=== PATIENT | male | born 1935 | race Caucasian/White ===

== ENCOUNTER 2016-06-18 00:01 | Outpatient (RCR) ==
[2016-05-23 11:10] VITALS: BMI 32.0
[2016-07-18 10:53] VITALS: BP 148/62
== END 2016-07-18 ==
LOC: CAR.REHAB 00:01
PROVIDERS: ATTEND Emergency Medicine
DX: I25.10 Atherosclerotic heart disease of native coronary artery without angina pectoris (principal); Z95.5 Presence of coronary angioplasty implant and graft
CPT/HCPCS: 93797

== ENCOUNTER 2016-07-19 07:33 | Outpatient (RCR) ==
[2016-05-23 11:10] VITALS: BMI 32.0
[2016-08-15 14:21] VITALS: BP 152/60
== END 2016-08-15 ==
LOC: CAR.REHAB 07:33
PROVIDERS: ATTEND Internal Medicine
DX: I25.10 Atherosclerotic heart disease of native coronary artery without angina pectoris (principal); Z95.5 Presence of coronary angioplasty implant and graft
CPT/HCPCS: 93797

== ENCOUNTER 2016-08-16 09:28 | Outpatient (RCR) ==
[2016-05-23 11:10] VITALS: BMI 32.0
[2016-09-14 10:55] VITALS: BP 144/54
== END 2016-09-15 ==
LOC: CAR.REHAB 09:28
PROVIDERS: ATTEND Internal Medicine
DX: I25.10 Atherosclerotic heart disease of native coronary artery without angina pectoris (principal); Z95.5 Presence of coronary angioplasty implant and graft
CPT/HCPCS: 93797

== ENCOUNTER 2016-09-16 07:00 | Outpatient (RCR) ==
[2016-05-23 11:10] VITALS: BMI 32.0
[2016-10-12 10:47] VITALS: BP 134/64
== END 2016-10-15 ==
LOC: CAR.REHAB 07:00
PROVIDERS: ATTEND Internal Medicine
DX: I25.10 Atherosclerotic heart disease of native coronary artery without angina pectoris (principal); Z95.5 Presence of coronary angioplasty implant and graft
CPT/HCPCS: 93797

== ENCOUNTER 2017-07-24 21:38 | Emergency (ER) | payer OTHER ==
[2017-07-24 21:54] VITALS: BP 186/88; TEMP 97.6; BMI 31.1
--- NOTE | 2017-07-24 22:37 | ED.PDOC ---
General ED Provider: Dr. LYLE DONOVAN Chief Complaint: Fall Stated Complaint: slipped on the porch and fell, injured back of the head and neck,. was not able to talk some time, and had some memory problem for some time, and now gradually getting better,. he is AAOx 3 . c/o pain back of the head and neck, left scapula. walking with cane. Time Seen by Physician: 22:35 Mode of Arrival: Walk-In Information Source: Patient, Family Primary Care Provider: ABY SLAUGHTER Nursing and Triage Documentation Reviewed and Agree: Yes Reviewed sepsis parameters & appropriate labs ordered?: No System Inflammatory Response Syndrome: Not Applicable Sepsis Protocol: For patient's 13 years and over: Temp is 96.8 and below OR 101 and greater Pulse >90 BPM Resp >20/minute Acutely Altered Mental Status Are patient's symptoms suggestive of a new infection, such as: -Pneumonia -Skin, Soft Tissue -Endocarditis -UTI -Bone, Joint Infection -Implantable Device -Acute Abdominal Infection -Wound Infection -Meningitis -Blood Stream Catheter Infection -Unknown Trauma/Injury Complaint Exam - Head Injury Complaint/Exam Location of Pain: Reports: Scalp Mechanism of Injury: Reports: Trauma Symptoms Are: Still present Initial Severity: Mild Current Severity: Mild Character: Reports: Dull Aggravating: Reports: None Alleviating: Reports: None Associated Signs and Symptoms: Reports: Confusion, Memory loss, Neck pain. Denies: Seizure, Epistaxis, Dental malocclusion, Nausea, Vomiting Loss of Consciousness: None SDH Risk Factors: Present: None Cervical Spine Injury Risk Factors: Present: None Related Surgical History: Reports: None Immobilization Removed Post Exam: No Head Injury Findings: Present: Normal findings Focal Weakness: Present: None Focal Sensory Loss: Present: None Gait: Normal Gag Reflex Present: Yes Finger to Nose: Normal Rhomberg Test Positive: No Babinski Sign: Negative Right, Negative Left Differential Diagnoses: Intracranial Bleed, Sprain, Trauma Review of Systems - Review Of Systems Constitutional: Reports: No symptoms Eyes: Reports: No symptoms Ears, Nose, Mouth, Throat: Reports: No symptoms Respiratory: Reports: No symptoms Cardiac: Reports: No symptoms GI: Reports: No symptoms : Reports: No symptoms Musculoskeletal: Reports: Joint pain Skin: Reports: No symptoms Neurological: Reports: Headache Endocrine: Reports: No symptoms Hematologic/Lymphatic: Reports: No symptoms All Other Systems: Reviewed and Negative Past Medical History - Past Medical History Previously Healthy: Yes Endocrine: Reports: DM 2, Dyslipidemia Cardiovascular: Reports: CAD, Hypertension, CHF Respiratory: Reports: None Hematological: Reports: None Gastrointestinal: Reports: None Genitourinary: Reports: None Neuro/Psych: Reports: Depression Musculoskeletal: Reports: Back Pain, Joint Pain Cancer: Reports: None - Surgical History General Surgical History: Reports: CABG - Family History Family History: Reports: None - Social History Smoking Status: Never smoker Hx Substance Use: No Alcohol Screening: None - Immunizations Tetanus Shot up to Date: Yes Physical Exam - Physical Exam Appearance: Well-appearing, No pain distress, Well-nourished Eyes: TJ, EOMI, Conjunctiva clear ENT: Ears normal, Nose normal, Oropharynx normal Respiratory: Airway patent, Breath sounds clear, Breath sounds equal, Respirations nonlabored Cardiovascular: RRR, Pulses normal, No rub, No murmur GI/: Soft, Nontender, No masses, Bowel sounds normal, No Organomegaly Musculoskeletal: Normal strength, ROM intact, No edema, No calf tenderness Skin: Warm, Dry, Normal color Neurological: Sensation intact, Motor intact, Reflexes intact, Cranial nerves intact, Alert, Oriented Psychiatric: Affect appropriate, Mood appropriate Interpretation - Radiology Interpretation Radiology Interpretation By: Radiologist Radiology Results: Positive Exam Interpreted: CT Scan Re-Evaluation - Re-Evaluation Time of Re-Evaluation: 23:05 (dizziness with walking) Status: Unchanged Critical Care Note - Critical Care Note Total Time (mins): 15 Course - Course Hematology/Chemistry: 07/24/17 22:35 07/24/17 22:35 Orders, Labs, Meds: Lab Review 07/24/17 07/24/17 22:35 22:35 WBC 17.95 H RBC 4.80 Hgb 14.2 Hct 40.9 L MCV 85.2 MCH 29.6 MCHC 34.7 RDW Coeff of Michele 13.0 Plt Count 215 Immature Gran % (Auto) 0.7 Neut % (Auto) 61.2 Lymph % (Auto) 28.2 [place] % (Auto) 8.8 Eos % (Auto) 0.8 Baso % (Auto) 0.3 Immature Gran # (Auto) 0.1 Neut # 11.0 H Lymph # 5.1 H [place] # 1.6 Eos # 0.2 Baso # 0.1 Sodium 138 Potassium 4.5 Chloride 101 Carbon Dioxide 29 Anion Gap 12.5 BUN 19 H Creatinine 1.25 H Estimated GFR (MDRD) 55.00 BUN/Creatinine Ratio 15.20 Glucose 371 H Calcium 9.7 Total Bilirubin 0.7 AST 20 ALT 26 Alkaline Phosphatase 96 Total Creatine Kinase 57 Troponin I 0.0220 Total Protein 7.6 Albumin 3.7 Globulin 3.9 Albumin/Globulin Ratio 0.95 Digoxin < 0.30 L Orders Category Date Time Status EKG-(ED ONLY) Stat CARDIO 07/24/17 22:59 Ordered IV [ED IV/MEDIPORT/POWERPORT] .ONCE EMERGENCY 07/24/17 23:38 Active CBC W/ AUTO DIFF Stat LAB 07/24/17 22:35 Completed COMPREHENSIVE METABOLIC PANEL Stat LAB 07/24/17 22:35 Completed CREATINE KINASE Stat LAB 07/24/17 22:35 Completed DIGOXIN Stat LAB 07/24/17 22:35 Completed TROPONIN I Stat LAB 07/24/17 22:35 Completed 0.9 % Sodium Chloride [Saline Flush] MEDS 07/24/17 23:38 Ordered 1 syr IVF PRN PRN CT CERVICAL SPINE W/O CONTRAST Stat RADS 07/24/17 21:[address] HEAD W/O CONTRAST Stat RADS 07/24/17 21:59 Completed SCAPULA, LEFT Stat RADS 07/24/17 21:59 Completed Medications Generic Name Dose Route Start Last Admin Trade Name Freq PRN Reason Stop Dose Admin Sodium Chloride 1 syr 07/24/17 23:38 Saline Flush IVF PRN PRN To flush IV Vital Signs: Temp Pulse Resp BP Pulse Ox 07/24/17 21:39 97.6 F 67 20 186/88 H 95 Departure - Departure Time of Disposition: 22:39 Disposition: PLACED OBSERVATION Discharge Problem: Subdural hematoma Head injury Qualifiers: Encounter type: initial encounter Qualified Code(s): S09.90XA - Unspecified injury of head, initial encounter Discharge Problem: (Ruled Out): Concussion Instructions: Concussion (ED), Subdural Hematoma (ED) Condition: Stable Pt referred to PMD for follow-up: No IPMP verified?: No Additional Instructions: Dr Umanzor, admit to ICU at [facility]. Allergies/Adverse Reactions: Allergies No Known Allergies Allergy (Verified 07/24/17 21:53) Home Medications: Ambulatory Orders Digoxin 125 mcg PO DAILY 08/20/13 Ferrous Sulfate 325 mg PO BID 08/20/13 Gabapentin 300 mg PO QAM 08/21/13 Gabapentin 600 mg PO BEDTIME 08/21/13 Metoprolol Tartrate [Lopressor] 25 mg PO BID 08/23/13 Omeprazole [Prilosec] 20 mg PO QDAC 01/13/14 Clopidogrel Bisulfate [Plavix] 75 mg PO EVERY OTHER DAY 07/24/17 Finasteride [Proscar] 5 mg PO DAILY 07/24/17 Insulin Detemir [Levemir] 70 unit SUBCUT BEDTIME 07/24/17 Lovastatin [Mevacor] 20 mg PO BEDTIME 07/24/17 Lovastatin [Mevacor] 40 mg PO DAILY 07/24/17 Multivitamin [Multi-Vitamin Daily] 1 each PO DAILY 07/24/17 Sitagliptin Phos/Metformin HCl [Janumet 50-1,000 mg Tablet] 1 each PO BID Tamsulosin HCl [Flomax] 0.4 mg PO DAILY 07/24/17 Disposition Discussed With: Patient, Family
--- NOTE | 2017-07-24 22:45 | CT ---
EXAM: CT head without contrast 07/24/2017. Sagittal and coronal reformatted images obtained HISTORY: Fall. Injury COMPARISON: 12/23/2007 FINDINGS: There is a midline falx subdural hematoma which measures up to 5 mm thickness. This extend s inferiorly along the left aspect of the tentorium. The midline is maintained. There is no hydroce phalus. Generalized atrophy. Chronic small vessel ischemic changes. No cerebellar tonsillar ectopi a. Evaluation of the calvarium shows no fracture. The mastoid air cells are normally pneumatized. IMPRESSION: 1. Acute subdural hematoma along the midline falx. This extends inferiorly along the left aspect of the tentorium. This measures up to 5 mm thickness. Critical FINDINGS: I personally discussed these findings with Kyle, emergency department, 018, 10:40 p.m.
--- NOTE | 2017-07-24 22:48 | DI ---
EXAM: Left scapula, three views, 07/24/2017 HISTORY: Fall and injury COMPARISON: None. FINDINGS / IMPRESSION: The visualized osseous structures appear intact. Anatomic alignment appears within normal limits. There is no evidence of fracture or dislocation. No acute osseous abnormality.
--- NOTE | 2017-07-24 22:50 | CT ---
EXAM: CT cervical spine without intravenous contrast 07/24/2017. Sagittal and coronal reformatted i mages obtained HISTORY: Fall. Injury COMPARISON: 12/02/2015 FINDINGS: Anatomic line appears stable. Vertebral bodies appear intact without evidence of fracture . Multilevel severe chronic degenerative disc disease The facet joints align normally. Multilevel chronic hypertrophic facet arthropathy. The prevertebral soft tissues appear within normal limits. IMPRESSION: No acute post traumatic osseous abnormality of the cervical spine.
== END 2017-07-25 00:25 | disposition short-term general hospital (02) ==
LOC: ED 21:38
DX: S06.5X0A Traumatic subdural hemorrhage without loss of consciousness, initial encounter (principal); M54.2 Cervicalgia; R41.3 Other amnesia; R41.0 Disorientation, unspecified; W01.0XXA Fall on same level from slipping, tripping and stumbling without subsequent striking against object, initial encounter; E11.9 Type 2 diabetes mellitus without complications; E78.5 Hyperlipidemia, unspecified; I10 Essential (primary) hypertension; I25.810 Atherosclerosis of coronary artery bypass graft(s) without angina pectoris; I50.9 Heart failure, unspecified; Z79.899 Other long term (current) drug therapy
CPT/HCPCS: 36415; 80053; 80162; 82550; 84484; 85025; 93005; 93010; 99285

== ENCOUNTER 2017-08-14 13:00 | Outpatient (RCR) | payer OTHER ==
[2012-12-13 13:03] VITALS: TEMP 98.6
--- NOTE | 2017-08-02 16:10 | RS.OTEVAL ---
Subjective Date of Note: 08/02/17 Visit #: 1 Date of Evaluation: 08/02/17 Payer Source: MEDICARE Date of Onset/Injury/Change in Status: 07/24/17 Surgery Performed?: No Treatment Diagnosis: subdural hematoma: Ataxia Prior Level of Function.....Patient was independent with: ADL's, Self Care, Work /Vocation, Caregiving, Ambulation/Mobility, Community Integration/Access History of Condition/Mechanism of Injury: Pt's reports he fell out the back door and hit his head and went unconscious for 5 minutes. He would moan and groan and his eyes would roll in the back of his head. Pt came to hospital by bringing him in the car. Level of Function: Pt was walking with a cane prior to fall. Pt was having occasional falls. Current Complaints/Gains: Difficulty walking with a walker, headaches, dizziness , Breathing pattern fluctuates, difficulty breathing. Medical History Medical History Comments:: Diplopia in peripheral vision, dizziness, 2 cardiac stents, open heart surgery, subdural hematoma Surgical History: CABG Surgical History Comments:: cardiac stents, open heart surgery, skin cancer Smoking Status: Never smoker Patient's Goals: To get to walking better and not get dizzy and no headaches. Pain Assessment - Pain Description Pain Location: top of head, neck Pain Description: bad, needs a norco 5 Current Pain Intensity: 0 Functional Outcome Measures UE Functional Index: 41 - G Codes & Severity Modifier G Codes: Current is CK- 41%. Goal is CH -0% Source of G Code score: Carrying, Moving, and handling objects Observation - Observation Posture: Forward Head, Rounded Shoulders Handedness: Right Shoulder ROM: Bilaterally WFL's - Left Shoulder Strength Left Shoulder Flexion: 4+ Good + Left Shoulder Extension: 4 Good Left Shoulder Abduction: 4 Good Left Shoulder External Rotation: 4 Good Left Shoulder Internal Rotation: 4 Good - Right Shoulder Strength Right Shoulder Flexion: 4 Good Right Shoulder Extension: 4 Good Right Shoulder Abduction: 4 Good Right Shoulder Adduction: 4 Good Right Shoulder External Rotation: 4 Good Right Shoulder Internal Rotation: 4 Good - Special Tests Shoulder Drop Arm Test: Negative Left, Negative Right Shoulder Vitale-Teofilo Impingement Test: Negative Left, Negative Right Elbow ROM: Bilaterally WFL's Elbow Muscle Strength: Bilaterally WFL's Wrist ROM: Bilaterally WFL's Wrist Muscle Strength: Bilaterally WFL's - [employer] Scout Strength Left [employer] Scout Strength: 43 Right [employer] Scout Strength: 52 [employer] Scout Strength Left Hand [employer] Scout Strength: 43 Right Hand [employer] Scout Strength: 52 Dynamometer Testing Position: 2nd Position Palpation Palpation Findings: Tenderness, Trigger Point Comments:: Pt has tenderness of the cervical region and posterior head. Pt has tender points to cervical region. Pt reports pain on top of his head. Sensation Right Upper Extremity: Intact/Normal Left Upper Extremity: Intact/Normal Modalities - Treatment Modality: Electrical Stim Unattended Parameters/Method Applied: High volt to trapezius muscles to improve cervical movement and decrease tenderness. Treatment Area: cervical region Patient Position: Sitting - Hot Pack/Cryotherapy Treatment: Hot Pack Interventions - Exercise/Activities Exercise/Activities/Manual Therapy: Manual therapy to the splenius capitus to decrease tenderness of the head and cervical region. - Charges Timed Code Treatment Minutes: MTx1 Total Treatment Time: 60 Procedures billed for this date of service:: CHIP Griffin EVALUATION COMPLEXITY LEVEL: HISTORY: Medium, EXAM OF BODY SYSTEMS: Medium, CLINICAL DECISION MAKING: Medium Assessment Assessment: Pt has dizziness, cervical pain, headaches, weakness, breathing difficulty, falls Patient Education: Education of diagnosis, Home Exercise Program Rehab Potential: Good Problems/Comments: dizziness when sitting up, headaches, tenderpoints to head, weakness, breathing pattern fluctuates. Diplopia in peripheral vision. Pt would benefit from PNF D1 and D2 Patterns to improve coordination and proprioception. Short Term Goals Goal #1: Pt cervical pain to decrease to 2-3/10. Goal to be met by: 08/16/17 Goal #2: Pt to complete PNF exercises in sitting. Goal to be met by: 08/16/17 Goal #3: Pt to tolerate standing activity for 15 minutes. Goal to be met by: 08/16/17 Goal #4: Pt to complete fine motor activities for 15 minutes. Goal to be met by: 08/16/17 Jail Goals Goal #1: Pt cervical pain to decrease to 0/10. Goal to be met by: 09/06/17 Goal #2: Pt to complete PNF exercises in sitting. Goal to be met by: 09/06/17 Goal #3: Pt to tolerate standing activity for 20 minutes. Goal to be met by: 09/06/17 Goal #4: Pt to complete fine motor activities for 20 minutes. Goal to be met by: 09/06/17 Plan - Treatment to be provided Procedures: Therapeutic Exercises, Therapeutic Activity, Neuromuscular Rehab, Manual Therapy, Patient Education Modalities: Electrical Stimulation - Treatment Plan Frequency: 2 X week Duration: 4 weeks ORDER # VISITS AND/OR THROUGH DATE: 09/06/17 - Treatment Code (1) Cervical pain Code(s): M54.2 - CERVICALGIA Comments: M54.2 Cervical pain (2) Muscle weakness (generalized) Code(s): M62.81 - MUSCLE WEAKNESS (GENERALIZED) Comments: M62.81 Muscle Weakness (3) Coordination impairment Code(s): R27.8 - OTHER LACK OF COORDINATION Comments: R27.8 Coordination impaired
--- NOTE | 2017-08-03 14:51 | RS.OPPTEV2 ---
Date of Note: 08/02/17 Visit #: 1 Date of Evaluation: 08/02/17 Payer Source: MEDICARE Date of Onset/Injury/Change in Status: 07/24/17 Surgery Performed?: No Treatment Diagnosis: subdural hematoma, ataxia History of Condition/Mechanism of Injury:: Fall sustaining subdural hematoma Prior Level of Function.....Patient was independent with: ADL's, Self Care, Ambulation/Mobility, Community Integration/Access Level of Function: pt amb with cane prior to fall. Functional Limitations: Standing, Bending, Squatting, Ambulation, Community Access/Integration Current Subjective/complaints:: pt states he fell on the ice 07/24/17 striking head sustaining subdural hematoma. Treatment Side (optional): N/A *Precautions: fall precautions Medical History Medical History: Hypertension, Diabetes, Cancer (melanoma) Surgical History: Cholecystectomy, CABG Surgical History Comments:: cardiac stents, open heart surgery, skin cancer Smoking Status: Never smoker Hx Home Medications: janumet, omeprazole, multivitamin, gabapentin, hyzaar, lopressor, plavix, lanoxin, flomax, mevacor, proscar, ferrous sulfate, norco, levemir Patient's Goals: get stronger walk with just cane again. Pain Assessment - Pain Description Pain Location: headache Pain Description: Aching Current Pain Intensity: 0 at rest Worst Pain Intensity: 3/10 Other Comments regarding Pain:: no pain currently due to having taken pain meds. Functional Outcome Measure Tinetti: 16 (43%) - G Codes & Severity Modifier G Codes & Modifier: mobility current CK. mobility goal CI Source of G Code score: tinetti score Observation - Observation Posture: Forward Head, Rounded Shoulders Handedness: Right Gait - Gait Pattern General Gait Pattern Observation: Ataxic Gait, Crouched Gait, Decrease Stride Lngth (R), Decrease Stride Lngth (L) Gait Comments: pt amb with slight flexed posture, decreased step length, and occasional increased lat sway, pt also with slight ataxic gait. General Range of Motion: BUE WFL's. BLE WFL's Muscle Strength: BUE 4/5. BLE hip flex 4/5, knee flex/ext 4/5, ankle Df/PF 4+/5 Palpation Palpation Findings: None/Normal Sensation - Sensation Right Upper Extremity: Intact/Normal Left Upper Extremity: Intact/Normal Right Lower Extremity: Intact/Normal Left Lower Extremity: Intact/Normal Balance - Sitting Balance Static Sitting Balance: Normal Dynamic Sitting Balance: Good - Standing Balance Static Standing Balance: Fair Dynamic Standing Balance: Poor - Comments Balance Assessment Comments: Tinetti score 18/28 which is consistent with high risk of falls. TUG 30 secs with rwx. 7 sit to/from lead principal technical architect 30 secs Interventions - Exercise/Activities/Manual Therapy Exercises/Activities: pt performed AP, LAQ, seated hip flex, x 10 reps Manual Therapy: n/a HOME EXERCISE PROGRAM: pt given written HEP including AP, LAQ, seated hip flex, standing heel raises, hip abd, hip flex - Charges Timed Code Treatment Minutes: 50 Total Treatment Time: 60 Procedures billed for this date of service:: eval med EVALUATION COMPLEXITY LEVEL EVALUATION COMPLEXITY LEVEL: HISTORY: Medium (Subdural hematoma, DM, HTN), EXAM OF BODY SYSTEMS: Medium (mus, neuro, ataxia), CLINICAL PRESENTATION: Medium ( evolving), CLINICAL DECISION MAKING: Medium Assessment Assessment: pt presents with ataxic gait, decreased strength, balance. pt requires skilled PT for therex for strengthening, balance activities, as well as gait training to improve functional mobility. Patient Education: Home Exercise Program, Education of Plan of Care Rehab Potential: Good Short Term Goals Goal #1: pt amb with rwx in dept with no LOB and improved sequencing Goal to be met by: 08/16/17 Goal #2: Improved dyn stand balance with TUG <29 Goal to be met by: 08/16/17 [facility] Goals Goal #1: pt amb community distances with cane with no LOB Goal to be met by: 08/30/17 Goal #2: Improved dyn stand balance as noted by Tinetti score 22/28 Goal to be met by: 08/30/17 Goal #3: Improved strength BLE 4 to 4+/5 and independent with HEP Goal to be met by: 08/30/17 Goal #4: pt report no falls at home Goal to be met by: 08/30/17 Plan - Treatment to be Provided Procedures: Therapeutic Exercises, Therapeutic Activity, Gait Training, Neuromuscular Rehab, Patient Education Modalities: No Modalities - Treatment Plan Frequency: 2 X week Duration: 4 weeks ORDER # VISITS AND/OR THROUGH DATE: 08/30/17 - Treatment Code (1) Subdural hematoma Code(s): I62.00 - NONTRAUMATIC SUBDURAL HEMORRHAGE, UNSPECIFIED (2) Ataxia Code(s): R27.0 - ATAXIA, UNSPECIFIED (3) Muscle weakness Code(s): M62.81 - MUSCLE WEAKNESS (GENERALIZED)
--- NOTE | 2017-08-07 14:21 | RS.OTDNOTE ---
Subjective Date of Note: 08/07/17 Visit #: 2 Date of Evaluation: 08/02/17 Payer Source: MEDICARE Date of Onset/Injury/Change in Status: 07/24/17 Surgery Performed?: No Treatment Diagnosis: subdural hematoma: Ataxia Treatment Side (optional): N/A *Precautions: fall precautions Prior Level of Function.....Patient was independent with: ADL's, Self Care, Work /Vocation, Caregiving, Ambulation/Mobility, Community Integration/Access History of Condition/Mechanism of Injury: Pt's reports he fell out the back door and hit his head and went unconscious for 5 minutes. He would moan and groan and his eyes would roll in the back of his head. Pt came to hospital by bringing him in the car. Level of Function: Pt was walking with a cane prior to fall. Pt was having occasional falls. Current Complaints/Gains: Pt states no c/o pain at rest, up to 3/10 with ex/ ROM. Pt also states c/o dizziness during tx. Pain Assessment - Pain Description Pain Description: Tightness, Dull, Throbbing, Aching Pain Location: top of head, neck Pain Description: bad, needs a norco 5 Current Pain Intensity: 0 Worst Pain Intensity: 3 Modalities - Treatment Modality: Electrical Stim Unattended Parameters/Method Applied: Hi-volt to pt tolerance Treatment Area: cross-current Hi-volt to traps/rhomboids Patient Position: Sitting - Hot Pack/Cryotherapy Treatment: Cryotherapy (x20 mins) Comments:: CP x30 mins during Estim Interventions - Exercise/Activities Exercise/Activities/Manual Therapy: Manual therapy to the splenius capitus to decrease tenderness of the head and cervical region. Cervical PROM/gentle prolonged stretching-AROM side to side, up/down, ear to shoulder along with shoulder shrugs and retraction ex 03/18. Pt and ed on prolonged cervical stretches/HEP. PNF B UE thera ex performed with 2# hand weight. Static/dyn balance trng performed in standing along with posture thera ex/education. HOME EXERCISE PROGRAM: Cervical ROM - Charges Timed Code Treatment Minutes: 45 Total Treatment Time: 65 Procedures billed for this date of service:: CP ESTIM NMR MT Assessment Patient Education: Education of diagnosis, Body/Joint mechanics, Home Exercise Program, Home Safety, Activity Modification, Education of Plan of Care Patient demonstrates compliance with HEP?: Yes Short Term Goals Goal #1: Pt cervical pain to decrease to 2-3/10. Goal to be met by: 08/16/17 Progress towards goal: Partially Met Goal #2: Pt to complete PNF exercises in sitting. Goal to be met by: 08/16/17 Progress towards goal: Partially Met Goal #3: Pt to tolerate standing activity for 15 minutes. Goal to be met by: 08/16/17 Progress towards goal: Progressing Goal #4: Pt to complete fine motor activities for 15 minutes. Goal to be met by: 08/16/17 Progress towards goal: Progressing Correction Goals Goal #1: Pt cervical pain to decrease to 0/10. Goal to be met by: 09/06/17 Progress towards goal: Progressing Goal #2: Pt to complete PNF exercises in sitting. Goal to be met by: 09/06/17 Progress towards goal: Progressing Goal #3: Pt to tolerate standing activity for 20 minutes. Goal to be met by: 09/06/17 Progress towards goal: Progressing Goal #4: Pt to complete fine motor activities for 20 minutes. Goal to be met by: 09/06/17 Progress towards goal: Progressing Plan PLAN OF CARE EXPIRES ON:: 09/06/17 ORDER # VISITS AND/OR THROUGH DATE: 09/06/17 PLAN: Cont per POC Frequency: 2 X week Duration: 4 weeks
--- NOTE | 2017-08-07 16:42 | RS.OPPTDN ---
Subjective Date of Note: 08/07/17 Visit #: 2 Date of Evaluation: 08/02/17 Payer Source: MEDICARE Treatment Diagnosis: subdural hematoma, ataxia Current Subjective/complaints:: Patient says he is tired. He attended a 2 hour diabetes seminar prior to having OT and PT. He reports he gets a little dizzy when he sits up from laying down. States he does get COLÓN's, but his pain meds do help. Reports using cane at home, but uses RW in community. *Precautions: fall precautions Interventions - Exercise/Activities/Manual Therapy Exercises/Activities: Patient begins supine exercises of ball squeezes, isometric hip abd/flexion, red tband for trunk rotation with ball, alternate LE lift with 1 1/2# ankle weight, SAQ 1 1/2#, DF with red tband all 2x10 reps. Sittin# cane exercises for shoulder flexion and retraction using red tband maintaining good sitting bal. Patient uses 3# weighted ball for lateral trunk lean and crossing midline, reaching up and holding, and forward throw motion x 10 sec holds. Standing at railing: side stepping 3x6, heel raises, and marching holding onto rail one hand. Total minutes of Exercise: 38 Manual Therapy: n/a HOME EXERCISE PROGRAM: pt given written HEP including AP, LAQ, seated hip flex, standing heel raises, hip abd, hip flex - Charges Timed Code Treatment Minutes: 38 Total Treatment Time: 38 Procedures billed for this date of service:: ex2, neuro1 Assessment: Patient able to maintain bal with dynamic activities and able to perform general strengthening for bilateral LEs. He should improve with further progression of exercises leading to amb with cane for community distances. Patient Education: Education of diagnosis, Home Exercise Program Patient demonstrates compliance with HEP?: Yes Short Term Goals Goal #1: pt amb with rwx in dept with no LOB and improved sequencing Goal to be met by: 08/16/17 Progress towards Goal:: Progressing Goal #2: Improved dyn stand balance with TUG <29 Goal to be met by: 08/16/17 [facility] Goals Goal #1: pt amb community distances with cane with no LOB Goal to be met by: 08/30/17 Goal #2: Improved dyn stand balance as noted by Tinetti score 22/28 Goal to be met by: 08/30/17 Goal #3: Improved strength BLE 4 to 4+/5 and independent with HEP Goal to be met by: 08/30/17 Goal #4: pt report no falls at home Goal to be met by: 08/30/17 Plan PLAN OF CARE EXPIRES ON:: 08/30/17 ORDER # VISITS AND/OR THROUGH DATE: 08/30/17 PLAN: Patient to continue BIW for therex/gt training
--- NOTE | 2017-08-09 15:04 | RS.OPPTDN ---
Subjective Date of Note: 08/09/17 Visit #: 3 Date of Evaluation: 08/02/17 Payer Source: MEDICARE Treatment Diagnosis: subdural hematoma, ataxia Current Subjective/complaints:: Patient reports he is tired today, as he has been to [place] for another appointment. Reports he seems to be getting stronger and walking is improving. *Precautions: fall precautions Interventions - Exercise/Activities/Manual Therapy Exercises/Activities: Gentle stretching of hamstrings and assisted hip/knee flexion. Increased to 2# for alternate LE lift. SAQ increased to 2#. Red tband for resisted ankle df and ham curls. Red theraband for hip abd and hip add in hook-lying. All 2x10 reps. Isometric hip flexion and isometric trunk rotation in neutral, 4s/5reps each. Frequent rest breaks due to patient being tired today. Witheld standing balance exercise. Total minutes of Exercise: 40mins Manual Therapy: n/a HOME EXERCISE PROGRAM: pt given written HEP including AP, LAQ, seated hip flex, standing heel raises, hip abd, hip flex - Charges Timed Code Treatment Minutes: 40mins Total Treatment Time: 40mins Procedures billed for this date of service:: EX3 Assessment: Focus on mat exercises today and standing balance exercises witheld due to patient fatigue. Patient Education: Home Exercise Program Patient demonstrates compliance with HEP?: Yes Short Term Goals Goal #1: pt amb with rwx in dept with no LOB and improved sequencing Goal to be met by: 08/16/17 Progress towards Goal:: Progressing Goal #2: Improved dyn stand balance with TUG <29 Goal to be met by: 08/16/17 [facility] Goals Goal #1: pt amb community distances with cane with no LOB Goal to be met by: 08/30/17 Goal #2: Improved dyn stand balance as noted by Tinetti score 22/28 Goal to be met by: 08/30/17 Goal #3: Improved strength BLE 4 to 4+/5 and independent with HEP Goal to be met by: 08/30/17 Goal #4: pt report no falls at home Goal to be met by: 08/30/17 Plan PLAN OF CARE EXPIRES ON:: 08/30/17 ORDER # VISITS AND/OR THROUGH DATE: 08/30/17 PLAN: Progress with strengthening exercise and resume standing balance activity.
--- NOTE | 2017-08-10 08:46 | RS.OTDNOTE ---
Subjective Date of Note: 08/09/17 Visit #: 3 Date of Evaluation: 08/02/17 Payer Source: [employer] Date of Onset/Injury/Change in Status: 07/24/17 Surgery Performed?: No Treatment Diagnosis: subdural hematoma: Ataxia Treatment Side (optional): N/A *Precautions: fall precautions Prior Level of Function.....Patient was independent with: ADL's, Self Care, Work /Vocation, Caregiving, Ambulation/Mobility, Community Integration/Access History of Condition/Mechanism of Injury: Pt's reports he fell out the back door and hit his head and went unconscious for 5 minutes. He would moan and groan and his eyes would roll in the back of his head. Pt came to hospital by bringing him in the car. Level of Function: Pt was walking with a cane prior to fall. Pt was having occasional falls. Current Complaints/Gains: Pt states turning to (R) is "fine" States turning to (L) is difficult but is getting better. States pain at 4-5/10. Pain Assessment - Pain Description Pain Description: Tightness, Dull, Throbbing, Aching Pain Location: top of head, neck Current Pain Intensity: 2 Worst Pain Intensity: 5 Modalities - Treatment Modality: Electrical Stim Unattended Parameters/Method Applied: Hi-volt to pt tolerance. cross-current x 4 pads Treatment Area: traps Patient Position: Sitting - Hot Pack/Cryotherapy Treatment: Cryotherapy (x20 mins) Interventions - Exercise/Activities Exercise/Activities/Manual Therapy: Manual therapy to the splenius capitus to decrease tenderness of the head and cervical region. Cervical PROM/gentle prolonged stretching-AROM side to side, up/down, ear to shoulder along with shoulder shrugs and retraction ex 03/18. Pt and ed on prolonged cervical stretches/HEP. PNF B UE thera ex performed with 2# hand weight. Static/dyn balance trng performed in standing along with posture thera ex/education. HOME EXERCISE PROGRAM: Cervical ROM - Charges Timed Code Treatment Minutes: 35 Total Treatment Time: 55 Procedures billed for this date of service:: CP ESTIM EX MT Assessment Patient Education: Education of diagnosis, Body/Joint mechanics, Home Exercise Program, Home Safety, Activity Modification, Education of Plan of Care Patient demonstrates compliance with HEP?: Yes Short Term Goals Goal #1: Pt cervical pain to decrease to 2-3/10. Goal to be met by: 08/16/17 Progress towards goal: Partially Met Goal #2: Pt to complete PNF exercises in sitting. Goal to be met by: 08/16/17 Progress towards goal: Partially Met Goal #3: Pt to tolerate standing activity for 15 minutes. Goal to be met by: 08/16/17 Progress towards goal: Progressing Goal #4: Pt to complete fine motor activities for 15 minutes. Goal to be met by: 08/16/17 Progress towards goal: Progressing Fermentologist Goals Goal #1: Pt cervical pain to decrease to 0/10. Goal to be met by: 09/06/17 Progress towards goal: Progressing Goal #2: Pt to complete PNF exercises in sitting. Goal to be met by: 09/06/17 Progress towards goal: Progressing Goal #3: Pt to tolerate standing activity for 20 minutes. Goal to be met by: 09/06/17 Progress towards goal: Progressing Goal #4: Pt to complete fine motor activities for 20 minutes. Goal to be met by: 09/06/17 Progress towards goal: Progressing Plan PLAN OF CARE EXPIRES ON:: 09/06/17 ORDER # VISITS AND/OR THROUGH DATE: 09/06/17 PLAN: Cont per POC Frequency: 2 X week Duration: 3 weeks
--- NOTE | 2017-08-14 15:33 | RS.OPPTDN ---
Subjective Date of Note: 08/14/17 Visit #: 4 Date of Evaluation: 08/02/17 Payer Source: [employer] Treatment Diagnosis: subdural hematoma, ataxia Current Subjective/complaints:: pt states that he had CT scan and the MD reports no more "blood showing up on my brain." *Precautions: fall precautions Interventions - Exercise/Activities/Manual Therapy Exercises/Activities: pt received stretching B hamstrings, hip/knee flex, pt performed SAQ, SLR with 2#, DF, ham curls with red tband, hip abd/add with red tband in hooklying all 2 sets of 10 reps. pt also performed standing heel raises , hip flex, short squats x 10 reps with seated rest periods between ex. Manual Therapy: n/a HOME EXERCISE PROGRAM: pt given written HEP including AP, LAQ, seated hip flex, standing heel raises, hip abd, hip flex - Charges Timed Code Treatment Minutes: 48 Total Treatment Time: 60 Procedures billed for this date of service:: ex 3 Assessment: pt improving with endurance as well as gait improved posture and step length. Advised pt to bring cane on next visit to practice amb with cane in PT dept. Patient Education: Activity Modification, Education of Plan of Care Patient demonstrates compliance with HEP?: Yes Short Term Goals Goal #1: pt amb with rwx in dept with no LOB and improved sequencing Goal to be met by: 08/16/17 Progress towards Goal:: Met Comments:: no LOB and improved sequence and posture Goal #2: Improved dyn stand balance with TUG <29 Goal to be met by: 08/16/17 Progress towards Goal:: Progressing [place] Goals Goal #1: pt amb community distances with cane with no LOB Goal to be met by: 08/30/17 Progress towards goal: Progressing Goal #2: Improved dyn stand balance as noted by Tinetti score 22/28 Goal to be met by: 08/30/17 Comments: will retest next visit Goal #3: Improved strength BLE 4 to 4+/5 and independent with HEP Goal to be met by: 08/30/17 Progress towards goal: Progressing Goal #4: pt report no falls at home Goal to be met by: 08/30/17 Progress towards goal: Progressing Comments: no falls reported at home Plan PLAN OF CARE EXPIRES ON:: 08/30/17 ORDER # VISITS AND/OR THROUGH DATE: 08/30/17 PLAN: continue to work on advanced balance activities as well as strengthening.
== END 2017-08-15 ==
PROVIDERS: ATTEND Internal Medicine
DX: I62.00 Nontraumatic subdural hemorrhage, unspecified (principal); R27.0 Ataxia, unspecified

== ENCOUNTER 2017-08-21 14:31 | Outpatient (CLI) ==
[2012-12-13 13:03] VITALS: TEMP 98.6
--- NOTE | 2017-08-21 14:28 | RS.OTDNOTE ---
Subjective Date of Note: 08/21/17 Visit #: 6 Date of Evaluation: 08/02/17 Payer Source: [employer] Date of Onset/Injury/Change in Status: 07/24/17 Surgery Performed?: No Treatment Diagnosis: subdural hematoma: Ataxia Treatment Side (optional): N/A *Precautions: fall precautions Prior Level of Function.....Patient was independent with: ADL's, Self Care, Work /Vocation, Caregiving, Ambulation/Mobility, Community Integration/Access History of Condition/Mechanism of Injury: Pt's reports he fell out the back door and hit his head and went unconscious for 5 minutes. He would moan and groan and his eyes would roll in the back of his head. Pt came to hospital by bringing him in the car. Level of Function: Pt was walking with a cane prior to fall. Pt was having occasional falls. Current Complaints/Gains: Pt states he is having a cat scan today. States no- min c/o dizziness with activity. Pain Assessment - Pain Description Pain Location: top of head, neck Interventions - Exercise/Activities Exercise/Activities/Manual Therapy: PNF B UE thera ex performed with 2# hand weight. Static/dyn balance trng performed in standing along with posture thera ex/education. Red t-band shoulder retraction ex. Act x 2- [facility], restorator x5 mins in stand, nut/bolt set(5:52.96), sit to stands, proprioception, hand/clerical and office support workers strenghtening and tandem balance activities. HOME EXERCISE PROGRAM: Cervical ROM - Charges Timed Code Treatment Minutes: 54 Total Treatment Time: 54 Procedures billed for this date of service:: EX NMR ACT2 Assessment Patient Education: Education of diagnosis, Body/Joint mechanics, Home Exercise Program, Home Safety, Activity Modification, Education of Plan of Care Patient demonstrates compliance with HEP?: Yes Short Term Goals Goal #1: Pt cervical pain to decrease to 2-3/10. Goal to be met by: 08/16/17 Progress towards goal: Partially Met Goal #2: Pt to complete PNF exercises in sitting. Goal to be met by: 08/16/17 Progress towards goal: Progressing Goal #3: Pt to complete standing act x 15 mins Goal to be met by: 08/16/17 Progress towards goal: Partially Met Comments: met with rests Goal #4: [facility] act x 15 mins Progress towards goal: Met Assisted Goals Goal #1: Pt cervical pain to decrease to 0/10. Goal to be met by: 09/06/17 Progress towards goal: Progressing Goal #2: Pt to complete PNF exercises in sitting. Goal to be met by: 09/06/17 Progress towards goal: Met Goal #3: Pt to tolerate standing activity for 20 minutes. Goal to be met by: 09/06/17 Progress towards goal: Progressing Goal #4: Pt to complete fine motor activities for 20 minutes. Goal to be met by: 09/06/17 Progress towards goal: Partially Met Plan PLAN OF CARE EXPIRES ON:: 09/06/17 ORDER # VISITS AND/OR THROUGH DATE: 09/06/17 PLAN: Cont per POC Frequency: 2 X week Duration: 2 weeks
--- NOTE | 2017-08-21 15:03 | DI ---
Exam: Six x-rays of the cervical spine. Comparison: CT cervical spine performed 07/24/2017. Reason for exam: Neck pain. FINDINGS: No obvious vertebral body height loss is seen. Imaging findings appear similar to the CT performed on 07/24/2017. There is moderate to severe multilevel degenerative disease with interverte bral body disc space height narrowing and osteophyte formation with facet hypertrophy. There is stra ightening of the cervical lordotic curve. The prevertebral soft tissues are within normal limits. T he dens appears intact on the open-mouth odontoid view. Impression: 1. No obvious fracture in the cervical spine. 2. Severe multilevel degenerative disease with intervertebral body disc space height narrowing and o steophyte formation, facet hypertrophy. Imaging findings appear similar to the CT examination perfor med on 07/24/2017. If clinical concern exists, MRI may be performed for further characterization.
--- NOTE | 2017-08-21 15:09 | CT ---
EXAM: CT of the head without contrast History: Subdural hematoma, follow-up Comparison: Head CT 07/24/2017 Technique: Multiplanar CT images through the head were obtained without the administration of IV con trast. Findings: The visualized paranasal sinuses and mastoid air cells are clear in general. No acute calv arial abnormalities. Intracranially there is stable atrophy. No dominant mass or midline shift. No hydrocephalous. No a cute intracranial hemorrhage or abnormal extraaxial fluid collections. Resolved subdural hemorrhage. No change in the periventricular and subcortical white matter hypodensities. Impression: 1. No acute intracranial process and resolved subdural hemorrhage. 2. Atrophy and chronic small vessel ischemic disease.
== END 2017-08-21 14:32 | disposition home or self-care (01) ==
LOC: RAD 14:31
PROVIDERS: ATTEND Nurse Practitioner Family
DX: I62.00 Nontraumatic subdural hemorrhage, unspecified (principal); M54.2 Cervicalgia; W19.XXXA Unspecified fall, initial encounter

== ENCOUNTER 2017-08-23 13:00 | Outpatient (RCR) ==
[2012-12-13 13:03] VITALS: TEMP 98.6
--- NOTE | 2017-08-16 15:30 | RS.OTDNOTE ---
Subjective Date of Note: 08/16/17 Visit #: 5 Date of Evaluation: 08/02/17 Payer Source: [employer] Date of Onset/Injury/Change in Status: 07/24/17 Surgery Performed?: No Treatment Diagnosis: subdural hematoma: Ataxia Treatment Side (optional): N/A *Precautions: fall precautions Prior Level of Function.....Patient was independent with: ADL's, Self Care, Work /Vocation, Caregiving, Ambulation/Mobility, Community Integration/Access History of Condition/Mechanism of Injury: Pt's reports he fell out the back door and hit his head and went unconscious for 5 minutes. He would moan and groan and his eyes would roll in the back of his head. Pt came to hospital by bringing him in the car. Level of Function: Pt was walking with a cane prior to fall. Pt was having occasional falls. Current Complaints/Gains: Pt rates pain as decreased with improved ROM in cervical region. Pain Assessment - Pain Description Pain Description: Tightness, Dull Pain Location: top of head, neck Pain Description: bad, needs a norco 5 Current Pain Intensity: 1-2 Worst Pain Intensity: 1-2 Modalities - Treatment Modality: Electrical Stim Unattended Parameters/Method Applied: Hi-volt x 30 mins to pt tolerance Patient Position: Sitting - Hot Pack/Cryotherapy Treatment: Cryotherapy Interventions - Exercise/Activities Exercise/Activities/Manual Therapy: Manual therapy to the splenius capitus to decrease tenderness of the head and cervical region. Cervical PROM/gentle prolonged stretching-AROM side to side, up/down, ear to shoulder along with shoulder shrugs and retraction ex 03/18. Pt and cont ed on prolonged cervical stretches/HEP. PNF B UE thera ex performed with 2# hand weight. Static/dyn balance trng performed in standing along with posture thera ex/ education. HOME EXERCISE PROGRAM: Cervical ROM - Other Treatment/Services Treatment Details: Pt and spouse states pt is returning to MD next - Charges Timed Code Treatment Minutes: 45 Total Treatment Time: 65 Procedures billed for this date of service:: CP ESTIM EX NMR Assessment Patient Education: Education of diagnosis, Body/Joint mechanics, Home Exercise Program, Home Safety, Activity Modification, Education of Plan of Care Patient demonstrates compliance with HEP?: Yes Short Term Goals Goal #1: Pt cervical pain to decrease to 2-3/10. Goal to be met by: 08/16/17 Progress towards goal: Partially Met Goal #2: Pt to complete PNF exercises in sitting. Goal to be met by: 08/16/17 Progress towards goal: Partially Met Goal #3: Pt to tolerate standing activity for 15 minutes. Goal to be met by: 08/16/17 Progress towards goal: Partially Met Goal #4: Pt to complete fine motor activities for 15 minutes. Goal to be met by: 08/16/17 Progress towards goal: Partially Met [facility] Goals Goal #1: Pt cervical pain to decrease to 0/10. Goal to be met by: 09/06/17 Progress towards goal: Progressing Goal #2: Pt to complete PNF exercises in sitting. Goal to be met by: 09/06/17 Progress towards goal: Progressing Goal #3: Pt to tolerate standing activity for 20 minutes. Goal to be met by: 09/06/17 Progress towards goal: Progressing Goal #4: Pt to complete fine motor activities for 20 minutes. Goal to be met by: 09/06/17 Progress towards goal: Progressing Plan PLAN OF CARE EXPIRES ON:: 09/06/17 ORDER # VISITS AND/OR THROUGH DATE: 09/06/17 PLAN: Cont per POC Frequency: 2 X week Duration: 2 weeks
--- NOTE | 2017-08-16 16:21 | RS.OPPTDN ---
Subjective Date of Note: 08/16/17 Visit #: 5 Date of Evaluation: 08/02/17 Payer Source: [employer] Treatment Diagnosis: subdural hematoma, ataxia Current Subjective/complaints:: Patient reports he is doing better with walking. *Precautions: fall precautions Interventions - Exercise/Activities/Manual Therapy Exercises/Activities: Assisted stretching hamstrings, hip/knee flex. SAQ 3# and hook-lying LE lifts 3#, 2s/10reps each. SLR no weights, 2s/10reps. Red tband for ham curl and hip abd/add with red tband in hooklying all 2 sets of 10 reps. Isoemtric hip add and isometric hip flexion. Ind sitting, ankle pumps and LAQ. Patient needs frequent breaks due to be SOB. Total minutes of Exercise: 35mins Manual Therapy: n/a HOME EXERCISE PROGRAM: pt given written HEP including AP, LAQ, seated hip flex, standing heel raises, hip abd, hip flex - Charges Timed Code Treatment Minutes: 35mins Total Treatment Time: 35mins Procedures billed for this date of service:: EX2 Assessment: Patient reporting improvement in ambulation. Patient Education: Home Exercise Program, Activity Modification Patient demonstrates compliance with HEP?: Yes Short Term Goals Goal #1: pt amb with rwx in dept with no LOB and improved sequencing Goal to be met by: 08/16/17 Progress towards Goal:: Met Goal #2: Improved dyn stand balance with TUG <29 Goal to be met by: 08/16/17 Progress towards Goal:: Progressing [facility] Goals Goal #1: pt amb community distances with cane with no LOB Goal to be met by: 08/30/17 Progress towards goal: Progressing Goal #2: Improved dyn stand balance as noted by Tinetti score 22/28 Goal to be met by: 08/30/17 Goal #3: Improved strength BLE 4 to 4+/5 and independent with HEP Goal to be met by: 08/30/17 Progress towards goal: Progressing Goal #4: pt report no falls at home Goal to be met by: 08/30/17 Progress towards goal: Met Plan PLAN OF CARE EXPIRES ON:: 08/30/17 ORDER # VISITS AND/OR THROUGH DATE: 08/30/17 PLAN: Progress strengthening exercise and work on balance activity to return patient to [facility].
--- NOTE | 2017-08-21 15:30 | RS.OPPTDN ---
Subjective Date of Note: 08/21/17 Visit #: 6 Date of Evaluation: 08/02/17 Payer Source: [employer] Treatment Diagnosis: subdural hematoma, ataxia Current Subjective/complaints:: Patient reports improvement in strength, balance , and walking. States he is only using his walker when out in the community. *Precautions: fall precautions Interventions - Exercise/Activities/Manual Therapy Exercises/Activities: In sitting, 3# for FAQ. Assisted stretching hamstrings, hip/knee flex. SAQ 3# and hook-lying LE lifts no weight, 2s/10reps each. Red tband for ham curl and hip abd/add with red tband in hooklying all 2 sets of 10 reps. Isoemtric hip add and isometric hip flexion. In standing, marching and toe -ups. Patient able to hold balance with moderate nudges backward and laterally. Total minutes of Exercise: 30mins Manual Therapy: n/a HOME EXERCISE PROGRAM: pt given written HEP including AP, LAQ, seated hip flex, standing heel raises, hip abd, hip flex - Objective Findings Observations,measurements,etc.: Demos sit to stand without UE push-ups and holds balance with moderate nudges backward and laterally. - Charges Timed Code Treatment Minutes: 30mins Total Treatment Time: 30mins Procedures billed for this date of service:: EX2 Assessment: Patient has progressed and demos improvement in ambulation and balance activities. Patient Education: Home Exercise Program, Home Safety, Activity Modification Patient demonstrates compliance with HEP?: Yes Short Term Goals Goal #1: pt amb with rwx in dept with no LOB and improved sequencing Goal to be met by: 08/16/17 Progress towards Goal:: Met Goal #2: Improved dyn stand balance with TUG <29 Goal to be met by: 08/16/17 Progress towards Goal:: Partially Met Shelter Goals Goal #1: pt amb community distances with cane with no LOB Goal to be met by: 08/30/17 Progress towards goal: Progressing Goal #2: Improved dyn stand balance as noted by Tinetti score 22/28 Goal to be met by: 08/30/17 Goal #3: Improved strength BLE 4 to 4+/5 and independent with HEP Goal to be met by: 08/30/17 Progress towards goal: Progressing Goal #4: pt report no falls at home Goal to be met by: 08/30/17 Progress towards goal: Met Plan PLAN OF CARE EXPIRES ON:: 08/30/17 ORDER # VISITS AND/OR THROUGH DATE: 08/30/17 PLAN: Progress exercise and high level balance work to increase patients functional activity level.
--- NOTE | 2017-08-23 15:33 | RS.OTDNOTE ---
Subjective Date of Note: 08/21/17 Visit #: 6 Date of Evaluation: 08/02/17 Payer Source: [employer] Date of Onset/Injury/Change in Status: 07/24/17 Surgery Performed?: No Treatment Diagnosis: subdural hematoma: Ataxia Treatment Side (optional): N/A *Precautions: fall precautions Prior Level of Function.....Patient was independent with: ADL's, Self Care, Work /Vocation, Caregiving, Ambulation/Mobility, Community Integration/Access History of Condition/Mechanism of Injury: Pt's reports he fell out the back door and hit his head and went unconscious for 5 minutes. He would moan and groan and his eyes would roll in the back of his head. Pt came to hospital by bringing him in the car. Level of Function: Pt was walking with a cane prior to fall. Pt was having occasional falls. Current Complaints/Gains: Pt states he is feeling much stronger and is utilizing his SC vs RW more at home. States decreased c/o headache and dizziness. States he would like to cont therapy this wk and DC from therapy. Pain Assessment - Pain Description Pain Description: Tightness, Dull Pain Location: top of head, neck Current Pain Intensity: 2 Worst Pain Intensity: 4 Interventions - Exercise/Activities Exercise/Activities/Manual Therapy: Pt and cont ed on prolonged cervical stretches/HEP. PNF B UE thera ex performed with 2# hand weight. Static/dyn balance trng performed in standing along with posture thera ex/education. Restorator performed x 5 mins with 0 rests req, 0 SOA. FMC and sequencing act performed along with B hand strengthening. HOME EXERCISE PROGRAM: Cervical ROM - Objective Findings Objective Findings:: ROM B UE's WNL, pain decreased with increased cervical AROM noted. - Charges Timed Code Treatment Minutes: 55 Total Treatment Time: 55 Procedures billed for this date of service:: ACT2 NMR EX Assessment Patient Education: Education of diagnosis, Body/Joint mechanics, Home Exercise Program, Home Safety, Activity Modification, Education of Plan of Care Patient demonstrates compliance with HEP?: Yes Short Term Goals Goal #1: Pt cervical pain to decrease to 2-3/10. Goal to be met by: 08/16/17 Progress towards goal: Partially Met Goal #2: Pt to complete PNF exercises in sitting. Goal to be met by: 08/16/17 Progress towards goal: Met Goal #3: Pt to tolerate standing activity for 15 minutes. Goal to be met by: 08/16/17 Progress towards goal: Met Goal #4: Pt to complete fine motor activities for 15 minutes. Goal to be met by: 08/16/17 Progress towards goal: Met It Technical Specialist Goals Goal #1: Pt cervical pain to decrease to 0/10. Goal to be met by: 09/06/17 Progress towards goal: Progressing Goal #2: Pt to complete PNF exercises in sitting. Goal to be met by: 09/06/17 Progress towards goal: Met Goal #3: Pt to tolerate standing activity for 20 minutes. Goal to be met by: 09/06/17 Progress towards goal: Partially Met Goal #4: Pt to complete fine motor activities for 20 minutes. Goal to be met by: 09/06/17 Progress towards goal: Partially Met Plan PLAN OF CARE EXPIRES ON:: 09/06/17 ORDER # VISITS AND/OR THROUGH DATE: 09/06/17 PLAN: Pt to part in x1 tx session with DC following OT tx Frequency: 1 X week Duration: 1 week (Pt self DCing this wk.)
--- NOTE | 2017-08-23 16:46 | RS.OPPTDN ---
Subjective Date of Note: 08/23/17 Visit #: 7 Date of Evaluation: 08/02/17 Payer Source: [employer] Treatment Diagnosis: subdural hematoma, ataxia Current Subjective/complaints:: Patient reports he is doing well. States he feels he is ready for dicharge and will continue HEP, agrees. Patient states he is walking with cane today and has not had any falls at home. States he is doing more light ADL's at home. *Precautions: fall precautions Interventions - Exercise/Activities/Manual Therapy Exercises/Activities: In sitting, 3# for FAQ and hip flexion. Red theraband for scap retraction. In supine, assisted stretching hamstrings, hip/knee flex. SAQ 3# and hook-lying LE lifts no weight, 2s/10reps each. Red tband for ham curl , ankle df, and hip abd/add with red tband in hooklying all 2 sets of 10 reps. Isoemtric hip add and isometric hip flexion. In standing at hand rail, marching , toe-ups, and mini-squats. Patient able to hold balance with moderate nudges backward and laterally. Reviewed general safety with cane with ambulation. Total minutes of Exercise: EX 30mins, NEURO 10mins Manual Therapy: n/a HOME EXERCISE PROGRAM: pt given written HEP including AP, LAQ, seated hip flex, standing heel raises, hip abd, hip flex - Objective Findings Observations,measurements,etc.: Tinetti score improvement to 23/28 or 18% deficit (was 16/28 or 43% on Eval) - Charges Timed Code Treatment Minutes: 40mins Total Treatment Time: 42mins Procedures billed for this date of service:: EX2, NEURO Assessment: Patient has progressed well and benefitted from treatment. Patient has met all 6 treatment goals and is independent with HEP. Patient Education: Home Exercise Program, Home Safety, Activity Modification Patient demonstrates compliance with HEP?: Yes Short Term Goals Goal #1: pt amb with rwx in dept with no LOB and improved sequencing Goal to be met by: 08/16/17 Progress towards Goal:: Met Goal #2: Improved dyn stand balance with TUG <29 Goal to be met by: 08/16/17 Progress towards Goal:: Met Floodplain Manager Goals Goal #1: pt amb community distances with cane with no LOB Goal to be met by: 08/30/17 Progress towards goal: Met Goal #2: Improved dyn stand balance as noted by Tinetti score Goal to be met by: 08/30/17 Progress towards goal: Met Goal #3: Improved strength BLE 4 to 4+/5 and independent with HEP Goal to be met by: 08/30/17 Progress towards goal: Met Goal #4: pt report no falls at home Goal to be met by: 08/30/17 Progress towards goal: Met Plan PLAN OF CARE EXPIRES ON:: 08/30/17 ORDER # VISITS AND/OR THROUGH DATE: 08/30/17 PLAN: Discharge with HEP.
--- NOTE | 2017-08-27 14:02 | RS.OPPTDC ---
Date of Discharge: 08/23/17 Date of Evaluation: 08/02/17 Number of Visits: 7 Treatment Diagnosis: subdural hematoma, ataxia Current Level of Function: pt has increased strength BLE 4+ to 5/5 which is improved from 4 to 4+/5 upon eval. pt amb independently with cane which is improved from amb with rwx upon eval. pt has improved tinetti score from to / on dc. Current Complaints/Gains: pt feels he is doing well and ready for dc. pt states he has had no falls and is amb with cane independently and agrees. pt also reports he has been able to do more light ADL's. Functional Outcome Measure Tinetti: 23 (18%) - G Codes & Severity Modifier G Codes & Modifier: mobility goal CI. mobility DC CI Source of G Code score: tinetti balance assessment Observation - Observation Posture: Forward Head, Rounded Shoulders Handedness: Right Gait - Gait Pattern General Gait Pattern Observation: Crouched Gait, Decrease Stride Lngth (R), Decrease Stride Lngth (L) Gait Comments: pt amb independently into dept with cane. No LOB General Range of Motion: WFL's Muscle Strength: Strength has improved from 4 to 4+/5 to 4+ to 5/5 Interventions - Exercise/Activities/Manual Therapy Exercises/Activities: n/a Manual Therapy: n/a HOME EXERCISE PROGRAM: pt given written HEP including AP, LAQ, seated hip flex, standing heel raises, hip abd, hip flex - Charges Timed Code Treatment Minutes: n/a Total Treatment Time: n/a Procedures billed for this date of service:: n/a Assessment Assessment: pt has met all goals and has made significant functional improvements since eval. Decreased risk of falls as noted by tinetti score. Patient Education: Home Exercise Program, Activity Modification, Education of Plan of Care Rehab Potential: Good Short Term Goals Goal #1: pt amb with rwx in dept with no LOB and improved sequencing Goal to be met by: 08/16/17 Progress towards Goal:: Met Goal #2: Improved dyn stand balance with TUG <29 Goal to be met by: 08/16/17 Progress towards Goal:: Met Fdc Goals Goal #1: pt amb community distances with cane with no LOB Goal to be met by: 08/30/17 Progress towards goal: Met Goal #2: Improved dyn stand balance as noted by Tinetti score Goal to be met by: 08/30/17 Progress towards goal: Met Goal #3: Improved strength BLE 4 to 4+/5 and independent with HEP Goal to be met by: 08/30/17 Progress towards goal: Met Goal #4: pt report no falls at home Goal to be met by: 08/30/17 Progress towards goal: Met Plan Reason for Discharge:: All Goals Met
--- NOTE | 2017-08-28 14:39 | RS.OTDCSUM ---
Subjective Date of Discharge: 08/23/17 Date of Evaluation: 08/02/17 Number of Visits: 7 Treatment Diagnosis: Ataxia, muscle weakness, Current Level of Function: CI - Current % impaired is 13.75%. Current Complaints/Gains: Some c/o cervical pain. Pt is having a CAT scan this week. Pain Assessment - Pain Description Pain Description: Tightness, Dull Pain Location: top of head, neck Pain Description: bad, needs a norco 5 Functional Outcome Measures UE Functional Index: 69 - G Codes & Severity Modifier G Codes: CI at discharge with 13.75 % impaired. Pt was a CK at evaluation. Source of G Code score: Carrying, moving, and handling. Observation - Observation Posture: Normal Shoulder ROM: Bilaterally WFL's Shoulder Muscle Strength: Bilaterally WFL's Palpation Palpation Findings: Tenderness, Trigger Point Comments:: Pt has tenderness of the cervical region and posterior head. Pt has tender points to cervical region. Pt reports pain on top of his head. Sensation Right Upper Extremity: Intact/Normal Left Upper Extremity: Intact/Normal Interventions - Exercise/Activities Exercise/Activities/Manual Therapy: Pt and cont ed on prolonged cervical stretches/HEP. PNF B UE thera ex performed with 2# hand weight. Static/dyn balance trng performed in standing along with posture thera ex/education. Restorator performed x 5 mins with 0 rests req, 0 SOA. FMC and sequencing act performed along with B hand strengthening. HOME EXERCISE PROGRAM: Cervical ROM - Objective Findings Objective Findings:: ROM B UE's WNL, pain decreased with increased cervical AROM noted. - Charges Timed Code Treatment Minutes: . Total Treatment Time: . Procedures billed for this date of service:: . Assessment Assessment: Pt has made progress toward his OT goals. Pt is to have a CAT scan to determine Cervical pain. Problems/Comments: Uses a RW in the morning when dizzy. Has some c/o pain in cervical region Short Term Goals Goal #1: Pt cervical pain to decrease to 2-3/10. Goal to be met by: 08/16/17 Progress towards goal: Partially Met Goal #2: Pt to complete PNF exercises in sitting. Goal to be met by: 08/16/17 Progress towards goal: Met Goal #3: Pt to tolerate standing activity for 15 minutes. Goal to be met by: 08/16/17 Progress towards goal: Met Goal #4: Pt to complete fine motor activities for 15 minutes. Goal to be met by: 08/16/17 Progress towards goal: Met Trust Vault Clerk Goals Goal #1: Pt cervical pain to decrease to 0/10. Goal to be met by: 09/06/17 Progress towards goal: Progressing Goal #2: Pt to complete PNF exercises in sitting. Goal to be met by: 09/06/17 Progress towards goal: Met Goal #3: Pt to tolerate standing activity for 20 minutes. Goal to be met by: 09/06/17 Progress towards goal: Partially Met Goal #4: Pt to complete fine motor activities for 20 minutes. Goal to be met by: 09/06/17 Progress towards goal: Partially Met Plan Reason for Discharge:: Maximum Potential Met Comments: Pt to be evaluated with CAT Scan.
== END 2017-09-15 ==
PROVIDERS: ATTEND Internal Medicine
DX: I62.00 Nontraumatic subdural hemorrhage, unspecified (principal); R27.0 Ataxia, unspecified

== ENCOUNTER 2018-03-13 10:50 | Inpatient (IN) | payer OTHER ==
[2018-03-13 11:25] VITALS: BMI 30.7
[2018-03-13] MEDS: ROCEPHIN 1 GM in SODIUM CHLORIDE 50 ML IV SCH (12:48)
[2018-03-13] MEDS: CLEOCIN PO SCH ×2 (12:48→20:49)
--- NOTE | 2018-03-13 13:19 | DI ---
EXAM: Three views of the right foot. History: Right foot cellulitis. Findings: No acute fracture or dislocation. Focal soft tissue swelling of the dorsal forefoot. Sma ll to moderate plantar spur. No abnormal calcifications or radiopaque foreign bodies. Mild polyarti cular joint space narrowing. Impression: 1. No acute osseous abnormality. 2. Focal dorsal soft tissue swelling of the forefoot. 3. Plantar spur
--- NOTE | 2018-03-13 13:20 | DI ---
EXAM: Two views of the chest. History: Short of breath Comparison: Chest radiograph 01/12/2014 Findings: Heart is enlarged. No focal consolidation. No appreciable pleural fluid and no pneumotho rax. Atherosclerotic vascular calcifications. Sternotomy wires. No acute osseous abnormalities. Impression: Cardiomegaly without overt pulmonary edema
[2018-03-13] MEDS: GLUCOPHAGE PO SCH (20:50)
[2018-03-13] MEDS: JANUVIA PO SCH (20:50)
[2018-03-13] MEDS: FERROUS SULFATE PO SCH (20:50)
[2018-03-13] MEDS: NEURONTIN PO SCH (20:51)
[2018-03-13] MEDS: MEVACOR PO SCH (20:52)
[2018-03-13] MEDS: LEVEMIR SUBCUT SCH (20:56)
[2018-03-13] MEDS ORDERED: NON-FORMULARY MEDICATION (Ferrous Sulfate [Ferrous Sulfate] 325 MG) PO SCH (21:00)
[2018-03-13] MEDS ORDERED: [UNRECOGNIZED DRUG - OTHER] PO SCH (21:00)
[2018-03-13] MEDS ORDERED: SITAGLIPTIN PHOS PO SCH (21:00)
[2018-03-13] MEDS ORDERED: METFORMIN HCL PO SCH (21:00)
[2018-03-13] MEDS ORDERED: LOPRESSOR PO SCH (21:00)
[2018-03-14] MEDS: PRILOSEC PO SCH (05:45)
[2018-03-14] MEDS: CLEOCIN PO SCH ×3 (05:45→20:53)
[2018-03-14] MEDS: NEURONTIN PO SCH ×2 (08:46→20:53)
[2018-03-14] MEDS: ROCEPHIN 1 GM in SODIUM CHLORIDE 50 ML IV SCH (08:46)
[2018-03-14] MEDS: MULTIVITAMIN TABLET PO SCH (08:47)
[2018-03-14] MEDS: LOPRESSOR PO SCH ×2 (08:47→17:59)
[2018-03-14] MEDS: GLUCOPHAGE PO SCH ×2 (08:48→20:53)
[2018-03-14] MEDS: JANUVIA PO SCH ×2 (08:48→20:53)
[2018-03-14] MEDS: MEVACOR PO SCH ×2 (08:48→20:53)
[2018-03-14] MEDS: FERROUS SULFATE PO SCH ×2 (08:49→20:53)
[2018-03-14] MEDS: PROSCAR PO SCH (08:49)
[2018-03-14] MEDS: HYDROCHLOROTHIAZIDE PO SCH (08:49)
[2018-03-14] MEDS: FLOMAX PO SCH (08:49)
[2018-03-14] MEDS: COZAAR PO SCH (08:50)
[2018-03-14] MEDS: LANOXIN PO SCH (08:52)
[2018-03-14] MEDS ORDERED: PLAVIX PO SCH (09:00)
[2018-03-14] MEDS ORDERED: HYDROCHLOROTHIAZIDE PO SCH (09:00)
[2018-03-14] MEDS ORDERED: LOSARTAN PO SCH (09:00)
--- NOTE | 2018-03-14 11:13 | PCM.PROG ---
Attending Provider: ATTENDING PROVIDER: Dr. ABY SLAUGHTER DATE OF SERVICE: 03/14/18 SUBJECTIVE: This 82 year old WHITE/ M was hospitalized 03/13/18 with right foot cellulitis, round area measuring 1.5" x to 2" diameter seems to have shrunk with puckering of skin. No swelling like yesterday. Posterior tibial pulses are strong +2 bilaterally. No pain, no drainage. REVIEW OF SYSTEMS: CONSTITUTIONAL: No night sweats. No fatigue, malaise, lethargy. No fever or chills. HEENT: Eyes: No visual changes. No eye pain. No eye discharge. ENT: No runny nose. No epistaxis. No sinus pain. No odynophagia. No congestion. RESPIRATORY: No cough, no congestion. No hemoptysis. No shortness of breath. CARDIOVASCULAR: No angina symptoms. No CHF symptoms. No atypical chest pain for CAD. No palpitations. No orthopnea.. GASTROINTESTINAL: No abdominal pain. No nausea or vomiting. No diarrhea or constipation. No hematemesis. No hematochezia. GENITOURINARY: No urgency. No frequency. No dysuria. No hematuria. No obstructive symptoms. No discharge. No pain. No significant abnormal bleeding. MUSCULOSKELETAL: No musculoskeletal pain; no joint swelling. NEUROLOGICAL: Awake, alert, oriented to time, place and person. No headache. No neck pain. No syncope. No seizures. No dizziness. PSYCHIATRIC: Not anxious. No depression. No suicidal thoughts. No homicidal thoughts. SKIN: No rash. Right foot cellulitis, decreased area. ENDOCRINE: No unexplained weight loss. No weight gain. HEMATOLOGIC/LYMPHATIC: No anemia. No purpura. No petechiae. No prolonged or excessive bleeding. No palpable lymph nodes. PHYSICAL EXAMINATION: GENERAL: The patient is awake, alert and oriented, lying in bed in no distress. VITAL SIGNS: Temperature 98.0 F, Pulse 68, Respiratory Rate 16, BP 149/80, Pulse Ox 96% HEENT: Head normocephalic, atraumatic. Eyes: Extraocular muscles are intact. Pupils are equal, round and reactive to light and accommodation. Ears: No lesions. Nose appeared normal. Throat: No exudate or erythema. NECK: Supple. No JVD, no carotid bruit. No lymphadenopathy or thyromegaly. LUNGS: Clear to auscultation. Percussion note normal. Chest symmetrical. HEART: S1, S2, no S3. No murmurs. No cyanosis or clubbing. No ascites. Pulses: Dorsalis pedis and posterior tibial pulses +2 bilaterally. ABDOMEN: Soft. Non-tender. Bowel sounds active. No CVA tenderness. No mass felt. EXTREMITIES: 1.5" x 2" round area right foot decreased, puckering of skin. Full range of motion of all extremities, equal. NEUROLOGIC: No focal deficit. Cranial nerves II through XII are grossly intact. No headache, no double vision or headache. SKIN: Warm and dry. Intact. Turgor-normal. LYMPHATIC: No palpable lymph nodes/no lymphedema. MUSCULOSKELETAL: Normal joints with no swelling. Muscle tone is normal. LAB REVIEW: 03/14/18 04:30 03/14/18 04:30 03/14/18 04:30: Sodium 134.9 L, Potassium 4.24, Chloride 99.2, Carbon Dioxide 29.3, Anion Gap 10.64, BUN 19.3, Creatinine 0.92, Estimated GFR (MDRD) 79.00, BUN/Creatinine Ratio 20.97, Glucose 222.2 H, Calcium 9.03, Total Bilirubin 0.40 , AST 26.6, ALT 28.2, Alkaline Phosphatase 82.2, Total Protein 6.91, Albumin 3.83, Globulin 3.08, Albumin/Globulin Ratio 1.24 03/14/18 04:30: WBC 13.89 H, RBC 4.55 L, Hgb 13.4 L, Hct 39.0 L, MCV 85.7, MCH 29.5, MCHC 34.4, RDW Coeff of Michele 12.1, Plt Count 274, Neutrophils % (Manual) 46.0, Lymphocytes % (Manual) 41.0, Monocytes % (Manual) 6.0, Eosinophils % ( Manual) 3.0, Reactive Lymphocytes 4.0, Anisocytosis Not present 03/14/18 04:30: Digoxin 1.02 03/13/18 14:05: Urine Color Yellow, Urine Clarity Clear, Urine pH 5.5, Ur Specific [place] 1.020, Urine Protein 1+, Urine Glucose (UA) 2+, Urine Ketones Negative, Urine Blood Negative, Urine Nitrite Negative, Urine Bilirubin Negative , Urine Urobilinogen 0.2, Ur Leukocyte Esterase Negative, Ur Squamous Epith Cells 2-5, Urine Mucus Trace 03/13/18 12:00: Sodium 134.0 L, Potassium 4.43, Chloride 98.5, Carbon Dioxide 28.1, Anion Gap 11.83, BUN 17.4, Creatinine 0.94, Estimated GFR (MDRD) 77.00, BUN/Creatinine Ratio 18.51, Glucose 261.9 H, Calcium 9.21, Total Bilirubin 0.54 , AST 26.0, ALT 32.4, Alkaline Phosphatase 90.7, Total Protein 7.62, Albumin 4.15, Globulin 3.47, Albumin/Globulin Ratio 1.19, TSH 0.539 03/13/18 12:00: WBC 14.72 H, RBC 4.61 L, Hgb 13.7 L, Hct 39.8 L, MCV 86.3, MCH 29.7, MCHC 34.4, RDW Coeff of Michele 12.3, Plt Count 269, Immature Gran % (Auto) 0.5, Neut % (Auto) 43.2, Lymph % (Auto) 45.2, [place] % (Auto) 9.2, Eos % (Auto) 1.6, Baso % (Auto) 0.3, Immature Gran # (Auto) 0.1, Neut # (Auto) 6.4, Lymph # ( Auto) 6.7 H, [place] # (Auto) 1.4, Eos # (Auto) 0.2, Baso # (Auto) 0.0 ASSESSMENT: 1. Cellulitis improving. 2. Cardiovascular status is stable. PLAN: 1. Increase Metoprolol 50 mg b.i.d. Plan and coordination of the patient's care discussed in the presence of Backer Up and nurse. CONDITION: Stable SCRIBED BY: EMILE TIDWELL Wig Maker scribed while in presence of service performed by Dr. ABY SLAUGHTER on 03/14/18 (08)
[2018-03-14] MEDS ORDERED: VASOTEC IV IVP PRN (17:12)
[2018-03-14] MEDS: LEVEMIR SUBCUT SCH (20:51)
[2018-03-15] MEDS: PRILOSEC PO SCH (05:46)
[2018-03-15] MEDS: CLEOCIN PO SCH ×2 (05:46→12:43)
[2018-03-15] MEDS: ROCEPHIN 1 GM in SODIUM CHLORIDE 50 ML IV SCH (08:09)
[2018-03-15] MEDS: MULTIVITAMIN TABLET PO SCH (08:10)
[2018-03-15] MEDS: LOPRESSOR PO SCH (08:10)
[2018-03-15] MEDS: COZAAR PO SCH (08:10)
[2018-03-15] MEDS: FLOMAX PO SCH (08:10)
[2018-03-15] MEDS: MEVACOR PO SCH (08:10)
[2018-03-15] MEDS: PROSCAR PO SCH (08:10)
[2018-03-15] MEDS: NEURONTIN PO SCH (08:10)
[2018-03-15] MEDS: GLUCOPHAGE PO SCH (08:10)
[2018-03-15] MEDS: JANUVIA PO SCH (08:11)
[2018-03-15] MEDS: LANOXIN PO SCH (08:11)
[2018-03-15] MEDS: HYDROCHLOROTHIAZIDE PO SCH (08:11)
[2018-03-15] MEDS: FERROUS SULFATE PO SCH (08:11)
[2018-03-15] MEDS ORDERED: PLAVIX PO SCH (09:00)
[2018-03-15 10:28] VITALS: BP 156/73; TEMP 98.6
--- NOTE | 2018-03-15 10:51 | CM.DICTOOL ---
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, 2013 CAROTID STENOSIS (MODERATE, GREATER ON THE RIGHT) HYPERTENSION DYLSIPIDEMIA SUBDURAL HEMATOMA FROM FALL, 07/2017 MILD COPD, RESTRICTIVE LUNG DISEASE (PFT, 09/29/14-MM) ANEMIA DM, TYPE 2 OBESITY (BMI 30) GERD BPH [place] CHOLECYSTECTOMY CATARACT EXCISION, 2015 TONSILLECTOMY, 1961 ELBOW SURGERY, 2014 NEVER SMOKER LAST VITALS Temp Pulse Resp BP Pulse Ox 97.5 F L 80 16 142/60 H 97 03/15/18 05:42 03/15/18 08:11 03/15/18 05:42 03/15/18 05:42 03/15/18 05:42 TAKE THESE MEDICATIONS AT HOME Clindamycin HCl (Cleocin) 300 mg PO Q8HR [facility] for 7 days Last Admin: 03/15/18 05:46 Dose: 300 mg Clopidogrel Bisulfate (Plavix) 75 mg PO S[place]SA [facility] Last Admin: 03/14/18 09:02 Dose: 75 mg Digoxin (Lanoxin) 125 mcg PO DAILY [facility] Last Admin: 03/15/18 08:11 Dose: 125 mcg Ferrous Sulfate (Ferrous Sulfate) 324 mg PO BID [facility] Last Admin: 03/15/18 08:11 Dose: 324 mg Finasteride (Proscar) 5 mg PO DAILY [facility] Last Admin: 03/15/18 08:10 Dose: 5 mg Gabapentin (Neurontin) 600 mg PO BEDTIME [facility] Last Admin: 03/14/18 20:53 Dose: 600 mg Gabapentin (Neurontin) 300 mg PO QAM [facility] Last Admin: 03/15/18 08:10 Dose: 300 mg Insulin Detemir (Levemir) 75 unit SUBCUT BEDTIME [facility] Last Admin: 03/14/18 20:51 Dose: 75 unit Keflex 500 mg PO TID for 7 days Losartan Potassium/HCTZ (Hyzaar) 100-12.5 mg PO DAILY [facility] Last Admin: 03/15/18 08:10 Dose: 100 mg Lovastatin (Mevacor) 20 mg PO BEDTIME [facility] Last Admin: 03/14/18 20:53 Dose: 20 mg Lovastatin (Mevacor) 40 mg PO DAILY [facility] Last Admin: 03/15/18 08:10 Dose: 40 mg Metoprolol Tartrate (Lopressor) 50 mg PO BIDWM [facility] Last Admin: 03/15/18 08:10 Dose: 50 mg Multivitamins (Multivitamin Tablet) 1 tab PO DAILY [facility] Last Admin: 03/15/18 08:10 Dose: 1 tab Omeprazole (Prilosec) 20 mg PO QDAC [facility] Last Admin: 03/15/18 05:46 Dose: 20 mg Sitagliptin Phosphate/Metformin HCL (Janumet 50-1,000 mg tablet) 1 each PO BID Tamsulosin HCl (Flomax) 0.4 mg PO DAILY [facility] Last Admin: 03/15/18 08:10 Dose: 0.4 mg ALLERGIES No Known Allergies Allergy (Verified 07/24/17 21:53) DISCONTINUED MEDICATIONS Metoprolol Tartrate (Lopressor) 25 mg PO BID [facility] Last Admin: 03/13/18 20:51 Dose: 25 mg Increased to 50 mg PO BID [facility] NEW PRESCRIPTIONS: Cephalexin [Keflex] 500 mg PO TID #21 capsule 03/15/18 Clindamycin HCl 300 mg PO Q8H #21 capsule 03/15/18 Metoprolol Tartrate [Lopressor] 50 mg PO BID #60 tablet 03/15/18 SMOKING: NEVER SMOKER DISEASE SPECIFIC EDUCATION: CELLULITIS HYPERTENSION HOME MEDICATIONS NEW MEDICATIONS FOLLOW UP LAB REVIEW: 03/15/18 04:20 03/15/18 04:20 03/15/18 04:20: Sodium 134.4 L, Potassium 4.38, Chloride 97.1 L, Carbon Dioxide 29.8, Anion Gap 11.88, BUN 19.5, Creatinine 1.01, Estimated GFR (MDRD) 71.00, BUN/Creatinine Ratio 19.30, Glucose 222.3 H, Calcium 9.18, Total Bilirubin 0.39 , AST 30.0, ALT 29.1, Alkaline Phosphatase 85.7, Total Protein 6.98, Albumin 3.86, Globulin 3.12, Albumin/Globulin Ratio 1.23 03/15/18 04:20: WBC 17.75 H, RBC 4.62 L, Hgb 13.6 L, Hct 39.6 L, MCV 85.7, MCH 29.4, MCHC 34.3, RDW Coeff of Michele 12.3, Plt Count 272, Immature Gran % (Auto) 0.5, Neut % (Auto) 49.3, Lymph % (Auto) 38.0, [place] % (Auto) 10.5 H, Eos % (Auto ) 1.5, Baso % (Auto) 0.2, Immature Gran # (Auto) 0.1, Neut # (Auto) 8.8 H, Lymph # (Auto) 6.7 H, [place] # (Auto) 1.9, Eos # (Auto) 0.3, Baso # (Auto) 0.0 PLAN: DISCHARGE HOME TODAY, 03/15/[address] SLAUGHTER IN THE OFFICE ON 03/18/18 AT 1:30 P.M. RESUME YOUR HOME MEDICATIONS PER LIST PROVIDED BY THE NURSING STAFF PLEASE NOTE THE CHANGE IN YOUR LOPRESSOR TO 50 MG TWICE DAILY DO NOT TAKE YOUR METOPROLOL TARTRATE (LOPRESSOR) 25 MG TWICE DAILY NEW PRESCRIPTIONS CLINDAMYCIN HCL (CLEOCIN) 300 MG, TAKE ONE CAPSULE BY MOUTH EVERY 8 HOURS FOR 7 DAYS KEFLEX 500 MG, TAKE ONE CAPSULE BY MOUTH THREE TIMES DAILY FOR 7 DAYS METOPROLOL TARTRATE (LOPRESSOR) 50 MG, TAKE ONE TABLET BY MOUTH TWICE DAILY ACTIVITY KEEP YOUR RIGHT LEG/FOOT ELEVATED FREQUENTLY POSSIBLE DIET CONSISTENT CARBS SUMMARY THE PATIENT IS ALERT AND ORIENTED X3. HE CURRENTLY RESIDES AT HOME WITH HIS SPOUSE. HE HAS BEEN INDEPENDENT WITH ADL'S. HE HAS A ROLLING WALKER AND A STRAIGHT CANE TO ASSIST WITH AMBULATION AT HOME. HE DOES NOT REQUIRE HOME HEALTH OR HOMEMAKING SERVICES. HE DESIRES TO RETURN HOME AT DISCHARGE. THE RIGHT FOOT DORSUM HAS A 1.5 -2 INCH IN DIAMETER CIRCULAR REDDENED AREA WITH A PINPOINT DARK SCAB IN IT'S CENTER. THERE IS NO DRAINAGE OR ODOR TO THE AREA. THE SKIN HAS A PUCKERED/WRINKLED APPEARANCE FROM PARTIAL RESOLUTION OF THE SWELLING. THE AREA HAS DEFINITELY IMPROVED FROM ADMISSION. BRUISING IS NOTED TO THE 2ND THROUGH 5TH RIGHT FOOT TOES AT THE METATARSAL PHALANGEAL JOINTS AND THE LATERAL ARCH AREA OF THE RIGHT FOOT. THE BRUISING IS FADING. MR. AVINA IS ABLE TO BEAR WEIGHT WITHOUT MUCH DIFFICULTY AND SAYS OTHERWISE, HE HAS NO PAIN AT REST. BOTH THE PATIENT AND HIS SPOUSE ARE AWARE AND AGREEABLE FOR TODAY'S DISCHARGE PLANS. HE WILL FOLLOW UP IN THE OFFICE ON 03/18/18 MENTIONED ABOVE. CURRENT CODE STATUS DO NOT RESUSCITATE [place] RAI APRN ABY SLAUGHTER M.D.
--- NOTE | 2018-03-15 14:33 | DS ---
DATE OF ADMISSION: 03/13/18 DATE OF DISCHARGE: 03/15/18 DATE OF SERVICE: 03/15/18 FINAL DIAGNOSIS: CELLULITIS, RIGHT FOOT CAD S/P CABG, 2006 AND STENT APPLICATION X1, 2013 CAROTID STENOSIS (MODERATE, GREATER ON THE RIGHT) HYPERTENSION DYLSIPIDEMIA SUBDURAL HEMATOMA FROM FALL, 07/2017 MILD COPD, RESTRICTIVE LUNG DISEASE (PFT, 09/29/14-[facility]) ANEMIA DM, TYPE 2 OBESITY (BMI 30) GERD BPH [place] CHOLECYSTECTOMY CATARACT EXCISION, 2014 TONSILLECTOMY, 1961 ELBOW SURGERY, 2013 DISCHARGE INSTRUCTIONS: DISCHARGE HOME TODAY, 03/15/[address] SLAUGHTER IN THE OFFICE ON 03/18/18 AT 1:30 P.M. MEDICATIONS AT DISCHARGE: Clindamycin HCl (Cleocin) 300 mg PO Q8HR [facility] for 7 days Last Admin: 03/15/18 05:46 Dose: 300 mg Clopidogrel Bisulfate (Plavix) 75 mg PO SUTUTHSA [facility] Last Admin: 03/14/18 09:02 Dose: 75 mg Digoxin (Lanoxin) 125 mcg PO DAILY [facility] Last Admin: 03/15/18 08:11 Dose: 125 mcg Ferrous Sulfate (Ferrous Sulfate) 324 mg PO BID [facility] Last Admin: 03/15/18 08:11 Dose: 324 mg Finasteride (Proscar) 5 mg PO DAILY [facility] Last Admin: 03/15/18 08:10 Dose: 5 mg Gabapentin (Neurontin) 600 mg PO BEDTIME [facility] Last Admin: 03/14/18 20:53 Dose: 600 mg Gabapentin (Neurontin) 300 mg PO QAM [facility] Last Admin: 03/15/18 08:10 Dose: 300 mg Insulin Detemir (Levemir) 75 unit SUBCUT BEDTIME [facility] Last Admin: 03/14/18 20:51 Dose: 75 unit Keflex 500 mg PO TID for 7 days Losartan Potassium/HCTZ (Hyzaar) 100-12.5 mg PO DAILY [facility] Last Admin: 03/15/18 08:10 Dose: 100 mg Lovastatin (Mevacor) 20 mg PO BEDTIME [facility] Last Admin: 03/14/18 20:53 Dose: 20 mg Lovastatin (Mevacor) 40 mg PO DAILY [facility] Last Admin: 03/15/18 08:10 Dose: 40 mg Metoprolol Tartrate (Lopressor) 50 mg PO BIDWM [facility] Last Admin: 03/15/18 08:10 Dose: 50 mg Multivitamins (Multivitamin Tablet) 1 tab PO DAILY [facility] Last Admin: 03/15/18 08:10 Dose: 1 tab Omeprazole (Prilosec) 20 mg PO QDAC [facility] Last Admin: 03/15/18 05:46 Dose: 20 mg Sitagliptin Phosphate/Metformin HCL (Janumet 50-1,000 mg tablet) 1 each PO BID Tamsulosin HCl (Flomax) 0.4 mg PO DAILY [facility] Last Admin: 03/15/18 08:10 Dose: 0.4 mg DISCONTINUED MEDICATIONS: Metoprolol Tartrate (Lopressor) 25 mg PO BID [facility] Last Admin: 03/13/18 20:51 Dose: 25 mg Increased to 50 mg PO BID [facility] ALLERGIES: No Known Allergies Allergy NEW PRESCRIPTIONS: Cephalexin [Keflex] 500 mg PO TID #21 capsule 03/15/18 Clindamycin HCl 300 mg PO Q8H #21 capsule 03/15/18 Metoprolol Tartrate [Lopressor] 50 mg PO BID #60 tablet 03/15/18 DIET INSTRUCTIONS: Consistent carbs ACTIVITY: KEEP YOUR RIGHT LEG/FOOT ELEVATED FREQUENTLY POSSIBLE SMOKING: Never smoker DISEASE SPECIFIC EDUCATION: CELLULITIS HYPERTENSION HOME MEDICATIONS NEW MEDICATIONS FOLLOW UP HOSPITAL COURSE: This is a white male who presented to our office after having dropped a microwave on his right foot approximately a week before. He stated his foot has been sore and he had been limping but yesterday he started with some redness on the dorsal aspect of his right foot and it has become more tender and the redness had increased from previous day. He is uncontrolled diabetic and has chronic leg edema. He was admitted for cellulitis of the right foot. He was admitted and placed on Rocephin 1 gram IV daily along with Clindamycin 300 mg PO TID, given 1 cc of Decadron, put on sliding scale coverage. X-ray of the foot showed no fracture along with no signs of osteomyelitis. He remained afebrile over the course of antibiotic therapy for the following 48 hours. The redness and swelling of his right foot especially after keeping it elevated significantly improved. He is to go home today in stable condition. Vital signs have been normal - temp 97.5, heart rate 80, respirations 16, blood pressure 142/60, pulse ox 97%. He did have an elevation in his blood pressure while he was here. He had previously been on Lopressor 25 mg BID and he was changed to Lopressor 50 mg BID and his pressure has been more controlled. He was given Toradol 30 mg IV as needed for pain. He states he doesn't need any pain medicine at home. He will go home with Clindamycin 300 mg PO TID for seven days along with Keflex 500 mg PO TID for seven days. He is instructed to keep his foot elevated. There was no opening or actual wound or breaking of the skin. Again, the cellulitis is significantly improved. We will follow up with him in the office next week. TIME SPENT: More than 60 minutes. PAMELA
== END 2018-03-15 12:45 | disposition home or self-care (01) | DRG 303 ==
LOC: MEDSURG B 10:50
PROVIDERS: ADMIT Internal Medicine; ATTEND Internal Medicine
DX: I25.10 Atherosclerotic heart disease of native coronary artery without angina pectoris (principal); I65.21 Occlusion and stenosis of right carotid artery; I10 Essential (primary) hypertension; E11.9 Type 2 diabetes mellitus without complications; E78.5 Hyperlipidemia, unspecified; E66.9 Obesity, unspecified; J44.9 Chronic obstructive pulmonary disease, unspecified; D64.9 Anemia, unspecified; K21.9 Gastro-esophageal reflux disease without esophagitis
CPT/HCPCS: 36415; 80053; 80162; 81001; 82962; 84443; 85007; 85025; 93005; 93010

== ENCOUNTER 2018-08-27 09:05 | Outpatient (CLI) ==
[2012-12-13 13:03] VITALS: TEMP 98.6
--- NOTE | 2018-08-27 11:07 | US ---
EXAM: Bilateral carotid artery Doppler History: Carotid stenosis. Comparison: Carotid Doppler 11/26/2015 Technique: Multiple sonographic images through the bilateral internal carotid arteries were obtained . Color duplex Doppler was used to interrogate vascular flow. Findings: The right ICA peak systolic velocity is severely elevated measuring 239 cm/sec. The right ICA/cca PS V ratio is severely elevated at 4.6. The right vertebral artery is patent and demonstrates antegrade flow. Greer scale images demonstrate moderate to severe plaque buildup within the right internal pat tid artery. The left ICA peak systolic velocity is moderately elevated measuring 201 cm/sec. The left ICA/cca PS V ratio is moderately increased at 2.7. The left vertebral artery is patent and demonstrates antegra de flow. There is moderate plaque buildup within the left internal carotid artery on greer scale imag ing. Impression: 1. Severe, greater than or equal to 70% hemodynamic stenosis of the right internal carotid artery. 2. Moderate, 50-69% hemodynamic stenosis of the left internal carotid artery. 3. These findings have progressed compared to the prior exam.
--- NOTE | 2018-08-27 12:11 | MRI ---
EXAM: MRI brain without and with IV contrast. DATE: 27 August 2018. HISTORY: Frequent falls, dizziness. Patient reports history of "brain bleed". TECHNIQUE: Sagittal T1W pre and postcontrast, axial T2W, axial FLAIR, axial T1W pre and postcontrast , axial DWI, coronal T1W postcontrast, and coronal T2W GRE sequences of the brain were obtained using 1.2 [place] magnet. CONTRAST: Dotarem - 20 ml IV. COMPARISON: CT head six August 2017. MRI brain 11/26/2015. FINDINGS: Cisterna magna mild prominence is normal variation. The ventricles, cisterns, and sulci a re enlarged to a similar degree as November 2015 MRI. No midline shift, herniation or loculated extra-ax ial fluid collection is apparent. T2W bright, T1W dark, non-enhancing foci involving the left fronta l periventricular white matter, right caudate head, and right putamen, left caudate head/body junctio n are consistent with old infarcts. No acute infarct, hemorrhage or enhancing neoplasm is identified . No abnormal contrast enhancement is identified in the brain, meninges or dura. Moderate, confluen t rim of T2W/FLAIR hyperintensity is observed in the white matter abutting each lateral ventricle. M ultiple other 2-12 mm, T2W/FLAIR bright, non-enhancing foci are scattered within the ty radiata, centrum semiovale and subcortical white matter similar to November 2015. The avery - white matter differe ntiation is normal. An approximately 11 x 11 mm T2W/FLAIR bright focus in the central katrin does not enhance. No migration or diverticulation abnormality is identified. A T W bright, T1W dark, non-enh ancing 3.3 x 2.5 mm focus is revealed at the left hippocampal head/body junction. The amygdala, silvio ocampus, and parahippocampal gyri are otherwise similar bilaterally. The 7th/8th cranial nerve compl exes, cerebellopontine angles, band visible cervical spinal cord are normal. There is no cerebellar tonsillar ectopia. The pituitary gland is normal in size and signal. Corpus callosum body is bowed upward due to ventricular prominence. Notched appearance in the superior aspect of the corpus callos um near the junction of the body and genu is unchanged. Flow voids are present in the major intracra nial arteries and in the dural venous sinuses. No aneurysm, AVM or dural venous sinus thrombosis is apparent. Appearance of the lens of each eye suggests prior cataract surgery. No orbit abnormality is identified. The mastoid air cells are unremarkable. There is no acute sinusitis. No neck mass o r lymphadenopathy is detected. No calvarial neoplasm or acute fracture is evident. IMPRESSIONS: 1. No acute infarct, hemorrhage, enhancing neoplasm or hydrocephalus. 2. Marked cerebral and moderate brainstem leukomalacia. DDX: Small vessel disease or chronic hyper tensive encephalopathy is likely. Metabolic disorder, vasculitis, demyelinating disease, or sequela of infection might also be considered. 3. Moderate central > peripheral cerebral atrophy. Mild cerebellar atrophy. 4. 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 5. Left hippocampus Virchow-Nickolas space vs neuroglial cyst vs old infarct. 6. Corpus callosum normal variation versus old infarct.
== END 2018-08-27 09:06 | disposition home or self-care (01) ==
LOC: RAD 09:05
PROVIDERS: ATTEND Internal Medicine
DX: R42 Dizziness and giddiness (principal); R29.6 Repeated falls

== ENCOUNTER 2018-09-02 07:37 | Outpatient (CLI) | payer OTHER ==
[2012-12-13 13:03] VITALS: TEMP 98.6
--- NOTE | 2018-09-02 10:54 | CT ---
EXAM: CTA of the neck with and without contrast History: Carotid stenosis and dizziness. Comparison: CTA of the head 09/02/2018, carotid Doppler 08/27/2018, CTA of the neck 12/02/2015 Technique: Multiplanar CT images through the soft tissue neck were obtained with and without the adm inistration of IV contrast. MIP images and 3-D reconstructions were also acquired. Findings: Nodular thyroid gland again noted. The visualized upper lungs are clear. The visualized paranasal sinuses and mastoid air cells are clear in general. Degenerative changes of the cervical s pine. No change in the sebaceous cyst of the midline posterior back measuring 1.6 cm. The submandibu lar glands and parotid glands are not inflamed. The proximal left common carotid artery is not well seen due to streak artifact. The bilateral commo n carotid arteries are otherwise normal. There is severe stenosis of the proximal right internal car otid artery probably greater than 90% over a length of 2 cm. This has worsened compared to the prior CT of the neck. There is moderate to severe stenosis of the proximal right internal carotid artery probably slightly greater than 75%. This measures a length of 1.1 cm. This has progressed compared to the prior CTA of the neck. Bilateral vertebral arteries are patent without significant disease. No aneurysms are se en. Impression: 1. Severe stenosis of the proximal right internal carotid artery probably greater than 90% and has w orsened compared to the prior CTA of the neck. 2. Moderate to severe stenosis of the proximal right internal carotid artery probably slightly great er than 75% and has also worsened compared to the prior CTA of the neck.
--- NOTE | 2018-09-02 20:06 | CT ---
EXAM: CT angiogram of the [place] with and without contrast TECHNIQUE: Helical axial CT angiogram of the [place] was performed with and without contras t with coronal and sagittal and multiplanar reconstructions as well as separate work station [id number] nagel. COMPARISON: Brain MRI from 08/27/2018 HISTORY: Dizziness and frequent falls with history of brain hemorrhage FINDINGS: Right internal carotid artery distribution: There is a moderate degree of calcific atherosclerosis of the carotid siphon resulting in moderate stenosis. The M1 segment, bifurcation, M2 segments and oper cular branches of the middle cerebral artery as well as the A1 and A2 segments of the anterior cerebr al artery and their visualized branches are all widely patent. Left internal carotid artery distribution: There is moderate calcific atherosclerosis of the carotid siphon resulting in moderate stenosis. The M1 segment, bifurcation, M2 segments and opercular branche s of the middle cerebral artery as well as the A1 and A2 segments of the anterior cerebral artery and their visualized branches are all widely patent. Anterior communicating artery: Patent Posterior communicating arteries: Not seen on the right and origin of the posterior cerebral ar loan on the left. Vertebral basilar system: The V4 segments of the vertebral arteries and the basilar artery and its br anches are widely patent. The left vertebral artery is dominant. There are no aneurysms or vascular malformations. The dural sinuses are widely patent. CT shows no acute intervening abnormality. IMPRESSION: 1. Moderate stenosis of the bilateral carotid siphons due to calcific atherosclerosis. 2. origin of the left posterior cerebral artery which is a normal variant. 3. Widely patent bilateral middle cerebral and anterior cerebral arteries and vertebral basilar syst em.
== END 2018-09-02 07:38 | disposition home or self-care (01) ==
LOC: RAD 07:37
PROVIDERS: ATTEND Internal Medicine
DX: I65.29 Occlusion and stenosis of unspecified carotid artery (principal); R42 Dizziness and giddiness; R41.3 Other amnesia; R29.6 Repeated falls

== ENCOUNTER 2018-09-12 11:00 | Outpatient (RCR) ==
[2012-12-13 13:03] VITALS: TEMP 98.6
--- NOTE | 2018-09-04 16:05 | RS.OPPTEV2 ---
Date of Note: 09/03/18 Visit #: 1 Number of visits approved by Insurance: n/a Date of Evaluation: 09/03/18 Payer Source: MEDICARE Surgery Performed?: No Treatment Diagnosis: gait abnormality, frequent falls History of Condition/Mechanism of Injury:: pt has had a long history of frequent falls. Last fall was yesterday at [place]. Prior Level of Function.....Patient was independent with: ADL's, Self Care, Ambulation/Mobility, Community Integration/Access Functional Limitations: Standing, Bending, Squatting, Ambulation, Community Access/Integration Current Subjective/complaints:: pt and report pt falls approx 3x a week. States that he always falls backward. pt reports he uses rwx of his 's in the home but uses cane when going outside. Treatment Side (optional): N/A *Precautions: fall precautions Medical History Medical History: Hypertension, Diabetes, Cancer (melanoma) Medical History Comments:: subdural hematoma Surgical History: Cholecystectomy, CABG Surgical History Comments:: cardiac stents, Smoking Status: Never smoker Diagnostic Testing/Imaging:: MRI : moderate central and peripheral cerebral atrophy, mild cerebellar atrophy. Old infacts inthe L frontal lobe,. marked cerebral and moderate brainstem leukomalacia. 90% carotid stenosis on R Hx Home Medications: plavix, lanoxin, proscar, neurontin, levsir, levemir, janumet, hyzar, mevacor, lopressor, multivitamin, flomax, omeprazole Patient's Goals: decrease falling Pain Assessment - Pain Description Pain Location: R hip Pain Description: Aching Current Pain Intensity: 3 Other Comments regarding Pain:: pt states pain began after fall yesterday Functional Outcome Measure Dynamic Gait: 9 - G Codes & Severity Modifier G Codes & Modifier: n/a Source of G Code score: n/a Observation - Observation Posture: Forward Head, Rounded Shoulders Handedness: Right Gait - Gait Pattern General Gait Pattern Observation: Ataxic Gait, Decrease Stride Lngth (R), Decrease Stride Lngth (L) Gait Comments: pt amb with decreased step length, flexed posture pt loses balance lat as well as backward requiring CGA to min to maintain balance. pt amb with cane with CGA. Gait speed 0.56 meters/sec consistent with limited community ambulator General Range of Motion: BUE WFL's. BLE WFL's Muscle Strength: BUE Shld flex 4/5, elbow flex/ext 4+/5. BLE hip flex 4/5, knee flex/ext 4+/5, ankle DF/PF 4/5 Palpation Palpation Findings: None/Normal Sensation - Sensation Right Upper Extremity: Intact/Normal Left Upper Extremity: Intact/Normal Right Lower Extremity: Intact/Normal Left Lower Extremity: Intact/Normal Balance - Sitting Balance Static Sitting Balance: Good Dynamic Sitting Balance: Good - Standing Balance Static Standing Balance: Poor Dynamic Standing Balance: Poor - Comments Balance Assessment Comments: Dyn gait index 03/11 consistent with high risk of falls. Gait speed 0.56 meters/sec consistent with limited community ambulator. Sit to stand 5 times in 30 secs Interventions - Exercise/Activities/Manual Therapy Exercises/Activities: pt tired from eval and did not feel up to doing ex this visit Manual Therapy: n/a HOME EXERCISE PROGRAM: pt given written HEP including AP, LAQ, seated hip flex, standing heel raises, hip abd, hip flex - Charges Timed Code Treatment Minutes: 52 Total Treatment Time: 61 Procedures billed for this date of service:: eval med EVALUATION COMPLEXITY LEVEL EVALUATION COMPLEXITY LEVEL: HISTORY: Medium, EXAM OF BODY SYSTEMS: Medium, CLINICAL PRESENTATION: Medium, CLINICAL DECISION MAKING: Medium Assessment Assessment: pt presents with decreased balance, decreased gait speed, decreased strength, pt with decreased gait safety. pt is high risk of falls. Feel pt would benefit from skilled PT for therex for balance and strengthening to improve functional mobility and decrease risk of falls. Feel pt would benefit from use of rwx to improve gait safety. Called and received order for rwx from MD and faxed to [facility] per family request. Patient Education: Home Exercise Program, Education of Plan of Care Rehab Potential: Good Short Term Goals Goal #1: pt independent with initial HEP Goal to be met by: 09/25/18 Goal #2: Improve dyn gait index score Goal to be met by: 09/25/18 Goal #3: Improve BLE strength 4 to 4+/5 Goal to be met by: 09/25/18 Goal #4: pt amb in dept with appropriate AD with no LOB Goal to be met by: 09/25/18 Skilled Nursing Goals Goal #1: pt amb community distances with AAD with no LOB Goal to be met by: 10/16/18 Goal #2: Improve dyn stand balance as noted by Dyn gait index Goal to be met by: 10/16/18 Goal #3: Improve gait speed 0.8 meters/sec to be consistent with community ambulator Goal to be met by: 10/16/18 Goal #4: pt report no falls at home Goal to be met by: 10/16/18 Plan - Treatment to be Provided Procedures: Therapeutic Exercises, Therapeutic Activity, Gait Training, Neuromuscular Rehab, Patient Education Modalities: No Modalities - Treatment Plan Frequency: 2 X week Duration: 6 weeks Dates of Pleater Goals: 10/16/18 Expiration date of current Insurance Approval:: n/a - Treatment Code (1) Impairment of balance Code(s): R26.89 - OTHER ABNORMALITIES OF GAIT AND MOBILITY (2) Gait difficulty Code(s): R26.9 - UNSPECIFIED ABNORMALITIES OF GAIT AND MOBILITY (3) Muscle weakness (generalized) Code(s): M62.81 - MUSCLE WEAKNESS (GENERALIZED)
--- NOTE | 2018-09-05 16:34 | RS.OPPTDN ---
Subjective Date of Note: 09/05/18 Visit #: 2 Number of visits approved by Insurance: 2x6 Date of Evaluation: 09/03/18 Payer Source: MEDICARE Treatment Diagnosis: gait abnormality, frequent falls Current Subjective/complaints:: Patient says he has tried to obtain his RW this week, but will have to order it because the company did not have his size. Patient reports he does feel like he has been more unsteady with this latest fall versus last year. He says he has not tried HEP yet. *Precautions: fall precautions Interventions - Exercise/Activities/Manual Therapy Exercises/Activities: Patient receives passive stretching bilaterally of SKTC, HS, Piriformis, Fig 4, and lower trunk rotation x 3 ea. Patient then begins general LE strengthening: QS, SAQ 1 1/2#, Ball squeezes in hooklying, isometric hip abd in hooklying, DF with red tband 2x10. Isometric trunk rotation with ball between knees x 5. Sitting: shoulder shrugs and scap adduction for postural support and to improve sitting bal, scap retraction with red tband, 1# wand for bilateral shoulder flexion x 10. LAQ 1 1/2# and hip flexion x 10. Assisted pt to waiting room as he does sit to rest on bed prior to getting up to amb out. Amb with CGA using SC on the R side. Did not instruct patient to use it in the L UE due to him feeling it would make him more unsteady. Total minutes of Exercise: 33 Manual Therapy: n/a HOME EXERCISE PROGRAM: pt given written HEP including AP, LAQ, seated hip flex, standing heel raises, hip abd, hip flex - Charges Timed Code Treatment Minutes: 33 Total Treatment Time: 33 Procedures billed for this date of service:: ex2 Assessment: Patient amb to our dept with SC on the R side SBA with accompanying him. He is able to perform all therex with intermittent rest breaks. No difficulty moises stretching and does demo tightness bilaterally during all and will benefit from further passive stretching to assist with mobility. Patient does experience mild soreness to the R hip since recent fall , but therex does not seem to bother it. He should improve with further general strengthening to the LE's and trunk as well as bal activities. Patient Education: Education of diagnosis, Home Exercise Program, Home Safety Short Term Goals Goal #1: pt independent with initial HEP Goal to be met by: 09/25/18 Comments:: Encouraged him to begin Goal #2: Improve dyn gait index score Goal to be met by: 09/25/18 Goal #3: Improve BLE strength 4 to 4+/5 Goal to be met by: 09/25/18 Goal #4: pt amb in dept with appropriate AD with no LOB Goal to be met by: 09/25/18 Teller Coordinator Goals Goal #1: pt amb community distances with AAD with no LOB Goal to be met by: 10/16/18 Goal #2: Improve dyn stand balance as noted by Dyn gait index Goal to be met by: 10/16/18 Goal #3: Improve gait speed 0.8 meters/sec to be consistent with community ambulator Goal to be met by: 10/16/18 Goal #4: pt report no falls at home Goal to be met by: 10/16/18 Plan Dates of Teller Coordinator Goals: 10/16/18 Expiration date of current Insurance Approval:: 10/16/18 PLAN: Patient to continue BIW for general therex to strengthen the LE's and trunk
--- NOTE | 2018-09-10 14:03 | RS.OPPTDN ---
Subjective Date of Note: 09/10/18 Visit #: 3 Number of visits approved by Insurance: 2x6 Date of Evaluation: 09/03/18 Payer Source: MEDICARE Treatment Diagnosis: gait abnormality, frequent falls Current Subjective/complaints:: Patient says he is happy he has chosen a rollator instead of tri-wheeled walker. He says he definiitely feels more stable, but has to be careful that he keeps the brakes on while walking because the AD would go too fast. *Precautions: fall precautions Interventions - Exercise/Activities/Manual Therapy Exercises/Activities: Patient continues to receive passive stretching bilaterally of SKTC, HS, Piriformis, Fig 4, and lower trunk rotation x 3 ea. Patient then begins general LE strengthening: QS, SAQ 2#, Ball squeezes in hooklying, isometric hip abd in hooklying, DF with red tband 2x10. Isometric trunk rotation with ball between knees x 5. Bridging 2x10. Alternate LE lift in hooklying with 2# ea x 10. Sitting: shoulder shrugs and scap adduction for postural support and to improve sitting bal, scap retraction with red tband, 1# wand for bilateral shoulder flexion x 10. LAQ 1 1/2# and hip flexion x 10. Assisted pt to waiting room as he now amb with rollator and encouraged him to continue applying brakes as needed to slow amb. Total minutes of Exercise: 38 Manual Therapy: n/a HOME EXERCISE PROGRAM: pt given written HEP including AP, LAQ, seated hip flex, standing heel raises, hip abd, hip flex - Charges Timed Code Treatment Minutes: 38 Total Treatment Time: 38 Procedures billed for this date of service:: ex3 Assessment: Patient presents with amb using rollator today. He maintains hands on brakes partially during gait to our dept as front wheels swivel and AD glides faster than he likes. He appears steady for the most part. He does appear and he admits is safer with this AD than the AL last week. He is able to moises all stretching without c/o's and demo slightly better flexibility as well. He should benefit from further general strengthening and bal activities. Patient Education: Home Exercise Program, Home Safety, Education of Plan of Care Patient demonstrates compliance with HEP?: Yes Short Term Goals Goal #1: pt independent with initial HEP Goal to be met by: 09/25/18 Progress towards Goal:: Progressing Comments:: Patient has begun over the weekend Goal #2: Improve dyn gait index score Goal to be met by: 09/25/18 Goal #3: Improve BLE strength 4 to 4+/5 Goal to be met by: 09/25/18 Goal #4: pt amb in dept with appropriate AD with no LOB Goal to be met by: 09/25/18 Mounter Automatic Goals Goal #1: pt amb community distances with AAD with no LOB Goal to be met by: 10/16/18 Goal #2: Improve dyn stand balance as noted by Dyn gait index Goal to be met by: 10/16/18 Goal #3: Improve gait speed 0.8 meters/sec to be consistent with community ambulator Goal to be met by: 10/16/18 Goal #4: pt report no falls at home Goal to be met by: 10/16/18 Plan Dates of Mounter Automatic Goals: 10/16/18 Expiration date of current Insurance Approval:: 10/16/18 PLAN: Patient to continue with therex and bal activities.
--- NOTE | 2018-09-12 11:57 | RS.OPPTDN ---
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 Reports he will be going to the vascular MD next week to possibly have a procedure. *Precautions: fall precautions Interventions - Exercise/Activities/Manual Therapy Exercises/Activities: Patient continues to receive passive stretching bilaterally of SKTC, HS, Piriformis, Fig 4, and lower trunk rotation x 3 ea. Patient then begins general LE strengthening: QS, SAQ 2#, Ball squeezes in hooklying, isometric hip abd in hooklying, DF with red tband 2x10. Isometric trunk rotation with ball between knees x 5. Bridging 2x10. Alternate LE lift in hooklying with 2# ea x 10. Sitting: shoulder shrugs and scap adduction for postural support and to improve sitting bal, scap retraction with red tband, increased to 2# wand for bilateral shoulder flexion x 10. LAQ 1 1/2# and hip flexion x 10. [facility] as he and proceed to [facility] for a class. Total minutes of Exercise: 38 Manual Therapy: n/a HOME EXERCISE PROGRAM: pt given written HEP including AP, LAQ, seated hip flex, standing heel raises, hip abd, hip flex - Charges Timed Code Treatment Minutes: 38 Total Treatment Time: 38 Procedures billed for this date of service:: ex3 Assessment: Patient presents to PT with SC. He has amb much this morning using SC outside in his field. He demo steady bal with amb and sitting. He continues to progress with all strengthening exercises. He should benefit from progressing to standing/dynamic bal. Patient Education: Home Exercise Program, Home Safety, Education of Plan of Care Patient demonstrates compliance with HEP?: Yes Short Term Goals Goal #1: pt independent with initial HEP Goal to be met by: 09/25/18 Progress towards Goal:: Progressing Goal #2: Improve dyn gait index score 14/24 Goal to be met by: 09/25/18 Goal #3: Improve BLE strength 4 to 4+/5 Goal to be met by: 09/25/18 Goal #4: pt amb in dept with appropriate AD with no LOB Goal to be met by: 09/25/18 Senior Living Goals Goal #1: pt amb community distances with AAD with no LOB Goal to be met by: 10/16/18 Goal #2: Improve dyn stand balance as noted by Dyn gait index Goal to be met by: 10/16/18 Goal #3: Improve gait speed 0.8 meters/sec to be consistent with community ambulator Goal to be met by: 10/16/18 Goal #4: pt report no falls at home Goal to be met by: 10/16/18 Plan Dates of Millstone Cleaner Goals: 10/16/18 Expiration date of current Insurance Approval:: 10/16/18 PLAN: Patient to continue BIW for general strengthening and bal exercises.
== END 2018-09-15 23:59 ==
PROVIDERS: ATTEND Internal Medicine
DX: M62.81 Muscle weakness (generalized) (principal); R26.89 Other abnormalities of gait and mobility; R26.9 Unspecified abnormalities of gait and mobility

== ENCOUNTER 2018-10-03 06:47 | Outpatient (CLI) | payer OTHER ==
[2012-12-13 13:03] VITALS: TEMP 98.6
--- NOTE | 2018-10-04 10:12 | STRESSMOD ---
Date of Test: 10/03/18 Ordering Physician: DR. ABY SLAUGHTER Occupation: RETIRED Reason for Exam: SOB, CAD, CABG, DM2 Smoking History: NONE Height: 72" Weight: 222 LBS Current Medications: PLAVIX, LANOXIN, PROSCAR, NEURONTIN, LEVEMIR, LEVSIN, JANUMET, HYZAAR, MEVACOR, LOPRESSOR, FLOMAX, Resting EKG: SINUS RHYTHM/ NO ACUTE CHANGES Target Heart Rate: 117/138 S-T SEGMENT STAGE MPH/GRADE HEART RATE BPM BLOOD PRESSURE mmhg RHYTHM +/- ELEVATION DEPRESSION SYMPTOMS At Rest 70 BPM 164/78 MMHG SR X NONE 1 1.7/0% 94 BPM 162/74 MMHG SR X NONE 2 1.7/5% 3 1.7/10% 4 2.5/12% 5 3.4/14% Immediately After 96 BPM SR X MD STOPPED TEST Minutes Post Exercise 2:00 83 BPM 166/72 MMHG SR X NONE Minutes Post Exercise 11:00 74 BPM 164/78 MMHG SR X NONE DURATION OF EXERCISE: 3:25 MAXIMUM HEART RATE REACHED: 96 BPM REASON FOR TERMINATION: MD STOPPED THE TEST 94% OXYGEN SATURATION WITH EXERCISE ON ROOM AIR METS 3.0 INTERPRETATION: 1. TEST POSITIVE FOR ISCHEMIC ST-T WAVE CHANGES 2. NO CHEST PAIN OR DISCOMFORT 3. NO ARRHYTHMIAS 4. BLOOD PRESSURE RESPONSE: SYSTOLIC HYPERTENSION AT REST AND WITH EXERCISE NORMAL LEFT VENTRICULAR CONTRACTILITY--RESTING AND POST EXERCISE MTDD
--- NOTE | 2018-10-04 10:23 | ECHO2D ---
Date of Exam: 10/03/18 Ordering Physician: DR. ABY SLAUGHTER Room #: OP Reason for Echo: SOB, CAD, CABG, DM2 M-Mode Normal Adult Results LV Dimensions Normal Adult Results AoV Opening excursions >1.6 1.6 LVEDD-base- 3.5-5.8 6.3 Ao root dimensions 2.0-3.7 3.6 LVESD-base- 3.1-4.6 L. Atrium dimensions 1.9-3.8 5.4 Post. Wall thickness 0.8-1.1 1.3 IV septum (thickness) 0.7-1.2 1.5 Post. Wall excursion 0.72-1.3 NORMAL Septal motion NORMAL Systolic motion R. Ventricular cavity 1.5-2.0 NORMAL LVEF 60% 51% Paradoxical septal wall motion NORMAL 2-D : 2-D M Mode Echocardiogram was performed using apical four chamber and left parasternal long and short axis views. Tricuspid and aortic valves appear to be normal. Contractility of the left ventricle seems to be normal. Aortic root appears to be normal. There is no pericardial effusion. There is no thrombus noted in the left ventricular or left aortic cavity. No mitral valve prolapse noted. DILATED LEFT VENTRICLE AND LEFT ATRIAL CAVITIES. CALCIFIC MITRAL VALVE ANNULUS. M-MODE: MV: CALCIFIC MITRAL VALVE ANNULUS AV: NORMAL TV: NORMAL PV: CHAMBER SIZE: ENLARGED LEFT ATRIAL AND LEFT VENTRICLE CAVITIES WALL MOTION: NORMAL PERICARDIUM: NORMAL INTERPRETATION: 1. LEFT VENTRICULAR HYPERTROPHY (MODERATE) WITH ENLARGED LEFT ATRIAL CAVITY 2. DILATED LEFT VENTRICLE CAVITY 3. NORMAL LEFT VENTRICULAR CONTRACTILITY WITH EJECTION FRACTION 51% 4. CALCIFIC MITRAL VALVE ANNULUS MTDD
--- NOTE | 2018-10-04 10:25 | ECHOSTRESS ---
Date of Exam: 10/03/18 Ordering Physician: DR. ABY SLAUGHTER Reason for Echo: SOB, CAD, CABG, STRESS TEST--POSITIVE FOR ISCHEMIA M-Mode Normal Adult Results LV Dimensions Normal Adult Results AoV Opening excursions >1.6 LVEDD-base- 3.5-5.8 Ao root dimensions 2.0-3.7 LVESD-base- 3.1-4.6 L. Atrium dimensions 1.9-3.8 Post. Wall thickness 0.8-1.1 IV septum (thickness) 0.7-1.2 Post. Wall excursion 0.72-1.3 Septal motion Systolic motion R. Ventricular cavity 1.5-2.0 LVEF 60% Paradoxical septal wall motion 2-D: NORMAL LEFT VENTRICULAR CONTRACTILITY--RESTING AND POST EXERCISE M-MODE: MV: AV: TV: PV: CHAMBER SIZE: WALL MOTION: NORMAL LEFT VENTRICULAR CONTRACTILITY--RESTING AND POST EXERCISE PERICARDIUM: INTERPRETATION: 1. NORMAL LEFT VENTRICULAR CONTRACTILITY--RESTING AND POST EXERCISE MTDD
== END 2018-10-03 06:48 | disposition home or self-care (01) ==
LOC: CAR 06:47
PROVIDERS: ATTEND Internal Medicine
DX: R06.02 Shortness of breath (principal); I25.10 Atherosclerotic heart disease of native coronary artery without angina pectoris
CPT/HCPCS: 93017; 93018

== ENCOUNTER 2018-10-15 11:00 | Outpatient (RCR) ==
[2012-12-13 13:03] VITALS: TEMP 98.6
--- NOTE | 2018-09-19 13:01 | RS.OPPTDN ---
Subjective Date of Note: 09/19/18 Visit #: 5 Number of visits approved by Insurance: na Date of Evaluation: 09/03/18 Payer Source: MEDICARE Treatment Diagnosis: gait abnormality, frequent falls Current Subjective/complaints:: Patient reports no falls the last few days,but when he does ,it is always backwards. *Precautions: fall precautions Interventions - Exercise/Activities/Manual Therapy Exercises/Activities: 50 mins. NMR on [employer] BALANCE SYSTEM,postural stability, limits of stability ,weight shifting.Assisted patient back to vehicle with CGA of 1. Total minutes of Exercise: 50 Manual Therapy: n/a Total minutes of Manual Therapy: 0 HOME EXERCISE PROGRAM: pt given written HEP including AP, LAQ, seated hip flex, standing heel raises, hip abd, hip flex - Charges Timed Code Treatment Minutes: 50 Total Treatment Time: 50 Procedures billed for this date of service:: NMR 3 Assessment: Patient has the most difficulty with weight shift posteriorly and to the right ,but able to self - correct each loss of balance today.His static balance is good today for prolonged standing time on the [employer]. SYSTEM Patient Education: Home Safety Patient demonstrates compliance with HEP?: Yes Short Term Goals Goal #1: pt independent with initial HEP Goal to be met by: 09/25/18 Progress towards Goal:: Progressing Goal #2: Improve dyn gait index score Goal to be met by: 09/25/18 Goal #3: Improve BLE strength 4 to 4+/5 Goal to be met by: 09/25/18 Goal #4: pt amb in dept with appropriate AD with no LOB Goal to be met by: 09/25/18 Progress towards Goal:: Progressing Group Home Goals Goal #1: pt amb community distances with AAD with no LOB Goal to be met by: 10/16/18 Goal #2: Improve dyn stand balance as noted by Dyn gait index Goal to be met by: 10/16/18 Goal #3: Improve gait speed 0.8 meters/sec to be consistent with community ambulator Goal to be met by: 10/16/18 Goal #4: pt report no falls at home Goal to be met by: 10/16/18 Progress towards goal: Progressing Plan Dates of Small Offset Printer Goals: 10/16/18 Expiration date of current Insurance Approval:: na PLAN: Cont. skilled PT to increase LE/trunk strength,resulting in safer transfers and gait on all surfaces.
--- NOTE | 2018-09-24 15:22 | RS.OPPTDN ---
Subjective Date of Note: 09/24/18 Visit #: 6 Number of visits approved by Insurance: Reassess at 10th Date of Evaluation: 09/03/18 Payer Source: MEDICARE Treatment Diagnosis: gait abnormality, frequent falls Current Subjective/complaints:: Patient says he did not have any trouble performing exercises on Bal Manager Of Recruiting last visit, but was very tired after he got into the car. He says he did have a fall yesterday in his yard. Reports he was bending over putting mulch onto the ground and fell backwards onto his bottom. He denies any reason to see his MD. Denies pain or dizziness this morning. *Precautions: fall precautions Balance System Training - Level 1 Postural Stability/Symmetry #1 Training Mode: Postural Stability Training Vision: Eyes Open Platform Stability Level (1-12): static Stance: Normal Time: 1-1 1/2 mins Reps: x3 set targets for the anterior R and posterior R - Level 2 Dynamic Weight Shifting #1 Training Mode: Weight Shift Skill Level (1-3): 1 and 2 Platform Stability Level (1-12): static Time: 1 to 1 1/2 mins Reps: x4 L to R, then diagonal for anterior L posterior R, #2 Training Mode: Limits of Stability Skill Level (1-3): 1 and 2 Platform Stability Level (1-12): static Time: 1 to 1 1/2 mins Reps: x2 Interventions - Exercise/Activities/Manual Therapy Exercises/Activities: 35 mins. NMR on [employer] BALANCE SYSTEM, see tab. Ended with stationary bike x 7 mins for/retro with cues to switch positions and assisted onto the bike along with pedal adjustment. Manual Therapy: n/a HOME EXERCISE PROGRAM: pt given written HEP including AP, LAQ, seated hip flex, standing heel raises, hip abd, hip flex - Charges Timed Code Treatment Minutes: 35 Total Treatment Time: 42 Procedures billed for this date of service:: neuro2 Assessment: Patient able to maintain bal throughout all Balance application trainer activities. He does have difficulty with shifting weight to the R and posteriorally. He did sit x2 to rest in between set up of next activity. He did have a fall yesterday in his yard while mulching in which he leaned over and fell backwards on his bottom. No significance to pt to tell his or seek medical assistance. He presents today amb with SC SBAx1. Patient demonstrates compliance with HEP?: Yes (intermittently) Short Term Goals Goal #1: pt independent with initial HEP Goal to be met by: 09/25/18 Progress towards Goal:: Progressing Goal #2: Improve dyn gait index score Goal to be met by: 09/25/18 Goal #3: Improve BLE strength 4 to 4+/5 Goal to be met by: 09/25/18 Goal #4: pt amb in dept with appropriate AD with no LOB Goal to be met by: 09/25/18 Progress towards Goal:: Progressing Gun Examiner Goals Goal #1: pt amb community distances with AAD with no LOB Goal to be met by: 10/16/18 Goal #2: Improve dyn stand balance as noted by Dyn gait index Goal to be met by: 10/16/18 Goal #3: Improve gait speed 0.8 meters/sec to be consistent with community ambulator Goal to be met by: 10/16/18 Goal #4: pt report no falls at home Goal to be met by: 10/16/18 Progress towards goal: Progressing Plan Dates of Correction Goals: 10/16/18 Expiration date of current Insurance Approval:: 10/16/18 PLAN: Patient to continue BIW for bal and general strengthening activities.
--- NOTE | 2018-09-26 16:15 | RS.OPPTDN ---
Subjective Date of Note: 09/26/18 Visit #: 7 Number of visits approved by Insurance: Reassess at 10 Date of Evaluation: 09/03/18 Payer Source: MEDICARE Treatment Diagnosis: gait abnormality, frequent falls Current Subjective/complaints:: Patient says he felt fatigued after his last session, but says he feels steadier and has not had anymore falls. Reports he will be having a stress test next . *Precautions: fall precautions Balance System Training - Level 1 Postural Stability/Symmetry #1 Training Mode: Postural Stability Training Task: None Platform Stability Level (1-12): static Stance: Normal Time: 1-1.5 min Reps: 1 - Level 2 Dynamic Weight Shifting #1 Training Mode: Weight Shift Skill Level (1-3): 1 and 2 Platform Stability Level (1-12): static Time: 1 to 1.5 min Reps: x3 set targets for the anterior R and posterior R #2 Training Mode: Limits of Stability Skill Level (1-3): 1 Platform Stability Level (1-12): static Reps: x2 #3 Training Mode: Random Control Skill Level (1-3): 1 Platform Stability Level (1-12): static Reps: x2 Interventions - Exercise/Activities/Manual Therapy Exercises/Activities: 37 mins. NMR on [employer] BALANCE SYSTEM, see tab. Ended with stationary bike x 7 mins for/retro with cues to switch positions and assisted onto the bike along with pedal adjustment. Manual Therapy: n/a HOME EXERCISE PROGRAM: pt given written HEP including AP, LAQ, seated hip flex, standing heel raises, hip abd, hip flex - Charges Timed Code Treatment Minutes: 37 Total Treatment Time: 37 Procedures billed for this date of service:: neuro2 (bike time not included) Assessment: Patient demo improvement with postural stability per Balance System since last session as well as bal score for weight shifting by 10-15%. He demo less difficulty shifting weight posteriorally and to the R than last week. He will be having cardiac pre-op testing done next week. Patient Education: Home Exercise Program, Home Safety, Education of Plan of Care Patient demonstrates compliance with HEP?: Yes Short Term Goals Goal #1: pt independent with initial HEP Goal to be met by: 09/25/18 Progress towards Goal:: Progressing Goal #2: Improve dyn gait index score 14/24 Goal to be met by: 09/25/18 Goal #3: Improve BLE strength 4 to 4+/5 Goal to be met by: 09/25/18 Progress towards Goal:: Progressing Goal #4: pt amb in dept with appropriate AD with no LOB Goal to be met by: 09/25/18 Progress towards Goal:: Progressing Jail Goals Goal #1: pt amb community distances with AAD with no LOB Goal to be met by: 10/16/18 Goal #2: Improve dyn stand balance as noted by Dyn gait index Goal to be met by: 10/16/18 Goal #3: Improve gait speed 0.8 meters/sec to be consistent with community ambulator Goal to be met by: 10/16/18 Goal #4: pt report no falls at home Goal to be met by: 10/16/18 Progress towards goal: Progressing Plan Dates of Cuff Setter Lockstitch Goals: 10/16/18 Expiration date of current Insurance Approval:: 10/16/18 PLAN: Continue BIW for strengthening to the LEs and balance activities.
--- NOTE | 2018-10-01 11:26 | RS.CXNS ---
Date of scheduled appointment: 10/01/18 Type: Cancel
--- NOTE | 2018-10-03 11:23 | RS.CXNS ---
Date of scheduled appointment: 10/03/18 Type: Cancel Reason for Cancel/NS: Patient came in early following his tests and wanted to begin therapy. No available time on schedule and did not want to wait until his actual appt @ 1030. Scheduled for next week.
--- NOTE | 2018-10-10 16:40 | RS.OPPTDN ---
Subjective Date of Note: 10/10/18 Visit #: 9 Number of visits approved by Insurance: Reassess at 10 Date of Evaluation: 09/03/18 Payer Source: MEDICARE Treatment Diagnosis: gait abnormality, frequent falls Current Subjective/complaints:: Patient says he feels he has gained a little strength in his legs. Reports he hasn't fallen anymore. When asked, he is unable to come up with specific tasks that are difficult for him at home. *Precautions: fall precautions Interventions - Exercise/Activities/Manual Therapy Exercises/Activities: Patient performs bilateral LE therex: QS, SAQ 3#, Ball squeezes, hooklying hip abd with green tband, bridging, lower trunk rotation with ball green tband, DF with green tband all 2x10. Sitting EOB: 3# wand for bilateral shoulder flexion above head, green tband for postural pull backs, 2x10. Standing at railing: heel raises, hip abd (alt), bilateral wall slides for erect posture, marching using 1 HR. All SBA-CGA. Total minutes of Exercise: 38 Manual Therapy: n/a HOME EXERCISE PROGRAM: pt given written HEP including AP, LAQ, seated hip flex, standing heel raises, hip abd, hip flex - Charges Timed Code Treatment Minutes: 38 Total Treatment Time: 38 Procedures billed for this date of service:: ex3 Assessment: Patient able to perform all standing dynamic exercises with mostly SBA no LOB noted. He amb using SC often switching sides for comfort. He demo improved ease of performing progressive weighted exercises today. Patient Education: Education of diagnosis, Home Exercise Program, Home Safety Patient demonstrates compliance with HEP?: Yes (intermittently) Short Term Goals Goal #1: pt independent with initial HEP Goal to be met by: 09/25/18 Progress towards Goal:: Progressing Goal #2: Improve dyn gait index score 14/24 Goal to be met by: 09/25/18 Comments:: Will assess next session Goal #3: Improve BLE strength 4 to 4+/5 Goal to be met by: 09/25/18 Progress towards Goal:: Progressing Goal #4: pt amb in dept with appropriate AD with no LOB Goal to be met by: 09/25/18 Progress towards Goal:: Progressing Prison Goals Goal #1: pt amb community distances with AAD with no LOB Goal to be met by: 10/16/18 Goal #2: Improve dyn stand balance as noted by Dyn gait index Goal to be met by: 10/16/18 Goal #3: Improve gait speed 0.8 meters/sec to be consistent with community ambulator Goal to be met by: 10/16/18 Goal #4: pt report no falls at home Goal to be met by: 10/16/18 Progress towards goal: Progressing Plan Dates of Shield Installer Goals: 10/16/18 Expiration date of current Insurance Approval:: 10/16/18 PLAN: Continue x 1 more session, reassess at that point.
== END 2018-10-15 23:59 ==
PROVIDERS: ATTEND Internal Medicine
DX: M62.81 Muscle weakness (generalized) (principal); R26.89 Other abnormalities of gait and mobility; R26.9 Unspecified abnormalities of gait and mobility

== ENCOUNTER 2018-12-15 08:57 | Emergency (ER) ==
[2018-12-15 09:02] VITALS: BP 160/73; TEMP 99.5; BMI 29.1
[2018-12-15] MEDS: URO-JET MUCOUSMEMB STA ×2 (09:14→09:33)
[2018-12-15] MEDS: NORFLEX IM STA (09:38)
--- NOTE | 2018-12-15 10:07 | ED.PDOC ---
General ED Provider: Dr. LEAH BARRETT MD Chief Complaint: Urinary Problem Stated Complaint: trouble urinating Time Seen by Physician: 09:13 Mode of Arrival: Wheelchair Information Source: Patient, Family Exam Limitations: No limitations Primary Care Provider: ABY SLAUGHTER Nursing and Triage Documentation Reviewed and Agree: Yes Does patient meet sepsis criteria?: No If yes, has appropriate treatment been initiated?: Yes System Inflammatory Response Syndrome: Not Applicable Sepsis Protocol: For patient's 13 years and over: Temp is 96.8 and below OR 101 and greater Pulse >90 BPM Resp >20/minute Acutely Altered Mental Status Are patient's symptoms suggestive of a new infection, such as: -Pneumonia -Skin, Soft Tissue -Endocarditis -UTI -Bone, Joint Infection -Implantable Device -Acute Abdominal Infection -Wound Infection -Meningitis -Blood Stream Catheter Infection -Unknown Review of Systems - Review Of Systems Constitutional: Reports: Other (just had CEA) Eyes: Reports: No symptoms Ears, Nose, Mouth, Throat: Reports: No symptoms Respiratory: Reports: No symptoms Cardiac: Reports: No symptoms GI: Reports: No symptoms : Reports: No symptoms Musculoskeletal: Reports: No symptoms Skin: Reports: No symptoms Neurological: Reports: No symptoms Endocrine: Reports: No symptoms Hematologic/Lymphatic: Reports: No symptoms All Other Systems: Reviewed and Negative Past Medical History - Past Medical History Previously Healthy: Yes Endocrine: Reports: DM 2, Dyslipidemia Cardiovascular: Reports: CAD, Hypertension, CHF Respiratory: Reports: None Hematological: Reports: None Gastrointestinal: Reports: None Genitourinary: Reports: None Neuro/Psych: Reports: Depression Musculoskeletal: Reports: Back Pain, Joint Pain Cancer: Reports: None - Surgical History General Surgical History: Reports: CABG - Family History Family History: Reports: None - Social History Smoking Status: Never smoker Hx Substance Use: No Alcohol Screening: None Physical Exam - Physical Exam Appearance: Obese Ill-appearing: Mild Eyes: TJ, EOMI, Conjunctiva clear ENT: Ears normal, Nose normal, Oropharynx normal Respiratory: Airway patent, Breath sounds clear, Breath sounds equal, Respirations nonlabored Cardiovascular: RRR, Pulses normal, No rub, No murmur GI/: Soft, Nontender, No masses, Bowel sounds normal, No Organomegaly Musculoskeletal: Normal strength, ROM intact, No edema, No calf tenderness Skin: Warm, Dry, Normal color Neurological: Sensation intact, Motor intact, Reflexes intact, Cranial nerves intact, Alert, Oriented Psychiatric: Affect appropriate, Mood appropriate Critical Care Note - Critical Care Note Total Time (mins): 0 Course - Course Orders, Labs, Meds: Lab Review 12/15/18 09:30 Urine Color Yellow Urine Clarity Slightly Urine pH 5.5 Ur Specific [place] 1.015 Urine Protein 1+ Urine Glucose (UA) 1+ Urine Ketones Negative Urine Blood 3+ Urine Nitrite Negative Urine Bilirubin Negative Urine Urobilinogen 0.2 Ur Leukocyte Esterase Negative Urine Microscopic RBC 10-20 Ur Squamous Epith Cells 0-2 Urine Bacteria Trace Orders Category Date Time Status NEBULIZER TREATMENT Stat CARDIO 12/15/18 10:15 Completed Catheter [ED CATHETER INSERTION AND CARE] .ONCE EMERGENCY 12/15/18 09:15 Active URINALYSIS C & S IF INDICATED Stat LAB 12/15/18 09:30 Completed Ipratropium/Albuterol Neb [Duoneb] MEDS 12/15/18 10:15 Discontinued 1 vial NEB ONCE STA Lidocaine HCl [Uro-Jet] MEDS 12/15/18 09:09 Discontinued 10 ml MUCOUSMEMB ONCE STA Lidocaine HCl [Uro-Jet] MEDS 12/15/18 09:15 Discontinued 10 ml MUCOUSMEMB ONCE STA Orphenadrine Citrate [Norflex] MEDS 12/15/18 09:15 Discontinued 60 mg IM ONCE STA Medications Discontinued Medications Generic Name Dose Route Start Last Admin Trade Name Freq PRN Reason Stop Dose Admin Albuterol/Ipratropium 1 vial 12/15/18 10:15 12/15/18 10:22 Duoneb NEB 12/15/18 10:16 1 vial ONCE STA Administration Lidocaine HCl 10 ml 12/15/18 09:09 12/15/18 09:14 Uro-Jet MUCOUSMEMB 12/15/18 09:10 10 ml ONCE STA Administration Lidocaine HCl 10 ml 12/15/18 09:15 12/15/18 09:33 Uro-Jet MUCOUSMEMB 12/15/18 09:16 Not Given ONCE STA Orphenadrine Citrate 60 mg 12/15/18 09:15 12/15/18 09:38 Norflex IM 12/15/18 09:16 60 mg ONCE STA Administration Vital Signs: Temp Pulse Resp BP Pulse Ox 12/15/18 08:58 99.5 F 81 20 160/73 H 88 L Departure - Departure Time of Disposition: 10:45 Disposition: HOME SELF-CARE Discharge Problem: Urinary retention Instructions: Urinary Retention in Men (ED) Condition: Good Pt referred to PMD for follow-up: Yes IPMP verified?: No Allergies/Adverse Reactions: Allergies No Known Allergies Allergy (Verified 12/15/18 09:03) Home Medications: Ambulatory Orders Digoxin 125 mcg PO DAILY 08/20/13 Gabapentin 300 mg PO QAM 08/21/13 Gabapentin 600 mg PO BEDTIME 08/21/13 Clopidogrel Bisulfate [Plavix] 75 mg PO DAILY 07/24/17 Finasteride [Proscar] 5 mg PO DAILY 07/24/17 Insulin Detemir [Levemir] 70 - 90 unit SUBCUT BEDTIME 07/24/17 Lovastatin [Mevacor] 20 mg PO BEDTIME 07/24/17 Lovastatin [Mevacor] 40 mg PO DAILY 07/24/17 Multivitamin [Multi-Vitamin Daily] 1 each PO DAILY 07/24/17 Tamsulosin HCl [Flomax] 0.4 mg PO DAILY 07/24/17 Amlodipine Besylate [Norvasc] 5 mg PO DAILY 12/15/18 Aspirin [Aspirin Chewable] 81 mg PO DAILYWM 12/15/18 Dulaglutide [Trulicity] 1.5 mg SQ WEEKLY 12/15/18 Losartan/Hydrochlorothiazide [Hyzaar 50-12.5 mg Tab] 1 tab PO DAILY 12/15/18 Metoprolol Tartrate [Lopressor] 25 mg PO BID 12/15/18 Pantoprazole Sodium [Protonix] 40 mg PO QDAC 12/15/18 Sitagliptin Phos/Metformin HCl [Janumet 50-500 mg Tablet] 1 each PO BID Transfer Form Completed: No Disposition Discussed With: Patient, Family
[2018-12-15] MEDS: DUONEB NEB STA (10:22)
== END 2018-12-15 10:50 | disposition home or self-care (01) ==
LOC: ED 08:57
DX: R33.9 Retention of urine, unspecified (principal); E11.9 Type 2 diabetes mellitus without complications; E78.5 Hyperlipidemia, unspecified; I25.810 Atherosclerosis of coronary artery bypass graft(s) without angina pectoris; I10 Essential (primary) hypertension; Z79.899 Other long term (current) drug therapy
CPT/HCPCS: 81001; 94640; 96372; 99283

== ENCOUNTER 2018-12-16 19:24 | Emergency (ER) ==
[2018-12-16 19:31] VITALS: BP 145/68; TEMP 99.5; BMI 30.5
[2018-12-16] MEDS ORDERED: URO-JET MUCOUSMEMB STA ×2 (19:37→19:38)
--- NOTE | 2018-12-16 20:21 | ED.PDOC ---
General ED Provider: Dr. LEAH GODOY-ER Chief Complaint: Urinary Problem Stated Complaint: i had blood clots Time Seen by Physician: 19:30 Mode of Arrival: Wheelchair Information Source: Patient Exam Limitations: No limitations Primary Care Provider: ABY THOMPSON Nursing and Triage Documentation Reviewed and Agree: Yes Does patient meet sepsis criteria?: No System Inflammatory Response Syndrome: Not Applicable Sepsis Protocol: For patient's 13 years and over: Temp is 96.8 and below OR 101 and greater Pulse >90 BPM Resp >20/minute Acutely Altered Mental Status Are patient's symptoms suggestive of a new infection, such as: -Pneumonia -Skin, Soft Tissue -Endocarditis -UTI -Bone, Joint Infection -Implantable Device -Acute Abdominal Infection -Wound Infection -Meningitis -Blood Stream Catheter Infection -Unknown Complaint Exam - Complaint/Exam Symptoms Are: Still present Initial Severity: Mild Current Severity: None Character: Reports: Dark urine, Bloody urine Aggravating: Reports: None Alleviating: Reports: None Associated Signs and Symptoms: Denies: Diaphoresis, Back pain, Fever, Hematuria , Dysuria, Constipation, Blood in stool, Rectal pain, Appetite change, Nausea, Vomiting, Penile swelling, Penile discharge, Decreased urine output, Increased urine frequency, Increased thirst, Decreased activity, Lethargy, Scrotal pain, Scrotal swelling, Abdominal Pain Differential Diagnoses: Other Review of Systems - Review Of Systems Constitutional: Reports: No symptoms Eyes: Reports: No symptoms Ears, Nose, Mouth, Throat: Reports: No symptoms Respiratory: Reports: No symptoms Cardiac: Reports: No symptoms GI: Reports: No symptoms : Reports: Hematuria Musculoskeletal: Reports: No symptoms Skin: Reports: No symptoms Neurological: Reports: No symptoms Endocrine: Reports: No symptoms Hematologic/Lymphatic: Reports: No symptoms All Other Systems: Reviewed and Negative Past Medical History - Past Medical History Previously Healthy: Yes Endocrine: Reports: DM 2, Dyslipidemia Cardiovascular: Reports: CAD, Hypertension, CHF Respiratory: Reports: None Hematological: Reports: None Gastrointestinal: Reports: None Genitourinary: Reports: None Neuro/Psych: Reports: Depression Musculoskeletal: Reports: Back Pain, Joint Pain Cancer: Reports: None - Surgical History General Surgical History: Reports: CABG - Family History Family History: Reports: None - Social History Smoking Status: Never smoker Hx Substance Use: No Alcohol Screening: None Physical Exam - Physical Exam Appearance: Well-appearing, No pain distress, Well-nourished Eyes: TJ, EOMI, Conjunctiva clear ENT: Ears normal, Nose normal, Oropharynx normal Neck: Supple Respiratory: Airway patent, Breath sounds clear, Breath sounds equal, Respirations nonlabored Cardiovascular: RRR, Pulses normal, No rub, No murmur GI/: Soft, Nontender, No masses, Bowel sounds normal, No Organomegaly Musculoskeletal: Normal strength Skin: Warm, Dry, Normal color Neurological: Sensation intact, Motor intact, Reflexes intact, Cranial nerves intact, Alert, Oriented Psychiatric: Affect appropriate Critical Care Note - Critical Care Note Total Time (mins): 0 Course - Course Hematology/Chemistry: 12/16/18 20:08 Orders, Labs, Meds: Lab Review 12/16/18 20:08 WBC 15.82 H RBC 3.59 L Hgb 10.8 L Hct 32.3 L MCV 90.0 MCH 30.1 MCHC 33.4 RDW Coeff of Michele 13.0 Plt Count 254 Immature Gran % (Auto) 0.6 Neut % (Auto) 53.2 Lymph % (Auto) 31.3 [place] % (Auto) 11.9 H Eos % (Auto) 2.9 Baso % (Auto) 0.1 Immature Gran # (Auto) 0.1 Neut # (Auto) 8.4 H Lymph # (Auto) 5.0 H [place] # (Auto) 1.9 Eos # (Auto) 0.5 Baso # (Auto) 0.0 Orders Category Date Time Status [place] [ED CATHETER INSERTION AND CARE] .ONCE EMERGENCY 12/16/18 19:37 Active CBC W/ AUTO DIFF Stat LAB 12/16/18 20:08 Completed Lidocaine HCl [Uro-Jet] MEDS 12/16/18 19:38 Discontinued 10 ml MUCOUSMEMB ONCE STA Medications Discontinued Medications Generic Name Dose Route Start Last Admin Trade Name Freq PRN Reason Stop Dose Admin Lidocaine HCl 10 ml 12/16/18 19:38 12/16/18 20:06 Uro-Jet MUCOUSMEMB 12/16/18 19:39 10 ml ONCE STA Administration Vital Signs: Temp Pulse Resp BP Pulse Ox 12/16/18 19:24 99.5 F 81 20 145/68 H 92 L Departure - Departure Time of Disposition: 20:20 Disposition: HOME SELF-CARE Discharge Problem: Urinary retention Instructions: Urinary Retention in Men (ED) Condition: Good Pt referred to PMD for follow-up: Yes IPMP verified?: No Additional Instructions: if catheter gets clogged again0---return to the er---keep appt with dr thompson tomorrow Allergies/Adverse Reactions: Allergies No Known Allergies Allergy (Verified 12/16/18 19:31) Home Medications: Ambulatory Orders Digoxin 125 mcg PO DAILY 08/20/13 Gabapentin 300 mg PO QAM 08/21/13 Gabapentin 600 mg PO BEDTIME 08/21/13 Clopidogrel Bisulfate [Plavix] 75 mg PO DAILY 07/24/17 Finasteride [Proscar] 5 mg PO DAILY 07/24/17 Insulin Detemir [Levemir] 70 - 90 unit SUBCUT BEDTIME 07/24/17 Lovastatin [Mevacor] 20 mg PO BEDTIME 07/24/17 Lovastatin [Mevacor] 40 mg PO DAILY 07/24/17 Multivitamin [Multi-Vitamin Daily] 1 each PO DAILY 07/24/17 Tamsulosin HCl [Flomax] 0.8 mg PO DAILY 07/24/17 Amlodipine Besylate [Norvasc] 5 mg PO DAILY 12/15/18 Aspirin [Aspirin Chewable] 81 mg PO DAILYWM 12/15/18 Dulaglutide [Trulicity] 1.5 mg SQ WEEKLY 12/15/18 Losartan/Hydrochlorothiazide [Hyzaar 50-12.5 mg Tab] 1 tab PO DAILY 12/15/18 Metoprolol Tartrate [Lopressor] 25 mg PO BID 12/15/18 Pantoprazole Sodium [Protonix] 40 mg PO QDAC 12/15/18 Sitagliptin Phos/Metformin HCl [Janumet 50-500 mg Tablet] 1 each PO BID Disposition Discussed With: Patient, Family
== END 2018-12-16 20:34 | disposition home or self-care (01) ==
LOC: ED 19:24
DX: R33.9 Retention of urine, unspecified (principal); T83.098A Other mechanical complication of other urinary catheter, initial encounter; R31.9 Hematuria, unspecified; Z79.899 Other long term (current) drug therapy; E11.9 Type 2 diabetes mellitus without complications; E78.5 Hyperlipidemia, unspecified; I25.810 Atherosclerosis of coronary artery bypass graft(s) without angina pectoris; I10 Essential (primary) hypertension
CPT/HCPCS: 36415; 85025; 99282

== ENCOUNTER 2018-12-17 01:49 | Inpatient (IN) ==
[2018-12-17] MEDS ORDERED: URO-JET MUCOUSMEMB STA (02:01)
--- NOTE | 2018-12-17 03:12 | ED.PDOC ---
General ED Provider: Dr. LEAH GODOY-ER Chief Complaint: Urinary Problem Stated Complaint: his catheter is stopped up Time Seen by Physician: 02:00 Mode of Arrival: Wheelchair Information Source: Patient Exam Limitations: No limitations Primary Care Provider: ABY SLAUGHTER Nursing and Triage Documentation Reviewed and Agree: Yes Does patient meet sepsis criteria?: No System Inflammatory Response Syndrome: Not Applicable Sepsis Protocol: For patient's 13 years and over: Temp is 96.8 and below OR 101 and greater Pulse >90 BPM Resp >20/minute Acutely Altered Mental Status Are patient's symptoms suggestive of a new infection, such as: -Pneumonia -Skin, Soft Tissue -Endocarditis -UTI -Bone, Joint Infection -Implantable Device -Acute Abdominal Infection -Wound Infection -Meningitis -Blood Stream Catheter Infection -Unknown Complaint Exam - Complaint/Exam Patient Complains of: Reports: Dysuria Symptoms Are: Still present Initial Severity: Mild Current Severity: Moderate Character: Reports: Bloody urine Aggravating: Reports: None Associated Signs and Symptoms: Reports: Hematuria Abdominal Findings: Present: None Review of Systems - Review Of Systems Constitutional: Reports: No symptoms Eyes: Reports: No symptoms Ears, Nose, Mouth, Throat: Reports: No symptoms Respiratory: Reports: No symptoms Cardiac: Reports: No symptoms GI: Reports: No symptoms : Reports: Hematuria Musculoskeletal: Reports: No symptoms Skin: Reports: No symptoms Neurological: Reports: No symptoms Endocrine: Reports: No symptoms Hematologic/Lymphatic: Reports: No symptoms All Other Systems: Reviewed and Negative Past Medical History - Past Medical History Previously Healthy: Yes Endocrine: Reports: DM 2, Dyslipidemia Cardiovascular: Reports: CAD, Hypertension, CHF Respiratory: Reports: None Hematological: Reports: None Gastrointestinal: Reports: None Genitourinary: Reports: None Neuro/Psych: Reports: Depression Musculoskeletal: Reports: Back Pain, Joint Pain Cancer: Reports: None - Surgical History General Surgical History: Reports: CABG - Family History Family History: Reports: None - Social History Smoking Status: Never smoker Hx Substance Use: No Alcohol Screening: None - Immunizations Tetanus Shot up to Date: No (unsure) Physical Exam - Physical Exam Appearance: Well-appearing, No pain distress, Well-nourished Eyes: TJ, EOMI, Conjunctiva clear ENT: Ears normal, Nose normal, Oropharynx normal Neck: Supple Respiratory: Airway patent Cardiovascular: RRR GI/: Soft, Nontender, No masses, Bowel sounds normal, No Organomegaly Musculoskeletal: Normal strength, ROM intact, No edema, No calf tenderness Skin: Warm, Dry, Normal color Neurological: Sensation intact, Motor intact, Reflexes intact, Cranial nerves intact, Alert, Oriented Psychiatric: Affect appropriate, Mood appropriate Critical Care Note - Critical Care Note Total Time (mins): 0 Course - Course Hematology/Chemistry: 12/17/18 02:10 12/17/18 02:10 Orders, Labs, Meds: Lab Review 12/17/18 12/17/18 12/17/18 02:10 02:10 02:10 WBC 15.29 H RBC 3.84 L Hgb 11.5 L Hct 34.6 L MCV 90.1 MCH 29.9 MCHC 33.2 RDW Coeff of Michele 13.2 Plt Count 287 Immature Gran % (Auto) 0.5 Neut % (Auto) 49.4 Lymph % (Auto) 34.9 [place] % (Auto) 11.4 H Eos % (Auto) 3.5 Baso % (Auto) 0.3 Immature Gran # (Auto) 0.1 Neut # (Auto) 7.6 H Lymph # (Auto) 5.3 H [place] # (Auto) 1.7 Eos # (Auto) 0.5 Baso # (Auto) 0.0 PT 9.6 INR 0.96 Sodium 137.4 Potassium 3.80 Chloride 99.2 Carbon Dioxide 29.2 Anion Gap 12.80 BUN 23.7 H Creatinine 1.08 Estimated GFR (MDRD) 65.00 BUN/Creatinine Ratio 21.94 Glucose 163.8 H Calcium 9.19 Total Bilirubin 0.66 AST 36.0 ALT 39.7 Alkaline Phosphatase 125.0 H Total Protein 6.62 Albumin 3.48 L Globulin 3.14 Albumin/Globulin Ratio 1.10 Orders Category Date Time Status EKG-(ED ONLY) Stat CARDIO 12/17/18 01:52 Completed ED BLADDER SCAN .ONCE EMERGENCY 12/17/18 01:52 Active [place] [ED CATHETER INSERTION AND CARE] .ONCE EMERGENCY 12/17/18 02:01 Active CBC W/ AUTO DIFF Stat LAB 12/17/18 02:10 Completed COMPREHENSIVE METABOLIC PANEL Stat LAB 12/17/18 02:10 Completed PT WITH INR Stat LAB 12/17/18 02:10 Completed Lidocaine HCl [Uro-Jet] MEDS 12/17/18 02:01 Discontinued 10 ml MUCOUSMEMB ONCE STA Medications Discontinued Medications Generic Name Dose Route Start Last Admin Trade Name Crista PRN Reason Stop Dose Admin Lidocaine HCl 10 ml 12/17/18 02:01 Uro-Jet MUCOUSMEMB 12/17/18 02:02 ONCE STA Vital Signs: Temp Pulse Resp BP Pulse Ox 12/17/18 01:55 99.4 F 80 20 137/69 95 Departure - Departure Time of Disposition: 03:15 Disposition: ADMITTED INPATIENT Discharge Problem: Urinary retention Instructions: Urinary Retention in Men (ED) Condition: Good Pt referred to PMD for follow-up: Yes IPMP verified?: No Allergies/Adverse Reactions: Allergies No Known Allergies Allergy (Verified 12/17/18 02:04) Home Medications: Ambulatory Orders Digoxin 125 mcg PO DAILY 08/20/13 Gabapentin 300 mg PO QAM 08/21/13 Gabapentin 600 mg PO BEDTIME 08/21/13 Clopidogrel Bisulfate [Plavix] 75 mg PO DAILY 07/24/17 Finasteride [Proscar] 5 mg PO DAILY 07/24/17 Insulin Detemir [Levemir] 70 - 90 unit SUBCUT BEDTIME 07/24/17 Lovastatin [Mevacor] 20 mg PO BEDTIME 07/24/17 Lovastatin [Mevacor] 40 mg PO DAILY 07/24/17 Multivitamin [Multi-Vitamin Daily] 1 each PO DAILY 07/24/17 Tamsulosin HCl [Flomax] 0.8 mg PO DAILY 07/24/17 Amlodipine Besylate [Norvasc] 5 mg PO DAILY 12/15/18 Aspirin [Aspirin Chewable] 81 mg PO DAILYWM 12/15/18 Dulaglutide [Trulicity] 1.5 mg SQ WEEKLY 12/15/18 Losartan/Hydrochlorothiazide [Hyzaar 50-12.5 mg Tab] 1 tab PO DAILY 12/15/18 Metoprolol Tartrate [Lopressor] 25 mg PO BID 12/15/18 Pantoprazole Sodium [Protonix] 40 mg PO QDAC 12/15/18 Sitagliptin Phos/Metformin HCl [Janumet 50-500 mg Tablet] 1 each PO BID Transfer Form Completed: No Disposition Discussed With: Patient, Family
[2018-12-17 04:32] VITALS: BMI 29.9
[2018-12-17] MEDS: PROTONIX PO SCH (06:05)
[2018-12-17] MEDS: TYLENOL PO STA (08:04)
[2018-12-17] MEDS ORDERED: NON-FORMULARY MEDICATION (Multivitamin [Multi-Vitamin Daily] 1 EACH) PO SCH (09:00)
[2018-12-17] MEDS ORDERED: LOPRESSOR PO SCH (09:00)
--- NOTE | 2018-12-17 09:32 | PCM.PROG ---
Attending Provider: ATTENDING PROVIDER: Dr. ABY WALLACE This patient is seen with Clemencia Miranda, Nurse Practitioner. DATE OF SERVICE: 12/17/18 SUBJECTIVE: This 83 year old WHITE/ M was hospitalized 12/17/18. The patient is lying in bed resting comfortably. He is still with blood clots in [place]. The patient saw IFEANYI Bernard yesterday. He is having pain this morning from incision site with headache and is likely reason for elevation in blood pressure. Urology had ordered a CT scan of abdomen and pelvis and we will do that here. REVIEW OF SYSTEMS: CONSTITUTIONAL: Fatigue. No night sweats. No malaise, lethargy. No fever or chills. HEENT: Eyes: No visual changes. No eye pain. No eye discharge. ENT: No runny nose. No epistaxis. No sinus pain. No odynophagia. No congestion. RESPIRATORY: No cough, no congestion. No hemoptysis. No shortness of breath. CARDIOVASCULAR: No angina symptoms. No CHF symptoms. No atypical chest pain for CAD. No palpitations. No orthopnea.. GASTROINTESTINAL: No abdominal pain. No nausea or vomiting. No diarrhea or constipation. No hematemesis. No hematochezia. GENITOURINARY: Urinary retention, hematuria. MUSCULOSKELETAL: No musculoskeletal pain; no joint swelling. NEUROLOGICAL: Awake, alert, oriented to time, place and person. No headache. No neck pain. No syncope. No seizures. No dizziness. PSYCHIATRIC: Not anxious. No depression. No suicidal thoughts. No homicidal thoughts. SKIN: No rash. Incision right carotid, clean, dry and intact. No signs of infection. ENDOCRINE: No unexplained weight loss. No weight gain. HEMATOLOGIC/LYMPHATIC: No anemia. No purpura. No petechiae. No prolonged or excessive bleeding. No palpable lymph nodes. PHYSICAL EXAMINATION: GENERAL: The patient is awake, alert and oriented, lying/sitting in bed in no distress. VITAL SIGNS: Temperature 98.0 F, Pulse 80, Respiratory Rate 16, BP 137/69, Pulse Ox 95% HEENT: Head normocephalic, atraumatic. Eyes: Extraocular muscles are intact. Pupils are equal, round and reactive to light and accommodation. Ears: No lesions. Nose appeared normal. Throat: No exudate or erythema. NECK: Supple. No JVD, no carotid bruit. No lymphadenopathy or thyromegaly. LUNGS: Clear to auscultation. Percussion note normal. Chest symmetrical. HEART: S1, S2, no S3. No murmurs. No cyanosis or clubbing. No ascites. Pulses: Dorsalis pedis and posterior tibial pulses +1 to +2 both sides. ABDOMEN: Soft. Non-tender. Bowel sounds active. No CVA tenderness. No mass felt. EXTREMITIES: No edema. Full range of motion of all extremities, equal. NEUROLOGIC: No focal deficit. Cranial nerves II through XII are grossly intact. No headache, no double vision or headache. SKIN: Not dry. Intact. Turgor-normal. LYMPHATIC: No palpable lymph nodes/no lymphedema. MUSCULOSKELETAL: Normal joints with no swelling. Muscle tone is normal. LAB REVIEW: 12/17/18 07:00 12/17/18 07:00 12/17/18 07:00: Sodium 137.9, Potassium 3.64, Chloride 99.6, Carbon Dioxide 30.7 H, Anion Gap 11.24, BUN 22.1 H, Creatinine 1.00, Estimated GFR (MDRD) 72.00 , BUN/Creatinine Ratio 22.10, Glucose 84.5 D, Calcium 8.71, Total Bilirubin 0.69, AST 36.1, ALT 40.0, Alkaline Phosphatase 123.1 H, Total Protein 6.24 L, Albumin 3.30 L, Globulin 2.94, Albumin/Globulin Ratio 1.12 12/17/18 07:00: WBC 15.16 H, RBC 3.64 L, Hgb 10.9 L, Hct 32.7 L, MCV 89.8, MCH 29.9, MCHC 33.3, RDW Coeff of Michele 13.0, Plt Count 272, Immature Gran % (Auto) 0.5, Neut % (Auto) 53.1, Lymph % (Auto) 29.7, [place] % (Auto) 12.7 H, Eos % (Auto ) 3.8, Baso % (Auto) 0.2, Immature Gran # (Auto) 0.1, Neut # (Auto) 8.1 H, Lymph # (Auto) 4.5 H, [place] # (Auto) 1.9, Eos # (Auto) 0.6, Baso # (Auto) 0.0 12/17/18 04:40: Urine Color Red, Urine Clarity Cloudy, Urine pH 8.5, Ur Specific [place] 1.010, Urine Protein 3+, Urine Glucose (UA) Trace, Urine Ketones 1+, Urine Blood 3+, Urine Nitrite Negative, Urine Bilirubin 3+, Urine Urobilinogen 2.0, Ur Leukocyte Esterase 3+, Urine Microscopic RBC 50-100, Urine Microscopic WBC 5-10, Ur Squamous Epith Cells Not present, Urine Bacteria Trace 12/17/18 02:10: Sodium 137.4, Potassium 3.80, Chloride 99.2, Carbon Dioxide 29.2 , Anion Gap 12.80, BUN 23.7 H, Creatinine 1.08, Estimated GFR (MDRD) 65.00, BUN/ Creatinine Ratio 21.94, Glucose 163.8 H, Calcium 9.19, Total Bilirubin 0.66, AST 36.0, ALT 39.7, Alkaline Phosphatase 125.0 H, Total Protein 6.62, Albumin 3.48 L, Globulin 3.14, Albumin/Globulin Ratio 1.10 12/17/18 02:10: PT 9.6, INR 0.96 12/17/18 02:10: WBC 15.29 H, RBC 3.84 L, Hgb 11.5 L, Hct 34.6 L, MCV 90.1, MCH 29.9, MCHC 33.2, RDW Coeff of Michele 13.2, Plt Count 287, Immature Gran % (Auto) 0.5, Neut % (Auto) 49.4, Lymph % (Auto) 34.9, [place] % (Auto) 11.4 H, Eos % (Auto ) 3.5, Baso % (Auto) 0.3, Immature Gran # (Auto) 0.1, Neut # (Auto) 7.6 H, Lymph # (Auto) 5.3 H, S[place]th # (Auto) 1.7, Eos # (Auto) 0.5, Baso # (Auto) 0.0 ASSESSMENT: Please see below. 1. Urinary retention requiring [place] catheter. 2. Hematuria. 3. Recent high carotid endarterectomy. 4. Diabetes mellitus type 2 uncontrolled. PLAN: 1. A1C. 2. CT scan of abdomen and pelvis with and without. Plan and coordination of the patient's care discussed in the presence of Diesel Engine Ii Pipe Fitter and nurse. CONDITION: Stable SCRIBED BY: EMILE TIDWELL Auto Body Repairer scribed while in presence of service performed by Dr. Wallace/Clemencia Miranda APRN on 12/17/18 ([id number])
[2018-12-17] MEDS: NORCO 5-325 PO PRN (10:08)
[2018-12-17] MEDS: NEURONTIN PO SCH (11:09)
[2018-12-17] MEDS: LANOXIN PO SCH (11:09)
[2018-12-17] MEDS: MULTIVITAMIN TABLET PO SCH (11:10)
[2018-12-17] MEDS: MEVACOR PO SCH (11:10)
[2018-12-17] MEDS: LOPRESSOR PO SCH (11:10)
[2018-12-17] MEDS: NORVASC PO SCH (11:10)
[2018-12-17] MEDS: PROSCAR PO SCH (11:10)
[2018-12-17] MEDS: HYZAAR 50-12.5 MG TAB PO SCH (11:10)
[2018-12-17] MEDS: PLAVIX PO SCH (11:10)
[2018-12-17] MEDS: FLOMAX PO SCH (11:11)
[2018-12-17] MEDS: NON-FORMULARY MEDICATION (Dulaglutide [Trulicity] 1.5 MG) SQ SCH (11:12)
[2018-12-17] MEDS: MEVACOR ONE (11:17)
--- NOTE | 2018-12-17 12:03 | CT ---
EXAM: CT of the abdomen pelvis with and without contrast (CT urogram) History: Urinary retention and hematuria. Comparison: None available. Technique: Multiplanar CT images through the abdomen pelvis were obtained with and without the admin istration of IV contrast. MIP images and 3-D reconstructions were also provided. Findings: Heart is mildly enlarged. Bibasilar subsegmental atelectasis and small right pleural effu flako. No acute osseous abnormalities. 1 mm calculus within the inferior pole of the left kidney. No right renal calculi. There is mild bi lateral hydronephrosis and hydroureter most likely related to the bladder distension. Adrenal glands are unremarkable. 1.5 cm cyst within the superior pole of the right kidney and 1.3 cm cyst within t he inferior pole of the right kidney. No left renal masses. Bilateral perinephric stranding. No malik wel obstruction. No free air. No ascites. There are scattered pancreatic calcifications. No pancr eatic masses. Small umbilical hernia containing fat and small knuckle of bowel. 8.6 cm x 8.7 cm hematoma within the bladder lumen. Guallpa catheter balloon is seen surrounding by the hematoma and projects beyond the prostatic urethra. No enhancing bladder wall mass is seen. No per irectal inflammation. Impression: 1. Large hematoma within the bladder lumen. 2. The bladder is distended and the Guallpa catheter balloon is surrounded by the hematoma and may not be functioning properly. Consider adjustment by urology. 3. Mild bilateral hydronephrosis and hydroureter most likely related to the distended bladder. 4. Simple bilateral renal cysts
[2018-12-17 13:55] VITALS: BP 162/74; TEMP 99.1
--- NOTE | 2018-12-17 14:13 | DS ---
DATE OF SERVICE: 12/17/18 FINAL DIAGNOSIS: 1. Large hematoma within the bladder lumen 8x6 cm x 8x7 cm 2. Mild bilateral hydronephrosis and hydroureter most likely related to the distended bladder. 3. Urinary retention. 4. Hypertension 5. CAD 6. Diabetes mellitus 7. Anemia 8. High lipids 9. GERD 10. Right carotid endarterectomy, 12/12/18 11. Partial thyroidectomy 12. Appendectomy 13. Cholecystectomy 14. CABG DISCHARGE INSTRUCTIONS: Transferred to [facility] 12/17/18, Dr. Lopez accepted patient. MEDICATIONS AT DISCHARGE: Digoxin 125 mcg p.o. daily Gabapentin 300 mg p.o. q.a.m. Gabapentin 600 mg p.o. bedtime Levemir 70-90 unit subcut bedtime Proscar 5 mg p.o. daily Lovastatin 20 mg p.o. bedtime Tamsulosin 0.8 mg p.o. daily Clopidogrel 75 mg p.o. daily Multivitamin one each p.o. daily Dulaglutide 1.5 mg SQ weekly Pantoprazole 40 mg p.o. q.d a.c. Losartan/Hydrochlorothiazide one tab p.o. daily Aspirin 81 mg p.o. daily with meal Amlodipine 5 mg p.o. Sitagliptin one each p.o. b.i.d. Metoprolol 25 mg p.o. b.i.d. Hydrocodone 1-2 tab p.o. q.4-6h p.r.n. NEW PRESCRIPTIONS: None DIET INSTRUCTIONS: As the patient tolerates. ACTIVITY: As the patient tolerates, fall precautions. SMOKING: Nonsmoker DISEASE SPECIFIC EDUCATION: Transfer to [facility] Diagnoses HOSPITAL COURSE: This is an 83-year-old white male who most recently underwent a right carotid endarterectomy by Dr. Roberts at [facility]. He was discharged from [facility] last week. i do believe this was Sunday. Prior to leaving [facility] he was having urinary retention and a Guallpa catheter was placed. He had a followup appointment with Dr. Garcia yesterday. Over the course of the weekend, he went to the emergency room with bleeding in the catheter passing clots. The clot had stopped up his catheter, was not draining. He had no significant drop in hemoglobin. He is on Plavix daily due to the recent endarterectomy. Once the clot was removed, he had refused hospitalization. Again he saw Dr. Jose Bernard's PA yesterday. He increased Flomax to 0.8 mg daily and gave him an order for CT scan of abdomen and pelvis with contrast to be done tomorrow. He presented to our ER on 12/16 complaining of continuing blood clots and not draining of the catheter. There was again no significant drop in blood count noted. Hemoglobin was 10.8. He was admitted, placed on bladder irrigation. He has light pink tinged fluid in his catheter bag. He does complain of mild discomfort in the abdominal area. He does have 3+ leuks in his urine otherwise the most noticeable thing was 3+ blood, low grade temperature of 99.5, nitrite negative. No other indications of infection. He has been on bladder irrigation. All other medications were continued with exception of Janumet in anticipation of doing a CT scan. I ordered a CT scan this morning of the abdomen and pelvis with and without contrast and the results were just received and showed a large hematoma within the bladder lumen, bladder distended. Guallpa catheter balloon is surrounded by hematoma and may not be functioning properly. Consider adjustment by urology. Bilateral nephrosis which is mild and hydroureter related to the distended bladder. We have consulted hospitalist at [facility] to accept him as this would be the most beneficial considering Dr. Roberts who did the right carotid endarterectomy and Dr. Garcia are both present at [facility] and can take care of the hematoma within the bladder. He is in stable condition here. Vital signs have been normal. He did have an elevation of blood pressure this morning which I do believe was the result of pain. Once given pain medication blood pressure resolved. Will transfer him in stable condition. TIME SPENT: More than 60 minutes. PAMELA
[2018-12-17] MEDS ORDERED: MEVACOR PO SCH (21:00)
[2018-12-17] MEDS ORDERED: NEURONTIN PO SCH (21:00)
[2018-12-17] MEDS ORDERED: LEVEMIR SUBCUT SCH ×2 (21:00)
== END 2018-12-17 14:40 | disposition short-term general hospital (02) | DRG 699 ==
LOC: ED 01:49 → MEDSURG B 03:19
PROVIDERS: ADMIT Internal Medicine; ATTEND Internal Medicine
DX: S37.22XA Contusion of bladder, initial encounter (principal); N13.30 Unspecified hydronephrosis; N32.89 Other specified disorders of bladder; I10 Essential (primary) hypertension; E11.9 Type 2 diabetes mellitus without complications; E78.5 Hyperlipidemia, unspecified; D64.9 Anemia, unspecified; K21.9 Gastro-esophageal reflux disease without esophagitis; I25.10 Atherosclerotic heart disease of native coronary artery without angina pectoris; R33.9 Retention of urine, unspecified; R31.9 Hematuria, unspecified
CPT/HCPCS: 36415; 80053; 81001; 82962; 83036; 85025; 85610; 87081; 87086; 93005; 93010; 99285

== ENCOUNTER 2019-02-13 11:00 | Outpatient (RCR) | payer OTHER ==
[2012-12-13 13:03] VITALS: TEMP 98.6
--- NOTE | 2019-01-22 14:13 | RS.OPPTEV2 ---
Date of Note: 01/22/19 Visit #: 1 Number of visits approved by Insurance: NA Date of Evaluation: 01/22/19 Payer Source: MEDICARE Treatment Diagnosis: LE weakness, impaired balance, gait difficulty History of Condition/Mechanism of Injury:: Mr. Villagran reports he was doing well until having surgery in November. States he had his right carotid "cleaned out".He had complications with his bladder for a few weeks, which required continuous hospital treatment and visits. Prior Level of Function.....Patient was independent with: ADL's, Self Care, Caregiving, Ambulation/Mobility, Community Integration/Access Functional Limitations: Standing, Bending, Ambulation, Community Access/ Integration Current Subjective/complaints:: Mr. Villagran reports leg weakness and decreased ability with walking long distances. States he received a couple weeks of Home Health Physical Therapy and they stated he would need to continue with Outpatient PT. He denies any falls since having the Right Carotid Endardectomy. He has been using a straight cane for about two years. He uses the cane inside and outside the home. States at night he uses a rolling walker for safety. Reports stumbling frequently. Admits that he does not greens picker his feet well when walking. States he had to catch himself this morning in the shower. Admits that he gets short of breath with walking. States he even gets short of breath with ambulation inside his home, if he goes very far. He does not use Oxygen. He has no steps at home, but his daughter's house and physician's office have stairs. He reports struggling with stairs, even with a rail. Treatment Side (optional): N/A *Precautions: fall precautions Medical History Medical History: Hypertension, Diabetes, Cancer (melanoma) Medical History Comments:: subdural hematoma Surgical History: Cholecystectomy, CABG Surgical History Comments:: cardiac stents, Right carotid endarterectomy 12/12/18 , Partial Thyroidectomy, appendectomy Smoking Status: Never smoker Hx Home Medications: Sitagliptin Phos/Metformin, Trulicity, Flomax, Protonix, multi-vitamin, Lopressor, Lovasatin, HCTZ, Levemir, Gabapentin, Proscar, Digoxin , Plavix, Aspirin, Norvasc Patient's Goals: His goal is to improve his balance. Functional Outcome Measure LE Functional Scale: 16 (=80% impairment) Tinetti: 16 (16/28=43% impairment) - G Codes & Severity Modifier G Codes & Modifier: NA Source of G Code score: NA Observation - Observation Posture: Forward Head, Rounded Shoulders, Decreased Lumbar Lordosis Gait - Gait Pattern Gait Comments: Mr. Villagran ambulates with a straight cane in the right hand. He demonstrates an ataxic, shuffling gait. He demonstrates short step length bilaterally. Demonstrates no loss of balance during ambulation in the department. He exhibits pursed lipped breathing during and after ambulation. He ambulates at a speed of .48 meters/sec. This gait speed is consistent with limited community ambulation, dependence with ADL's and increased risk for hospitalization and falls. He presents to be 40-59% impaired based on age related norms. General Range of Motion: Bilateral UE and LE AROM is WFL's. Muscle Strength: Right hip flexion, IR, and ER 4-/5. Abduction 4/5. Right quads and HS 4/5. Ankle 4/5. Left hip 4/5, quads and HS 4/5, ankle 4/5. Trunk strength 4/5. Sensation - Sensation Right Lower Extremity: Intact/Normal Left Lower Extremity: Intact/Normal Balance - Sitting Balance Static Sitting Balance: Good Dynamic Sitting Balance: Good - Standing Balance Static Standing Balance: Fair (+) Dynamic Standing Balance: Fair (-) Coordination - Tests Bilateral Heel to [place]: Mild Deviation Toe Tapping: Mild Deviation Comments: toe tap especially difficult with increased speed Additional Comments: Additional Comments: Demonstrates independence with sit<>stand transfers, but shows unsteadiness upon immediate standing. Patient unable to perform single leg stand, on either leg. Oxygen saturation at rest 97%. After walking in the department, ~ 50 feet, oxygen saturation 91%, then quickly recovers. Interventions - Exercise/Activities/Manual Therapy Exercises/Activities: NA Manual Therapy: n/a HOME EXERCISE PROGRAM: NA - Charges Timed Code Treatment Minutes: 0 mins Total Treatment Time: 55 mins Procedures billed for this date of service:: EVAL Medium EVALUATION COMPLEXITY LEVEL EVALUATION COMPLEXITY LEVEL: HISTORY: Medium (History of falls, Diabetes, HTN, Arthritis), EXAM OF BODY SYSTEMS: Medium (Strength, ROM, balance, coordination, sensation), CLINICAL PRESENTATION: Medium, CLINICAL DECISION MAKING: Medium Assessment Assessment: Mr. Villagran presents to the department with a diagosis of LE weakness and gait difficulty. He exhibits LE weakness and impaired balance since having multiple complications following Right Carotid Endardectomy. He presents to be at a high risk for falls per Tinetti Assessment and his gait speed of .48 meters/second. He has difficulty ambulating community distances due to LE weakness and impaired cardiorespiratory endurance. He exhibits good potential to benefit from skilled therapy to increase LE strength and balance, to improve his mobility and reduce his risk for falls. Patient Education: Education of diagnosis, Body/Joint mechanics, Home Exercise Program, Home Safety, Activity Modification, Education of Plan of Care Rehab Potential: Good Short Term Goals Goal #1: Pt independent with HEP. Goal to be met by: 02/05/19 Goal #2: Bilateral hip strength 4+/5. Goal to be met by: 02/05/19 Goal #3: Pt to demonstrate complete foot clearance bilaterally short distances. Goal to be met by: 02/05/19 Goal #4: Pt able to perform SLS for for 3 seconds on each leg. Goal to be met by: 02/05/19 Script Reader Goals Goal #1: Pt and know HEP and to continued ex's to maintain functional level. Goal to be met by: 03/13/19 Goal #2: Score on Tinetti Assessment improved to 24, showing less risk for falls. Goal to be met by: 03/13/19 Goal #3: Improve gait speed 0.8 meters/sec to be consistent with community ambulator Goal to be met by: 03/13/19 Goal #4: Pt to amb. community distances with st. cane, independent with good safety. Goal to be met by: 03/13/19 Plan - Treatment to be Provided Procedures: Therapeutic Exercises, Therapeutic Activity, Gait Training, Neuromuscular Rehab, Patient Education Modalities: No Modalities - Treatment Plan Frequency: 2 X week Duration: 6 weeks Dates of Correction Goals: 03/13/19 Expiration date of current Insurance Approval:: NA - Treatment Code (1) Ataxia Code(s): R27.0 - ATAXIA, UNSPECIFIED Comments: R27 (2) Gait difficulty Code(s): R26.9 - UNSPECIFIED ABNORMALITIES OF GAIT AND MOBILITY Comments: R26.9 (3) At risk for falls Code(s): Z91.81 - HISTORY OF FALLING Comments: Z91.81 (4) Muscle weakness Code(s): M62.81 - MUSCLE WEAKNESS (GENERALIZED) Comments: M62.81 LE weakness
--- NOTE | 2019-01-24 16:05 | RS.OPPTDN ---
Subjective Date of Note: 01/24/19 Visit #: 2 Number of visits approved by Insurance: 2x6 Date of Evaluation: 01/22/19 Payer Source: MEDICARE Treatment Diagnosis: LE weakness, impaired balance, gait difficulty Current Subjective/complaints:: Patient discusses in length his history leading him to PT today. He says his breathing is affected heavily with ambulation. States that he only uses his SC in community, but does limit distance and uses RW at home. Reports he is disappointed with the strength he has lost with being down and in the hospital with his recovery and is hopeful he can regain strength and bal. *Precautions: fall precautions Interventions - Exercise/Activities/Manual Therapy Exercises/Activities: Rx began ~20 mins after appt as pt discussion of history ensued. He sits EOB for bal activities including: holding ball diagonals and overhead to below knees hitting HARDWARE PRESS OPERATOR hand as target x 5 each with rest breaks and prompts for proper nose breathing as this became challenging for him. He performs shoulder shrugs and scap retraction using 1# wand and red tband 2x10 reps. Rhythmic stabilization for anterior/posterior and lateral x 3 ea. Supine : QS, SAQ 1 1/2#, DF with red tband, alternate LE lift with 1 1/2# ea, trunk rotation with red tband bilaterally, Ball squeezes all x 10 reps with multiple breaks and checks of O2 sats. Bridging 2x5. Patient ambulates with SC ~50' stops to have sitting rest, then amb ~100' and again has a sitting rest, then assisted to his vehicle another ~75' CGA providing cues to increase stride length and educate and instruct on deep nose breathing for improved lung capacity. O2 sats measured often throughout treatment. Total minutes of Exercise: 61 Manual Therapy: n/a HOME EXERCISE PROGRAM: NA - Charges Timed Code Treatment Minutes: 61 Total Treatment Time: 61 Procedures billed for this date of service:: ex2, neuro1, gait Assessment: Patient demo weakness to bilateral LEs and core mm's limiting his bal as well as breathing inadequacy decreasing his gait distance. He has difficulty moises more than 5 reps of sitting exercises for trunk stability and does need instruction and assistance with bal activities and strengthening to trunk and LEs as well as assistance with gait. Patient Education: Education of diagnosis, Home Exercise Program, Home Safety, Education of Plan of Care Short Term Goals Goal #1: Pt independent with HEP. Goal to be met by: 02/05/19 Goal #2: Bilateral hip strength 4+/5. Goal to be met by: 02/05/19 Goal #3: Pt to demonstrate complete foot clearance bilaterally short distances. Goal to be met by: 02/05/19 Goal #4: Pt able to perform SLS for for 3 seconds on each leg. Goal to be met by: 02/05/19 Summer Intern Goals Goal #1: Pt and know HEP and to continued ex's to maintain functional level. Goal to be met by: 03/13/19 Goal #2: Score on Tinetti Assessment improved to 24, showing less risk for falls. Goal to be met by: 03/13/19 Goal #3: Improve gait speed 0.8 meters/sec to be consistent with community ambulator Goal to be met by: 03/13/19 Goal #4: Pt to amb. community distances with st. cane, independent with good safety. Goal to be met by: 03/13/19 Plan Dates of Residential Goals: 03/13/19 Expiration date of current Insurance Approval:: 03/13/19 PLAN: Patient to continue BIW for strengthening, bal activities, and gait.
--- NOTE | 2019-01-28 12:11 | RS.OPPTDN ---
Subjective Date of Note: 01/28/19 Visit #: 3 Number of visits approved by Insurance: na Date of Evaluation: 01/22/19 Payer Source: MEDICARE Treatment Diagnosis: LE weakness, impaired balance, gait difficulty Current Subjective/complaints:: Patient reports feeling fairly well today, comments the high humidity affects his breathing. *Precautions: fall precautions Interventions - Exercise/Activities/Manual Therapy Exercises/Activities: 50 mins. total of gait training with cane and CGA/min of 1.LE exercises of 3/15 reps each @ 75#,90#,and 105 # on leg press.Isometric hip ab/add while seated .Also discussed to do marching in place at home holding to firm surface to assist feet clearance during ambulation. Total minutes of Exercise: 50 Manual Therapy: n/a Total minutes of Manual Therapy: 0 - Objective Findings Observations,measurements,etc.: O2 sats. @ 94 - 98 % ,hr 74 - 78 during ex. - Charges Timed Code Treatment Minutes: 50 Total Treatment Time: 50 Procedures billed for this date of service:: ex2,gt Assessment: Patient shuffles feet ,short step length withambulation.He has slight unsteadiness with initial standing ,but has good safwety awareness , before advancing his feet.He has no pain or increased SOA with exercises. Patient Education: Education of diagnosis, Body/Joint mechanics, Home Exercise Program, Home Safety, Activity Modification, Education of Plan of Care Short Term Goals Goal #1: Pt independent with HEP. Goal to be met by: 02/05/19 Goal #2: Bilateral hip strength 4+/5. Goal to be met by: 02/05/19 Progress towards Goal:: Progressing Goal #3: Pt to demonstrate complete foot clearance bilaterally short distances. Goal to be met by: 02/05/19 Goal #4: Pt able to perform SLS for for 3 seconds on each leg. Goal to be met by: 02/05/19 Punch Machine Hand Goals Goal #1: Pt and know HEP and to continued ex's to maintain functional level. Goal to be met by: 03/13/19 Goal #2: Score on Tinetti Assessment improved to 24, showing less risk for falls. Goal to be met by: 03/13/19 Goal #3: Improve gait speed 0.8 meters/sec to be consistent with community ambulator Goal to be met by: 03/13/19 Goal #4: Pt to amb. community distances with st. cane, independent with good safety. Goal to be met by: 03/13/19 Plan Dates of Punch Machine Hand Goals: 03/13/19 Expiration date of current Insurance Approval:: 03/13/19 PLAN: Cont. skilled PT to strengthen LE's for improved safety with gait on all surfaces.
--- NOTE | 2019-01-30 12:46 | RS.OPPTDN ---
Subjective Date of Note: 01/30/19 Visit #: 4 Number of visits approved by Insurance: na Date of Evaluation: 01/22/19 Payer Source: MEDICARE Treatment Diagnosis: LE weakness, impaired balance, gait difficulty Current Subjective/complaints:: Patient reports increased soreness the past couple of days,but has lessened today. *Precautions: fall precautions Interventions - Exercise/Activities/Manual Therapy Exercises/Activities: 50 mins. total of supine exercises,3/15 each with 3# resistance for SAQ's,heelslides,alternating hip flexion;isometric hip abd /add, then active hip abd /adduction without resistance. Total minutes of Exercise: 50 Manual Therapy: n/a Total minutes of Manual Therapy: 0 HOME EXERCISE PROGRAM: NA - Charges Timed Code Treatment Minutes: 50 Total Treatment Time: 50 Procedures billed for this date of service:: ex 3 Assessment: Patient tolerates exercises well,today,reports fastigue only ,no leg pain present.His breathing is less labored today during the exercises.He has better foot clearance today entering /exiting the clinic. Patient Education: Education of diagnosis, Body/Joint mechanics, Home Exercise Program, Home Safety, Activity Modification, Education of Plan of Care Patient demonstrates compliance with HEP?: Yes Short Term Goals Goal #1: Pt independent with HEP. Goal to be met by: 02/05/19 Goal #2: Bilateral hip strength 4+/5. Goal to be met by: 02/05/19 Progress towards Goal:: Progressing Goal #3: Pt to demonstrate complete foot clearance bilaterally short distances. Goal to be met by: 02/05/19 Goal #4: Pt able to perform SLS for for 3 seconds on each leg. Goal to be met by: 02/05/19 Information Security Manager Goals Goal #1: Pt and know HEP and to continued ex's to maintain functional level. Goal to be met by: 03/13/19 Goal #2: Score on Tinetti Assessment improved to 24, showing less risk for falls. Goal to be met by: 03/13/19 Goal #3: Improve gait speed 0.8 meters/sec to be consistent with community ambulator Goal to be met by: 03/13/19 Goal #4: Pt to amb. community distances with st. cane, independent with good safety. Goal to be met by: 03/13/19 Plan Dates of Residential Goals: 03/13/19 Expiration date of current Insurance Approval:: PLAN: Cont. skilled PT to strengthen the LEs ,improve gait on all surfaces.
--- NOTE | 2019-02-04 11:49 | RS.OPPTDN ---
Subjective Date of Note: 02/04/19 Visit #: 5 Number of visits approved by Insurance: na Date of Evaluation: 01/22/19 Payer Source: MEDICARE Treatment Diagnosis: LE weakness, impaired balance, gait difficulty Current Subjective/complaints:: Patient reports the legs are beginning to feel stronger ,had a good weekend. *Precautions: fall precautions Interventions - Exercise/Activities/Manual Therapy Exercises/Activities: 45 mins. total ,including bilateral leg press,3/15 @ 90 # ,then 3/10 each for single leg press@ 30 #.Isometrics for hip abd/aduction ,3/ 10 with 5 second hold each rep.Standing balance exercises of side-stepping to L and R with SBA of 1.Step-ups on 4" step x 15 each LE .O2 sats. 96 -98 % during treatment. Total minutes of Exercise: 45 Manual Therapy: n/a Total minutes of Manual Therapy: 0 HOME EXERCISE PROGRAM: NA - Charges Timed Code Treatment Minutes: 45 Total Treatment Time: 45 Procedures billed for this date of service:: ex 3 Assessment: Patient has increased stability for gait and transfers .He also has improved trunk extension with ambulation.He is attentive and motivated to improve.He does reports knee pain when going up steps,but tolertes the 4" step safely. Patient Education: Body/Joint mechanics, Home Exercise Program, Home Safety, Activity Modification, Education of Plan of Care Patient demonstrates compliance with HEP?: Yes Short Term Goals Goal #1: Pt independent with HEP. Goal to be met by: 02/05/19 Progress towards Goal:: Progressing Goal #2: Bilateral hip strength 4+/5. Goal to be met by: 02/05/19 Progress towards Goal:: Progressing Goal #3: Pt to demonstrate complete foot clearance bilaterally short distances. Goal to be met by: 02/05/19 Progress towards Goal:: Progressing Goal #4: Pt able to perform SLS for for 3 seconds on each leg. Goal to be met by: 02/05/19 (na today) Linen Supply Load Builder Goals Goal #1: Pt and know HEP and to continued ex's to maintain functional level. Goal to be met by: 03/13/19 Goal #2: Score on Tinetti Assessment improved to 24, showing less risk for falls. Goal to be met by: 03/13/19 Goal #3: Improve gait speed 0.8 meters/sec to be consistent with community ambulator Goal to be met by: 03/13/19 Goal #4: Pt to amb. community distances with st. cane, independent with good safety. Goal to be met by: 03/13/19 Progress towards goal: Progressing Plan Dates of Intermediate Goals: 03/13/19 Expiration date of current Insurance Approval:: 03/13/19 PLAN: Cont. skilled PT to strengthen the LE's ,improve safety level for gait on all surfaces.
--- NOTE | 2019-02-06 12:03 | RS.OPPTDN ---
Subjective Date of Note: 02/06/19 Visit #: 6 Number of visits approved by Insurance: na Date of Evaluation: 01/22/19 Payer Source: MEDICARE Treatment Diagnosis: LE weakness, impaired balance, gait difficulty Current Subjective/complaints:: Patient feels the therapy is helping him,as his legs feel stronger. *Precautions: fall precautions Interventions - Exercise/Activities/Manual Therapy Exercises/Activities: 45 mins. total ,seated exercises ,3/15 reps of hip flexion ,then LAQ's with 2 # resistance.Standing balance of weaving around cones on floor ,with assist of cane and SBA of 1.Side - stepping to L and R with gait belt ,no use of cane ,CGA of 1.Multiple reps . of sit to stand transfers ,with education of body mechanics. Total minutes of Exercise: 45 Manual Therapy: n/a Total minutes of Manual Therapy: 0 HOME EXERCISE PROGRAM: NA - Charges Timed Code Treatment Minutes: 45 Total Treatment Time: 45 Procedures billed for this date of service:: ex 2 , NMR Assessment: Patient has improved foot clearance today entering /exiting clinic.He has good safety awareness at home for activities at night,uses the walker for safety if he gets up during the night.He reports fatigue only in the LER's today,no pain present . Patient Education: Education of diagnosis, Body/Joint mechanics, Home Exercise Program, Home Safety, Activity Modification, Education of Plan of Care Patient demonstrates compliance with HEP?: Yes Short Term Goals Goal #1: Pt independent with HEP. Goal to be met by: 02/05/19 Progress towards Goal:: Progressing Goal #2: Bilateral hip strength 4+/5. Goal to be met by: 02/05/19 Progress towards Goal:: Progressing Goal #3: Pt to demonstrate complete foot clearance bilaterally short distances. Goal to be met by: 02/05/19 Progress towards Goal:: Progressing Goal #4: Pt able to perform SLS for for 3 seconds on each leg. Goal to be met by: 02/05/19 (na today) Field Service Supervisor Goals Goal #1: Pt and know HEP and to continued ex's to maintain functional level. Goal to be met by: 03/13/19 Progress towards goal: Progressing Goal #2: Score on Tinetti Assessment improved to 24, showing less risk for falls. Goal to be met by: 03/13/19 Goal #3: Improve gait speed 0.8 meters/sec to be consistent with community ambulator Goal to be met by: 03/13/19 Goal #4: Pt to amb. community distances with st. cane, independent with good safety. Goal to be met by: 03/13/19 Progress towards goal: Progressing Plan Dates of Field Service Supervisor Goals: 03/13/19 Expiration date of current Insurance Approval:: 03/13/19 PLAN: Cont. skilled PT to return to highest level of strength and balance for safe ADL's
--- NOTE | 2019-02-11 12:06 | RS.OPPTDN ---
Subjective Date of Note: 02/11/19 Visit #: 7 Number of visits approved by Insurance: na Date of Evaluation: 01/22/19 Payer Source: MEDICARE Treatment Diagnosis: LE weakness, impaired balance, gait difficulty Current Subjective/complaints:: Patient reports his legs feel stronger ,also feels it is becoming easier to stand . *Precautions: fall precautions Interventions - Exercise/Activities/Manual Therapy Exercises/Activities: 55 mins. total ,including single leg press , 08/30 @ 45 #, then 08/02 both legs @ 90 # ,07/02 @ 105 #.Hip abd /adduction,08/30 with blue theraband exercises.Standing exercises of marching in place ,08/25.HEP review. Total minutes of Exercise: 55 Manual Therapy: n/a Total minutes of Manual Therapy: 0 HOME EXERCISE PROGRAM: NA - Charges Timed Code Treatment Minutes: 55 Total Treatment Time: 55 Procedures billed for this date of service:: ex 3 , NMR Assessment: Progressing well,has increased strength ,steadier gait and transfers ,improved foot clearance today. Patient Education: Education of Plan of Care Patient demonstrates compliance with HEP?: Yes Short Term Goals Goal #1: Pt independent with HEP. Goal to be met by: 02/05/19 Progress towards Goal:: Progressing Goal #2: Bilateral hip strength 4+/5. Goal to be met by: 02/05/19 Progress towards Goal:: Progressing Goal #3: Pt to demonstrate complete foot clearance bilaterally short distances. Goal to be met by: 02/05/19 Progress towards Goal:: Progressing Goal #4: Pt able to perform SLS for for 3 seconds on each leg. Goal to be met by: 02/05/19 (na today) Tunnel Man Goals Goal #1: Pt and know HEP and to continued ex's to maintain functional level. Goal to be met by: 03/13/19 Progress towards goal: Progressing Goal #2: Score on Tinetti Assessment improved to 24, showing less risk for falls. Goal to be met by: 03/13/19 Goal #3: Improve gait speed 0.8 meters/sec to be consistent with community ambulator Goal to be met by: 03/13/19 Goal #4: Pt to amb. community distances with st. cane, independent with good safety. Goal to be met by: 03/13/19 Progress towards goal: Met Plan Dates of Tunnel Man Goals: 03/13/19 Expiration date of current Insurance Approval:: 03/13/19 PLAN: Cont. skilled PT to maximize strength in LE's for safe mobility.
--- NOTE | 2019-02-13 13:04 | RS.OPPTDN ---
Subjective Date of Note: 02/13/19 Visit #: 8 Number of visits approved by Insurance: na Date of Evaluation: 01/22/19 Payer Source: MEDICARE Treatment Diagnosis: LE weakness, impaired balance, gait difficulty Current Subjective/complaints:: Patient reports that the therapy is helping is leg strength,feels steadier with getting up also. *Precautions: fall precautions Interventions - Exercise/Activities/Manual Therapy Exercises/Activities: 55 mins. total ,including supine LE AROM all directions with 2 # resistance ,3/15 each exercise.Gait speed test is .86 m/sec.today, indicative of community ambulator ,using straight cane. Total minutes of Exercise: 55 Manual Therapy: n/a Total minutes of Manual Therapy: 0 HOME EXERCISE PROGRAM: NA - Charges Timed Code Treatment Minutes: 55 Total Treatment Time: 55 Procedures billed for this date of service:: ex 3,gait training 1 Assessment: Patient has increased LE strength ,improved gait speed ,no loss of balance noted with transfers or ambulation with cane.He has good safety awareness,motivated to improve. Patient Education: Body/Joint mechanics, Home Exercise Program, Home Safety, Activity Modification, Education of Plan of Care Patient demonstrates compliance with HEP?: Yes Short Term Goals Goal #1: Pt independent with HEP. Goal to be met by: 02/05/19 Progress towards Goal:: Progressing Goal #2: Bilateral hip strength 4+/5. Goal to be met by: 02/05/19 Progress towards Goal:: Progressing Goal #3: Pt to demonstrate complete foot clearance bilaterally short distances. Goal to be met by: 02/05/19 Progress towards Goal:: Progressing Goal #4: Pt able to perform SLS for for 3 seconds on each leg. Goal to be met by: 02/05/19 (na today) Dross Skimmer Goals Goal #1: Pt and know HEP and to continued ex's to maintain functional level. Goal to be met by: 03/13/19 Progress towards goal: Progressing Goal #2: Score on Tinetti Assessment improved to 24, showing less risk for falls. Goal to be met by: 03/13/19 Goal #3: Improve gait speed 0.8 meters/sec to be consistent with community ambulator Goal to be met by: 03/13/19 Goal #4: Pt to amb. community distances with st. cane, independent with good safety. Goal to be met by: 03/13/19 Progress towards goal: Met Plan Dates of Dross Skimmer Goals: 03/13/19 Expiration date of current Insurance Approval:: 03/13/19 PLAN: Cont. skilled PT to return to highest LOF for mobility on all surfaces.
== END 2019-02-15 23:59 ==
PROVIDERS: ATTEND Internal Medicine
DX: M62.81 Muscle weakness (generalized) (principal); R27.0 Ataxia, unspecified; R26.9 Unspecified abnormalities of gait and mobility; Z91.81 History of falling

== ENCOUNTER 2020-05-08 18:35 | Inpatient (IN) ==
[2020-05-08] MEDS ORDERED: ROCEPHIN 1 GM/50 ML D5W 1 GM/50 ML BAG IV STA (18:52)
[2020-05-08] MEDS ORDERED: TYLENOL PO STA (18:54)
[2020-05-08] MEDS ORDERED: DECADRON IVP STA (18:58)
[2020-05-08] MEDS ORDERED: VENTOLIN HFA (PER PUFF-WITH SPACER) IH STA ×2 (19:11→19:33)
[2020-05-08] MEDS ORDERED: ATROVENT HFA INHALER (PER PUFF-WITH SPACER) IH STA (19:11)
[2020-05-08 19:14] LABS: BASOPHILS # (AUTO) 0.1 K/uL (0-0.2); BASOPHILS % (AUTO) 0.3 % (0.0-3.0); EOSINOPHILS # (AUTO) 0.1 K/ul (0.0-0.7); EOSINOPHILS % (AUTO) 0.2 % (0.0-7.0); HEMATOCRIT 40.2 % (42.0-52.0); HEMOGLOBIN 13.2 g/dl (14.0-18.0); IMMATURE GRANULOCYTE # (AUTO) 0.1 (0.0-1.0); IMMATURE GRANULOCYTE % (AUTO) 0.7 % (0.0-5.0); LYMPHOCYTES # (AUTO) 2.8 K/uL (0.60-3.4); LYMPHOCYTES % (AUTO) 13.6 (10.0-50.0); MEAN CORPUSCULAR HEMOGLOBIN 29.3 pg (27.0-31.0); MEAN CORPUSCULAR HGB CONC 32.8 (31.8-35.4); MEAN CORPUSCULAR VOLUME 89.1 fl (80.0-94.0); MONOCYTES # (AUTO) 2.3 K/uL (0.4-2.0); MONOCYTES % (AUTO) 11.5 (0-10); NEUTROPHILS # (AUTO) 15.1 K/ul (2.0-6.9); NEUTROPHILS % (AUTO) 73.7 % (42.2-75.2); PLATELET COUNT 248 10^3/uL (140-440); RDW COEFFICIENT OF VARIATION 13.2 % (11.6-14.8); RED BLOOD COUNT 4.51 10^6/ul (4.70-6.10); WHITE BLOOD COUNT 20.42 K/ul (4.2-10.2)
[2020-05-08 19:23] LABS: ABG PH 7.37 (7.35-7.45)
[2020-05-08 19:24] LABS: ABG BASE EXCESS -2.8 (-2.0-2.0); ABG HCO3 22.5 (22.0-26.0); ABG TCO2 23.7 (22.0-28.0)
[2020-05-08 19:27] LABS: ALANINE AMINOTRANSFERASE 36.9 U/L (0-50); ALBUMIN 4.19 g/dL (3.5-5.0); ALKALINE PHOSPHATASE 166.5 U/L (56-119); ASPARTATE AMINO TRANSFERASE 39.5 U/L (17-59); BILIRUBIN,TOTAL 1.06 mg/dL (0.2-1.3); BLOOD UREA NITROGEN 17.3 mg/dL (9-20); CALCIUM 9.15 mg/dL (8.4-10.2); CARBON DIOXIDE 22.8 mmol/L (22-30.0); CHLORIDE 100.5 mmol/L (98-107); CREATINE KINASE 50.7 U/L (55-170); GLUCOSE 290.6 mg/dL (74-106); POTASSIUM 4.1 mmol/L (3.5-5.1); SODIUM 135.1 mmol/L (134.5-145); TOTAL PROTEIN 7.49 g/dL (6.3-8.2)
[2020-05-08] MEDS ORDERED: PROAIR HFA (SINGLE PATIENT USE) IH STA (19:30)
--- NOTE | 2020-05-08 19:38 | ED.PDOC ---
General ED Provider: Dr. LEAH CALLAWAY Chief Complaint: Shortness of Air Stated Complaint: sudden onset of sob , temp 103 today Time Seen by Physician: 22:30 Mode of Arrival: Wheelchair Information Source: Patient and Family Primary Care Provider: ABY THOMPSON Nursing and Triage Documentation Reviewed and Agree: Yes Does patient meet sepsis criteria?: Yes If yes, has appropriate treatment been initiated?: Yes System Inflammatory Response Syndrome: Temp 101F or Greater Sepsis Protocol: For patient's 13 years and over: Temp is 96.8 and below OR 101 and greater Pulse >90 BPM Resp >20/minute Acutely Altered Mental Status Are patient's symptoms suggestive of a new infection, such as: -Pneumonia -Skin, Soft Tissue -Endocarditis -UTI -Bone, Joint Infection -Implantable Device -Acute Abdominal Infection -Wound Infection -Meningitis -Blood Stream Catheter Infection -Unknown Respiratory Complaint Exam Shortness of Air Complaint/Exam Onset/Duration: less than 24hrs Symptoms Are: Still present Timing: Constant Initial Severity: Mild Current Severity: Moderate Character: Reports Dyspnea at rest Aggravating: Reports None Alleviating: Reports Oxygen Associated Signs and Symptoms: Reports Cough, Fever, Chills, Rapid breathing and Labored breathing Cardiac Risk Factors: Reports CAD, Diabetes and Hypertension Home Oxygen Use: No Recent Stress Test: No Recent Echo/LV Function: No Respiratory Distress: Mild Stridor Present: No Tracheal Deviation: No Subcutaneous Emphysema: No Accessory Muscle Use: No Retractions: Not Present Diminished Breath Sounds: No Prolonged Expiratory Phase: No Unable to Speak Full Sentences: No Fatigue: Yes Leg Swelling: No Travis's Sign Present: No Grunting Respirations: No Kussmaul Respirations: No Differential Diagnoses: Pneumonia Quality Indicator For Non-Traumatic Chest Pain/Syncope: EKG Performed Review of Systems Review Of Systems Constitutional: Reports Chills and Fever Eyes: Reports No symptoms Ears, Nose, Mouth, Throat: Reports No symptoms Respiratory: Reports Cough and Short of air Cardiac: Reports No symptoms GI: Reports No symptoms : Reports No symptoms Musculoskeletal: Reports No symptoms Skin: Reports No symptoms Neurological: Reports No symptoms Endocrine: Reports No symptoms Hematologic/Lymphatic: Reports No symptoms All Other Systems: Reviewed and Negative [facility] Social History Smoking and tobacco status: Never smoker History of recent travel: No Physical Exam Physical Exam Appearance: Reports Ill-appearing Ill-appearing: Moderate Pain Distress: None Eyes: Reports TJ, EOMI and Conjunctiva clear ENT: Reports Ears normal, Nose normal and Oropharynx normal Neck: Supple Respiratory: Reports Airway patent, Breath sounds clear and Breath sounds equal Cardiovascular: Reports RRR, Pulses normal, No rub and No murmur GI/: Reports Soft, Nontender, No masses and Bowel sounds normal Musculoskeletal: Reports Normal strength, ROM intact, No edema and No calf tenderness Skin: Reports Warm, Dry and Normal color Neurological: Reports Sensation intact, Motor intact, Reflexes intact, Cranial nerves intact, Alert and Oriented Psychiatric: Reports Affect appropriate, Mood appropriate and Anxious Interpretation Radiology Interpretation Radiology Interpretation By: Radiologist Radiology Results: Positive Exam Interpreted: Portable CXR EKG Interpretation Time of EKG #1: 22:28 Rate: Normal Rhythm: Sinus Ectopy: None [place]: NL ST Segment: Normal Interpretation: nsr Physician Notification Case Discussed Physician Notified: dr [email or web address] Time of Notification: 22:29 Critical Care Note Critical Care Note Total Critical Care Time (mins): 30 Course Course Hematology/Chemistry: 05/08/20 19:05 05/08/20 19:05 Orders, Labs, Meds: Lab Review 05/08/20 05/08/20 05/08/20 18:48 19:05 19:05 WBC 20.42 H RBC 4.51 L Hgb 13.2 L Hct 40.2 L MCV 89.1 MCH 29.3 MCHC 32.8 RDW Coeff of Michele 13.2 Plt Count 248 Immature Gran % (Auto) 0.7 Neut % (Auto) 73.7 Lymph % (Auto) 13.6 [place] % (Auto) 11.5 H Eos % (Auto) 0.2 Baso % (Auto) 0.3 Neut # (Auto) 15.1 H Lymph # (Auto) 2.8 [place] # (Auto) 2.3 H Eos # (Auto) 0.1 Baso # (Auto) 0.1 Immature Gran # (Auto) 0.1 Puncture Site Rrad O2 Saturation 84.0 L ABG pH 7.37 ABG pCO2 39.0 ABG pO2 49.0 L* ABG HCO3 22.5 ABG Total CO2 23.7 ABG Base Excess -2.8 L Kelechi Test + O2 Delivery Device Nc Oxygen Liter Flow 6.00 Sodium Potassium Chloride Carbon Dioxide Anion Gap BUN Creatinine Estimated GFR (MDRD) BUN/Creatinine Ratio Glucose Lactic Acid 2.88 H Calcium Total Bilirubin AST ALT Alkaline Phosphatase Total Creatine Kinase Troponin I NT-Pro-B Natriuret Pep Total Protein Albumin Globulin Albumin/Globulin Ratio Procalcitonin Adenovirus (PCR) B. pertussis DNA (PCR) B.parapertussis DNA PCR C. pneumoniae DNA (PCR) Coronavirus OC43 (PCR) Coronavirus HKU1 (PCR) Coronavirus 229E (PCR) Coronavirus NL63 (PCR) Human Metapneumovir PCR Influenza B (RT-PCR) M. pneumoniae (PCR) Parainfluenza 1 (PCR) Parainfluenza 2 (PCR) Parainfluenza 3 (PCR) Parainfluenza 4 (PCR) RSV (PCR) Entero/Rhino (PCR) SARS-CoV-2 (PCR) 05/08/20 05/08/20 05/08/20 19:05 19:05 19:05 WBC RBC Hgb Hct MCV MCH MCHC RDW Coeff of Michele Plt Count Immature Gran % (Auto) Neut % (Auto) Lymph % (Auto) [place] % (Auto) Eos % (Auto) Baso % (Auto) Neut # (Auto) Lymph # (Auto) [place] # (Auto) Eos # (Auto) Baso # (Auto) Immature Gran # (Auto) Puncture Site O2 Saturation ABG pH ABG pCO2 ABG pO2 ABG HCO3 ABG Total CO2 ABG Base Excess Kelechi Test O2 Delivery Device Oxygen Liter Flow Sodium 135.1 Potassium 4.10 Chloride 100.5 Carbon Dioxide 22.8 Anion Gap 15.90 BUN 17.3 Creatinine 1.00 Estimated GFR (MDRD) 71.00 BUN/Creatinine Ratio 17.30 Glucose 290.6 H Lactic Acid Calcium 9.15 Total Bilirubin 1.06 AST 39.5 ALT 36.9 Alkaline Phosphatase 166.5 H Total Creatine Kinase 50.7 L Troponin I 0.085 NT-Pro-B Natriuret Pep 3040.000 H Total Protein 7.49 Albumin 4.19 Globulin 3.30 Albumin/Globulin Ratio 1.26 Procalcitonin < 0.05 Adenovirus (PCR) B. pertussis DNA (PCR) B.parapertussis DNA PCR C. pneumoniae DNA (PCR) Coronavirus OC43 (PCR) Coronavirus HKU1 (PCR) Coronavirus 229E (PCR) Coronavirus NL63 (PCR) Human Metapneumovir PCR Influenza B (RT-PCR) M. pneumoniae (PCR) Parainfluenza 1 (PCR) Parainfluenza 2 (PCR) Parainfluenza 3 (PCR) Parainfluenza 4 (PCR) RSV (PCR) Entero/Rhino (PCR) SARS-CoV-2 (PCR) 05/08/20 19:30 WBC RBC Hgb Hct MCV MCH MCHC RDW Coeff of Michele Plt Count Immature Gran % (Auto) Neut % (Auto) Lymph % (Auto) [place] % (Auto) Eos % (Auto) Baso % (Auto) Neut # (Auto) Lymph # (Auto) [place] # (Auto) Eos # (Auto) Baso # (Auto) Immature Gran # (Auto) Puncture Site O2 Saturation ABG pH ABG pCO2 ABG pO2 ABG HCO3 ABG Total CO2 ABG Base Excess Kelechi Test O2 Delivery Device Oxygen Liter Flow Sodium Potassium Chloride Carbon Dioxide Anion Gap BUN Creatinine Estimated GFR (MDRD) BUN/Creatinine Ratio Glucose Lactic Acid Calcium Total Bilirubin AST ALT Alkaline Phosphatase Total Creatine Kinase Troponin I NT-Pro-B Natriuret Pep Total Protein Albumin Globulin Albumin/Globulin Ratio Procalcitonin Adenovirus (PCR) Not detected B. pertussis DNA (PCR) Not detected B.parapertussis DNA PCR Not detected C. pneumoniae DNA (PCR) Not detected Coronavirus OC43 (PCR) Not detected Coronavirus HKU1 (PCR) Not detected Coronavirus 229E (PCR) Not detected Coronavirus NL63 (PCR) Not detected Human Metapneumovir PCR Not detected Influenza B (RT-PCR) Not detected M. pneumoniae (PCR) Not detected Parainfluenza 1 (PCR) Not detected Parainfluenza 2 (PCR) Not detected Parainfluenza 3 (PCR) Not detected Parainfluenza 4 (PCR) Not detected RSV (PCR) Not detected Entero/Rhino (PCR) Not detected SARS-CoV-2 (PCR) Not detected Orders Category Date Time Status ABG DRAW REQUEST DAILY@0600 CARDIO 05/09/20 06:00 Ordered ABG DRAW REQUEST DAILY@0600 CARDIO 05/10/20 06:00 Ordered ABG DRAW REQUEST DAILY@0600 CARDIO 05/11/20 06:00 Ordered ABG DRAW REQUEST DAILY@0600 CARDIO 05/12/20 06:00 Ordered ABG DRAW REQUEST Stat CARDIO 05/08/20 18:48 Completed EKG-(ED ONLY) Stat CARDIO 05/08/20 18:48 Completed METERED DOSE INHALATION Routine CARDIO 05/08/20 19:11 Completed METERED DOSE INHALATION Routine CARDIO 05/08/20 19:34 Completed VAPOTHERM Routine CARDIO 05/08/20 19:02 Active ED METALLURGICAL ENGINEER APPLIED .ONCE EMERGENCY 05/08/20 18:48 Active ED IV/MEDIPORT/POWERPORT .ONCE EMERGENCY 05/08/20 18:48 Active ABG DAILY@0600 LAB 05/09/20 06:00 Ordered ABG DAILY@0600 LAB 05/10/20 06:00 Ordered ABG Stat LAB 05/08/20 18:48 Completed BLOOD CULTURE (ED ONLY) Stat LAB 05/08/20 19:05 Received CBC W/ AUTO DIFF Stat LAB 05/08/20 19:05 Completed COMPREHENSIVE METABOLIC PANEL Stat LAB 05/08/20 19:05 Completed CREATINE KINASE Stat LAB 05/08/20 19:05 Completed FLU A/B MOLECULAR Stat LAB 05/08/20 18:49 Uncollected LACTIC ACID Stat LAB 05/08/20 19:05 Completed NT-PROBNP Stat LAB 05/08/20 19:05 Completed PROCALCITONIN Stat LAB 05/08/20 19:05 Completed RESPIRATORY PANEL 2.1 (PCR) Stat LAB 05/08/20 19:30 Completed SPUTUM CULTURE Stat LAB 05/08/20 18:55 Uncollected TROPONIN I Stat LAB 05/08/20 19:05 Completed 0.9 % Sodium Chloride [Saline Flush] MEDS 05/08/20 18:48 Active 1 syr IVF PRN PRN Acetaminophen [Tylenol] MEDS 05/08/20 18:54 Discontinued 650 mg PO ONCE STA Albuterol Inhaler(with Spacer) [Ventolin Hfa (Per Puff- MEDS 05/08/20 19:11 Discontinued with Spacer)] 2 puff IH ONCE STA Albuterol Inhaler(with Spacer) [Ventolin Hfa (Per Puff- MEDS 05/08/20 19:33 Discontinued with Spacer)] 2 puff IH ONCE STA Ceftriaxone/D5w 1 gm Premix [Rocephin 1 gm/50 ml D5w] MEDS 05/08/20 18:52 Discontinued 1 gm in 50 ml IV ONCE Dexamethasone Sod Phosphate [Decadron] MEDS 05/08/20 18:58 Discontinued 6 mg IVP ONCE STA Doxycycline Hyclate Inj [Doxy-100] 100 mg MEDS 05/08/20 20:34 Active 0.9 % Sodium Chloride [Sodium Chloride] 100 ml IV ONCE Ipratropium Inhaler(Spacer) [Atrovent Hfa Inhaler (Per MEDS 05/08/20 19:11 Discontinued Puff-with Spacer)] 2 puff IH ONCE STA CHEST, 1V AP ONLY Stat RADS 05/08/20 18:53 Completed Medications Generic Name Dose Route Start Last Admin Trade Name Freq PRN Reason Stop Dose Admin Doxycycline Hyclate 100 mg/ 100 mls @ 50 mls/hr 05/08/20 20:34 05/08/20 20:41 Sodium Chloride IV 05/08/20 22:33 50 mls/hr ONCE STA Administration Sodium Chloride 1 syr 05/08/20 18:48 0.9% Sodium Chloride 10 Ml Disp.Syrin IVF PRN PRN To flush IV Discontinued Medications Generic Name Dose Route Start Last Admin Trade Name Freq PRN Reason Stop Dose Admin Acetaminophen 650 mg 05/08/20 18:54 05/08/20 19:11 Acetaminophen 325 Mg Tablet PO 05/08/20 18:55 650 mg ONCE STA Administration Albuterol Sulfate 2 puff 05/08/20 19:11 05/08/20 18:45 Albuterol Sulfate (Ventolin Hfa) 18 Gm 1 Puff With Spacer IH 05/08/20 19:12 2 puff ONCE STA Administration Albuterol Sulfate 2 puff 05/08/20 19:33 05/08/20 19:00 Albuterol Sulfate (Ventolin Hfa) 18 Gm 1 Puff With Spacer IH 05/08/20 19:34 2 puff ONCE STA Administration Dexamethasone Sodium Phosphate 6 mg 05/08/20 18:58 05/08/20 19:11 Dexamethasone Sod Phos 10 Mg/Ml Inj IVP 05/08/20 18:59 6 mg ONCE STA Administration CEFTRIAXONE/D5W 1 GM PREMIX 1 gm in 50 mls @ 75 mls/hr 05/08/20 18:52 05/08/20 19:12 Rocephin 1 Gm/50 Ml D5w IV 05/08/20 19:31 75 mls/hr ONCE STA Administration Ipratropium [place] 2 puff 05/08/20 19:11 11/21/20 18:45 Ipratropium [place] 12.9 Gm Hfa Inhaler Per Puff With Spacer IH 05/08/20 19:12 2 puff ONCE STA Administration Vital Signs: Temp Pulse Resp BP Pulse Ox 05/08/20 19:00 93 L 05/08/20 18:47 103.3 F H 120 H 36 H 160/90 H 56 L 05/08/20 18:35 86 L Discharge Plan Discharge Patient Disposition: ADMITTED INPATIENT Discharge Problem: Acute hypoxemic respiratory failure, Pneumonia Prescriptions: No Action digoxin 125 MCG tablet 125 mcg PO DAILY RF: 0 gabapentin 300 MG capsule 300 mg PO QAM RF: 0 gabapentin 300 MG capsule 600 mg PO BEDTIME RF: 0 clopidogrel [Plavix] 75 MG tablet 75 mg PO DAILY RF: 0 lovastatin 20 MG tablet 20 mg PO BEDTIME RF: 0 finasteride [Proscar] 5 MG tablet 5 mg PO DAILY RF: 0 Levemir U-100 Insulin 1 UNIT solution 75 unit subcut BID RF: 0 amlodipine 5 MG tablet 5 mg PO DAILY RF: 0 pantoprazole 40 MG tablet,delayed release (DR/EC) 40 mg PO QDAC RF: 0 aspirin 81 MG tablet,chewable 81 mg PO DAILYWM RF: 0 losartan-hydrochlorothiazide 1 TAB tablet 1 tab PO DAILY RF: 0 Janumet 1 EACH tablet 1 ea PO BID RF: 0 metoprolol tartrate 50 MG tablet 50 mg PO BID RF: 0 lovastatin [Mevacor] 40 mg Tablet 40 mg PO DAILY RF: 0 ferrous sulfate [FerrouSul] 325 mg (65 mg iron) Tablet 325 mg PO DAILY RF: 0 ED Provider: LEAH CALLAWAY Condition: Fair Physician Progress Note: []
[2020-05-08 19:39] LABS: TROPONIN I 0.085 ng/ml (0.0000-0.120)
--- NOTE | 2020-05-08 19:46 | DI ---
EXAMINATION: AP chest radiograph. HISTORY: Acute respiratory failure, fever COMPARISON: 03/13/2018 FINDINGS: Bibasilar and right mid lung consolidation is identified. There is additional bilateral interstitial prominence. Slight left costophrenic angle blunting is noted. No pneumothorax is seen.The cardiac silhouette is enlarged. The pulmonary vasculatures mildly prominent. Sternotomy wires are identifie d. IMPRESSION: Bilateral pneumonia and/or pulmonary edema. Possible trace left pleural effusion. Cardiomegaly. Probable pulmonary vascular congestion.
[2020-05-08] MEDS ORDERED: DOXY-100 100 MG in SODIUM CHLORIDE 100 ML IV STA (20:34)
[2020-05-08] MEDS ORDERED: TYLENOL PO PRN (22:57)
[2020-05-08] MEDS: ATROVENT HFA INHALER (PER PUFF-WITH SPACER) IH SCH (23:05)
[2020-05-09] MEDS: PROAIR HFA (SINGLE PATIENT USE) IH SCH ×2 (00:24→05:20)
[2020-05-09 01:18] VITALS: BMI 30.7
[2020-05-09 05:20] LABS: BASOPHILS % (AUTO) 0.1 % (0.0-3.0); EOSINOPHILS % (AUTO) 0.1 % (0.0-7.0); HEMATOCRIT 35.3 % (42.0-52.0); HEMOGLOBIN 12.2 g/dl (14.0-18.0); IMMATURE GRANULOCYTE # (AUTO) 0.1 (0.0-1.0); IMMATURE GRANULOCYTE % (AUTO) 0.6 % (0.0-5.0); LYMPHOCYTES # (AUTO) 2.8 K/uL (0.60-3.4); LYMPHOCYTES % (AUTO) 17.6 (10.0-50.0); MEAN CORPUSCULAR HEMOGLOBIN 29.8 pg (27.0-31.0); MEAN CORPUSCULAR HGB CONC 34.6 (31.8-35.4); MEAN CORPUSCULAR VOLUME 86.1 fl (80.0-94.0); MONOCYTES # (AUTO) 0.9 K/uL (0.4-2.0); MONOCYTES % (AUTO) 5.6 (0-10); PLATELET COUNT 219 10^3/uL (140-440); WHITE BLOOD COUNT 15.78 K/ul (4.2-10.2)
[2020-05-09] MEDS: ATROVENT HFA INHALER (PER PUFF-WITH SPACER) IH SCH ×4 (05:20→19:30)
[2020-05-09 05:38] LABS: ALANINE AMINOTRANSFERASE 32.2 U/L (0-50); ALBUMIN 3.68 g/dL (3.5-5.0); ALKALINE PHOSPHATASE 143.5 U/L (56-119); ASPARTATE AMINO TRANSFERASE 44.5 U/L (17-59); BILIRUBIN,TOTAL 1.04 mg/dL (0.2-1.3); BLOOD UREA NITROGEN 22.2 mg/dL (9-20); CALCIUM 8.93 mg/dL (8.4-10.2); CARBON DIOXIDE 21.5 mmol/L (22-30.0); CREATININE 0.91 mg/dL (0.60-1.10); GLUCOSE 373.2 mg/dL (74-106); POTASSIUM 4.44 mmol/L (3.5-5.1); SODIUM 132.8 mmol/L (134.5-145); TOTAL PROTEIN 6.81 g/dL (6.3-8.2)
[2020-05-09 05:44] LABS: ABG BASE EXCESS -1.5 (-2.0-2.0); ABG PH 7.51 (7.35-7.45)
[2020-05-09 05:45] LABS: ABG HCO3 21.5 (22.0-26.0); ABG TCO2 22.3 (22.0-28.0)
[2020-05-09] MEDS: PROTONIX PO SCH (06:38)
[2020-05-09] MEDS: HUMULIN R SUBCUT PRN ×4 (06:38→21:04)
[2020-05-09] MEDS ORDERED: PROAIR HFA (SINGLE PATIENT USE) IH SCH (09:00)
[2020-05-09] MEDS ORDERED: SITAGLIPTIN METFORMIN PO SCH (09:00)
[2020-05-09] MEDS: MEVACOR PO SCH ×2 (09:01→21:03)
[2020-05-09] MEDS: ROCEPHIN 1 GM/50 ML D5W 1 GM/50 ML BAG IV SCH (09:01)
[2020-05-09] MEDS: HYZAAR 50-12.5 MG TAB PO SCH (09:02)
[2020-05-09] MEDS: GLUCOPHAGE PO SCH ×2 (09:02→16:25)
[2020-05-09] MEDS: PLAVIX PO SCH (09:02)
[2020-05-09] MEDS: JANUVIA PO SCH ×2 (09:02→16:25)
[2020-05-09] MEDS: ASPIRIN CHEWABLE PO SCH (09:02)
[2020-05-09] MEDS: NEURONTIN PO SCH ×2 (09:03→21:04)
[2020-05-09] MEDS: LOPRESSOR PO SCH ×2 (09:03→21:04)
[2020-05-09] MEDS: FERROUS SULFATE PO SCH (09:03)
[2020-05-09] MEDS: PROSCAR PO SCH (09:03)
[2020-05-09] MEDS: NORVASC PO SCH (09:03)
[2020-05-09] MEDS: LANOXIN PO SCH (09:05)
[2020-05-09] MEDS: LOVENOX SUBCUT SCH (09:05)
[2020-05-09] MEDS: LEVEMIR SUBCUT SCH ×2 (09:24→21:11)
[2020-05-09] MEDS: VENTOLIN HFA (PER PUFF-WITH SPACER) IH SCH ×3 (09:51→19:30)
[2020-05-09] MEDS: DOXY-100 100 MG in SODIUM CHLORIDE 100 ML IV SCH ×2 (10:16→21:15)
[2020-05-09 16:28] LABS: ABG BASE EXCESS -0.4 (-2.0-2.0); ABG HCO3 23.1 (22.0-26.0); ABG PH 7.48 (7.35-7.45); ABG TCO2 24.1 (22.0-28.0)
[2020-05-10] MEDS: ATROVENT HFA INHALER (PER PUFF-WITH SPACER) IH SCH ×4 (04:28→20:15)
[2020-05-10] MEDS: VENTOLIN HFA (PER PUFF-WITH SPACER) IH SCH ×4 (04:28→20:15)
[2020-05-10 05:05] LABS: ABG PH 7.51 (7.35-7.45)
[2020-05-10 05:06] LABS: ABG BASE EXCESS 2.5 (-2.0-2.0); ABG HCO3 25.5 (22.0-26.0)
[2020-05-10 05:07] LABS: ABG OXYGEN SATURATION 87.9 % (95-100); ABG TCO2 26.5 (22.0-28.0)
[2020-05-10 05:35] LABS: HEMATOCRIT 36.6 % (42.0-52.0); HEMOGLOBIN 12.5 g/dl (14.0-18.0); MEAN CORPUSCULAR HEMOGLOBIN 29.8 pg (27.0-31.0); MEAN CORPUSCULAR HGB CONC 34.2 (31.8-35.4); MEAN CORPUSCULAR VOLUME 87.4 fl (80.0-94.0); PLATELET COUNT 262 10^3/uL (140-440); RDW COEFFICIENT OF VARIATION 13.3 % (11.6-14.8); RED BLOOD COUNT 4.19 10^6/ul (4.70-6.10); WHITE BLOOD COUNT 22.96 K/ul (4.2-10.2)
[2020-05-10 05:58] LABS: ABG BASE EXCESS 1.8 (-2.0-2.0); ABG HCO3 25.3 (22.0-26.0); ABG OXYGEN SATURATION 96.6 % (95-100); ABG PH 7.48 (7.35-7.45); ABG TCO2 26.3 (22.0-28.0)
[2020-05-10] MEDS: PROTONIX PO SCH (06:01)
[2020-05-10 06:13] LABS: ANISOCYTOSIS NOT PRESENT (NOT PRESENT)
[2020-05-10 06:17] LABS: ALANINE AMINOTRANSFERASE 24.9 U/L (0-50); ALBUMIN 3.72 g/dL (3.5-5.0); ASPARTATE AMINO TRANSFERASE 20.9 U/L (17-59); BILIRUBIN,TOTAL 0.61 mg/dL (0.2-1.3); BLOOD UREA NITROGEN 29.8 mg/dL (9-20); CALCIUM 9.22 mg/dL (8.4-10.2); CARBON DIOXIDE 28.1 mmol/L (22-30.0); CHLORIDE 100.5 mmol/L (98-107); CREATININE 1.06 mg/dL (0.60-1.10); POTASSIUM 3.84 mmol/L (3.5-5.1); TOTAL PROTEIN 6.88 g/dL (6.3-8.2)
[2020-05-10] MEDS ORDERED: LASIX IVP STA (08:01)
--- NOTE | 2020-05-10 09:37 | PCM.PROG ---
Attending Provider: ATTENDING PROVIDER: Dr. ABY SLAUGHTER This patient is seen with Clemencia Miranda, Nurse Practitioner. DATE OF SERVICE: 05/10/20 SUBJECTIVE: This 85 year old /WHITE M was hospitalized 05/08/20. The patient is resting comfortably. ABG is slightly more abnormal this morning. Increased Vapotherm. The patient is not in distress. Has had some fever through the night and this morning. REVIEW OF SYSTEMS: CONSTITUTIONAL: No night sweats. No fatigue, malaise, lethargy. No fever or chills. HEENT: Eyes: No visual changes. No eye pain. No eye discharge. ENT: No runny nose. No epistaxis. No sinus pain. No odynophagia. No congestion. RESPIRATORY: Cough, no congestion. No hemoptysis. Shortness of breath. CARDIOVASCULAR: No angina symptoms. No CHF symptoms. No atypical chest pain for CAD. No palpitations. No orthopnea.. GASTROINTESTINAL: No abdominal pain. No nausea or vomiting. No diarrhea or constipation. No hematemesis. No hematochezia. GENITOURINARY: No urgency. No frequency. No dysuria. No hematuria. No obstructive symptoms. No discharge. No pain. No significant abnormal bleeding. MUSCULOSKELETAL: No musculoskeletal pain; no joint swelling. NEUROLOGICAL: Awake, alert, oriented to time, place and person. No headache. No neck pain. No syncope. No seizures. No dizziness. PSYCHIATRIC: Not anxious. No depression. No suicidal thoughts. No homicidal thoughts. SKIN: No rash. No lesions. No wounds. ENDOCRINE: No unexplained weight loss. No weight gain. HEMATOLOGIC/LYMPHATIC: No anemia. No purpura. No petechiae. No prolonged or excessive bleeding. No palpable lymph nodes. PHYSICAL EXAMINATION: GENERAL: The patient is awake, alert and oriented, lying in bed in no distress. VITAL SIGNS: Temperature 99.3 F, Pulse 75, Respiratory Rate 24, BP 168/81, Pulse Ox 93% HEENT: Head normocephalic, atraumatic. Eyes: Extraocular muscles are intact. Pupils are equal, round and reactive to light and accommodation. Ears: No lesions. Nose appeared normal. Throat: No exudate or erythema. NECK: Supple. No JVD, no carotid bruit. No lymphadenopathy or thyromegaly. LUNGS: Severely diminished breath sounds. Clear to auscultation. Percussion note normal. Chest symmetrical. HEART: S1, S2, no S3. No murmurs. No cyanosis or clubbing. No ascites. Pulses: Dorsalis pedis and posterior tibial pulses +1 to +2 both sides. ABDOMEN: Soft. Non-tender. Bowel sounds active. No CVA tenderness. No mass felt. EXTREMITIES: +1 leg edema. Full range of motion of all extremities, equal. NEUROLOGIC: No focal deficit. Cranial nerves II through XII are grossly intact. No headache, no double vision or headache. SKIN: Not dry. Intact. Turgor-normal. LYMPHATIC: No palpable lymph nodes/no lymphedema. MUSCULOSKELETAL: Normal joints with no swelling. Muscle tone is normal. LAB REVIEW: 05/10/20 04:46 05/10/20 04:46 05/10/20 05:44: Puncture Site Rrad, O2 Saturation 96.6, ABG pH 7.48 H, ABG pCO2 34.0 L, ABG pO2 80.0 L, ABG HCO3 25.3, ABG Total CO2 26.3, ABG Base Excess 1.8, Kelechi Test +, O2 Delivery Device Vapotherm, FiO2 % 50.0 05/10/20 05:04: Puncture Site Lrad, O2 Saturation 87.9 L, ABG pH 7.51 H*, ABG pCO2 32.0 L, ABG pO2 47.0 L*, ABG HCO3 25.5, ABG Total CO2 26.5, ABG Base Excess 2.5 H, Kelechi Test +, O2 Delivery Device Vapotherm, FiO2 % 40.0 05/10/20 04:46: Sodium 135.0, Potassium 3.84, Chloride 100.5, Carbon Dioxide 28.1, Anion Gap 10.24, BUN 29.8 H, Creatinine 1.06, Estimated GFR (MDRD) 67.00, BUN/Creatinine Ratio 28.11, Glucose 119.0 H D, Calcium 9.22, Total Bilirubin 0.61, AST 20.9, ALT 24.9, Alkaline Phosphatase 117.0 D, Total Protein 6.88, Albumin 3.72, Globulin 3.16, Albumin/Globulin Ratio 1.17 05/10/20 04:46: WBC 22.96 H D, RBC 4.19 L, Hgb 12.5 L, Hct 36.6 L, MCV 87.4, MCH 29.8, MCHC 34.2, RDW Coeff of Michele 13.3, Plt Count 262, Neutrophils % (Manual) 73.0, Lymphocytes % (Manual) 10.0, Monocytes % (Manual) 11.0 H, Eosinophils % (Manual) 1.0, Reactive Lymphocytes 5.0, Anisocytosis Not present 05/09/20 12:57: Puncture Site Rbrach, O2 Saturation 91.0 L, ABG pH 7.48 H, ABG pCO2 31.0 L, ABG pO2 54.0 L*, ABG HCO3 23.1, ABG Total CO2 24.1, ABG Base Excess -0.4, O2 Delivery Device Vapo, FiO2 % 30.0 ASSESSMENT: Please see below. 1. Acute respiratory failure 2. Bilateral pneumonia 3. CHF 4. Diabetes mellitus type 2 4. Coronary artery disease. PLAN: 1. [facility] COVID 2. 40 Lasix IV 3. Digoxin level 4. 4mg daily Decadron Plan and coordination of the patient's care discussed in the presence of Rail Car Loader and nurse. SCRIBED BY: PATRICIA SAAVEDRA Transcription Typist scribed while in presence of service performed by Dr. Slaughter/Clemencia Miranda APRN on 05/10/20 ([id number])
[2020-05-10] MEDS: ASPIRIN CHEWABLE PO SCH (09:59)
[2020-05-10] MEDS: LANOXIN PO SCH (09:59)
[2020-05-10] MEDS: MEVACOR PO SCH ×2 (09:59→21:19)
[2020-05-10] MEDS: DOXY-100 100 MG in SODIUM CHLORIDE 100 ML IV SCH ×2 (09:59→21:19)
[2020-05-10] MEDS: JANUVIA PO SCH ×2 (10:00→17:52)
[2020-05-10] MEDS: PROSCAR PO SCH (10:00)
[2020-05-10] MEDS: NORVASC PO SCH (10:00)
[2020-05-10] MEDS: LOVENOX SUBCUT SCH (10:01)
[2020-05-10] MEDS: PLAVIX PO SCH (10:01)
[2020-05-10] MEDS: GLUCOPHAGE PO SCH ×2 (10:01→17:52)
[2020-05-10] MEDS: HYZAAR 50-12.5 MG TAB PO SCH (10:01)
[2020-05-10] MEDS: NEURONTIN PO SCH ×2 (10:01→21:19)
[2020-05-10] MEDS: FERROUS SULFATE PO SCH (10:01)
[2020-05-10] MEDS: LOPRESSOR PO SCH ×2 (10:01→21:19)
[2020-05-10] MEDS: LEVEMIR SUBCUT SCH ×2 (10:02→21:20)
[2020-05-10] MEDS: DECADRON IM SCH (10:02)
--- NOTE | 2020-05-10 11:15 | PN ---
DATE OF SERVICE: 05/08/20 - ADMIT NOTE SUBJECTIVE: The patient was brought to the emergency room by the because he had cough, congestion and shortness of breath. He was unable to walk. This happened just 12 hours prior to coming to the emergency room. He was worked up by the ER attending, Dr. Mckeon. The patient was found to have acute respiratory failure with p02 in the 40's. The patient was put on high flow oxygen. The saturation went up to 97. His chest x-ray showed bilateral pneumonia. Covid test was negative. The patient has multiple comorbidities like coronary artery disease, peripheral arterial disease, carotid artery disease diabetes mellitus, almost morbid obesity, hypertension, dyslipidemia, history of stroke, TIAs with falls. PHYSICAL EXAMINATION: GENERAL: The patient is oriented to time, place and person. HEENT: Head normocephalic, atraumatic. Eyes: Extraocular muscles are intact. Pupils are equal, round and reactive to light and accommodation. Ears: No lesions. Nose appeared normal. Throat: No exudate or erythema. NECK: Supple. No JVD, no carotid bruit. No lymphadenopathy or thyromegaly. LUNGS: Decreased breath sounds bilaterally. Dry crepitations. Percussion note normal. Chest symmetrical. HEART: S1, S2, no S3. No murmurs. No cyanosis or clubbing. No ascites. Pulses: Dorsalis pedis and posterior tibial pulses +1 to +2 bilaterally. ABDOMEN: Soft. Nontender. Bowel sounds active. No CVA tenderness. No mass felt. EXTREMITIES: No edema. Full range of motion of all extremities, equal. NEUROLOGIC: No focal deficit. Cranial nerves II through XII are grossly intact. No headache, no double vision or headache. SKIN: Not dry. Intact. Turgor - normal. LYMPHATIC: No palpable lymph nodes/no lymphedema. MUSCULOSKELETAL: Normal joints with no swelling. Muscle tone is normal. ASSESSMENT: 1. Bilateral pneumonia with acute respiratory failure with a lot of comorbidities. PLAN: 1. Transfer the patient to the tertiary center but because of the Covid there was no place in any of the nearby hospitals like [facility], [facility]. The patient's family decided to stay in this hospital. The patient is a full code. 2. The plan is to treat the patient with antibiotic, Rocephin and Doxycycline, steroids, nebs treatment. 3. Continue on the rest of the medications, sliding scale. TIME SPENT: More than 30 minutes. Plan and coordination of the patient's care discussed in the presence of nurse. PAMELA
--- NOTE | 2020-05-10 11:22 | PN ---
DATE OF SERVICE: 05/09/20 SUBJECTIVE: The patient is doing a lot better, remarkable improvement. The is in the room. The patient is sitting up, cleaned his plate and wants more food to eat. His oxygen saturation is 98%, still high flow was on 40L of flow, FI02 of 50%, now he is on 3L and on 30% FI02. He is going to be tried on cannula. REVIEW OF SYSTEMS: CONSTITUTIONAL: Feeling a lot better. No night sweats. No fatigue, malaise, lethargy. No fever or chills. HEENT: Eyes: No visual changes. No eye pain. No eye discharge. ENT: No runny nose. No epistaxis. No sinus pain. No sore throat. No odynophagia. No congestion. RESPIRATORY: Short of breath with walking, very mild cough if at all. No hemoptysis. CARDIOVASCULAR: No angina symptoms. No CHF symptoms. No atypical chest pain for CAD. No palpitations. No PND. No orthopnea. GASTROINTESTINAL: Appetite has improved remarkably. No abdominal pain. No nausea or vomiting. No diarrhea or constipation. No hematemesis. No hematochezia. GENITOURINARY: No urgency. No frequency. No dysuria. No hematuria. No obstructive symptoms. No discharge. No pain. No significant abnormal bleeding. MUSCULOSKELETAL: No musculoskeletal pain; no joint swelling. NEUROLOGICAL: No headache. No neck pain. No syncope. No seizures. No dizziness. PSYCHIATRIC: Not anxious. No depression. No suicidal thoughts. No homicidal thoughts. SKIN: No rash. No lesions. No wounds. ENDOCRINE: No unexplained weight loss. No weight gain. HEMATOLOGIC/LYMPHATIC: No anemia. No purpura. No petechiae. No prolonged or excessive bleeding. No palpable lymph nodes. PHYSICAL EXAMINATION: GENERAL: The patient is oriented to time, place and person. HEENT: Head normocephalic, atraumatic. Eyes: Extraocular muscles are intact. Pupils are equal, round and reactive to light and accommodation. Ears: No lesions. Nose appeared normal. Throat: No exudate or erythema. NECK: Supple. No JVD, no carotid bruit. No lymphadenopathy or thyromegaly. LUNGS: Good air entry, better than yesterday. Percussion note normal. Chest symmetrical. HEART: S1, S2, no S3. No murmurs. No cyanosis or clubbing. No ascites. Pulses: Dorsalis pedis and posterior tibial pulses +1 to +2 bilaterally. ABDOMEN: Soft. Nontender. Bowel sounds active. No CVA tenderness. No mass felt. EXTREMITIES: No edema. Full range of motion of all extremities, equal. NEUROLOGIC: No focal deficit. Cranial nerves II through XII are grossly intact. No headache, no double vision or headache. SKIN: Not dry. Intact. Turgor - normal. LYMPHATIC: No palpable lymph nodes/no lymphedema. MUSCULOSKELETAL: Normal joints with no swelling. Muscle tone is normal. ASSESSMENT: 1. Acute respiratory failure seems to be improving. 2. Bilateral pneumonia clinically has improved. 3. Coronary artery disease with stable cardiac functions. 4. Peripheral arterial disease. 5. Status post CVA. 6. Hypertension. 7. Dyslipidemia. 8. Diabetes mellitus on sliding scale. PLAN: 1. Continue Doxycycline, Rocephin, nebs and steroids. 2. Telemetry. 3. ABG later on this afternoon. CONDITION: Stable improving. TIME SPENT: More than 30 minutes. Plan and coordination of the patient's care discussed in the presence of nurse. PAMELA
[2020-05-10] MEDS: HUMULIN R SUBCUT PRN ×3 (11:52→21:22)
[2020-05-10 13:38] LABS: ABG PH 7.48 (7.35-7.45)
[2020-05-10 13:39] LABS: ABG BASE EXCESS 1.1 (-2.0-2.0); ABG HCO3 24.6 (22.0-26.0); ABG TCO2 25.6 (22.0-28.0)
[2020-05-10 13:40] LABS: ABG OXYGEN SATURATION 94.8 % (95-100)
[2020-05-10] MEDS: ROCEPHIN 1 GM/50 ML D5W 1 GM/50 ML BAG IV SCH (14:12)
[2020-05-10] MEDS: MELATONIN 10 MG PO SCH (23:44)
[2020-05-11 05:13] LABS: HEMATOCRIT 35.6 % (42.0-52.0); HEMOGLOBIN 12.2 g/dl (14.0-18.0); MEAN CORPUSCULAR HEMOGLOBIN 29.5 pg (27.0-31.0); MEAN CORPUSCULAR HGB CONC 34.3 (31.8-35.4); PLATELET COUNT 262 10^3/uL (140-440); RDW COEFFICIENT OF VARIATION 13.1 % (11.6-14.8); RED BLOOD COUNT 4.14 10^6/ul (4.70-6.10); WHITE BLOOD COUNT 15.34 K/ul (4.2-10.2)
[2020-05-11 05:17] LABS: ANISOCYTOSIS NOT PRESENT (NOT PRESENT)
[2020-05-11 05:30] LABS: ALANINE AMINOTRANSFERASE 23.5 U/L (0-50); ALBUMIN 3.56 g/dL (3.5-5.0); ALKALINE PHOSPHATASE 108.4 U/L (56-119); ASPARTATE AMINO TRANSFERASE 24.8 U/L (17-59); BILIRUBIN,TOTAL 0.61 mg/dL (0.2-1.3); BLOOD UREA NITROGEN 30.6 mg/dL (9-20); CALCIUM 8.64 mg/dL (8.4-10.2); CARBON DIOXIDE 26.1 mmol/L (22-30.0); CHLORIDE 98.1 mmol/L (98-107); CREATININE 0.92 mg/dL (0.60-1.10); GLUCOSE 208.2 mg/dL (74-106); POTASSIUM 4.37 mmol/L (3.5-5.1); SODIUM 133.1 mmol/L (134.5-145); TOTAL PROTEIN 6.81 g/dL (6.3-8.2)
[2020-05-11] MEDS: VENTOLIN HFA (PER PUFF-WITH SPACER) IH SCH ×4 (05:35→19:35)
[2020-05-11] MEDS: ATROVENT HFA INHALER (PER PUFF-WITH SPACER) IH SCH ×4 (05:35→19:35)
[2020-05-11 05:50] LABS: ABG BASE EXCESS 4.1 (-2.0-2.0); ABG HCO3 27.6 (22.0-26.0); ABG PH 7.48 (7.35-7.45); ABG TCO2 28.7 (22.0-28.0)
[2020-05-11] MEDS: HUMULIN R SUBCUT PRN ×4 (05:51→20:40)
[2020-05-11] MEDS: PROTONIX PO SCH (05:51)
--- NOTE | 2020-05-11 07:28 | HP ---
DATE OF SERVICE: 05/08/20 HISTORY OF PRESENT ILLNESS: This is an 85-year-old white male admitted on 05/08, who presented to the ER with sudden onset shortness of breath, fever of 103 today. He denies any known exposure. PAST MEDICAL HISTORY: 1. COPD; 2. Diabetic neuropathy; 3. Hypertension; 4. LVH; 5. Noncompliance with diet, meds, and lifestyle; 6. History of leukocytosis, sees Dr. Funes; 7. Left knee arthritis; 8. Recurrent falls; 9. History of hematuria sees Dr. Garcia; 10. Mild ataxia, carotid stenosis; 11. 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 Uncontrolled diabetes mellitus type 2 - last A1C was 10.2 on 05/07; 14. Left carotid 50-75% stenosis. 15. Cerebral atrophy per MRI; 16. Forgetfulness; 17. Dizziness; 18. 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 Dyslipidemia; 22. Metabolic syndrome. PAST SURGICAL HISTORY: 1. Right carotid endarterectomy by Dr. Roberts in November of 2018; 2. TURP by Dr. Garcia in February of 2019; 3. Coronary artery disease with stent by Dr. Rodríguez in October of 2018; 4. CABG in 2010; 5. Colonoscopy [place] [address] Subramanian. REVIEW OF SYSTEMS: CONSTITUTIONAL: Positive for fever and chills. No night sweats. No fatigue, malaise, lethargy. HEENT: Eyes: No visual changes. No eye pain. No eye discharge. ENT: No runny nose. No epistaxis. No sinus pain. No sore throat. No odynophagia. No ear pain. No congestion. RESPIRATORY: Positive for cough, shortness of breath. No hemoptysis. CARDIOVASCULAR: No angina symptoms. No CHF symptoms. No atypical chest pain for CAD. No palpitations. No PND. No orthopnea. Trace leg edema. GASTROINTESTINAL: No abdominal pain. No nausea or vomiting. No diarrhea or constipation. No hematemesis. No hematochezia. GENITOURINARY: No urgency. No frequency. No dysuria. No hematuria. No obstructive symptoms. No discharge. No pain. No significant abnormal bleeding. MUSCULOSKELETAL: No musculoskeletal pain. No joint swelling. No arthritis. NEUROLOGICAL: No headache. No neck pain. No syncope. No seizures. No dizziness. PSYCHIATRIC: Not anxious. No depression. No suicidal thoughts. No homicidal thoughts. SKIN: No rash. No lesions. No wounds. ENDOCRINE: No unexplained weight loss. No weight gain. HEMATOLOGIC/LYMPHATIC: No anemia. No purpura. No petechiae. No prolonged or excessive bleeding. No palpable lymph nodes. PERSONAL/FAMILY/SOCIAL HISTORY: He is , lives at home with his . He is a nonsmoker. No alcohol or ilicit drug use. MEDICATIONS: Digoxin 125 mcg p.o. daily Gabapentin 300 mg p.o. a.m. Gabapentin 600 mg p.o. bedtime Insulin Determir 75 unit subcut b.i.d. Finasteride 5 mg p.o. daily Lovastatin 20 mg p.o. bedtime Clopidogrel 75 mg p.o. daily Pantoprazole 40 mg p.o. q.d a.c. Losartan-Hydrochlorothiazide 50-12.5 mg one tab p.o. daily Aspirin 81 mg p.o. daily with meal Amlodipine 5 mg p.o. daily Sitagliptin-metformin one each p.o. b.i.d. Metoprolol 50 mg p.o. b.i.d. Lovastatin 40 mg p.o. daily Ferrous Sulfate 325 mg p.o. daily Melatonin 10 mg p.o. daily ALLERGIES: NKDA PHYSICAL EXAMINATION: VITAL SIGNS: Temperature 103.3, heart rate 120, respirations 36, blood pressure 160/90, pulse ox 86%. Pallor positive. HEENT: Head normocephalic, atraumatic. Eyes: Extraocular muscles are intact. Pupils are equal, round and reactive to light and accommodation. Ears: No lesions. Nose appeared normal. Throat: No exudate or erythema. NECK: Supple. No JVD, no carotid bruit. No lymphadenopathy or thyromegaly. LUNGS: Visibly short of breath. Diminished breath sounds bilaterally. Percussion note normal. Chest symmetrical. HEART: S1, S2, no S3. No murmur. No cyanosis or clubbing. No ascites. Pulses: Dorsalis pedis and posterior tibial pulses +1 to +2 bilaterally. ABDOMEN: Soft. Nontender. Bowel sounds active. No CVA tenderness. No mass felt. EXTREMITIES: +1 bilateral leg edema. Full range of motion of all extremities, equal. NEUROLOGIC: No focal deficit. Cranial nerves II through XII are grossly intact. No headache, no double vision or headache. SKIN: Not dry. Intact. Turgor - normal. LYMPHATIC: No palpable lymph nodes/no lymphedema. MUSCULOSKELETAL: Normal joints with no swelling. Muscle tone is normal. LABS: White count 20.42, hemoglobin 13.2, hematocrit 40.2, platelets 248. Sodium 135, potassium 4.1, BUN 17, creatinine 1, glucose 290. ABG on 6L/nasal cannula 02 sat 84, pH 7.37, pc02 39, p02 49, bicarb 22.5, total c02 23.7. Base excess of -2.8, lactic acid 2.88, pro-BNP 3,040, alkaline phosphatase 166, AST 39, ALT 36.9. Respiratory panel by PCR everything is nondetected including Covid. Chest x-ray shows bilateral pneumonia and/or pulmonary edema, possible trace left pleural effusion, cardiomegaly, probable pulmonary vascular congestion. ASSESSMENT: 1. ACUTE RESPIRATORY FAILURE 2. BILATERAL PNEUMONIA 3. FEVER 4. PULMONARY VASCULAR CONGESTION 5. HISTORY OF HYPERTROPHIC DILATED CARDIOMYOPATHY 6. DIABETES MELLITUS TYPE 2, UNCONTROLLED 7. COPD 8. HYPERTENSION 9. CORONARY ARTERY DISEASE PLAN: 1. We will admit. 2. Routine telemetry orders. 3. Covid by PCR is negative. 4. CBC, CMP daily. 5. Sliding scale for insulin coverage. 6. Rocephin 1 gm IV daily. 7. Doxycycline 100 mg IV q.12hr. 8. Decadron 4 mg IM daily. 9. High flow oxygen. 10. ABGs on the Vapotherm. 11. Sliding scale for insulin coverage. 12. Continue home medications. 13. Will repeat Covid test tomorrow through [facility]. 14. Digoxin level. 15. Regular diet. 16. Will follow closely. 17. Tylenol for fever greater than 100.4. 18. Albuterol inhaler two puffs t.i.d. 19. Symbicort inhaler 160 two puffs b.i.d. TIME SPENT: More than 70 minutes. MTDD
--- NOTE | 2020-05-11 09:17 | PCM.PROG ---
Attending Provider: ATTENDING PROVIDER: Dr. ABY SLAUGHTER This patient is seen with Clemencia Miranda, Nurse Practitioner. DATE OF SERVICE: 05/11/20 SUBJECTIVE: This 85 year old /WHITE M was hospitalized 05/08/20. The patient is resting comfortably. ABG have improved. This morning we were able to turn down the Vapotherm to 35%. He had significant output with IV Lasix. Condition is improving. REVIEW OF SYSTEMS: CONSTITUTIONAL: No night sweats. No fatigue, malaise, lethargy. No fever or chills. HEENT: Eyes: No visual changes. No eye pain. No eye discharge. ENT: No runny nose. No epistaxis. No sinus pain. No odynophagia. No congestion. RESPIRATORY: Cough, no congestion. No hemoptysis. Shortness of breath. CARDIOVASCULAR: No angina symptoms. No CHF symptoms. No atypical chest pain for CAD. No palpitations. No orthopnea.. GASTROINTESTINAL: No abdominal pain. No nausea or vomiting. No diarrhea or constipation. No hematemesis. No hematochezia. GENITOURINARY: No urgency. No frequency. No dysuria. No hematuria. No obstructive symptoms. No discharge. No pain. No significant abnormal bleeding. MUSCULOSKELETAL: No musculoskeletal pain; no joint swelling. NEUROLOGICAL: Awake, alert, oriented to time, place and person. No headache. No neck pain. No syncope. No seizures. No dizziness. PSYCHIATRIC: Not anxious. No depression. No suicidal thoughts. No homicidal thoughts. SKIN: No rash. No lesions. No wounds. ENDOCRINE: No unexplained weight loss. No weight gain. HEMATOLOGIC/LYMPHATIC: No anemia. No purpura. No petechiae. No prolonged or excessive bleeding. No palpable lymph nodes. PHYSICAL EXAMINATION: GENERAL: The patient is awake, alert and oriented, lying in bed in no distress. VITAL SIGNS: Temperature 97.8 F, Pulse 65, Respiratory Rate 20, BP 156/80, Pulse Ox 98% HEENT: Head normocephalic, atraumatic. Eyes: Extraocular muscles are intact. Pupils are equal, round and reactive to light and accommodation. Ears: No lesi ons. Nose appeared normal. Throat: No exudate or erythema. NECK: Supple. No JVD, no carotid bruit. No lymphadenopathy or thyromegaly. LUNGS: Diminished breath sounds. Clear to auscultation. Percussion note normal. Chest symmetrical. HEART: S1, S2, no S3. No murmurs. No cyanosis or clubbing. No ascites. Pulses: Dorsalis pedis and posterior tibial pulses +1 to +2 both sides. ABDOMEN: Soft. Non-tender. Bowel sounds active. No CVA tenderness. No mass felt. EXTREMITIES: Trace pedal edema. Full range of motion of all extremities, equal. NEUROLOGIC: No focal deficit. Cranial nerves II through XII are grossly intact. No headache, no double vision or headache. SKIN: Not dry. Intact. Turgor-normal. LYMPHATIC: No palpable lymph nodes/no lymphedema. MUSCULOSKELETAL: Normal joints with no swelling. Muscle tone is normal. LAB REVIEW: 05/11/20 04:57 05/11/20 04:57 05/11/20 05:30: Puncture Site R radial, O2 Saturation 99.0, ABG pH 7.48 H, ABG p CO2 37.0, ABG pO2 122.0 H, ABG HCO3 27.6 H, ABG Total CO2 28.7 H, ABG Base Excess 4.1 H, Kelechi Test +, O2 Delivery Device Vapotherm, Oxygen Liter Flow 40.00, FiO2 % 50.0 05/11/20 04:57: Sodium 133.1 L, Potassium 4.37, Chloride 98.1, Carbon Dioxide 26.1, Anion Gap 13.27, BUN 30.6 H, Creatinine 0.92, Estimated GFR (MDRD) 78.00, BUN/Creatinine Ratio 33.26, Glucose 208.2 H, Calcium 8.64, Total Bilirubin 0.61, AST 24.8, ALT 23.5, Alkaline Phosphatase 108.4, Total Protein 6.81, Albumin 3.56, Globulin 3.25, Albumin/Globulin Ratio 1.09 05/11/20 04:57: WBC 15.34 H D, RBC 4.14 L, Hgb 12.2 L, Hct 35.6 L, MCV 86.0, MCH 29.5, MCHC 34.3, RDW Coeff of Michele 13.1, Plt Count 262, Neutrophils % (Manual) 70.0, Lymphocytes % (Manual) 15.0, Monocytes % (Manual) 10.0, Reactive Lymphocytes 5.0, Anisocytosis Not present 05/10/20 13:28: Puncture Site Rr, O2 Saturation 94.8 L, ABG pH 7.48 H, ABG pCO2 33.0 L, ABG pO2 69.0 L, ABG HCO3 24.6, ABG Total CO2 25.6, ABG Base Excess 1.1, Kelechi Test +, O2 Delivery Device Vapotherm, FiO2 % 50.0 05/10/20 08:16: Digoxin < 0.40 L ASSESSMENT: Please see below. 1. Bilateral Pneumonia 2. Possible early CHF 3. Pulmonary vascular congestion 4. Coronary artery disease 5. Uncontrolled diabetes mellitus type 2 PLAN: 1. Continue IV antibiotics 3. Continue to wean from Vapotherm Plan and coordination of the patient's care discussed in the presence of Senior Core Java Developer and nurse. SCRIBED BY: Lisa SANCHEZ scribed while in presence of service performed by Dr. Slaughter/Clemencia Miranda APRN on 05/11/20 ([id number])
[2020-05-11] MEDS: LOVENOX SUBCUT SCH (09:34)
[2020-05-11] MEDS: ROCEPHIN 1 GM/50 ML D5W 1 GM/50 ML BAG IV SCH (09:34)
[2020-05-11] MEDS: LEVEMIR SUBCUT SCH ×2 (09:34→20:41)
[2020-05-11] MEDS: FERROUS SULFATE PO SCH (09:35)
[2020-05-11] MEDS: ASPIRIN CHEWABLE PO SCH (09:35)
[2020-05-11] MEDS: NEURONTIN PO SCH ×2 (09:36→20:39)
[2020-05-11] MEDS: PROSCAR PO SCH (09:36)
[2020-05-11] MEDS: MEVACOR PO SCH ×2 (09:36→20:39)
[2020-05-11] MEDS: LOPRESSOR PO SCH ×2 (09:36→20:39)
[2020-05-11] MEDS: HYZAAR 50-12.5 MG TAB PO SCH (09:36)
[2020-05-11] MEDS: JANUVIA PO SCH ×2 (09:37→17:16)
[2020-05-11] MEDS: LANOXIN PO SCH (09:37)
[2020-05-11] MEDS: GLUCOPHAGE PO SCH ×2 (09:37→17:16)
[2020-05-11] MEDS: PLAVIX PO SCH (09:38)
[2020-05-11] MEDS: DECADRON IM SCH (09:38)
[2020-05-11] MEDS: NORVASC PO SCH (09:38)
[2020-05-11] MEDS: DOXY-100 100 MG in SODIUM CHLORIDE 100 ML IV SCH ×2 (10:41→20:39)
--- NOTE | 2020-05-11 13:46 | PN ---
DATE OF SERVICE: 05/10/2020 SUBJECTIVE: The patient was seen and examined with Nurse Practitioner. The patient's condition is stable. He is not in any distress. The patient is resting right now. The patient was tried to wean off the high flow oxygen but the saturation dropped every time they tried. Blood gasses were done after the patient was given 40mg IV Lasix especially 4 hours after the IV Lasix. He is feeling better. He ate his lunch. PO2 is 69, pCO2 40, saturation 98% on 50% FiO2 with 40 liters of oxygen. We will keep the patient on high flow oxygen with the same amount at least for a day. The patient may have had fluid overload and vascular congestion. The patient is breathing a lot better this afternoon. CONDITION: Stable. TIME SPENT: More than 30 minutes. Plan and coordination of the patient's care discussed in the presence of nurse. PAMELA
[2020-05-11] MEDS: MELATONIN 10 MG PO SCH (20:39)
[2020-05-12 04:09] LABS: ABG BASE EXCESS 0.9 (-2.0-2.0); ABG HCO3 25.1 (22.0-26.0); ABG OXYGEN SATURATION 94.3 % (95-100); ABG PH 7.44 (7.35-7.45); ABG TCO2 26.2 (22.0-28.0)
[2020-05-12] MEDS: VENTOLIN HFA (PER PUFF-WITH SPACER) IH SCH ×4 (04:35→20:23)
[2020-05-12] MEDS: ATROVENT HFA INHALER (PER PUFF-WITH SPACER) IH SCH ×4 (04:35→20:24)
[2020-05-12] MEDS: PROTONIX PO SCH (05:32)
[2020-05-12 05:33] LABS: HEMOGLOBIN 11.9 g/dl (14.0-18.0); MEAN CORPUSCULAR VOLUME 85.4 fl (80.0-94.0); PLATELET COUNT 284 10^3/uL (140-440); RDW COEFFICIENT OF VARIATION 13.1 % (11.6-14.8); WHITE BLOOD COUNT 15.62 K/ul (4.2-10.2)
[2020-05-12 05:39] LABS: ANISOCYTOSIS NOT PRESENT (NOT PRESENT)
[2020-05-12 05:46] LABS: ALANINE AMINOTRANSFERASE 24.6 U/L (0-50); ALBUMIN 3.31 g/dL (3.5-5.0); ALKALINE PHOSPHATASE 102.1 U/L (56-119); ASPARTATE AMINO TRANSFERASE 24.1 U/L (17-59); BILIRUBIN,TOTAL 0.46 mg/dL (0.2-1.3); BLOOD UREA NITROGEN 31.4 mg/dL (9-20); CALCIUM 8.93 mg/dL (8.4-10.2); CARBON DIOXIDE 27.3 mmol/L (22-30.0); CHLORIDE 99.5 mmol/L (98-107); CREATININE 0.99 mg/dL (0.60-1.10); GLUCOSE 190.2 mg/dL (74-106); POTASSIUM 4.37 mmol/L (3.5-5.1); SODIUM 133.4 mmol/L (134.5-145); TOTAL PROTEIN 6.42 g/dL (6.3-8.2)
[2020-05-12] MEDS: HUMULIN R SUBCUT PRN ×3 (06:13→16:58)
[2020-05-12] MEDS: JANUVIA PO SCH ×2 (08:59→16:16)
[2020-05-12] MEDS: GLUCOPHAGE PO SCH ×2 (08:59→16:16)
[2020-05-12] MEDS: LOPRESSOR PO SCH ×2 (08:59→20:54)
[2020-05-12] MEDS ORDERED: LASIX IVP STA (08:59)
[2020-05-12] MEDS: NORVASC PO SCH (08:59)
[2020-05-12] MEDS: PROSCAR PO SCH (08:59)
[2020-05-12] MEDS: MEVACOR PO SCH ×2 (08:59→20:54)
[2020-05-12] MEDS: LANOXIN PO SCH (09:00)
[2020-05-12] MEDS: ASPIRIN CHEWABLE PO SCH (09:01)
[2020-05-12] MEDS: NEURONTIN PO SCH ×2 (09:01→20:54)
[2020-05-12] MEDS: PLAVIX PO SCH (09:01)
[2020-05-12] MEDS: LOVENOX SUBCUT SCH (09:02)
[2020-05-12] MEDS: FERROUS SULFATE PO SCH (09:02)
[2020-05-12] MEDS: LEVEMIR SUBCUT SCH ×2 (09:04→20:53)
[2020-05-12] MEDS: PREDNISONE PO SCH (09:17)
[2020-05-12] MEDS: COZAAR PO SCH (09:18)
[2020-05-12] MEDS: ROCEPHIN 1 GM/50 ML D5W 1 GM/50 ML BAG IV SCH (09:21)
[2020-05-12 09:49] LABS: ABG PH 7.46 (7.35-7.45)
[2020-05-12 09:50] LABS: ABG BASE EXCESS 0.4 (-2.0-2.0); ABG HCO3 24.2 (22.0-26.0); ABG TCO2 25.2 (22.0-28.0)
[2020-05-12] MEDS: DOXY-100 100 MG in SODIUM CHLORIDE 100 ML IV SCH ×2 (10:15→20:53)
--- NOTE | 2020-05-12 11:11 | PCM.PROG ---
Attending Provider: ATTENDING PROVIDER: Dr. ABY SLAUGHTER This patient is seen with Clemencia Miranda, Nurse Practitioner. DATE OF SERVICE: 05/12/20 SUBJECTIVE: This 85 year old /WHITE M was hospitalized 05/08/20. The patient is resting comfortably. He is weaned from Vaptherm. He is on 3 liters of nasal cannula. States shortness of breath improved. REVIEW OF SYSTEMS: CONSTITUTIONAL: No night sweats. No fatigue, malaise, lethargy. No fever or chills. HEENT: Eyes: No visual changes. No eye pain. No eye discharge. ENT: No runny nose. No epistaxis. No sinus pain. No odynophagia. No congestion. RESPIRATORY: Cough, no congestion. No hemoptysis. Shortness of breath. CARDIOVASCULAR: No angina symptoms. No CHF symptoms. No atypical chest pain for CAD. No palpitations. No orthopnea.. GASTROINTESTINAL: No abdominal pain. No nausea or vomiting. No diarrhea or constipation. No hematemesis. No hematochezia. GENITOURINARY: No urgency. No frequency. No dysuria. No hematuria. No obstructive symptoms. No discharge. No pain. No significant abnormal bleeding. MUSCULOSKELETAL: No musculoskeletal pain; no joint swelling. NEUROLOGICAL: Awake, alert, oriented to time, place and person. No headache. No neck pain. No syncope. No seizures. No dizziness. PSYCHIATRIC: Not anxious. No depression. No suicidal thoughts. No homicidal thoughts. SKIN: No rash. No lesions. No wounds. ENDOCRINE: No unexplained weight loss. No weight gain. HEMATOLOGIC/LYMPHATIC: No anemia. No purpura. No petechiae. No prolonged or excessive bleeding. No palpable lymph nodes. PHYSICAL EXAMINATION: GENERAL: The patient is awake, alert and oriented, lying in bed in no distress. VITAL SIGNS: Temperature 97.7 F, Pulse 63, Respiratory Rate 18, BP 152/77, Pulse Ox 95% HEENT: Head normocephalic, atraumatic. Eyes: Extraocular muscles are intact. Pupils are equal, round and reactive to light and accommodation. Ears: No lesions. Nose appeared normal. Throat: No exudate or erythema. NECK: Supple. No JVD, no carotid bruit. No lymphadenopathy or thyromegaly. LUNGS: Diminished breath sounds. Clear to auscultation. Percussion note normal. Chest symmetrical. HEART: S1, S2, no S3. No murmurs. No cyanosis or clubbing. No ascites. Pulses: Dorsalis pedis and posterior tibial pulses +1 to +2 both sides. ABDOMEN: Soft. Non-tender. Bowel sounds active. No CVA tenderness. No mass felt. EXTREMITIES: Trace leg edema. Full range of motion of all extremities, equal. NEUROLOGIC: No focal deficit. Cranial nerves II through XII are grossly intact. No headache, no double vision or headache. SKIN: Not dry. Intact. Turgor-normal. LYMPHATIC: No palpable lymph nodes/no lymphedema. MUSCULOSKELETAL: Normal joints with no swelling. Muscle tone is normal. LAB REVIEW: 05/12/20 05:17 05/12/20 05:17 05/12/20 05:17: Sodium 133.4 L, Potassium 4.37, Chloride 99.5, Carbon Dioxide 27.3, Anion Gap 10.97, BUN 31.4 H, Creatinine 0.99, Estimated GFR (MDRD) 72.00, BUN/Creatinine Ratio 31.71, Glucose 190.2 H, Calcium 8.93, Total Bilirubin 0.46, AST 24.1, ALT 24.6, Alkaline Phosphatase 102.1, Total Protein 6.42, Albumin 3.31 L, Globulin 3.11, Albumin/Globulin Ratio 1.06 05/12/20 05:17: WBC 15.62 H, RBC 4.10 L, Hgb 11.9 L, Hct 35.0 L, MCV 85.4, MCH 29.0, MCHC 34.0, RDW Coeff of Michele 13.1, Plt Count 284, Neutrophils % (Manual) 69.0, Lymphocytes % (Manual) 19.0, Monocytes % (Manual) 12.0 H, Anisocytosis Not present 05/12/20 04:08: Puncture Site Lr, O2 Saturation 94.3 L, ABG pH 7.44, ABG pCO2 37.0, ABG pO2 72.0 L, ABG HCO3 25.1, ABG Total CO2 26.2, ABG Base Excess 0.9, Kelechi Test +, O2 Delivery Device Bnc, Oxygen Liter Flow 3.00, FiO2 % 32.0 05/10/20 09:40: SARS-CoV-2 (PCR) Not detected ASSESSMENT: Please see below. 1. Shortness of breath, improved 2. Acute respiratory failure, resolved 3. Pulmonary vascular congestion 4. COPD 5. Bilateral pneumonia 6. COVID negative 7. Diabetes Mellitus type 2 PLAN: 1. 20mg IV Lasix this morning. start PO Lasix 20 tomorrow 2. Echo 3. Discontinue Decadron 4. Discontinue Hyzaar 5. Continue Losartan 6. Discharge tomorrow 7. Prednisone 20mg daily 8. Repeat Chest x-ray 9. ABG on room air 10.Three step oxygen 11. Discharge home with Omnicef 300mg BID for 7 days. Plan and coordination of the patient's care discussed in the presence of Sales Strategy Manager and nurse. SCRIBED BY: Urmila SANCHEZist scribed while in presence of service performed by Dr. Slaughter/Clemencia Miranda APRN on 05/12/20 ([id number])
--- NOTE | 2020-05-12 11:20 | PN ---
DATE OF SERVICE: 05/11/20 SUBJECTIVE: The patient was seen and examined with the nurse practitioner. The patient's Covid is pending. Respiratory status has remarkably improved with blood gases, p02 of more than 100 with pc02 in the 40s on high flow oxygen which will be cut down. He will be tried on nasal cannula. CHF symptoms controlled. Pneumonia is a lot better. Condition is stable. TIME SPENT: More than 30 minutes. Plan and coordination of the patient's care discussed in the presence of nurse. PAMELA
--- NOTE | 2020-05-12 11:38 | DI ---
EXAM: Chest two view, frontal and lateral views. HISTORY: Follow-up pneumonia, edema. COMPARISON: 05/08/2020. FINDINGS: Sternotomy wires again noted. Heart is enlarged. Atherosclerotic calcifications are pres ent. Vascular congestion and interstitial opacities have resolved. There is minimal blunting of the costophrenic angles with some thickening along the fissures. No new opacities are seen. No pneumot horax identified. Clips seen over the right neck. No acute osseous abnormality identified. IMPRESSION: Significant decrease in pulmonary edema. Small pleural effusions persist.
[2020-05-12] MEDS: MELATONIN 10 MG PO SCH (21:56)
[2020-05-13] MEDS: VENTOLIN HFA (PER PUFF-WITH SPACER) IH SCH ×4 (04:28→19:34)
[2020-05-13] MEDS: ATROVENT HFA INHALER (PER PUFF-WITH SPACER) IH SCH ×4 (04:28→19:34)
[2020-05-13 04:55] LABS: BASOPHILS % (AUTO) 0.1 % (0.0-3.0); EOSINOPHILS # (AUTO) 0.1 K/ul (0.0-0.7); EOSINOPHILS % (AUTO) 0.7 % (0.0-7.0); HEMATOCRIT 36.6 % (42.0-52.0); HEMOGLOBIN 12.6 g/dl (14.0-18.0); IMMATURE GRANULOCYTE # (AUTO) 0.1 (0.0-1.0); IMMATURE GRANULOCYTE % (AUTO) 0.7 % (0.0-5.0); LYMPHOCYTES # (AUTO) 6.4 K/uL (0.60-3.4); LYMPHOCYTES % (AUTO) 38.6 (10.0-50.0); MEAN CORPUSCULAR HEMOGLOBIN 29.5 pg (27.0-31.0); MEAN CORPUSCULAR HGB CONC 34.4 (31.8-35.4); MEAN CORPUSCULAR VOLUME 85.7 fl (80.0-94.0); MONOCYTES # (AUTO) 1.7 K/uL (0.4-2.0); MONOCYTES % (AUTO) 10.3 (0-10); NEUTROPHILS # (AUTO) 8.2 K/ul (2.0-6.9); NEUTROPHILS % (AUTO) 49.6 % (42.2-75.2); PLATELET COUNT 322 10^3/uL (140-440); RDW COEFFICIENT OF VARIATION 13.3 % (11.6-14.8); RED BLOOD COUNT 4.27 10^6/ul (4.70-6.10); WHITE BLOOD COUNT 16.47 K/ul (4.2-10.2)
[2020-05-13 05:12] LABS: ALANINE AMINOTRANSFERASE 31.7 U/L (0-50); ALBUMIN 3.41 g/dL (3.5-5.0); ALKALINE PHOSPHATASE 97.9 U/L (56-119); ASPARTATE AMINO TRANSFERASE 22.7 U/L (17-59); BILIRUBIN,TOTAL 0.4 mg/dL (0.2-1.3); BLOOD UREA NITROGEN 33.8 mg/dL (9-20); CALCIUM 9.11 mg/dL (8.4-10.2); CARBON DIOXIDE 25.6 mmol/L (22-30.0); CHLORIDE 103.2 mmol/L (98-107); CREATININE 0.95 mg/dL (0.60-1.10); GLUCOSE 152.8 mg/dL (74-106); POTASSIUM 4.02 mmol/L (3.5-5.1); SODIUM 135.1 mmol/L (134.5-145); TOTAL PROTEIN 6.49 g/dL (6.3-8.2)
[2020-05-13] MEDS: PROTONIX PO SCH (05:55)
[2020-05-13] MEDS: MEVACOR PO SCH ×2 (08:41→20:14)
[2020-05-13] MEDS: PROSCAR PO SCH (08:41)
[2020-05-13] MEDS: ASPIRIN CHEWABLE PO SCH (08:41)
[2020-05-13] MEDS: OMNICEF PO SCH ×2 (08:41→20:13)
[2020-05-13] MEDS: LANOXIN PO SCH (08:41)
[2020-05-13] MEDS: COZAAR PO SCH (08:41)
[2020-05-13] MEDS: JANUVIA PO SCH ×2 (08:42→17:02)
[2020-05-13] MEDS: PREDNISONE PO SCH (08:42)
[2020-05-13] MEDS: GLUCOPHAGE PO SCH ×2 (08:42→17:01)
[2020-05-13] MEDS: NORVASC PO SCH (08:42)
[2020-05-13] MEDS: FERROUS SULFATE PO SCH (08:43)
[2020-05-13] MEDS: LOVENOX SUBCUT SCH (08:43)
[2020-05-13] MEDS: LOPRESSOR PO SCH ×2 (08:43→20:13)
[2020-05-13] MEDS: NEURONTIN PO SCH ×2 (08:43→20:13)
[2020-05-13] MEDS: PLAVIX PO SCH (08:43)
[2020-05-13] MEDS: LEVEMIR SUBCUT SCH ×2 (09:45→20:14)
[2020-05-13] MEDS: HUMULIN R SUBCUT PRN ×3 (12:21→20:15)
[2020-05-13] MEDS ORDERED: SENNA PO PRN (17:53)
[2020-05-13] MEDS: MELATONIN 10 MG PO SCH (20:16)
[2020-05-14] MEDS: VENTOLIN HFA (PER PUFF-WITH SPACER) IH SCH ×2 (05:29→09:56)
[2020-05-14] MEDS: ATROVENT HFA INHALER (PER PUFF-WITH SPACER) IH SCH ×2 (05:29→09:56)
[2020-05-14 05:38] LABS: HEMATOCRIT 37.6 % (42.0-52.0); HEMOGLOBIN 12.8 g/dl (14.0-18.0); MEAN CORPUSCULAR HEMOGLOBIN 29.4 pg (27.0-31.0); MEAN CORPUSCULAR VOLUME 86.4 fl (80.0-94.0); PLATELET COUNT 330 10^3/uL (140-440); RDW COEFFICIENT OF VARIATION 13.3 % (11.6-14.8); RED BLOOD COUNT 4.35 10^6/ul (4.70-6.10); WHITE BLOOD COUNT 18.58 K/ul (4.2-10.2)
[2020-05-14 05:45] VITALS: BP 160/73; TEMP 97.1
[2020-05-14 05:52] LABS: ALANINE AMINOTRANSFERASE 31.9 U/L (0-50); ALBUMIN 3.59 g/dL (3.5-5.0); ALKALINE PHOSPHATASE 98.3 U/L (56-119); ASPARTATE AMINO TRANSFERASE 28.3 U/L (17-59); BILIRUBIN,TOTAL 0.44 mg/dL (0.2-1.3); BLOOD UREA NITROGEN 32.4 mg/dL (9-20); CALCIUM 9.38 mg/dL (8.4-10.2); CHLORIDE 102.8 mmol/L (98-107); CREATININE 0.94 mg/dL (0.60-1.10); GLUCOSE 169.1 mg/dL (74-106); POTASSIUM 4.31 mmol/L (3.5-5.1); SODIUM 135.1 mmol/L (134.5-145); TOTAL PROTEIN 6.78 g/dL (6.3-8.2)
[2020-05-14 05:54] LABS: ANISOCYTOSIS NOT PRESENT (NOT PRESENT)
[2020-05-14] MEDS: PROTONIX PO SCH (06:02)
[2020-05-14] MEDS: HUMULIN R SUBCUT PRN ×2 (06:16→11:40)
[2020-05-14] MEDS: LEVEMIR SUBCUT SCH (09:00)
[2020-05-14] MEDS: MEVACOR PO SCH (10:06)
[2020-05-14] MEDS: OMNICEF PO SCH (10:06)
[2020-05-14] MEDS: PROSCAR PO SCH (10:06)
[2020-05-14] MEDS: FERROUS SULFATE PO SCH (10:07)
[2020-05-14] MEDS: ASPIRIN CHEWABLE PO SCH (10:07)
[2020-05-14] MEDS: LANOXIN PO SCH (10:07)
[2020-05-14] MEDS: COZAAR PO SCH (10:08)
[2020-05-14] MEDS: NORVASC PO SCH (10:08)
[2020-05-14] MEDS: NEURONTIN PO SCH (10:08)
[2020-05-14] MEDS: LOPRESSOR PO SCH (10:08)
[2020-05-14] MEDS: PREDNISONE PO SCH (10:09)
[2020-05-14] MEDS: JANUVIA PO SCH (10:09)
[2020-05-14] MEDS: GLUCOPHAGE PO SCH (10:09)
[2020-05-14] MEDS: PLAVIX PO SCH (10:09)
[2020-05-14] MEDS: LOVENOX SUBCUT SCH (10:09)
--- NOTE | 2020-05-17 11:46 | PN ---
DATE OF SERVICE: 05/13/20 SUBJECTIVE: 85-year-old white male hospitalized with bilateral pneumonia. The patient's condition has improved remarkably. His symptoms are CHF. No fever, no chills, no PND, no orthopnea. Practically no cough. He wants to go home. REVIEW OF SYSTEMS: CONSTITUTIONAL: No night sweats. No fatigue, malaise, lethargy. No fever or chills. HEENT: Eyes: No visual changes. No eye pain. No eye discharge. ENT: No runny nose. No epistaxis. No sinus pain. No sore throat. No odynophagia. No congestion. RESPIRATORY: Not much cough, no congestion. No hemoptysis. No shortness of breath. CARDIOVASCULAR: No angina symptoms. No CHF symptoms. No atypical chest pain for CAD. No palpitations. No PND. No orthopnea. GASTROINTESTINAL: No abdominal pain. No nausea or vomiting. No diarrhea or constipation. No hematemesis. No hematochezia. GENITOURINARY: No urgency. No frequency. No dysuria. No hematuria. No obstructive symptoms. No discharge. No pain. No significant abnormal bleeding. MUSCULOSKELETAL: No musculoskeletal pain; no joint swelling. NEUROLOGICAL: No headache. No neck pain. No syncope. No seizures. No dizziness. PSYCHIATRIC: Not anxious. No depression. No suicidal thoughts. No homicidal thoughts. SKIN: No rash. No lesions. No wounds. ENDOCRINE: No unexplained weight loss. No weight gain. HEMATOLOGIC/LYMPHATIC: No anemia. No purpura. No petechiae. No prolonged or excessive bleeding. No palpable lymph nodes. PHYSICAL EXAMINATION: VITAL SIGNS: Temperature 98.2, pulse 58, respiratory rate 18, blood pressure 149/77. Pulse ox 96% on 1 to 2L. HEENT: Head normocephalic, atraumatic. Eyes: Extraocular muscles are intact. Pupils are equal, round and reactive to light and accommodation. Ears: No lesions. Nose appeared normal. Throat: No exudate or erythema. NECK: Supple. No JVD, no carotid bruit. No lymphadenopathy or thyromegaly. LUNGS: Decreased breath sounds with good air entry. Percussion note normal. Chest symmetrical. HEART: S1, S2, no S3. No murmurs. No cyanosis or clubbing. No ascites. Pulses: Dorsalis pedis and posterior tibial pulses +1 to +2 bilaterally. ABDOMEN: Soft. Nontender. Bowel sounds active. No CVA tenderness. No mass felt. EXTREMITIES: No edema. Full range of motion of all extremities, equal. NEUROLOGIC: No focal deficit. Cranial nerves II through XII are grossly intact. No headache, no double vision or headache. SKIN: Not dry. Intact. Turgor - normal. LYMPHATIC: No palpable lymph nodes/no lymphedema. MUSCULOSKELETAL: Normal joints with no swelling. Muscle tone is normal. LABS: Hemoglobin 10.6, hematocrit 36, WBC 16,000, normal differential. Creatinine 0.9, BUN 33, potassium 4. ASSESSMENT: 1. Bilateral pneumonia clinically resolved. 2. CHF under control. 3. Cardiovascular status stable. PLAN: 1. The patient is ready to be discharged tomorrow probably with antibiotics, steroids. 2. Evaluate him for oxygen. TIME SPENT: More than 30 minutes. Plan and coordination of the patient's care discussed in the presence of nurse. PAMELA
--- NOTE | 2020-05-17 12:36 | ECHO2D ---
Date of Exam: 05/14/2020 Ordering Physician: DR. SLAUGHTER Room #: 111 Reason for Echo: SHORTNESS OF BREATH, CORONARY ARTERY DISEASE, HISTORY OF CORONARY ARTERY BYPASS GRAFTS, DIABETES MELLITUS TYPE 2 M-Mode Normal Adult Results LV Dimensions Normal Adult Results AoV Opening excursions >1.6 >1.6 LVEDD-base- 3.5-5.8 5.7 Ao root dimensions 2.0-3.7 3.9 LVESD-base- 3.1-4.6 L. Atrium dimensions 1.9-3.8 5.7 Post. Wall thickness 0.8-1.1 1.2 IV septum (thickness) 0.7-1.2 1.6 Post. Wall excursion 0.72-1.3 NORMAL Septal motion NORMAL Systolic motion R. Ventricular cavity 1.5-2.0 NORMAL LVEF 60% 60% Paradoxical septal wall motion NORMAL 2-D : ENLARGED LEFT ATRIAL AND LEFT VENTRICLE CAVITIES. 2-D M Mode Echocardiogram was performed using apical four chamber and left parasternal long and short axis views. Mitral, tricuspid and aortic valves appear to be normal. Contractility of the left ventricle seems to be normal. Enlarged left atrial and left ventricle cavities.The aortic root appears to be normal. There is no pericardial effusion. There is no thrombus noted in the left ventricle or left atrial cavity. No mitral valve prolapse noted. M-MODE: MV: NORMAL AV: NORMAL TV: NORMAL PV: CHAMBER SIZE: ENLARGED LEFT ATRIAL CAVITY WALL MOTION: NORMAL PERICARDIUM: NORMAL INTERPRETATION: 1. LEFT VENTRICULAR HYPERTROPHY 2. ENLARGED LEFT ATRIAL CAVITY 3. BORDERLINE ENLARGED LEFT VENTRICLE CAVITY 4. NORMAL VALVES 5. NORMAL LEFT VENTRICULAR CONTRACTILITY MTDD
--- NOTE | 2020-05-17 14:11 | PN ---
DATE OF SERVICE: 05/12/2020 SUBJECTIVE: The patient was seen and examined withe the Nurse Practitioner. The patient's condition has improved. He is on 2 liters. On arterial blood gasses done on room air with pO2 of more than 55-60 and oxygen saturation 92%. He will go home. He doesn't have any symptoms of CHF. His bronchitis and pneumonia seems to be a lot better. CONDITION: Stabilizing. PLANS: 1. Continue antibiotics 2. Continue Lasix. TIME SPENT: More than 30 minutes. Plan and coordination of the patient's care discussed in the presence of nurse. PAMELA
--- NOTE | 2020-05-18 14:10 | PN ---
DATE OF SERVICE: 05/14/2020 SUBJECTIVE: The patient was seen and examined with the Nurse Practitioner. The patient's condition has improved remarkably. Pneumonia practically has resolved clinically. He is afebrile. Oxygen saturation 94% on room air. Cardiovascular status is stable. No evidence of CHF. The patient is going to be discharged home on antibiotics, steroids, Lasix and Potassium supplements. CONDITION: Stable. TIME SPENT: More than 30 minutes. Plan and coordination of the patient's care discussed in the presence of nurse. PAMELA
--- NOTE | 2020-05-18 14:12 | PN ---
05/08/2020: Level 5 05/09/2020: Extensive 05/10/2020: Intermediate 05/11/2020: Intermediate 05/12/2020: Intermediate 05/13/2020: Intermediate 05/14/2020: D as in discharge MTDD
--- NOTE | 2020-05-19 09:44 | DS ---
DATE OF SERVICE: 05/14/2020 FINAL DIAGNOSIS: 1. Acute respiratory failure 2. Bilateral pneumonia 3. Pulmonary vascular congestion 4. Dilated cardiomyopathy 5. Coronary artery disease 6. Uncontrolled diabetes mellitus type 2 7. Shortness of breath 8. Noncompliance with diet, medications, and lifestyle; 9. History of leukocytosis, sees Dr. Funes; 10. Left knee arthritis; 11. Recurrent falls; 12. History of hematuria sees Dr. Garcia; 11. Mild ataxia, carotid stenosis; 12. 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 Uncontrolled diabetes mellitus type 2 - last A1C was 10.2 on 05/07; 15. Left carotid 50-75% stenosis. 17. Cerebral atrophy per MRI; 18. Forgetfulness; 19. Dizziness; 20. Obstructive sleep apnea, wears CPAP; 21. History of thyroglossal duct cyst; 22 History of subdural hematoma status post fall; 23. Dyslipidemia; 24. Metabolic syndrome. DISCHARGE INSTRUCTIONS: Discharge home today. Continue to check blood sugars prior to insulin administration. Continue home medications. Followup with Dr. Wallace/Clemencia Miranda APRN/Eileen Cheung APRN in office in 5-7 days. You need to call Sunday to schedule an appointment. MEDICATIONS AT DISCHARGE: Digoxin 125mcg PO daily Gabapentin 600mg at bedtime Gabapentin 300mg QAM Levemir 75 unit SUBCUT BID Proscar 5mg PO daily Lovastatin 20mg PO bedtime Plavix 75mg PO daily Pantoprazole 40mg PO QDAC Losartan-Hydrochlorothiazide 50-12.5mg PO daily Aspirin 81mg PO daily Amlodipine 5mg PO daily Janumet 50-500mg PO BID Metoprolol Tartrate 50mg PO BID [place]ev[place]or 40mg PO daily FerrouSul 325mg PO daily Melatonin 10mg PO bedtime Cefdinir 300mg PO Q 12 hours Lasix 20mg PO QAM Losartan 50mg PO daily Prednisone 10mg PO daily Amlodipine 5mg PO daily NEW PRESCRIPTIONS: Omnicef 300mg by mouth two times a day for 5 days. Prednisone 10mg PO once a day for 5 days Losartan 50mg PO daily Lasix 20mg PO once a day DISCONTINUED MEDICATIONS: Hyzaar DIET INSTRUCTIONS: Diabetic diet ACTIVITY: Gradually resume activity SMOKING: N/A LABS: WBC 18 has been on steroids, HGB 12.8, hct 37.6, plt count 330, sodium 135, potassium 4.3, BUN 32, creatinine 0.94, glucose 169. VITALS: Temperature 97.1, heart rate 60, respiratory rate 18, blood pressure 150/73 and pulse ox 96% on 2 liters. He passed a three step oxygen test two times during his hospital stay. HOSPITAL COURSE: This is an 85 year old white male who presented to the emergency room with increasing shortness of breath and cough. ABG showed acute respiratory failure, pO2 was in the 50s. He was started on high flow Vapotherm. Initially tolerated 40% and had to be turned up to 50%. Chest x-ray did show that he had some bilateral pneumonia with possible vascular congestion. He was given 40mg of Lasix IV on two different occasions because he also had some leg edema. He had significant urine output that significantly helped his shortness of breath. He was on the Vapotherm for about 2.5 days and was able to wean fairly easily. He was started on Rocephin 1 gram IV daily along with Zithromax 500mg IV daily times three days. Initial COVID test was negative and this was repeated due to the nature of his symptoms and he did have low grade fever. The second test was also negative for COVID. He has responded well to treatment. He was also started on Decadron 4mg IM daily. For the past two days he has been eating well. He has been up and about in his room. He does have some mild shortness of breath with exertion and this is tolerated. Oxygen saturation does not drop. I discontinued Hyzaar and placed him on Losartan 50mg daily along with Lasix 20mg daily he will go home with his. He will also go home with Omnicef 300mg PO BID for the next 5 days along with Prednisone 10mg daily for the next 5 days. He is an uncontrolled diabetic. He has been instructed on checking his glucose at home. Dr. Wallace will do an echo prior to discharge. He will be discharged home in stable condition and followup with us in the office next week. TIME SPENT: More than 60 minutes. PAMELA
== END 2020-05-14 13:30 | disposition home or self-care (01) | DRG 189 ==
LOC: ED 18:46 → MEDSURG A 23:08 → MEDSURG B 05-10 13:10 → MEDSURG A 05-11 20:31 → UNDODISIN 05-14 13:30
PROVIDERS: ADMIT Internal Medicine; ATTEND Internal Medicine
DX: I50.9 Heart failure, unspecified; R06.02 Shortness of breath; E88.81 Metabolic syndrome and other insulin resistance; J18.9 Pneumonia, unspecified organism; I65.29 Occlusion and stenosis of unspecified carotid artery; R27.0 Ataxia, unspecified; J44.9 Chronic obstructive pulmonary disease, unspecified; E78.5 Hyperlipidemia, unspecified; Z91.19 Patient's noncompliance with other medical treatment and regimen; I42.9 Cardiomyopathy, unspecified; R05 Cough; R50.9 Fever, unspecified; E11.40 Type 2 diabetes mellitus with diabetic neuropathy, unspecified; I10 Essential (primary) hypertension; J96.01 Acute respiratory failure with hypoxia; G47.33 Obstructive sleep apnea (adult) (pediatric); I25.10 Atherosclerotic heart disease of native coronary artery without angina pectoris; M19.90 Unspecified osteoarthritis, unspecified site; R42 Dizziness and giddiness; Z20.828 Contact with and (suspected) exposure to other viral communicable diseases

== ENCOUNTER 2021-10-03 10:02 | Inpatient (IN) ==
--- NOTE | 2021-10-03 10:45 | ED.PDOC ---
General ED Provider: Dr. DONALDO ARNDT MD Chief Complaint: Weakness Stated Complaint: mild to mod general weakness and SHAW w/ fluid retention in the ankles getting worse for 2 days, recent admit for pneumonia, hx htn, dm, feeling feverish Time Seen by Provider: 10/03/21 10:37 Mode of Arrival: Wheelchair Information Source: Patient Primary Care Provider: ABY SLAUGHTER Nursing and Triage Documentation Reviewed and Agree: Yes Does patient meet sepsis criteria?: Yes If yes, has appropriate treatment been initiated?: Yes System Inflammatory Response Syndrome: Temp 96.8F or Lower and Acutely Altered Mental Status Sepsis Protocol: For patient's 13 years and over: Temp is 96.8 and below OR 101 and greater Pulse >90 BPM Resp >20/minute Acutely Altered Mental Status Are patient's symptoms suggestive of a new infection, such as: -Pneumonia -Skin, Soft Tissue -Endocarditis -UTI -Bone, Joint Infection -Implantable Device -Acute Abdominal Infection -Wound Infection -Meningitis -Blood Stream Catheter Infection -Unknown Review of Systems Review Of Systems Constitutional: Reports Fever, Malaise and Weakness Eyes: Denies Vision change Ears, Nose, Mouth, Throat: Denies Throat pain Respiratory: Reports Short of air; Denies Cough, Stridor or Wheezing Cardiac: Reports Edema; Denies Chest pain GI: Denies Abdominal pain or Vomiting : Denies Dysuria Musculoskeletal: Denies Back pain Skin: Denies Bruising Neurological: Denies Headache All Other Systems: Other [facility] Medical History Anemia Bronchitis Cancer Coronary artery disease Diabetes mellitus Mccoy' lung disease GERD (gastroesophageal reflux disease) Hypercholesteremia Hypertension Hypothyroidism Melanoma Family History (Updated 09/12/21 @ 18:31 by ARMANDO RAMOS, RN) Mother Breast cancer BROTHER Emphysema lung BROTHER Colon cancer DAUGHTER Breast cancer Social History (Updated 09/12/21 @ 18:31 by ARMANDO RAMOS RN) Smoking and tobacco status: Never smoker Substance use type: does not use History of recent travel: No Surgical History H/O partial thyroidectomy Hx of CABG Hx of cholecystectomy S/P appy Physical Exam Physical Exam Appearance: Reports No pain distress Ill-appearing: Mild Pain Distress: None Eyes: Reports TJ, EOMI and Conjunctiva clear ENT: Reports Oropharynx normal Neck: Supple Respiratory: Reports Airway patent, Breath sounds clear and Breath sounds equal Cardiovascular: Reports RRR GI/: Reports Soft and Nontender Musculoskeletal: Reports Edema Skin: Reports Warm and Dry Neurological: Reports Alert and Oriented Psychiatric: Reports Affect appropriate Interpretation Radiology Interpretation Radiology Interpretation By: Radiologist Exam Interpreted: CXR Xray Comments: nap Radiology Interpretation By: Radiologist Exam Interpreted: CT Scan Xray Comments: no head bleed EKG Interpretation Time of EKG #1: 11:11 Rate: Normal Rhythm: Sinus Interpretation: rbbb, no stemi Critical Care Note Critical Care Note Total Critical Care Time (mins): 30 Course Course Orders, Labs, Meds: Orders Category Date Time Status ABG DRAW REQUEST Stat CARDIO 10/03/21 10:37 Ordered EKG-(ED ONLY) Stat CARDIO 10/03/21 10:37 Ordered OXYGEN [ED APPLY O2] .ONCE EMERGENCY 10/03/21 10:37 Active ABG COOX Stat LAB 10/03/21 10:45 Received BLOOD CULTURE Stat LAB 10/03/21 10:37 Ordered CBC W/ AUTO DIFF Stat LAB 10/03/21 10:37 Ordered CMP [COMPREHENSIVE METABOLIC PANEL] Stat LAB 10/03/21 10:37 Ordered D-DIMER Stat LAB 10/03/21 Ordered DIGOXIN Stat LAB 10/03/21 11:08 Ordered LACTIC ACID Stat LAB 10/03/21 10:37 Ordered NT-PROBNP Stat LAB 10/03/21 10:37 Ordered RAPID STREP SCREEN [MOLECULAR GROUP A STREP] Stat LAB 10/03/21 10:45 Ordered RESPIRATORY PANEL 2.1 (PCR) Stat LAB 10/03/21 Ordered TROPONIN I Stat LAB 10/03/21 10:37 Ordered URINALYSIS C & S IF INDICATED Stat LAB 10/03/21 10:37 Uncollected CHEST, 1V AP ONLY Stat RADS 10/03/21 10:37 Ordered Vital Signs: Temp Pulse Resp BP Pulse Ox 10/03/21 10:09 97.8 F 69 18 109/54 L 94 L Discharge Plan Discharge Patient Disposition: ADMITTED INPATIENT Discharge Problem: Sepsis Prescriptions: No Action digoxin 125 MCG tablet 125 mcg PO DAILY 0RF clopidogrel [Plavix] 75 MG tablet 75 mg PO DAILY 0RF finasteride [Proscar] 5 MG tablet 5 mg PO DAILY 0RF pantoprazole 40 MG tablet,delayed release (DR/EC) 40 mg PO QDAC 0RF aspirin 81 MG tablet,chewable 81 mg PO DAILYWM 0RF furosemide 40 mg tablet 40 mg PO QDAC 0RF carvedilol 12.5 mg tablet 12.5 mg PO BIDAC 0RF gabapentin 300 mg capsule 300 mg PO QAM 0RF melatonin 10 mg Tablet 10 mg PO BEDTIME 0RF gabapentin 300 mg Capsule 600 mg PO BEDTIME 0RF loratadine 10 mg Tablet 10 mg PO DAILY 0RF memantine 10 mg Tablet 10 mg PO BID 0RF Janumet 50-500 mg Tablet 1 tab PO BID 0RF Breo Ellipta 100-25 mcg/dose Blister With Device 1 inh INHALATION DAILY 0RF albuterol sulfate [ProAir HFA] 90 mcg/actuation Hfa Aerosol Inhaler 2 puff INHALATION Q4HR PRN (Reason: Wheezing) 0RF Rx Instructions: As needed for wheezing fluticasone propionate 50 mcg/actuation [place],Suspension 2 spray INTRANASAL DAILY 0RF Rx Instructions: administer into each nostril Levemir U-100 Insulin 100 unit/mL Solution 80 unit subcut BID 0RF lovastatin 40 mg Tablet 60 mg PO DAILY 0RF losartan 50 mg Tablet 50 mg PO DAILY 30 Days Qty: 30 2RF Rx Instructions: START TOMORROW AM 05/15/2020 amlodipine 5 mg Tablet 5 mg PO DAILY 0RF ED Provider: DONALDO ARNDT Condition: Fair Physician Progress Note: []pt admit to hospitalist for sepsis, mild rhabdomyolysis, iv hydration and zosyn
[2021-10-03 11:15] LABS: ABG PH 7.46 (7.35-7.45)
[2021-10-03 11:16] LABS: ABG O2 HGB 91.2 % (95-100); BEecf 3.9 (-2.0-3.0); HCO3 27.7 (21-28); MetHb 0.3 (0-1.5); TCO2 28.9 (19-24); sO2 91.6 % (94-98); tHb 9.4 g/dl (11.7-17.4)
[2021-10-03 11:17] LABS: BASOPHILS % (AUTO) 0.2 % (0.0-3.0); EOSINOPHILS # (AUTO) 0.1 K/ul (0.0-0.7); HEMATOCRIT 29.2 % (42.0-52.0); HEMOGLOBIN 9.4 g/dl (14.0-18.0); IMMATURE GRANULOCYTE # (AUTO) 0.1 (0.0-1.0); IMMATURE GRANULOCYTE % (AUTO) 0.5 % (0.0-5.0); LYMPHOCYTES # (AUTO) 3.2 K/uL (0.60-3.4); LYMPHOCYTES % (AUTO) 25.4 (10.0-50.0); MEAN CORPUSCULAR HEMOGLOBIN 28.4 pg (27.0-31.0); MEAN CORPUSCULAR HGB CONC 32.2 (31.8-35.4); MEAN CORPUSCULAR VOLUME 88.2 fl (80.0-94.0); MONOCYTES # (AUTO) 1.6 K/uL (0.4-2.0); NEUTROPHILS # (AUTO) 7.5 K/ul (2.0-6.9); PLATELET COUNT 200 10^3/uL (140-440); RDW COEFFICIENT OF VARIATION 13.6 % (11.6-14.8); RED BLOOD COUNT 3.31 10^6/ul (4.70-6.10); WHITE BLOOD COUNT 12.44 K/ul (4.2-10.2)
[2021-10-03 11:17] LABS: BORDETELLA PARAPERTUSSIS (PCR) NOT DETECTED (NOT DETECT); BORDETELLA PERTUSSIS (PCR) NOT DETECTED (NOT DETECT); CHLAMYDIA PNEUMONIAE (PCR) NOT DETECTED (NOT DETECT); CORONAVIRUS 229E (PCR) NOT DETECTED (NOT DETECT); CORONAVIRUS HKU1 (PCR) NOT DETECTED (NOT DETECT); CORONAVIRUS NL63 (PCR) NOT DETECTED (NOT DETECT); CORONAVIRUS OC43 (PCR) NOT DETECTED (NOT DETECT); HUMAN METAPNEUMOVIRUS (PCR) NOT DETECTED (NOT DETECT); HUMAN RHINOVIRUS/ENTEROV (PCR) NOT DETECTED (NOT DETECT); INFLUENZA B (PCR) NOT DETECTED (NOT DETECT); MYCOPLASMA PNEUMONIAE (PCR) NOT DETECTED (NOT DETECT); PARAINFLUENZA VIRUS 1 (PCR) NOT DETECTED (NOT DETECT); PARAINFLUENZA VIRUS 2 (PCR) NOT DETECTED (NOT DETECT); PARAINFLUENZA VIRUS 3 (PCR) NOT DETECTED (NOT DETECT); PARAINFLUENZA VIRUS 4 (PCR) NOT DETECTED (NOT DETECT); RESPIRATORY SYNCYTIAL V (PCR) NOT DETECTED (NOT DETECT); SARS_COV_2 (PCR) NOT DETECTED (NOT DETECT)
--- NOTE | 2021-10-03 11:26 | DI ---
EXAM: One-view chest HISTORY: Weak TECHNIQUE: Single frontal view the chest was obtained. Comparison 09/19/2021. FINDINGS: The heart is normal size. Lungs are clear. The pulmonary vasculature appears normal. Th e osseous structures are normal. IMPRESSION: No active cardiopulmonary disease.
[2021-10-03 11:31] LABS: ALANINE AMINOTRANSFERASE 33.3 U/L (0-50); ALBUMIN 3.59 g/dL (3.5-5.0); ALKALINE PHOSPHATASE 124.7 U/L (56-119); BILIRUBIN,TOTAL 0.73 mg/dL (0.2-1.3); BLOOD UREA NITROGEN 25.3 mg/dL (9-20); CALCIUM 8.32 mg/dL (8.4-10.2); CARBON DIOXIDE 26.9 mmol/L (22-30.0); CREATININE 1.68 mg/dL (0.60-1.10); GLUCOSE 191.9 mg/dL (74-106); POTASSIUM 4.53 mmol/L (3.5-5.1); SODIUM 134.2 mmol/L (134.5-145); TOTAL PROTEIN 6.54 g/dL (6.3-8.2)
[2021-10-03 11:34] LABS: MONOCYTES % (AUTO) 12.9 (0-10)
[2021-10-03 11:46] LABS: TROPONIN I 0.114 ng/ml (0.0000-0.120)
--- NOTE | 2021-10-03 11:56 | ED.PDOC ---
General ED Provider: Dr. DONALDO ARNDT MD Chief Complaint: Weakness Stated Complaint: mild to mod general weakness w/ hoffman and edema getting worse for a few days, on home oxygen, no NV, +feverish, hx dm and htn and recent pneumonia, fell a week ago striking his head Time Seen by Provider: 10/03/21 10:37 Mode of Arrival: Wheelchair Information Source: Patient Primary Care Provider: ABY WALLACE Nursing and Triage Documentation Reviewed and Agree: Yes Does patient meet sepsis criteria?: No System Inflammatory Response Syndrome: Not Applicable Sepsis Protocol: For patient's 13 years and over: Temp is 96.8 and below OR 101 and greater Pulse >90 BPM Resp >20/minute Acutely Altered Mental Status Are patient's symptoms suggestive of a new infection, such as: -Pneumonia -Skin, Soft Tissue -Endocarditis -UTI -Bone, Joint Infection -Implantable Device -Acute Abdominal Infection -Wound Infection -Meningitis -Blood Stream Catheter Infection -Unknown Review of Systems Review Of Systems Constitutional: Reports Fever and Malaise Eyes: Denies Vision change Ears, Nose, Mouth, Throat: Denies Throat pain Respiratory: Reports Short of air; Denies Stridor Cardiac: Denies Chest pain GI: Denies Abdominal pain : Denies Dysuria Musculoskeletal: Denies Neck pain Skin: Denies Rash Neurological: Denies Cognitive dysfunction All Other Systems: Other [facility] Medical History Anemia Bronchitis Cancer Coronary artery disease Diabetes mellitus [place]' lung disease GERD (gastroesophageal reflux disease) Hypercholesteremia Hypertension Hypothyroidism Melanoma Family History (Updated 09/12/21 @ 18:31 by ARMANDO RAMOS, RN) Mother Breast cancer BROTHER Emphysema lung BROTHER Colon cancer DAUGHTER Breast cancer Social History (Updated 09/12/21 @ 18:31 by ARMANDO RAMOS, DARRICK) Smoking and tobacco status: Never smoker Substance use type: does not use History of recent travel: No Surgical History H/O partial thyroidectomy Hx of CABG Hx of cholecystectomy S/P appy Physical Exam Physical Exam Appearance: Reports Ill-appearing Ill-appearing: Mild Pain Distress: None Eyes: Reports TJ, EOMI and Conjunctiva clear ENT: Reports Oropharynx normal Neck: Supple Respiratory: Reports Airway patent Cardiovascular: Reports RRR GI/: Reports Soft and Nontender Musculoskeletal: Reports Edema Skin: Reports Warm and Dry Neurological: Reports Cranial nerves intact, Alert and Oriented Psychiatric: Reports Affect appropriate Interpretation Radiology Interpretation Radiology Interpretation By: Radiologist Exam Interpreted: CT Scan Xray Comments: no head bleed, no infil Radiology Interpretation By: Radiologist Exam Interpreted: Other Xray Comments: no u/s dvt in either lower extremity EKG Interpretation Time of EKG #1: 13:41 Rate: Normal Rhythm: Sinus Interpretation: no stemi Critical Care Note Critical Care Note Total Critical Care Time (mins): 0 Course Course Hematology/Chemistry: 10/03/21 10:52 10/03/21 10:52 Orders, Labs, Meds: Lab Review 10/03/21 10/03/21 10/03/21 10:43 10:45 10:52 WBC 12.44 H RBC 3.31 L Hgb 9.4 L Hct 29.2 L MCV 88.2 MCH 28.4 MCHC 32.2 RDW Coeff of Michele 13.6 Plt Count 200 Immature Gran % (Auto) 0.5 Neut % (Auto) 60.0 Lymph % (Auto) 25.4 [place] % (Auto) 12.9 H Eos % (Auto) 1.0 Baso % (Auto) 0.2 Neut # (Auto) 7.5 H Lymph # (Auto) 3.2 [place] # (Auto) 1.6 Eos # (Auto) 0.1 Baso # (Auto) 0.0 Immature Gran # (Auto) 0.1 Puncture Site Rrad Base Excess 3.9 H O2 Saturation 91.6 L ABG pH 7.46 H ABG pCO2 39.0 ABG pO2 59.0 L* ABG HCO3 27.7 ABG Total CO2 28.9 H Kelechi Test + Hemoglobin 0.3 Oxyhemoglobin 91.2 L Carboxyhemoglobin 3.0 H Total Hemoglobin 9.4 L O2 Delivery Device Nc Oxygen Liter Flow 2.00 Sodium Potassium Chloride Carbon Dioxide Anion Gap BUN Creatinine Estimated GFR (MDRD) BUN/Creatinine Ratio Glucose Lactic Acid Calcium Total Bilirubin AST ALT Alkaline Phosphatase Troponin I NT-Pro-B Natriuret Pep Total Protein Albumin Globulin Albumin/Globulin Ratio D-Dimer Digoxin Adenovirus (PCR) Not detected B. pertussis DNA (PCR) Not detected B.parapertussis DNA PCR Not detected C. pneumoniae DNA (PCR) Not detected Coronavirus OC43 (PCR) Not detected Coronavirus HKU1 (PCR) Not detected Coronavirus 229E (PCR) Not detected Coronavirus NL63 (PCR) Not detected Human Metapneumovir PCR Not detected Influenza Type A (PCR) Not detected Influenza B (RT-PCR) Not detected M. pneumoniae (PCR) Not detected Parainfluenza 1 (PCR) Not detected Parainfluenza 2 (PCR) Not detected Parainfluenza 3 (PCR) Not detected Parainfluenza 4 (PCR) Not detected RSV (PCR) Not detected Entero/Rhino (PCR) Not detected SARS-CoV-2 (PCR) Not detected 10/03/21 10/03/21 10/03/21 10:52 10:52 10:52 WBC RBC Hgb Hct MCV MCH MCHC RDW Coeff of Michele Plt Count Immature Gran % (Auto) Neut % (Auto) Lymph % (Auto) [place] % (Auto) Eos % (Auto) Baso % (Auto) Neut # (Auto) Lymph # (Auto) [place] # (Auto) Eos # (Auto) Baso # (Auto) Immature Gran # (Auto) Puncture Site Base Excess O2 Saturation ABG pH ABG pCO2 ABG pO2 ABG HCO3 ABG Total CO2 Kelechi Test Hemoglobin Oxyhemoglobin Carboxyhemoglobin Total Hemoglobin O2 Delivery Device Oxygen Liter Flow Sodium 134.2 L Potassium 4.53 Chloride 100.0 Carbon Dioxide 26.9 Anion Gap 11.83 BUN 25.3 H Creatinine 1.68 H Estimated GFR (MDRD) 39.00 BUN/Creatinine Ratio 15.05 Glucose 191.9 H Lactic Acid 1.88 Calcium 8.32 L Total Bilirubin 0.73 AST 24.0 ALT 33.3 Alkaline Phosphatase 124.7 H Troponin I 0.114 NT-Pro-B Natriuret Pep 3300.000 H Total Protein 6.54 Albumin 3.59 Globulin 2.95 Albumin/Globulin Ratio 1.21 D-Dimer Digoxin 1.40 Adenovirus (PCR) B. pertussis DNA (PCR) B.parapertussis DNA PCR C. pneumoniae DNA (PCR) Coronavirus OC43 (PCR) Coronavirus HKU1 (PCR) Coronavirus 229E (PCR) Coronavirus NL63 (PCR) Human Metapneumovir PCR Influenza Type A (PCR) Influenza B (RT-PCR) M. pneumoniae (PCR) Parainfluenza 1 (PCR) Parainfluenza 2 (PCR) Parainfluenza 3 (PCR) Parainfluenza 4 (PCR) RSV (PCR) Entero/Rhino (PCR) SARS-CoV-2 (PCR) 10/03/21 10:52 WBC RBC Hgb Hct MCV MCH MCHC RDW Coeff of Michele Plt Count Immature Gran % (Auto) Neut % (Auto) Lymph % (Auto) [place] % (Auto) Eos % (Auto) Baso % (Auto) Neut # (Auto) Lymph # (Auto) [place] # (Auto) Eos # (Auto) Baso # (Auto) Immature Gran # (Auto) Puncture Site Base Excess O2 Saturation ABG pH ABG pCO2 ABG pO2 ABG HCO3 ABG Total CO2 Kelechi Test Hemoglobin Oxyhemoglobin Carboxyhemoglobin Total Hemoglobin O2 Delivery Device Oxygen Liter Flow Sodium Potassium Chloride Carbon Dioxide Anion Gap BUN Creatinine Estimated GFR (MDRD) BUN/Creatinine Ratio Glucose Lactic Acid Calcium Total Bilirubin AST ALT Alkaline Phosphatase Troponin I NT-Pro-B Natriuret Pep Total Protein Albumin Globulin Albumin/Globulin Ratio D-Dimer 1225.15 H Digoxin Adenovirus (PCR) B. pertussis DNA (PCR) B.parapertussis DNA PCR C. pneumoniae DNA (PCR) Coronavirus OC43 (PCR) Coronavirus HKU1 (PCR) Coronavirus 229E (PCR) Coronavirus NL63 (PCR) Human Metapneumovir PCR Influenza Type A (PCR) Influenza B (RT-PCR) M. pneumoniae (PCR) Parainfluenza 1 (PCR) Parainfluenza 2 (PCR) Parainfluenza 3 (PCR) Parainfluenza 4 (PCR) RSV (PCR) Entero/Rhino (PCR) SARS-CoV-2 (PCR) Orders Category Date Time Status ABG DRAW REQUEST Stat CARDIO 10/03/21 10:37 Completed EKG-(ED ONLY) Stat CARDIO 10/03/21 10:37 Completed OXYGEN [ED APPLY O2] .ONCE EMERGENCY 10/03/21 10:37 Active ABG COOX Stat LAB 10/03/21 10:45 Completed BLOOD CULTURE Stat LAB 10/03/21 11:00 Received CBC W/ AUTO DIFF Stat LAB 10/03/21 10:52 Completed CMP [COMPREHENSIVE METABOLIC PANEL] Stat LAB 10/03/21 10:52 Completed D-DIMER Stat LAB 10/03/21 10:52 Completed DIGOXIN Stat LAB 10/03/21 10:52 Completed LACTIC ACID Stat LAB 10/03/21 10:52 Completed NT-PROBNP Stat LAB 10/03/21 10:52 Completed RAPID STREP SCREEN [MOLECULAR GROUP A STREP] Stat LAB 10/03/21 10:43 Completed RESPIRATORY PANEL 2.1 (PCR) Stat LAB 10/03/21 10:43 Completed TROPONIN I Stat LAB 10/03/21 10:52 Completed URINALYSIS C & S IF INDICATED Stat LAB 10/03/21 10:37 Uncollected Furosemide [Lasix] MEDS 10/03/21 12:14 Discontinued 40 mg IVP ONCE ONE CHEST, 1V AP ONLY Stat RADS 10/03/21 10:[address] HEAD W/O CONTRAST Stat RADS 10/03/21 12:27 Completed US VENOUS SCAN JOSE LEGS [U/S VENOUS SCAN JOSE LEGS] Stat RADS 10/03/21 12:14 Completed Medications Discontinued Medications Generic Name Dose Route Start Last Admin Trade Name Freq PRN Reason Stop Dose Admin Furosemide 40 mg 10/03/21 12:14 Furosemide Inj 40 Mg/4 Ml Vial IVP 10/03/21 12:15 ONCE ONE Vital Signs: Temp Pulse Resp BP Pulse Ox 10/03/21 10:09 97.8 F 69 18 109/54 L 94 L Discharge Plan Discharge Patient Disposition: ADMITTED INPATIENT Discharge Problem: Edema, Weakness, Hypoxia Prescriptions: No Action digoxin 125 MCG tablet 125 mcg PO DAILY 0RF clopidogrel [Plavix] 75 MG tablet 75 mg PO DAILY 0RF finasteride [Proscar] 5 MG tablet 5 mg PO DAILY 0RF pantoprazole 40 MG tablet,delayed release (DR/EC) 40 mg PO QDAC 0RF aspirin 81 MG tablet,chewable 81 mg PO DAILYWM 0RF furosemide 40 mg tablet 40 mg PO QDAC 0RF carvedilol 12.5 mg tablet 12.5 mg PO BIDAC 0RF gabapentin 300 mg capsule 300 mg PO QAM 0RF melatonin 10 mg Tablet 10 mg PO BEDTIME 0RF gabapentin 300 mg Capsule 600 mg PO BEDTIME 0RF loratadine 10 mg Tablet 10 mg PO DAILY 0RF memantine 10 mg Tablet 10 mg PO BID 0RF Janumet 50-500 mg Tablet 1 tab PO BID 0RF Breo Ellipta 100-25 mcg/dose Blister With Device 1 inh INHALATION DAILY 0RF albuterol sulfate [ProAir HFA] 90 mcg/actuation Hfa Aerosol Inhaler 2 puff INHALATION Q4HR PRN (Reason: Wheezing) 0RF Rx Instructions: As needed for wheezing fluticasone propionate 50 mcg/actuation [place],Suspension 2 spray INTRANASAL DAILY 0RF Rx Instructions: administer into each nostril Levemir U-100 Insulin 100 unit/mL Solution 80 unit subcut BID 0RF lovastatin 40 mg Tablet 60 mg PO DAILY 0RF losartan 50 mg Tablet 50 mg PO DAILY 30 Days Qty: 30 2RF Rx Instructions: START TOMORROW AM 05/15/2020 amlodipine 5 mg Tablet 5 mg PO DAILY 0RF ED Provider: DONALDO ARNDT Condition: Fair Physician Progress Note: []admit to tele inpatient d/w Dr Wallace for edema, weakness, hypoxia
[2021-10-03 12:10] LABS: ADENOVIRUS (PCR) NOT DETECTED (NOT DETECT)
[2021-10-03] MEDS ORDERED: LASIX IVP ONE (12:14)
--- NOTE | 2021-10-03 13:08 | US ---
EXAM: Duplex venous Doppler ultrasound of the bilateral lower extremity veins HISTORY: Deep vein thrombosis TECHNIQUE: Greer scale and color Doppler and spectral Doppler imaging of the bilateral lower extremit y veins was performed. FINDINGS: There is normal response to compression and normal blood flow identified within the bilate ral common femoral, deep femoral, femoral and popliteal veins and within the veins of the calf. No a bnormal filling defects are identified within the lower extremity veins. There was normal response t o augmentation. IMPRESSION: No evidence of deep venous thrombus identified within the right left lower extremity vei ns.
--- NOTE | 2021-10-03 13:27 | CT ---
EXAM: CT scan of the head without contrast HISTORY: injury TECHNIQUE: Imaging of the head was performed without contrast. 5 mm thin axial images and coronal a nd sagittal images were obtained. Comparison 08/21/2017. FINDINGS: The lateral ventricles and cortical sulci are prominent from atrophy. Low density changes are seen throughout the supratentorial white matter. No acute hemorrhages are seen. There is no ma ss effect. The paranasal sinuses and mastoid air cells are clear. IMPRESSION: No acute traumatic abnormalities are seen. Diffuse chronic small vessel ischemic changes seen within the supratentorial white matter. All CT scans are performed using dose optimization techniques as appropriate to the performed exam an d include at least one of the following: Automated exposure control, adjustment of the mA and/or kV according t o size, and the use of iterative reconstruction technique.
[2021-10-03 15:16] VITALS: BMI 33.2
[2021-10-03] MEDS: COREG PO SCH (16:44)
[2021-10-03 17:19] LABS: BILIRUBIN,URINE Negative (NEGATIVE); CLARITY,URINE Clear (CLEAR); COLOR,URINE Yellow (YELLOW); GLUCOSE, URINE (UA) Negative (NEGATIVE); KETONES,URINE Negative (NEGATIVE); LEUKOCYTE ESTERASE ,URINE Negative (NEGATIVE); NITRITE,URINE Negative (NEGATIVE); PH,URINE 5.5 (5-9); PROTEIN,URINE 1+ (NEGATIVE); URINE, BLOOD Negative (NEGATIVE); UROBILINOGEN,URINE 0.2 (0.2)
[2021-10-03 17:23] LABS: HYALINE CASTS, URINE 0-2 (NOT PRESENT); URINE WBC, MICROSCOPIC 0-2 (0-2)
[2021-10-03] MEDS: SODIUM CHLORIDE 1,000 ML IV SCH (17:44)
[2021-10-03] MEDS ORDERED: DUONEB NEB SCH (18:00)
[2021-10-03] MEDS: DUONEB NEB SCH (19:30)
[2021-10-03 19:57] LABS: CREATINE KINASE 21.3 U/L (55-170)
[2021-10-03 20:09] LABS: TROPONIN I 0.094 ng/ml (0.0000-0.120)
[2021-10-03] MEDS: LASIX IVP SCH (20:16)
[2021-10-03] MEDS: NEURONTIN PO SCH (20:16)
[2021-10-03] MEDS: NAMENDA PO SCH (20:16)
[2021-10-03] MEDS: MAXIPIME 1 GM VIAL 1 GM in SODIUM CHLORIDE 50 ML IV SCH (20:17)
[2021-10-03] MEDS: SYMBICORT 160-4.5 MCG INHALER IH SCH (20:19)
[2021-10-03] MEDS: HUMULIN R SUBCUT PRN (20:19)
[2021-10-03] MEDS: NON-FORMULARY MEDICATION (Melatonin 10 mg Tablet) PO SCH (21:02)
[2021-10-04 04:24] LABS: BASOPHILS % (AUTO) 0.3 % (0.0-3.0); EOSINOPHILS # (AUTO) 0.2 K/ul (0.0-0.7); EOSINOPHILS % (AUTO) 1.7 % (0.0-7.0); HEMATOCRIT 28.5 % (42.0-52.0); HEMOGLOBIN 9.4 g/dl (14.0-18.0); IMMATURE GRANULOCYTE % (AUTO) 0.3 % (0.0-5.0); LYMPHOCYTES # (AUTO) 2.1 K/uL (0.60-3.4); LYMPHOCYTES % (AUTO) 19.7 (10.0-50.0); MEAN CORPUSCULAR HEMOGLOBIN 28.7 pg (27.0-31.0); MEAN CORPUSCULAR VOLUME 87.2 fl (80.0-94.0); MONOCYTES # (AUTO) 1.4 K/uL (0.4-2.0); NEUTROPHILS # (AUTO) 6.7 K/ul (2.0-6.9); PLATELET COUNT 212 10^3/uL (140-440); RDW COEFFICIENT OF VARIATION 13.5 % (11.6-14.8); RED BLOOD COUNT 3.27 10^6/ul (4.70-6.10); WHITE BLOOD COUNT 10.38 K/ul (4.2-10.2)
[2021-10-04 04:36] LABS: ALANINE AMINOTRANSFERASE 30.2 U/L (0-50); ALBUMIN 3.52 g/dL (3.5-5.0); ASPARTATE AMINO TRANSFERASE 27.8 U/L (17-59); BILIRUBIN,TOTAL 0.66 mg/dL (0.2-1.3); BLOOD UREA NITROGEN 26.5 mg/dL (9-20); CALCIUM 8.2 mg/dL (8.4-10.2); CARBON DIOXIDE 27.4 mmol/L (22-30.0); CHLORIDE 102.7 mmol/L (98-107); CREATINE KINASE 25.1 U/L (55-170); CREATININE 1.47 mg/dL (0.60-1.10); GLUCOSE 215.3 mg/dL (74-106); POTASSIUM 4.62 mmol/L (3.5-5.1); SODIUM 135.3 mmol/L (134.5-145); TOTAL PROTEIN 6.46 g/dL (6.3-8.2)
[2021-10-04] MEDS: DUONEB NEB SCH ×4 (04:45→20:00)
[2021-10-04 04:47] LABS: TROPONIN I 0.068 ng/ml (0.0000-0.120)
[2021-10-04] MEDS: COREG PO SCH ×2 (06:05→16:58)
[2021-10-04] MEDS: HUMULIN R SUBCUT PRN ×2 (06:05→20:36)
[2021-10-04] MEDS: PROTONIX PO SCH (06:05)
[2021-10-04] MEDS ORDERED: NON-FORMULARY MEDICATION (Fluticasone Furoate-Vilanterol [Breo Ellipta] 100-25 mcg/dose Bl IH SCH (09:00)
[2021-10-04] MEDS ORDERED: LOVENOX SUBCUT SCH (09:00)
--- NOTE | 2021-10-04 09:00 | PCM.PROG ---
Attending Provider: ATTENDING PROVIDER: Dr. ABY SLAUGHTER This patient is seen with Clemencia Miranda, Nurse Practitioner. DATE OF SERVICE: 10/04/21 SUBJECTIVE: This 86 year old /WHITE M was hospitalized 10/03/21. WBC slightly improved today. Renal function slightly improved as well. Per has bad fever for past [address] of chest today. Urinary retention last night and has cath this morning. REVIEW OF SYSTEMS: CONSTITUTIONAL: No night sweats. Fatigue. Fever. Weakness. HEENT: Eyes: No visual changes. No eye pain. No eye discharge. ENT: No runny nose. No epistaxis. No sinus pain. No odynophagia. No congestion. RESPIRATORY: No cough, no congestion. No hemoptysis. Shortness of breath. CARDIOVASCULAR: No angina symptoms. No CHF symptoms. No atypical chest pain for CAD. No palpitations. No orthopnea.. GASTROINTESTINAL: No abdominal pain. No nausea or vomiting. No diarrhea or constipation. No hematemesis. No hematochezia. GENITOURINARY: No urgency. No frequency. No dysuria. No hematuria. No obstructive symptoms. No discharge. No pain. No significant abnormal bleeding. Urinary retention. MUSCULOSKELETAL: No musculoskeletal pain; no joint swelling. NEUROLOGICAL: Awake, alert, oriented to time, place and person. No headache. No neck pain. No syncope. No seizures. No dizziness. PSYCHIATRIC: Not anxious. No depression. No suicidal thoughts. No homicidal t houghts. SKIN: No rash. No lesions. No wounds. ENDOCRINE: No unexplained weight loss. No weight gain. HEMATOLOGIC/LYMPHATIC: No anemia. No purpura. No petechiae. No prolonged or excessive bleeding. No palpable lymph nodes. PHYSICAL EXAMINATION: GENERAL: The patient is awake, alert and oriented, lying in bed in no distress. VITAL SIGNS: Temperature 97.7 F, Pulse 84, Respiratory Rate 18, BP 145/74, Pulse Ox 93% HEENT: Head normocephalic, atraumatic. Eyes: Extraocular muscles are intact. Pupils are equal, round and reactive to light and accommodation. Ears: No lesions. Nose appeared normal. Throat: No exudate or erythema. NECK: Supple. No JVD, no carotid bruit. No lymphadenopathy or thyromegaly. LUNGS: Diminished breath sounds. Clear to auscultation. Percussion note normal. Chest symmetrical. HEART: S1, S2, no S3. No murmurs. No cyanosis or clubbing. No ascites. Pulses: Dorsalis pedis and posterior tibial pulses +1 to +2 both sides. ABDOMEN: Soft. Non-tender. Bowel sounds active. No CVA tenderness. No mass felt. EXTREMITIES: Trace leg edema. Full range of motion of all extremities, equal. NEUROLOGIC: No focal deficit. Cranial nerves II through XII are grossly intact. No headache. No double vision. SKIN: Not dry. Intact. Turgor-normal. LYMPHATIC: No palpable lymph nodes/no lymphedema. MUSCULOSKELETAL: Normal joints with no swelling. Muscle tone is normal. LAB REVIEW: 10/04/21 04:20 10/04/21 04:20 10/04/21 04:20: WBC 10.38 H, RBC 3.27 L, Hgb 9.4 L, Hct 28.5 L, MCV 87.2, MCH 28.7, MCHC 33.0, RDW Coeff of Michele 13.5, Plt Count 212, Immature Gran % (Auto) 0.3, Neut % (Auto) 65.0, Lymph % (Auto) 19.7, [place] % (Auto) 13.0 H, Eos % (Auto) 1.7, Baso % (Auto) 0.3, Neut # (Auto) 6.7, Lymph # (Auto) 2.1, [place] # (Auto) 1.4, Eos # (Auto) 0.2, Baso # (Auto) 0.0, Immature Gran # (Auto) 0.0 10/04/21 04:20: Sodium 135.3, Potassium 4.62, Chloride 102.7, Carbon Dioxide 27.4, Anion Gap 9.82, BUN 26.5 H, Creatinine 1.47 H, Estimated GFR (MDRD) 46.00, BUN/Creatinine Ratio 18.02, Glucose 215.3 H, Calcium 8.20 L, Total Bilirubin 0.66, AST 27.8, ALT 30.2, Alkaline Phosphatase 119.0, Total Creatine Kinase 25.1 L, Troponin I 0.068, Total Protein 6.46, Albumin 3.52, Globulin 2.94, Albumin/Globulin Ratio 1.19 10/03/21 19:42: Total Creatine Kinase 21.3 L, Troponin I 0.094 10/03/21 17:11: Urine Color Yellow, Urine Clarity Clear, Urine pH 5.5, Ur Specific Mio 1.015, Urine Protein 1+ H, Urine Glucose (UA) Negative, Urine Ketones Negative, Urine Blood Negative, Urine Nitrite Negative, Urine Bilirubin Negative, Urine Urobilinogen 0.2, Ur Leukocyte Esterase Negative, Urine Microscopic WBC 0-2, Ur Squamous Epith Cells 2-5, Hyaline Casts 0-2 10/03/21 10:52: D-Dimer 1225.15 H 10/03/21 10:52: Digoxin 1.40 10/03/21 10:52: Lactic Acid 1.88 10/03/21 10:52: Sodium 134.2 L, Potassium 4.53, Chloride 100.0, Carbon Dioxide 26.9, Anion Gap 11.83, BUN 25.3 H, Creatinine 1.68 H, Estimated GFR (MDRD) 39.00, BUN/Creatinine Ratio 15.05, Glucose 191.9 H, Calcium 8.32 L, Total Bilirubin 0.73, AST 24.0, ALT 33.3, Alkaline Phosphatase 124.7 H, Troponin I 0.114, NT-Pro-B Natriuret Pep 3300.000 H, Total Protein 6.54, Albumin 3.59, Globulin 2.95, Albumin/Globulin Ratio 1.21 10/03/21 10:52: WBC 12.44 H, RBC 3.31 L, Hgb 9.4 L, Hct 29.2 L, MCV 88.2, MCH 28.4, MCHC 32.2, RDW Coeff of Michele 13.6, Plt Count 200, Immature Gran % (Auto) 0.5, Neut % (Auto) 60.0, Lymph % (Auto) 25.4, [place] % (Auto) 12.9 H, Eos % (Auto) 1.0, Baso % (Auto) 0.2, Neut # (Auto) 7.5 H, Lymph # (Auto) 3.2, [place] # (Auto) 1.6, Eos # (Auto) 0.1, Baso # (Auto) 0.0, Immature Gran # (Auto) 0.1 10/03/21 10:45: Puncture Site Rrad, Base Excess 3.9 H, O2 Saturation 91.6 L, ABG pH 7.46 H, ABG pCO2 39.0, ABG pO2 59.0 L*, ABG HCO3 27.7, ABG Total CO2 28.9 H, Kelechi Test +, Hemoglobin 0.3, Oxyhemoglobin 91.2 L, Carboxyhemoglobin 3.0 H, Total Hemoglobin 9.4 L, O2 Delivery Device Nc, Oxygen Liter Flow 2.00 10/03/21 10:43: Adenovirus (PCR) Not detected, B. pertussis DNA (PCR) Not detected, B.parapertussis DNA PCR Not detected, C. pneumoniae DNA (PCR) Not detected, Coronavirus OC43 (PCR) Not detected, Coronavirus HKU1 (PCR) Not detected, Coronavirus 229E (PCR) Not detected, Coronavirus NL63 (PCR) Not detected, Human Metapneumovir PCR Not detected, Influenza Type A (PCR) Not detected, Influenza B (RT-PCR) Not detected, M. pneumoniae (PCR) Not detected, Parainfluenza 1 (PCR) Not detected, Parainfluenza 2 (PCR) Not detected, Parainfluenza 3 (PCR) Not detected, Parainfluenza 4 (PCR) Not detected, RSV (PCR) Not detected, Entero/Rhino (PCR) Not detected, SARS-CoV-2 (PCR) Not detected ASSESSMENT: Please see below. 1. Possible sepsis 2. Dehydration 3. Acute renal failure 4. Acute respiratory failure 5. COPD 6. Diabetes Mellitus type II PLAN: 1. CT of chest with and without. Plan and coordination of the patient's care discussed in the presence of Clarity Developer and nurse. SCRIBED BY: Lisa SANCHEZ scribed while in presence of service performed by Dr. Slaughter/Clemencia Miranda APRN on 10/04/21 ([id number])
[2021-10-04] MEDS: MAXIPIME 1 GM VIAL 1 GM in SODIUM CHLORIDE 50 ML IV SCH ×2 (09:55→20:36)
--- NOTE | 2021-10-04 12:30 | CT ---
Exam: Chest CT without and with IV contrast. Technique: Chest CT was performed before and after intravenous contrast administration. Multiplanar reformats were made. History: Shortness of breath and cough. Comparison: CTA pulmonary angiogram 09/13/2021. FINDINGS: Lungs/Pleura: Trace bilateral pleural effusions and adjacent atelectasis in the lower lobes. Scatter ed ground-glass opacities in the lungs and mild interstitial thickening. No nodule/mass. Mediastinum: Multiple mildly prominent but not pathologically enlarged mediastinal lymph nodes are li dale reactive. Cardiovascular: No pericardial effusion. Atherosclerosis of the aorta and branches. Coronary calcific ations. Status post coronary bypass. Mild cardiomegaly. Chest wall, thoracic inlet, and axillae: Mild bilateral gynecomastia. No suspicious mass or adenopat hy. Post left hemithyroidectomy. Upper abdomen and GE junction: Post cholecystectomy. Chronic calcific pancreatitis. Bones: No aggressive lesion identified. Multilevel flowing osteophytes suggesting diffuse idiopathic skeletal hyperostosis. IMPRESSION: 1. Trace bilateral pleural effusions and mild dependent atelectasis. Suspect mild interstitial pulmo nary edema. 2. Mild cardiomegaly. Calcific atherosclerosis, status post coronary bypass. 3. Chronic calcific pancreatitis. All CT scans are performed using dose optimization techniques as appropriate to the performed exam an d include at least one of the following: Automated exposure control, adjustment of the mA and/or kV according t o size, and the use of iterative reconstruction technique.
--- NOTE | 2021-10-04 12:30 | US ---
EXAM: Duplex Doppler carotid ultrasound HISTORY: Dizzy, confusion, shortness of breath TECHNIQUE: Greer scale and color Doppler imaging and spectral Doppler imaging of the carotid and vert ebral arteries was performed. FINDINGS: There is plaque seen within the proximal right internal carotid artery. The velocities wi thin the proximal right internal carotid artery measure wire 9 cm/sec. The peak systolic velocity ra brian is measuring 1.6. Normal waveforms and velocities are identified within the mid and distal right internal carotid artery. There is plaque seen within the proximal left internal carotid artery. The velocities within the pro ximal left internal carotid artery measure 90 cm/sec. The peak systolic velocity ratio is measuring up to 1.3. Normal waveforms and velocities are seen in the mid and distal left internal carotid venus ry. There is normal antegrade blood flow seen within the vertebral arteries. IMPRESSION: There is plaque seen within the proximal internal carotid arteries bilaterally causing m ild less than 50% stenosis.
[2021-10-04] MEDS ORDERED: TYLENOL PO PRN (12:35)
[2021-10-04] MEDS: MEVACOR PO SCH (12:52)
[2021-10-04] MEDS: ASPIRIN CHEWABLE PO SCH (12:53)
[2021-10-04] MEDS: NEURONTIN PO SCH ×2 (12:53→20:36)
[2021-10-04] MEDS: NAMENDA PO SCH ×2 (12:54→20:36)
[2021-10-04] MEDS: PROSCAR PO SCH (12:54)
[2021-10-04] MEDS: COZAAR PO SCH (12:54)
[2021-10-04] MEDS: LANOXIN PO SCH (12:54)
[2021-10-04] MEDS: NORVASC PO SCH (12:57)
[2021-10-04] MEDS: FLOMAX PO SCH ×2 (12:57→20:36)
[2021-10-04] MEDS: SYMBICORT 160-4.5 MCG INHALER IH SCH ×2 (13:00→20:55)
[2021-10-04] MEDS: PLAVIX PO SCH (13:00)
--- NOTE | 2021-10-04 13:33 | PN ---
DATE OF SERVICE: 10/03/21 SUBJECTIVE: The patient was seen and examined in the emergency room. The patient's was present. The patient has shortness of breath, fatigue, inability to walk from falling and generalized edema. The patient had CT scan of the head done which didn't reveal any findings. The patient has history of subdural. Venous scan was negative. The patient's D-Dimer is practically the same as what it was a month ago and it was 1100 a month and 1200 now. Considering the patient's renal failure the patient has any chance of having pulmonary embolism. In any case the patient has shortness of breath but fatigue is the main. The patient has coronary artery disease with congestive heart failure, dilated cardiomyopathy, TIA with frequent falls with subdural, hypertension, diabetes Mellitus. REVIEW OF SYSTEMS: CONSTITUTIONAL: No night sweats. No fatigue, malaise, lethargy. No fever or chills. HEENT: Eyes: No visual changes. No eye pain. No eye discharge. ENT: No runny nose. No epistaxis. No sinus pain. No sore throat. No odynophagia. No congestion. RESPIRATORY: No cough, no congestion. No hemoptysis. No shortness of breath. CARDIOVASCULAR: No angina symptoms. No CHF symptoms. No atypical chest pain for CAD. No palpitations. No PND. No orthopnea. GASTROINTESTINAL: No abdominal pain. No nausea or vomiting. No diarrhea or constipation. No hematemesis. No hematochezia. GENITOURINARY: No urgency. No frequency. No dysuria. No hematuria. No obstructive symptoms. No discharge. No pain. No significant abnormal bleeding. MUSCULOSKELETAL: No musculoskeletal pain; no joint swelling. NEUROLOGICAL: No headache. No neck pain. No syncope. No seizures. No dizziness. PSYCHIATRIC: Not anxious. No depression. No suicidal thoughts. No homicidal thoughts. SKIN: No rash. No lesions. No wounds. ENDOCRINE: No unexplained weight loss. No weight gain. HEMATOLOGIC/LYMPHATIC: No anemia. No purpura. No petechiae. No prolonged or excessive bleeding. No palpable lymph nodes. PHYSICAL EXAMINATION: HEENT: Head normocephalic, atraumatic. Eyes: Extraocular muscles are intact. Pupils are equal, round and reactive to light and accommodation. Ears: No lesions. Nose appeared normal. Throat: No exudate or erythema. NECK: Supple. No JVD, no carotid bruit. No lymphadenopathy or thyromegaly. LUNGS: Decreased breath sounds but lear to auscultation. Percussion note normal. Chest symmetrical. HEART: S1, S2, no S3. No murmurs. No cyanosis or clubbing. No ascites. Pulses: Dorsalis pedis and posterior tibial pulses +1 to +2 bilaterally. ABDOMEN: Soft. Nontender. Bowel sounds active. No CVA tenderness. No mass felt. EXTREMITIES: +2 pitting edema. Full range of motion of all extremities, equal. NEUROLOGIC: No focal deficit. Cranial nerves II through XII are grossly intact. No headache. No double vision. SKIN: Not dry. Intact. Turgor - normal. LYMPHATIC: No palpable lymph nodes/no lymphedema. MUSCULOSKELETAL: Normal joints with no swelling. Muscle tone is normal. PLAN: 1. Admit the patient 2. IV Lasix 3. Elevate the legs 4. Start PT/OT 5. The patient's doesn't want the patient to go to the care home but would like to have a bed unit to use if possible. The patient qualifies for it The patient's history and physical and planning was carried out along with Nurse PractitionerClemencia. TIME SPENT: More than 30 minutes. Plan and coordination of the patient's care discussed in the presence of nurse. PAMELA
[2021-10-04] MEDS: FLONASE NAS SCH (13:56)
[2021-10-04] MEDS ORDERED: LASIX IVP ONE (14:26)
[2021-10-04] MEDS ORDERED: MORPHINE 2 MG/ML VIAL IV PRN (14:40)
[2021-10-04] MEDS: SOLU-MEDROL 125 MG IVP SCH ×2 (15:02→20:55)
[2021-10-04] MEDS: LASIX IVP SCH (19:45)
[2021-10-04] MEDS: SODIUM CHLORIDE 1,000 ML IV SCH (19:45)
[2021-10-04] MEDS: NON-FORMULARY MEDICATION (Melatonin 10 mg Tablet) PO SCH (21:12)
[2021-10-05] MEDS: DUONEB NEB SCH ×4 (04:45→19:40)
[2021-10-05 04:57] LABS: BASOPHILS % (AUTO) 0.1 % (0.0-3.0); HEMOGLOBIN 10.3 g/dl (14.0-18.0); IMMATURE GRANULOCYTE # (AUTO) 0.1 (0.0-1.0); IMMATURE GRANULOCYTE % (AUTO) 0.8 % (0.0-5.0); LYMPHOCYTES # (AUTO) 1.3 K/uL (0.60-3.4); LYMPHOCYTES % (AUTO) 13.8 (10.0-50.0); MEAN CORPUSCULAR HGB CONC 33.2 (31.8-35.4); MEAN CORPUSCULAR VOLUME 87.3 fl (80.0-94.0); MONOCYTES # (AUTO) 0.1 K/uL (0.4-2.0); MONOCYTES % (AUTO) 1.3 (0-10); NEUTROPHILS # (AUTO) 7.6 K/ul (2.0-6.9); PLATELET COUNT 249 10^3/uL (140-440); RDW COEFFICIENT OF VARIATION 13.2 % (11.6-14.8); RED BLOOD COUNT 3.55 10^6/ul (4.70-6.10); WHITE BLOOD COUNT 9.05 K/ul (4.2-10.2)
[2021-10-05 05:13] LABS: ALANINE AMINOTRANSFERASE 29.7 U/L (0-50); ALBUMIN 3.71 g/dL (3.5-5.0); ALKALINE PHOSPHATASE 134.1 U/L (56-119); ASPARTATE AMINO TRANSFERASE 18.7 U/L (17-59); BILIRUBIN,TOTAL 0.88 mg/dL (0.2-1.3); BLOOD UREA NITROGEN 31.2 mg/dL (9-20); CALCIUM 8.12 mg/dL (8.4-10.2); CARBON DIOXIDE 21.6 mmol/L (22-30.0); CHLORIDE 100.2 mmol/L (98-107); CREATININE 1.5 mg/dL (0.60-1.10); GLUCOSE 474.3 mg/dL (74-106); POTASSIUM 4.65 mmol/L (3.5-5.1); SODIUM 133.5 mmol/L (134.5-145); TOTAL PROTEIN 6.76 g/dL (6.3-8.2)
[2021-10-05] MEDS: HUMULIN R SUBCUT PRN ×3 (05:39→20:43)
[2021-10-05] MEDS: PROTONIX PO SCH (05:39)
[2021-10-05] MEDS: COREG PO SCH ×2 (05:39→17:07)
[2021-10-05] MEDS: MAXIPIME 1 GM VIAL 1 GM in SODIUM CHLORIDE 50 ML IV SCH ×2 (09:33→20:41)
[2021-10-05] MEDS: MEVACOR PO SCH (09:34)
[2021-10-05] MEDS: COZAAR PO SCH (09:34)
[2021-10-05] MEDS: FLONASE NAS SCH (09:34)
[2021-10-05] MEDS: LANOXIN PO SCH (09:34)
[2021-10-05] MEDS: PLAVIX PO SCH (09:34)
[2021-10-05] MEDS: SYMBICORT 160-4.5 MCG INHALER IH SCH ×2 (09:34→20:43)
[2021-10-05] MEDS: NEURONTIN PO SCH ×2 (09:34→20:41)
[2021-10-05] MEDS: PROSCAR PO SCH (09:35)
[2021-10-05] MEDS: NAMENDA PO SCH ×2 (09:35→20:40)
[2021-10-05] MEDS: NORVASC PO SCH (09:35)
[2021-10-05] MEDS: FLOMAX PO SCH ×2 (09:35→20:40)
[2021-10-05] MEDS: SOLU-MEDROL 125 MG IVP SCH (09:37)
[2021-10-05] MEDS: ASPIRIN CHEWABLE PO SCH (09:43)
--- NOTE | 2021-10-05 11:11 | RS.PTINEVL ---
Subjective - Patient information Date of Evaluation: 10/05/21 Date of Arrival on Unit: 10/03/21 Admitted From:: Home Diagnosis: weakness, edema, hypoxia, falls Usual Living Arrangement: With Spouse Home Environment: House, Stairs (few) Medical History: Hypertension, COPD, Diabetes, Arthritis, Cancer (melanoma) Medical History Comments:: CAD, GERD, hypothyroid, Surgical History: CABG Medications: see chart Subjective Information/ Patient Comments:: pt's states that for the last few weeks pt has been declining and has been in /out of hospitals. pt has experienced several falls at home and they purchased a scooter and a lift chair. pt states he is feeling better today than yesterday. - Level of function Prior to this admission, the patient could do the following:: Participated in Social Activities Outside home Abilities prior to this admission: prior to last few weeks pt amb independently with rwx and only required min assist from his for ADL's. pt and are active in their community. Current Level of Function: Partially Dependent Current Equipment Used at Home: oxygen, cpap Interventions - Objective Patient Orientation: Person, Place, Situation Current Interventions: IV's, Oxygen (3 1/2 liters per nc), Telemetry, Guallpa Catheter Observation: pitting edema BLE Range of Motion - ROM Right Upper Extremity AROM: WFL's Left Upper Extremity AROM: WFL's Right Lower Extremity AROM: Slight limitation (decreased knee ext) Left Lower Extremity AROM: Slight limitation (decreased knee ext) Muscle Strength - Muscle Strength Right Upper Extremity Strength: Mild Weakness (shld flex 4-/5, elbow flex/ext 4/5) Left Upper Extremity Strength: Mild Weakness (shld flex 4-/5, elbow flex/ext 4/5) Right Lower Extremity Strength: Mild Weakness (hip flex 4-/5, knee flex 4/5, ext 4-/5, ankle DF/PF 4/5) Left Lower Extremity Strength: Mild Weakness (hip flex 4-/5, knee flex 4/5, ext 4-/5, ankle DF/PF 4/5) Sensation - Sensation Right Upper Extremity Sensation: Intact/Normal Left Upper Extremity Sensation: Intact/Normal Right Lower Extremity Sensation: Intact/Normal Left Lower Extremity Sensation: Intact/Normal Palpation Palpation Findings: None/Normal Balance - Sitting Balance and Reactions Static Sitting Balance: Good Dynamic Sitting Balance: Fair (fair +) Sitting Equilibrium Reactions: Delayed Left, Delayed Right Sitting Protective Reactions: Delayed Left, Delayed Right - Standing Balance and Reactions Static Standing Balance: Poor Dynamic Standing Balance: Poor Standing Equilibrium Reactions: Delayed Left, Delayed Right Standing Protective Reactions: Delayed Left, Delayed Right Functional Mobility - Bed Mobility Rolling R/L: Min Assist, Mod Assist, 1 person assist Scooting: Mod Assist, Max Assist, 2 person assist Supine to Sit: Mod Assist, 1 person assist - Transfers Sit to Stand: Min Assist, 2 person assist Stand to Sit: Min Assist, 2 person assist - Safety Awareness Safety Awareness: Fair ELIN INDEX SCORE: n/a Ambulation - Ambulation Assistive Device Used: Rolling Walker Orthotic/Prosthetic Device: No Distance: 18ft Assistance needed with Ambulation: Min Assist, 2 person assist Gait Deviations: Shuffling gait, Forward posture, Short stride Ambulation Comments: pt amb with O2 3 1/2 liters Factors Affecting Ambulation: Decreased Balance, Breathing/O2 Saturation, Weakness, Decreased Safety, Cognitive Status, Limited Endurance Treatment time - Time with patient Length of Evaluation: 21 Total treatment time: 28 Patient Education - Education Patient Education: Activity Modification, Education of Plan of Care Teaching Recipient: Patient, Family Teaching Methods: Discussion Comments: discussion with patient regarding safety precautions Assessment - Assessment Problem List:: Decreased level of function, Requires training/education, Decreased safety/Risk of falls, Weakness, Cognitive status limits abilities Rehab Potential: Fair Further Therapy Indicated?: Yes Candidate for Swing Bed for Therapy Services?: Feel pt may be a candidate for swing bed to continue PT and begin OT to improve functional abilities and decrease risk of falls when dc. Evaluation Complexity: HISTORY: Medium, EXAM OF BODY SYSTEMS: Medium, CLINICAL PRESENTATION: Medium, CLINICAL DECISION MAKING: Medium Patient's Goal(s): "Go Home" Short Term Goals GOAL #1: pt demonstrate rolling and scooting in bed independently Goal to be met by: 10/07/21 GOAL #2: pt transferred sup to/from sit min x 1 Goal to be met by: 10/07/21 GOAL #3: sit to/from stand min x 1 Goal to be met by: 10/07/21 GOAL #4: pt amb with rolling walker 50ft with CGA to min x 1 with O2 Goal to be met by: 10/07/21 GOAL #5: Improve static stand balance to fair+ Goal to be met by: 10/07/21 Jail Goals GOAL #1: pt transfer sup to/from sit to/from stand SBA Goal to be met by: 10/11/21 GOAL #2: pt amb with rwx functional household distances with CGA Goal to be met by: 10/11/21 GOAL #3: Improve dyn stand balance fair Goal to be met by: 10/11/21 Plan Plan of Care: Therapeutic EX, Therapeutic Activity Other:: gait training Frequency of Treatment: 1-2 X day, as tolerated Duration of Treatment: 5-6 days Anticipated Discharge Destination: [facility] ([facility] Treatment Diagnosis (ICD 10 Codes): balance impaired R 26.81. gait difficulty R 26.2. weakness M62.81. h/o falls R 29.6 Has the Physician been added for Co-signature?: Yes
[2021-10-05] MEDS ORDERED: HUMULIN R SUBCUT ONE (17:41)
[2021-10-05] MEDS: NON-FORMULARY MEDICATION (Melatonin 10 mg Tablet) PO SCH (20:42)
[2021-10-06] MEDS: DUONEB NEB SCH ×4 (04:40→19:41)
[2021-10-06 05:15] LABS: BASOPHILS % (AUTO) 0.1 % (0.0-3.0); HEMATOCRIT 28.8 % (42.0-52.0); HEMOGLOBIN 9.4 g/dl (14.0-18.0); IMMATURE GRANULOCYTE # (AUTO) 0.1 (0.0-1.0); IMMATURE GRANULOCYTE % (AUTO) 0.9 % (0.0-5.0); LYMPHOCYTES # (AUTO) 1.1 K/uL (0.60-3.4); LYMPHOCYTES % (AUTO) 6.9 (10.0-50.0); MEAN CORPUSCULAR HEMOGLOBIN 28.3 pg (27.0-31.0); MEAN CORPUSCULAR HGB CONC 32.6 (31.8-35.4); MEAN CORPUSCULAR VOLUME 86.7 fl (80.0-94.0); MONOCYTES # (AUTO) 0.9 K/uL (0.4-2.0); MONOCYTES % (AUTO) 5.6 (0-10); NEUTROPHILS # (AUTO) 13.2 K/ul (2.0-6.9); NEUTROPHILS % (AUTO) 86.5 % (42.2-75.2); PLATELET COUNT 306 10^3/uL (140-440); RDW COEFFICIENT OF VARIATION 13.2 % (11.6-14.8); RED BLOOD COUNT 3.32 10^6/ul (4.70-6.10); WHITE BLOOD COUNT 15.27 K/ul (4.2-10.2)
[2021-10-06 05:29] LABS: ALANINE AMINOTRANSFERASE 24.5 U/L (0-50); ALBUMIN 3.39 g/dL (3.5-5.0); ALKALINE PHOSPHATASE 127.3 U/L (56-119); ASPARTATE AMINO TRANSFERASE 21.3 U/L (17-59); BILIRUBIN,TOTAL 0.51 mg/dL (0.2-1.3); BLOOD UREA NITROGEN 45.6 mg/dL (9-20); CALCIUM 7.54 mg/dL (8.4-10.2); CARBON DIOXIDE 24.3 mmol/L (22-30.0); CHLORIDE 96.6 mmol/L (98-107); CREATININE 1.59 mg/dL (0.60-1.10); POTASSIUM 5.61 mmol/L (3.5-5.1); SODIUM 127.5 mmol/L (134.5-145); TOTAL PROTEIN 6.12 g/dL (6.3-8.2)
[2021-10-06 05:42] LABS: GLUCOSE 724.6 mg/dL (74-106)
[2021-10-06] MEDS: PROTONIX PO SCH (05:45)
[2021-10-06] MEDS: COREG PO SCH ×2 (05:46→17:40)
[2021-10-06] MEDS ORDERED: LEVEMIR SUBCUT SCH (06:00)
[2021-10-06] MEDS: HUMULIN R SUBCUT PRN ×3 (06:10→20:56)
[2021-10-06] MEDS: LEVEMIR SUBCUT SCH ×2 (06:40→20:47)
--- NOTE | 2021-10-06 08:48 | PCM.PROG ---
Attending Provider: ATTENDING PROVIDER: Dr. ABY WALLACE This patient is seen with Clemencia Miranda, Nurse Practitioner. DATE OF SERVICE: 10/06/21 SUBJECTIVE: This 86 year old /WHITE M was hospitalized 10/03/21. CMP abnormal this morning. We will have lab redraw. The patient states he is feeing better today. Leg edema has improved. Breathing seems to be easier. He walked to the end of the syed. Nursing took catheter out this morning. REVIEW OF SYSTEMS: CONSTITUTIONAL: No night sweats. No fatigue, malaise, lethargy. No fever or chills. Weakness. HEENT: Eyes: No visual changes. No eye pain. No eye discharge. ENT: No runny nose. No epistaxis. No sinus pain. No odynophagia. No congestion. RESPIRATORY: No cough, no congestion. No hemoptysis. Shortness of breath. CARDIOVASCULAR: No angina symptoms. No CHF symptoms. No atypical chest pain for CAD. No palpitations. No orthopnea.. GASTROINTESTINAL: No abdominal pain. No nausea or vomiting. No diarrhea or constipation. No hematemesis. No hematochezia. GENITOURINARY: No urgency. No frequency. No dysuria. No hematuria. No obstructive symptoms. No discharge. No pain. No significant abnormal bleeding. MUSCULOSKELETAL: No musculoskeletal pain; no joint swelling. NEUROLOGICAL: Awake, alert, oriented to time, place and person. No headache. No neck pain. No syncope. No seizures. No dizziness. PSYCHIATRIC: Not anxious. No depression. No suicidal thoughts. No homicidal thoughts. SKIN: No rash. No lesions. No wounds. ENDOCRINE: No unexplained weight loss. No weight gain. HEMATOLOGIC/LYMPHATIC: No anemia. No purpura. No petechiae. No prolonged or excessive bleeding. No palpable lymph nodes. PHYSICAL EXAMINATION: GENERAL: The patient is awake, alert and oriented, lying in bed in no distress. VITAL SIGNS: Temperature 97.9 F, Pulse 75, Respiratory Rate 18, BP 143/60, Pulse Ox 98% HEENT: Head normocephalic, atraumatic. Eyes: Extraocular muscles are intact. Pupils are equal, round and reactive to light and accommodation. Ears: No lesions. Nose appeared normal. Throat: No exudate or erythema. NECK: Supple. No JVD, no carotid bruit. No lymphadenopathy or thyromegaly. LUNGS: Diminished breath sounds. Clear to auscultation. Percussion note normal. Chest symmetrical. HEART: S1, S2, no S3. No murmurs. No cyanosis or clubbing. No ascites. Pulses: Dorsalis pedis and posterior tibial pulses +1 to +2 both sides. ABDOMEN: Soft. Non-tender. Bowel sounds active. No CVA tenderness. No mass felt. EXTREMITIES: No edema. Full range of motion of all extremities, equal. NEUROLOGIC: No focal deficit. Cranial nerves II through XII are grossly intact. No headache. No double vision. SKIN: Not dry. Intact. Turgor-normal. LYMPHATIC: No palpable lymph nodes/no lymphedema. MUSCULOSKELETAL: Normal joints with no swelling. Muscle tone is normal. LAB REVIEW: 10/06/21 05:11 10/06/21 05:11 10/06/21 05:11: Sodium 127.5 L, Potassium 5.61 H, Chloride 96.6 L, Carbon Dioxide 24.3, Anion Gap 12.21, BUN 45.6 H, Creatinine 1.59 H, Estimated GFR (MDRD) 42.00, BUN/Creatinine Ratio 28.67, Glucose 724.6 H* D, Calcium 7.54 L, Total Bilirubin 0.51, AST 21.3, ALT 24.5, Alkaline Phosphatase 127.3 H, Total Protein 6.12 L, Albumin 3.39 L, Globulin 2.73, Albumin/Globulin Ratio 1.24 10/06/21 05:11: WBC 15.27 H D, RBC 3.32 L, Hgb 9.4 L, Hct 28.8 L, MCV 86.7, MCH 28.3, MCHC 32.6, RDW Coeff of Michele 13.2, Plt Count 306, Immature Gran % (Auto) 0 .9, Neut % (Auto) 86.5 H, Lymph % (Auto) 6.9 L, [place] % (Auto) 5.6, Eos % (Auto) 0.0, Baso % (Auto) 0.1, Neut # (Auto) 13.2 H, Lymph # (Auto) 1.1, [place] # (Auto) 0.9, Eos # (Auto) 0.0, Baso # (Auto) 0.0, Immature Gran # (Auto) 0.1 10/05/21 16:58: Glucose 601.5 H* D ASSESSMENT: Please see below. 1. Generalized weakness 2. CHF 3. COPD 4. Acute respiratory failure 5. Diabetes Mellitus type II PLAN: 1. Repeat labs 2. Continue IV antibiotics 3. The patient maybe candidate for swing bed for PT/OT Plan and coordination of the patient's care discussed in the presence of Home Energy Inspector and nurse. SCRIBED BY: Urmila SANCHEZist scribed while in presence of service performed by Dr. Wallace/Clemencia Miranda APRN on 10/06/21 ([id number])
[2021-10-06 09:03] LABS: BASOPHILS % (AUTO) 0.1 % (0.0-3.0); HEMATOCRIT 29.4 % (42.0-52.0); HEMOGLOBIN 9.8 g/dl (14.0-18.0); IMMATURE GRANULOCYTE # (AUTO) 0.1 (0.0-1.0); IMMATURE GRANULOCYTE % (AUTO) 0.8 % (0.0-5.0); LYMPHOCYTES # (AUTO) 1.1 K/uL (0.60-3.4); LYMPHOCYTES % (AUTO) 6.5 (10.0-50.0); MEAN CORPUSCULAR HEMOGLOBIN 28.9 pg (27.0-31.0); MEAN CORPUSCULAR HGB CONC 33.3 (31.8-35.4); MEAN CORPUSCULAR VOLUME 86.7 fl (80.0-94.0); NEUTROPHILS # (AUTO) 14.2 K/ul (2.0-6.9); NEUTROPHILS % (AUTO) 86.6 % (42.2-75.2); PLATELET COUNT 328 10^3/uL (140-440); RDW COEFFICIENT OF VARIATION 13.3 % (11.6-14.8); RED BLOOD COUNT 3.39 10^6/ul (4.70-6.10); WHITE BLOOD COUNT 16.41 K/ul (4.2-10.2)
[2021-10-06 09:15] LABS: ALANINE AMINOTRANSFERASE 27.4 U/L (0-50); ALBUMIN 3.65 g/dL (3.5-5.0); ALKALINE PHOSPHATASE 118.9 U/L (56-119); ASPARTATE AMINO TRANSFERASE 33.3 U/L (17-59); BILIRUBIN,TOTAL 0.56 mg/dL (0.2-1.3); BLOOD UREA NITROGEN 47.1 mg/dL (9-20); CALCIUM 7.59 mg/dL (8.4-10.2); CARBON DIOXIDE 21.8 mmol/L (22-30.0); CHLORIDE 93.7 mmol/L (98-107); CREATININE 1.51 mg/dL (0.60-1.10); POTASSIUM 5.17 mmol/L (3.5-5.1); SODIUM 126.5 mmol/L (134.5-145); TOTAL PROTEIN 6.54 g/dL (6.3-8.2)
[2021-10-06 09:26] LABS: GLUCOSE 696.1 mg/dL (74-106)
[2021-10-06] MEDS: FLONASE NAS SCH (09:48)
[2021-10-06] MEDS: MAXIPIME 1 GM VIAL 1 GM in SODIUM CHLORIDE 50 ML IV SCH ×2 (09:48→20:45)
[2021-10-06] MEDS: SYMBICORT 160-4.5 MCG INHALER IH SCH ×2 (09:48→20:46)
[2021-10-06] MEDS: MEVACOR PO SCH (09:49)
[2021-10-06] MEDS: LANOXIN PO SCH (09:50)
[2021-10-06] MEDS: PROSCAR PO SCH (09:50)
[2021-10-06] MEDS: ASPIRIN CHEWABLE PO SCH (09:50)
[2021-10-06] MEDS: NAMENDA PO SCH ×2 (09:51→20:45)
[2021-10-06] MEDS: NEURONTIN PO SCH ×2 (09:51→20:44)
[2021-10-06] MEDS: FLOMAX PO SCH ×2 (09:51→20:45)
[2021-10-06] MEDS: PREDNISONE PO SCH (09:51)
[2021-10-06] MEDS: PLAVIX PO SCH (09:51)
[2021-10-06] MEDS: NORVASC PO SCH (09:51)
[2021-10-06] MEDS: COZAAR PO SCH (09:51)
[2021-10-06] MEDS ORDERED: HUMULIN R SUBCUT ONE (12:26)
--- NOTE | 2021-10-06 13:17 | PN ---
DATE OF SERVICE: 10/05/21 SUBJECTIVE: 86 year old white male hospitalized with fatigue, weakness and inability to walk. The patient was not able to take even a few steps and his legs were trembling. Today the patient was able to walk with very minimum support. Appetite has improved and is feeling alot better. Legs swelling has practically subsided with trace to 1+ pitting edema. Appetite has improved. REVIEW OF SYSTEMS: CONSTITUTIONAL: No night sweats. No fatigue, malaise, lethargy. No fever or chills. HEENT: Eyes: No visual changes. No eye pain. No eye discharge. ENT: No runny nose. No epistaxis. No sinus pain. No sore throat. No odynophagia. No congestion. RESPIRATORY: No cough, no congestion. No hemoptysis. No shortness of breath. CARDIOVASCULAR: No angina symptoms. No CHF symptoms. No atypical chest pain for CAD. No palpitations. No PND. No orthopnea. GASTROINTESTINAL: No abdominal pain. No nausea or vomiting. No diarrhea or constipation. No hematemesis. No hematochezia. GENITOURINARY: No urgency. No frequency. No dysuria. No hematuria. No obstructive symptoms. No discharge. No pain. No significant abnormal bleeding. MUSCULOSKELETAL: No musculoskeletal pain; no joint swelling. NEUROLOGICAL: No headache. No neck pain. No syncope. No seizures. No dizziness. PSYCHIATRIC: Not anxious. No depression. No suicidal thoughts. No homicidal thoughts. SKIN: No rash. No lesions. No wounds. ENDOCRINE: No unexplained weight loss. No weight gain. HEMATOLOGIC/LYMPHATIC: No anemia. No purpura. No petechiae. No prolonged or excessive bleeding. No palpable lymph nodes. PHYSICAL EXAMINATION: VITAL SIGNS: temperature 97.2, pulse 80, respiratory rate 18, blood pressure 140/64 and pulse ox 96%. HEENT: Head normocephalic, atraumatic. Eyes: Extraocular muscles are intact. Pupils are equal, round and reactive to light and accommodation. Ears: No lesions. Nose appeared normal. Throat: No exudate or erythema. NECK: Supple. No JVD, no carotid bruit. No lymphadenopathy or thyromegaly. LUNGS: Decreased breath sounds but clear to auscultation. Percussion note normal. Chest symmetrical. HEART: S1, S2, no S3. No murmurs. No cyanosis or clubbing. No ascites. Pulses: Dorsalis pedis and posterior tibial pulses +1 to +2 bilaterally. ABDOMEN: Soft. Nontender. Bowel sounds active. No CVA tenderness. No mass felt. EXTREMITIES: No edema. Full range of motion of all extremities, equal. NEUROLOGIC: No focal deficit. Cranial nerves II through XII are grossly intact. No headache. No double vision. SKIN: Not dry. Intact. Turgor - normal. LYMPHATIC: No palpable lymph nodes/no lymphedema. MUSCULOSKELETAL: Normal joints with no swelling. Muscle tone is normal. LABS: Hgb 10.3, hct 31, WBC 9,000 normal differential, creatinine 1.5, BUN 31, potassium 4.6 ASSESSMENT: 1. Weakness, seems to be subsiding 2. Hypoxemia stable with patient on oxygen 2 liters 3. Leg edema has subsided. PLAN: 1. The patient has Guallpa Catheter which is being clamped periodically, trying to get the Guallpa Catheter out. Yesterday he had Guallpa Catheter inserted at night and 1,100 cc of urine was taken out. 2. The patient's blood sugar running more than 500-600, we will put him on sliding scale. Later on a got a call that his sugar was more than 550. We are going to give 20mg Regular insulin one shot. He will be on sliding scale. He has been eating ice cream. 3. Discontinue Solu-Medrol 4. Prednisone 20mg daily TIME SPENT: More than 30 minutes. Plan and coordination of the patient's care discussed in the presence of nurse. PAMELA
[2021-10-06] MEDS: NON-FORMULARY MEDICATION (Melatonin 10 mg Tablet) PO SCH (20:46)
[2021-10-07] MEDS: DUONEB NEB SCH ×4 (04:45→18:02)
[2021-10-07 05:48] LABS: BASOPHILS % (AUTO) 0.1 % (0.0-3.0); HEMOGLOBIN 9.4 g/dl (14.0-18.0); IMMATURE GRANULOCYTE # (AUTO) 0.2 (0.0-1.0); IMMATURE GRANULOCYTE % (AUTO) 1.3 % (0.0-5.0); LYMPHOCYTES # (AUTO) 1.9 K/uL (0.60-3.4); LYMPHOCYTES % (AUTO) 13.2 (10.0-50.0); MEAN CORPUSCULAR HEMOGLOBIN 28.7 pg (27.0-31.0); MEAN CORPUSCULAR HGB CONC 33.6 (31.8-35.4); MEAN CORPUSCULAR VOLUME 85.4 fl (80.0-94.0); MONOCYTES # (AUTO) 1.2 K/uL (0.4-2.0); MONOCYTES % (AUTO) 8.4 (0-10); NEUTROPHILS # (AUTO) 10.9 K/ul (2.0-6.9); PLATELET COUNT 302 10^3/uL (140-440); RDW COEFFICIENT OF VARIATION 13.1 % (11.6-14.8); RED BLOOD COUNT 3.28 10^6/ul (4.70-6.10); WHITE BLOOD COUNT 14.13 K/ul (4.2-10.2)
[2021-10-07] MEDS: PROTONIX PO SCH (05:51)
[2021-10-07] MEDS: COREG PO SCH ×2 (05:51→17:19)
[2021-10-07 06:02] LABS: ALANINE AMINOTRANSFERASE 23.3 U/L (0-50); ALBUMIN 3.4 g/dL (3.5-5.0); ALKALINE PHOSPHATASE 94.3 U/L (56-119); ASPARTATE AMINO TRANSFERASE 22.7 U/L (17-59); BILIRUBIN,TOTAL 0.39 mg/dL (0.2-1.3); BLOOD UREA NITROGEN 54.1 mg/dL (9-20); CALCIUM 7.77 mg/dL (8.4-10.2); CARBON DIOXIDE 25.6 mmol/L (22-30.0); CHLORIDE 96.9 mmol/L (98-107); CREATININE 1.72 mg/dL (0.60-1.10); GLUCOSE 389.8 mg/dL (74-106); POTASSIUM 4.68 mmol/L (3.5-5.1); SODIUM 129.9 mmol/L (134.5-145); TOTAL PROTEIN 6.07 g/dL (6.3-8.2)
[2021-10-07] MEDS: HUMULIN R SUBCUT PRN ×4 (06:11→21:25)
[2021-10-07] MEDS ORDERED: GLUCOPHAGE PO SCH (08:30)
[2021-10-07] MEDS ORDERED: SITAGLIPTIN METFORMIN PO SCH (09:00)
--- NOTE | 2021-10-07 09:37 | PN ---
DATE OF SERVICE: 10/04/21 SUBJECTIVE: The patient was seen with the Nurse Practitioner. The patient's condition is stable. His edema is much less. The patient's CT scan of the head was negative. Venous scan as discussed before was negative. No acute myocardial event. The patient's overall medical conditions have been deteriorating with his sedentary lifestyle now. He is immensely overweight. The patient is going to need PT/OT. The patient is noncompliant of lifestyle, medications and other aspects of medical care. TIME SPENT: More than 30 minutes. Plan and coordination of the patient's care discussed in the presence of nurse. PAMELA
--- NOTE | 2021-10-07 09:44 | PN ---
DATE OF SERVICE: 10/06/21 SUBJECTIVE: The patient was seen and examined with the Nurse Practitioner. The patient's condition is improving. Blood sugar is still running high, he was restarted on Levamir 80mg twice a day. Units of regular insulin was given this morning. Monitor his blood sugar. Condition is stable. He is up and about. The is very happy with the patient's progress. He is going to be put on swing bed once his blood sugar is under control. TIME SPENT: More than 30 minutes. Plan and coordination of the patient's care discussed in the presence of nurse. PAMELA
[2021-10-07] MEDS: MAXIPIME 1 GM VIAL 1 GM in SODIUM CHLORIDE 50 ML IV SCH (10:07)
[2021-10-07] MEDS: ASPIRIN CHEWABLE PO SCH (10:08)
[2021-10-07] MEDS: LEVEMIR SUBCUT SCH ×2 (10:08→21:26)
[2021-10-07] MEDS: FLOMAX PO SCH ×2 (10:09→21:23)
[2021-10-07] MEDS: PLAVIX PO SCH (10:09)
[2021-10-07] MEDS: COZAAR PO SCH (10:09)
[2021-10-07] MEDS: NEURONTIN PO SCH ×2 (10:10→21:23)
[2021-10-07] MEDS: LANOXIN PO SCH (10:11)
[2021-10-07] MEDS: JANUVIA PO SCH ×2 (10:11→17:19)
[2021-10-07] MEDS: NAMENDA PO SCH ×2 (10:11→21:23)
[2021-10-07] MEDS: NORVASC PO SCH (10:11)
[2021-10-07] MEDS: PROSCAR PO SCH (10:12)
[2021-10-07] MEDS: PREDNISONE PO SCH (10:12)
[2021-10-07] MEDS: MEVACOR PO SCH (10:12)
[2021-10-07] MEDS: SYMBICORT 160-4.5 MCG INHALER IH SCH ×2 (10:14→21:24)
[2021-10-07] MEDS: FLONASE NAS SCH (10:14)
[2021-10-07] MEDS ORDERED: LASIX IVP ONE (11:18)
--- NOTE | 2021-10-07 14:47 | HP ---
DATE OF SERVICE: 10/03/21 REASON FOR HOSPITALIZATION/HISTORY OF PRESENT ILLNESS: 86 year old white male who presented to the emergency room with weakness, worsening edema of his lower extremities, short of breath and had fever of 102, over the weekend feel and hit his head. He was recently hospitalized with bilateral pneumonia. PAST MEDICAL HISTORY: Recent bilateral pneumonia with acute respiratory failure Hypertension Uncontrolled Diabetes Mellitus type II Endstage COPD Long history of noncompliance with diet, medications and lifestyle Dilated hypertrophic cardiomyopathy History of pulmonary edema. Coronary artery disease Diabetic neuropathy Carotid stenosis Leukocytosis See Dr. Funes Arthritis of the left knee, see Dr. De La Cruz BPH Hypertension LVH Cerebellar degenerative Obstructive sleep apnea History of subdural hematoma with fall Ataxia Recurrent falls Dyslipidemia PAST SURGICAL HISTORY: CABG 2010 Coronary artery disease with stent 09/[address] Cox Right carotid endarterectomy by Dr. Roberts 12/[address] Garcia 03/06 REVIEW OF SYSTEMS: CONSTITUTIONAL: No night sweats. No fatigue, malaise, lethargy. No fever or chills. Weakness. HEENT: Eyes: No visual changes. No eye pain. No eye discharge. ENT: No runny nose. No epistaxis. No sinus pain. No sore throat. No odynophagia. No ear pain. No congestion. RESPIRATORY: Cough, no congestion. No hemoptysis. Shortness of breath. CARDIOVASCULAR: No angina symptoms. No CHF symptoms. No atypical chest pain for CAD. No palpitations. No PND. No orthopnea. GASTROINTESTINAL: No abdominal pain. No nausea or vomiting. No diarrhea or constipation. No hematemesis. No hematochezia. GENITOURINARY: No urgency. No frequency. No dysuria. No hematuria. No obstructive symptoms. No discharge. No pain. No significant abnormal bleeding. Decreased urine output. MUSCULOSKELETAL: No musculoskeletal pain. No joint swelling. No arthritis. NEUROLOGICAL: No headache. No neck pain. No syncope. No seizures. No dizziness. Confusion PSYCHIATRIC: Not anxious. No depression. No suicidal thoughts. No homicidal thoughts. SKIN: No rash. No lesions. No wounds. ENDOCRINE: No unexplained weight loss. No weight gain. HEMATOLOGIC/LYMPHATIC: No anemia. No purpura. No petechiae. No prolonged or excessive bleeding. No palpable lymph nodes. PERSONAL/FAMILY/SOCIAL HISTORY: and lives at home with this . Nonsmoker. No alcohol or illicit drug use. MEDICATIONS: Digoxin 125mcg POI daily Proscar 5mg PO daily Plavix 75mg PO daily Pantoprazole 40mg PO QDAC Aspirin 81mg PO daily Lovastatin 60mg PO daily Losartan 50mg PO daily Amlodipine 5mg PO daily Carvedilol 12.5mg PO BID Gabapentin 600mg PO BEDTIME Fluticasone 2 spray intranasal daily Albuterol Pro AIR HFA two puff inhalation dQ 4 hours PRN Breo Ellipta 1 inhalation daily Loratadine 10mg PO daily Memantine 10mg PO BID Janumet 50-500mg one tablet PO BID Levemir 80 units SUBCUT BID ALLERGIES: No known allergies PHYSICAL EXAMINATION: VITAL SIGNS: Temperature 97.8, heart rate 69, respiratory rate 18, blood pressure 109/54 and pulse ox 94% on 2 liters. HEENT: Head normocephalic, atraumatic. Eyes: Extraocular muscles are intact. Pupils are equal, round and reactive to light and accommodation. Ears: No lesions. Nose appeared normal. Throat: No exudate or erythema. NECK: Supple. No JVD, no carotid bruit. No lymphadenopathy or thyromegaly. LUNGS: Diminished breath sounds bilaterally. Clear to auscultation. Percussion note normal. Chest symmetrical. HEART: S1, S2, no S3. No murmur. No cyanosis or clubbing. No ascites. Pulses: Dorsalis pedis and posterior tibial pulses +1 to +2 bilaterally. ABDOMEN: Soft. Nontender. Bowel sounds active. No CVA tenderness. No mass felt. EXTREMITIES: 1+ bilateral lower extremity edema. Full range of motion of all extremities, equal. NEUROLOGIC: No focal deficit. Cranial nerves II through XII are grossly intact. No headache, no double vision or headache. SKIN: Not dry. Intact. Turgor - normal. Pallor. LYMPHATIC: No palpable lymph nodes/no lymphedema. MUSCULOSKELETAL: Normal joints with no swelling. Muscle tone is normal. LABS: WBC 12,000, hgb 9.4, hct 29.2, plt count 200, sodium 134, potassium 4.5, BUN 25, creatinine 1.68 and glucose 191. ABG on 2 liters o2 saturation 91%, pH 7.46, pCo2 39, pO2 59, respiratory panel is negative. Sodium 134, potassium 4.5, BUN 25, creatinine 1.6, glucose 191. Digoxin level 1.4, NT PRO BNP 3,300. D-Dimer 1,225. Bilateral venous scan was negative. Head CT was negative. Chest CT showed trace bilateral pleural effusions. Mild interstitial pulmonary edema however chest x-ray was normal. ASSESSMENT: 1. Acute respiratory failure 2. Bilateral leg edema 3. Generalized weakness 4. Hypotension 5. Coronary artery disease 6. Recent bilateral pneumonia 7. Dilated cardiomyopathy PLAN: 1. We will admit 2. Routine telemetry orders 3. CBC and CMP daily 4. Blood cultures times two 5. U/A with urine culture 6. The patient received Lasix 40mg IV times one in the ER 7. Slow IV fluids normal saline IV at 50cc an hour 8. Start Mirim to be dosed by Pharmacy 9. Oxygen 1-2 liters as needed 10.Keep legs elevated 11.Regular diet 12.Sliding scale for insulin coverage 13.Will follow closely 14.Continue home medications. TIME SPENT: More than 70 minutes. MTDD
[2021-10-07] MEDS: OMNICEF PO SCH (21:23)
[2021-10-07] MEDS: NON-FORMULARY MEDICATION (Melatonin 10 mg Tablet) PO SCH (21:42)
[2021-10-08] MEDS: DUONEB NEB SCH ×2 (05:10→17:02)
[2021-10-08] MEDS: PROTONIX PO SCH (06:00)
[2021-10-08] MEDS: COREG PO SCH ×2 (06:00→17:34)
[2021-10-08] MEDS: HUMULIN R SUBCUT PRN ×4 (06:01→21:24)
[2021-10-08] MEDS: LASIX TAB PO SCH (06:01)
[2021-10-08] MEDS ORDERED: LASIX TAB PO SCH (06:30)
[2021-10-08 08:33] LABS: BASOPHILS % (AUTO) 0.3 % (0.0-3.0); EOSINOPHILS # (AUTO) 0.2 K/ul (0.0-0.7); EOSINOPHILS % (AUTO) 1.8 % (0.0-7.0); HEMATOCRIT 32.6 % (42.0-52.0); IMMATURE GRANULOCYTE # (AUTO) 0.3 (0.0-1.0); IMMATURE GRANULOCYTE % (AUTO) 2.2 % (0.0-5.0); LYMPHOCYTES # (AUTO) 3.2 K/uL (0.60-3.4); LYMPHOCYTES % (AUTO) 26.1 (10.0-50.0); MEAN CORPUSCULAR HEMOGLOBIN 28.6 pg (27.0-31.0); MEAN CORPUSCULAR HGB CONC 33.7 (31.8-35.4); MEAN CORPUSCULAR VOLUME 84.7 fl (80.0-94.0); MONOCYTES % (AUTO) 8.6 (0-10); NEUTROPHILS # (AUTO) 7.3 K/ul (2.0-6.9); PLATELET COUNT 367 10^3/uL (140-440); RDW COEFFICIENT OF VARIATION 13.3 % (11.6-14.8); RED BLOOD COUNT 3.85 10^6/ul (4.70-6.10); WHITE BLOOD COUNT 12.05 K/ul (4.2-10.2)
[2021-10-08] MEDS: LANOXIN PO SCH (08:45)
[2021-10-08 08:46] LABS: ALANINE AMINOTRANSFERASE 28.5 U/L (0-50); ALBUMIN 3.7 g/dL (3.5-5.0); ALKALINE PHOSPHATASE 92.4 U/L (56-119); ASPARTATE AMINO TRANSFERASE 33.1 U/L (17-59); BILIRUBIN,TOTAL 0.42 mg/dL (0.2-1.3); BLOOD UREA NITROGEN 38.8 mg/dL (9-20); CALCIUM 8.5 mg/dL (8.4-10.2); CHLORIDE 101.4 mmol/L (98-107); GLUCOSE 149.5 mg/dL (74-106); POTASSIUM 4.03 mmol/L (3.5-5.1); SODIUM 136.1 mmol/L (134.5-145); TOTAL PROTEIN 6.72 g/dL (6.3-8.2)
[2021-10-08] MEDS: NAMENDA PO SCH ×2 (08:47→21:24)
[2021-10-08] MEDS: ASPIRIN CHEWABLE PO SCH (08:47)
[2021-10-08] MEDS: JANUVIA PO SCH ×2 (08:47→17:34)
[2021-10-08] MEDS: PREDNISONE PO SCH (08:47)
[2021-10-08] MEDS: MEVACOR PO SCH (08:47)
[2021-10-08] MEDS: PROSCAR PO SCH (08:47)
[2021-10-08] MEDS: OMNICEF PO SCH ×2 (08:47→21:24)
[2021-10-08] MEDS: COZAAR PO SCH (08:47)
[2021-10-08] MEDS: LEVEMIR SUBCUT SCH ×2 (08:48→21:24)
[2021-10-08] MEDS: NORVASC PO SCH (08:48)
[2021-10-08] MEDS: PLAVIX PO SCH (08:48)
[2021-10-08] MEDS: NEURONTIN PO SCH ×2 (08:48→21:24)
[2021-10-08] MEDS: FLOMAX PO SCH ×2 (08:48→21:24)
[2021-10-08] MEDS: FLONASE NAS SCH (08:49)
[2021-10-08] MEDS: SYMBICORT 160-4.5 MCG INHALER IH SCH ×2 (08:50→21:41)
[2021-10-08 09:08] LABS: CREATININE 1.21 mg/dL (0.60-1.10)
[2021-10-08] MEDS: NON-FORMULARY MEDICATION (Melatonin 10 mg Tablet) PO SCH (21:37)
[2021-10-09] MEDS: DUONEB NEB SCH ×2 (05:15→17:07)
[2021-10-09] MEDS: LASIX TAB PO SCH (05:43)
[2021-10-09] MEDS: PROTONIX PO SCH (05:43)
[2021-10-09] MEDS: COREG PO SCH ×2 (05:44→17:25)
[2021-10-09 05:48] LABS: HEMATOCRIT 30.3 % (42.0-52.0); HEMOGLOBIN 10.1 g/dl (14.0-18.0); MEAN CORPUSCULAR HEMOGLOBIN 28.6 pg (27.0-31.0); MEAN CORPUSCULAR HGB CONC 33.3 (31.8-35.4); MEAN CORPUSCULAR VOLUME 85.8 fl (80.0-94.0); PLATELET COUNT 379 10^3/uL (140-440); RDW COEFFICIENT OF VARIATION 13.2 % (11.6-14.8); RED BLOOD COUNT 3.53 10^6/ul (4.70-6.10); WHITE BLOOD COUNT 11.58 K/ul (4.2-10.2)
[2021-10-09 05:55] LABS: ALANINE AMINOTRANSFERASE 22.9 U/L (0-50); ALBUMIN 3.18 g/dL (3.5-5.0); ALKALINE PHOSPHATASE 81.9 U/L (56-119); BILIRUBIN,TOTAL 0.36 mg/dL (0.2-1.3); BLOOD UREA NITROGEN 32.1 mg/dL (9-20); CALCIUM 8.32 mg/dL (8.4-10.2); CARBON DIOXIDE 29.2 mmol/L (22-30.0); CHLORIDE 101.9 mmol/L (98-107); CREATININE 1.04 mg/dL (0.60-1.10); SODIUM 135.4 mmol/L (134.5-145); TOTAL PROTEIN 5.86 g/dL (6.3-8.2)
[2021-10-09] MEDS: HUMULIN R SUBCUT PRN ×4 (06:01→21:19)
[2021-10-09 07:51] LABS: ANISOCYTOSIS 1+ (NOT PRESENT); MICROCYTOSIS 1+ (NOT PRESENT)
[2021-10-09] MEDS: MEVACOR PO SCH (08:38)
[2021-10-09] MEDS: PREDNISONE PO SCH (08:38)
[2021-10-09] MEDS: LANOXIN PO SCH (08:38)
[2021-10-09] MEDS: PLAVIX PO SCH (08:39)
[2021-10-09] MEDS: JANUVIA PO SCH ×2 (08:39→17:25)
[2021-10-09] MEDS: ASPIRIN CHEWABLE PO SCH (08:39)
[2021-10-09] MEDS: COZAAR PO SCH (08:39)
[2021-10-09] MEDS: OMNICEF PO SCH ×2 (08:39→21:18)
[2021-10-09] MEDS: FLOMAX PO SCH ×2 (08:40→21:18)
[2021-10-09] MEDS: NEURONTIN PO SCH ×2 (08:40→21:18)
[2021-10-09] MEDS: NORVASC PO SCH (08:40)
[2021-10-09] MEDS: NAMENDA PO SCH ×2 (08:40→21:19)
[2021-10-09] MEDS: FLONASE NAS SCH (08:40)
[2021-10-09] MEDS: LEVEMIR SUBCUT SCH ×2 (08:40→21:24)
[2021-10-09] MEDS: PROSCAR PO SCH (08:40)
[2021-10-09] MEDS: SYMBICORT 160-4.5 MCG INHALER IH SCH ×2 (08:58→21:27)
[2021-10-09] MEDS: NON-FORMULARY MEDICATION (Melatonin 10 mg Tablet) PO SCH (22:13)
[2021-10-10] MEDS: DUONEB NEB SCH (04:30)
[2021-10-10 05:26] LABS: HEMATOCRIT 32.6 % (42.0-52.0); HEMOGLOBIN 10.8 g/dl (14.0-18.0); MEAN CORPUSCULAR HEMOGLOBIN 28.5 pg (27.0-31.0); MEAN CORPUSCULAR HGB CONC 33.1 (31.8-35.4); PLATELET COUNT 396 10^3/uL (140-440); RDW COEFFICIENT OF VARIATION 13.2 % (11.6-14.8); RED BLOOD COUNT 3.79 10^6/ul (4.70-6.10); WHITE BLOOD COUNT 11.75 K/ul (4.2-10.2)
[2021-10-10 05:44] LABS: ALANINE AMINOTRANSFERASE 22.8 U/L (0-50); ALBUMIN 3.41 g/dL (3.5-5.0); ALKALINE PHOSPHATASE 89.6 U/L (56-119); ASPARTATE AMINO TRANSFERASE 33.7 U/L (17-59); BILIRUBIN,TOTAL 0.36 mg/dL (0.2-1.3); BLOOD UREA NITROGEN 29.5 mg/dL (9-20); CALCIUM 8.68 mg/dL (8.4-10.2); CARBON DIOXIDE 30.3 mmol/L (22-30.0); CHLORIDE 98.8 mmol/L (98-107); CREATININE 1.16 mg/dL (0.60-1.10); GLUCOSE 225.3 mg/dL (74-106); POTASSIUM 4.37 mmol/L (3.5-5.1); SODIUM 134.9 mmol/L (134.5-145); TOTAL PROTEIN 6.14 g/dL (6.3-8.2)
[2021-10-10 05:47] VITALS: BP 155/68; TEMP 97.6
[2021-10-10] MEDS: PROTONIX PO SCH (05:47)
[2021-10-10] MEDS: COREG PO SCH (05:47)
[2021-10-10] MEDS: LASIX TAB PO SCH (05:48)
[2021-10-10] MEDS: HUMULIN R SUBCUT PRN (06:00)
[2021-10-10 06:06] LABS: ANISOCYTOSIS NOT PRESENT (NOT PRESENT)
[2021-10-10] MEDS ORDERED: LASIX TAB PO ONE (09:07)
--- NOTE | 2021-10-10 09:37 | PCM.PROG ---
Attending Provider: ATTENDING PROVIDER: Dr. ABY SLAUGHTER This patient is seen with Clemencia Miranda, Nurse Practitioner. DATE OF SERVICE: 10/10/21 SUBJECTIVE: This 86 year old /WHITE M was hospitalized 10/03/21. Sugars still elevated, increased Lantus. Blood pressure slightly elevated. He has been eating well. Labs seem to be stable. The patient is agreeable for swing, will start that today. REVIEW OF SYSTEMS: CONSTITUTIONAL: No night sweats. No fatigue, malaise, lethargy. No fever or chills. Weakness. HEENT: Eyes: No visual changes. No eye pain. No eye discharge. ENT: No runny nose. No epistaxis. No sinus pain. No odynophagia. No congestion. RESPIRATORY: No cough, no congestion. No hemoptysis. Shortness of breath. CARDIOVASCULAR: No angina symptoms. No CHF symptoms. No atypical chest pain for CAD. No palpitations. No orthopnea.. GASTROINTESTINAL: No abdominal pain. No nausea or vomiting. No diarrhea or constipation. No hematemesis. No hematochezia. GENITOURINARY: No urgency. No frequency. No dysuria. No hematuria. No obstructive symptoms. No discharge. No pain. No significant abnormal bleeding. MUSCULOSKELETAL: No musculoskeletal pain; no joint swelling. NEUROLOGICAL: Awake, alert, oriented to time, place and person. No headache. No neck pain. No syncope. No seizures. No dizziness. PSYCHIATRIC: Not anxious. No depression. No suicidal thoughts. No homicidal thoughts. SKIN: No rash. No lesions. No wounds. ENDOCRINE: No unexplained weight loss. No weight gain. HEMATOLOGIC/LYMPHATIC: No anemia. No purpura. No petechiae. No prolonged or excessive bleeding. No palpable lymph nodes. PHYSICAL EXAMINATION: GENERAL: The patient is awake, alert and oriented, lying in bed in no distress. VITAL SIGNS: Temperature 97.6 F, Pulse 70, Respiratory Rate 20, BP 155/68, Pulse Ox 99% HEENT: Head normocephalic, atraumatic. Eyes: Extraocular muscles are intact. Pupils are equal, round and reactive to light and accommodation. Ears: No lesions. Nose appeared normal. Throat: No exudate or erythema. NECK: Supple. No JVD, no carotid bruit. No lymphadenopathy or thyromegaly. LUNGS: Diminished breath sounds. Clear to auscultation. Percussion note normal. Chest symmetrical. HEART: S1, S2, no S3. No murmurs. No cyanosis or clubbing. No ascites. Pulses: Dorsalis pedis and posterior tibial pulses +1 to +2 both sides. ABDOMEN: Soft. Non-tender. Bowel sounds active. No CVA tenderness. No mass felt. EXTREMITIES: No edema. Full range of motion of all extremities, equal. NEUROLOGIC: No focal deficit. Cranial nerves II through XII are grossly intact. No headache. No double vision. SKIN: Not dry. Intact. Turgor-normal. LYMPHATIC: No palpable lymph nodes/no lymphedema. MUSCULOSKELETAL: Normal joints with no swelling. Muscle tone is normal. LAB REVIEW: 10/10/21 05:19 10/10/21 05:19 10/10/21 05:19: Sodium 134.9, Potassium 4.37, Chloride 98.8, Carbon Dioxide 30.3 H, Anion Gap 10.17, BUN 29.5 H, Creatinine 1.16 H, Estimated GFR (MDRD) 60.00, BUN/Creatinine Ratio 25.43, Glucose 225.3 H, Calcium 8.68, Total Bilirubin 0.36, AST 33.7, ALT 22.8, Alkaline Phosphatase 89.6, Total Protein 6.14 L, Albumin 3.41 L, Globulin 2.73, Albumin/Globulin Ratio 1.24 10/10/21 05:19: WBC 11.75 H, RBC 3.79 L, Hgb 10.8 L, Hct 32.6 L, MCV 86.0, MCH 28.5, MCHC 33.1, RDW Coeff of Michele 13.2, Plt Count 396, Neutrophils % (Manual) 52.0, Band Neutrophils % 3.0, Lymphocytes % (Manual) 22.0, Monocytes % (Manual) 12.0 H, Eosinophils % (Manual) 3.0, Basophils % (Manual) 1.0, Metamyelocytes % 2.0, Reactive Lymphocytes 5.0, Anisocytosis Not present ASSESSMENT: Please see below. 1. Generalized weakness 2. Renal Azotemia 3. Diabetes Mellitus type II 4. Hypertension 5. Coronary artery disease 6. COPD 7. Chronic respiratory failure 8. CHF PLAN: 1. We will admit to swing for PT/OT 2. Increase Losartan 50mg BID 3. Increase Lantus 85 units BID 4. Lasix 40mg PO today, will do 20mg PO tomorrow than alternate. Plan and coordination of the patient's care discussed in the presence of [employer] and nurse. SCRIBED BY: Urmila SANCHEZist scribed while in presence of service performed by Dr. Slaughter/Clemencia Miranda APRN on 10/10/21 ([id number])
[2021-10-10] MEDS ORDERED: LEVEMIR SUBCUT SCH (09:45)
--- NOTE | 2021-10-10 09:48 | DS ---
DATE OF SERVICE: 10/10/21 FINAL DIAGNOSIS: 1. Generalized weakness 2. Renal Azotemia 3. Diabetes Mellitus type II 4. Hypertension 5. Coronary artery disease 6. COPD 7. Chronic respiratory failure 8. CHF DISCHARGE INSTRUCTIONS: Discharge to swing bed. MEDICATIONS AT DISCHARGE: Digoxin 125mcg POI daily Proscar 5mg PO daily Plavix 75mg PO daily Pantoprazole 40mg PO QDAC Aspirin 81mg PO daily Lovastatin 60mg PO daily Losartan 50mg PO daily Amlodipine 5mg PO daily Carvedilol 12.5mg PO BID Gabapentin 600mg PO BEDTIME Fluticasone 2 spray intranasal daily Albuterol Pro AIR HFA two puff inhalation dQ 4 hours PRN Breo Ellipta 1 inhalation daily Loratadine 10mg PO daily Memantine 10mg PO BID Janumet 50-500mg one tablet PO BID Levemir 80 units SUBCUT BID DIET INSTRUCTIONS: As tolerated ACTIVITY: As tolerated HOSPITAL COURSE: 86 year old white male was admitted once again with acute respiratory failure. He did have some pulmonary edema, CHF along with elevated renal function. CT chest showed no pneumonitis. Sugars was uncontrolled. He steadily improved with slow IV hydration. We increased increased blood pressure medications. U/a was normal. Blood cultures are normal. Has been afebrile here. Due to his increased weakness and recurrent hospitalizations last two months he will be placed on swing bed for continued PT/OT. He has failed with home PT/OT. We will admit him to swing bed today and will follow him accordingly. TIME SPENT: More than 60 minutes. [facility]ITAL[facility]
[2021-10-10] MEDS: LANOXIN PO SCH (09:56)
[2021-10-10] MEDS: MEVACOR PO SCH (09:56)
[2021-10-10] MEDS: PROSCAR PO SCH (09:56)
[2021-10-10] MEDS: JANUVIA PO SCH (09:57)
[2021-10-10] MEDS: OMNICEF PO SCH (09:57)
[2021-10-10] MEDS: FLOMAX PO SCH (09:57)
[2021-10-10] MEDS: ASPIRIN CHEWABLE PO SCH (09:57)
[2021-10-10] MEDS: NAMENDA PO SCH (09:57)
[2021-10-10] MEDS: NEURONTIN PO SCH (09:58)
[2021-10-10] MEDS: FLONASE NAS SCH (09:58)
[2021-10-10] MEDS: NORVASC PO SCH (09:58)
[2021-10-10] MEDS: PLAVIX PO SCH (09:58)
[2021-10-10] MEDS ORDERED: COZAAR PO SCH (10:00)
[2021-10-10] MEDS: PREDNISONE PO SCH (10:04)
[2021-10-10] MEDS: COZAAR PO SCH (10:04)
[2021-10-10] MEDS: SYMBICORT 160-4.5 MCG INHALER IH SCH (10:04)
[2021-10-10] MEDS: LEVEMIR SUBCUT SCH (10:04)
[2021-10-10 10:53] LABS: POTASSIUM 4.19 mmol/L (3.5-5.1)
--- NOTE | 2021-10-10 13:33 | PN ---
DATE OF SERVICE: 10/07/21 SUBJECTIVE: 86 year old white male hospitalized with weakness, generalized edema, hypoxemia and uncontrolled diabetes. The patient's condition has improved. His blood sugar is coming down with his Levemir 80mg twice a day with sliding scale. He has this morning leg edema and mildly short of breath. REVIEW OF SYSTEMS: CONSTITUTIONAL: No night sweats. No fatigue, malaise, lethargy. No fever or chills. HEENT: Eyes: No visual changes. No eye pain. No eye discharge. ENT: No runny nose. No epistaxis. No sinus pain. No sore throat. No odynophagia. No congestion. RESPIRATORY: No cough, no congestion. No hemoptysis. Shortness of breath as described above. CARDIOVASCULAR: No angina symptoms. No CHF symptoms. No atypical chest pain for CAD. No palpitations. No PND. No orthopnea. GASTROINTESTINAL: No abdominal pain. No nausea or vomiting. No diarrhea or constipation. No hematemesis. No hematochezia. Appetite is good. GENITOURINARY: No urgency. No frequency. No dysuria. No hematuria. No obstructive symptoms. No discharge. No pain. No significant abnormal bleeding. MUSCULOSKELETAL: No musculoskeletal pain; no joint swelling. Leg edema. NEUROLOGICAL: No headache. No neck pain. No syncope. No seizures. No dizziness. PSYCHIATRIC: Not anxious. No depression. No suicidal thoughts. No homicidal thoughts. SKIN: No rash. No lesions. No wounds. ENDOCRINE: No unexplained weight loss. No weight gain. HEMATOLOGIC/LYMPHATIC: No anemia. No purpura. No petechiae. No prolonged or excessive bleeding. No palpable lymph nodes. PHYSICAL EXAMINATION: VITAL SIGNS: Temperature 97.4, pulse 67, respiratory rate 18, blood pressure 120/60 and pulse ox 94% on 2 liters. HEENT: Head normocephalic, atraumatic. Eyes: Extraocular muscles are intact. Pupils are equal, round and reactive to light and accommodation. Ears: No lesions. Nose appeared normal. Throat: No exudate or erythema. NECK: Supple. No JVD, no carotid bruit. No lymphadenopathy or thyromegaly. LUNGS: Decreased breath sounds but clear to auscultation. Percussion note normal. Chest symmetrical. HEART: S1, S2, no S3. No murmurs. No cyanosis or clubbing. No ascites. Pulses: Dorsalis pedis and posterior tibial pulses +1 to +2 bilaterally. ABDOMEN: Soft. Protuberant. Nontender. Bowel sounds active. No CVA tenderness. No mass felt. EXTREMITIES: 2+ pitting edema. Full range of motion of all extremities, equal. NEUROLOGIC: No focal deficit. Cranial nerves II through XII are grossly intact. No headache. No double vision. SKIN: Not dry. Intact. Turgor - normal. LYMPHATIC: No palpable lymph nodes/no lymphedema. MUSCULOSKELETAL: Normal joints with no swelling. Muscle tone is normal. LABS: Hgb 9.4, hct 28, WBC 14,000 normal differential, creatinine 1.7, BUN 54, potassium 4.6. Sodium 130. ASSESSMENT: 1. Leg edema 2. Hypoxemia which is combination of chronic lung disease and CHF 3. Generalized weakness multifactorial like sedentary lifestyle, age process and obesity and CHF 4. Chronic kidney disease 5. Chronic anemia 6. Diabetes Mellitus out of control PLAN: 1. Continue Levemir 80 units twice a day 2. Restrict the patient's calories to 2200 calories. 3. Advised not to eat ice cream and milk products. 4. Discontinue Metformin because of kidney function 5. Januvia is already 50mg daily 6. Lasix 20mg IV today and 20mg PO QAM 7. Elevate the legs 8. Cut down on salt intake 9. The patient was explained about swing bed and need for physical therapy. The patient's legs are stronger here in the hospital. is present in the room and she is agreeable for swing bed. The patient is also agreeable for PT/OT. TIME SPENT: More than 30 minutes. Plan and coordination of the patient's care discussed in the presence of nurse. PAMELA
--- NOTE | 2021-10-10 13:43 | PN ---
DATE OF SERVICE: 10/08/21 SUBJECTIVE: 86 year old white male hospitalized with weakness, edema and hypoxemia. The patient's condition slowly has improved with Lasix IV and PO. Leg edema is much less and is breathing somewhat better. REVIEW OF SYSTEMS: CONSTITUTIONAL: No night sweats. No fatigue, malaise, lethargy. No fever or chills. HEENT: Eyes: No visual changes. No eye pain. No eye discharge. ENT: No runny nose. No epistaxis. No sinus pain. No sore throat. No odynophagia. No congestion. RESPIRATORY: No cough, no congestion. No hemoptysis. No shortness of breath. CARDIOVASCULAR: No angina symptoms. No CHF symptoms. No atypical chest pain for CAD. No palpitations. No PND. No orthopnea. GASTROINTESTINAL: No abdominal pain. No nausea or vomiting. No diarrhea or constipation. No hematemesis. No hematochezia. GENITOURINARY: No urgency. No frequency. No dysuria. No hematuria. No obstructive symptoms. No discharge. No pain. No significant abnormal bleeding. MUSCULOSKELETAL: No musculoskeletal pain; no joint swelling. NEUROLOGICAL: No headache. No neck pain. No syncope. No seizures. No dizziness. PSYCHIATRIC: Not anxious. No depression. No suicidal thoughts. No homicidal thoughts. SKIN: No rash. No lesions. No wounds. ENDOCRINE: No unexplained weight loss. No weight gain. HEMATOLOGIC/LYMPHATIC: No anemia. No purpura. No petechiae. No prolonged or excessive bleeding. No palpable lymph nodes. PHYSICAL EXAMINATION: VITAL SIGNS: Temperature 97, pulse 68, respiratory rate 18, blood pressure 156/68 and pulse ox 95%. HEENT: Head normocephalic, atraumatic. Eyes: Extraocular muscles are intact. Pupils are equal, round and reactive to light and accommodation. Ears: No lesions. Nose appeared normal. Throat: No exudate or erythema. NECK: Supple. No JVD, no carotid bruit. No lymphadenopathy or thyromegaly. LUNGS: Good air entry. Clear to auscultation. Percussion note normal. Chest symmetrical. HEART: S1, S2, no S3. No murmurs. No cyanosis or clubbing. No ascites. Pulses: Dorsalis pedis and posterior tibial pulses +1 to +2 bilaterally. ABDOMEN: Soft. Nontender. Bowel sounds active. No CVA tenderness. No mass felt. EXTREMITIES: +1 edema. Full range of motion of all extremities, equal. NEUROLOGIC: No focal deficit. Cranial nerves II through XII are grossly intact. No headache. No double vision. SKIN: Not dry. Intact. Turgor - normal. LYMPHATIC: No palpable lymph nodes/no lymphedema. MUSCULOSKELETAL: Normal joints with no swelling. Muscle tone is normal. LABS: Hgb 9.4, hct 28, WBC 14,000 normal differential, glucose 149, creatinine 1.2, BUN 38 ASSESSMENT: 1. Hyperglycemia under control 2. Hyponatremia resolved because glucose has been normal 3. Leg edema seems to be much better with once 20mg IV Lasix 4. CHF under control PLAN: 1. Continue PT/OT. The patient is gaining strength. The patient's family and is always present. She is in agreement with the swing bed. TIME SPENT: More than 30 minutes. Plan and coordination of the patient's care discussed in the presence of nurse. PAMELA
--- NOTE | 2021-10-10 13:53 | PN ---
DATE OF SERVICE: 10/09/21 SUBJECTIVE: 86 year old white male hospitalized with weakness, edema, hypoxemia. Condition has improved. Feeling a lot better today. Edema is much less and breathing is better. is in the room and they are both excited about having swing bed. The patient's motivation is good. REVIEW OF SYSTEMS: CONSTITUTIONAL: No night sweats. No fatigue, malaise, lethargy. No fever or chills. HEENT: Eyes: No visual changes. No eye pain. No eye discharge. ENT: No runny nose. No epistaxis. No sinus pain. No sore throat. No odynophagia. No congestion. RESPIRATORY: No cough, no congestion. No hemoptysis. No shortness of breath. CARDIOVASCULAR: No angina symptoms. No CHF symptoms. No atypical chest pain for CAD. No palpitations. No PND. No orthopnea. GASTROINTESTINAL: No abdominal pain. No nausea or vomiting. No diarrhea or constipation. No hematemesis. No hematochezia. Appetite is normal. GENITOURINARY: No urgency. No frequency. No dysuria. No hematuria. No obstructive symptoms. No discharge. No pain. No significant abnormal bleeding. MUSCULOSKELETAL: No musculoskeletal pain; no joint swelling. NEUROLOGICAL: No headache. No neck pain. No syncope. No seizures. No dizziness. PSYCHIATRIC: Not anxious. No depression. No suicidal thoughts. No homicidal thoughts. SKIN: No rash. No lesions. No wounds. ENDOCRINE: No unexplained weight loss. No weight gain. HEMATOLOGIC/LYMPHATIC: No anemia. No purpura. No petechiae. No prolonged or excessive bleeding. No palpable lymph nodes. PHYSICAL EXAMINATION: VITAL SIGNS: Temperature 97.4, pulse 65, respiratory rate 18, blood pressure 158/78 and pulse ox 98%. HEENT: Head normocephalic, atraumatic. Eyes: Extraocular muscles are intact. Pupils are equal, round and reactive to light and accommodation. Ears: No lesions. Nose appeared normal. Throat: No exudate or erythema. NECK: Supple. No JVD, no carotid bruit. No lymphadenopathy or thyromegaly. LUNGS: Decreased breath sounds but clear to auscultation. Percussion note normal. Chest symmetrical. HEART: S1, S2, no S3. No murmurs. No cyanosis or clubbing. No ascites. Pulses: Dorsalis pedis and posterior tibial pulses +1 to +2 bilaterally. ABDOMEN: Soft. Nontender. Bowel sounds active. No CVA tenderness. No mass felt. EXTREMITIES: No edema. Full range of motion of all extremities, equal. NEUROLOGIC: No focal deficit. Cranial nerves II through XII are grossly intact. No headache. No double vision. SKIN: Not dry. Intact. Turgor - normal. LYMPHATIC: No palpable lymph nodes/no lymphedema. MUSCULOSKELETAL: Normal joints with no swelling. Muscle tone is normal. LABS: Hgb 10.1, hct 30, WBC 11,000 normal differential, creatinine 1, BUN 32, potassium 4. Glucose 230. ASSESSMENT: 1. Hypoxemia resolved 2. Edema, resolving. Now the patient has 1+ pitting edema to both legs. 3. Weakness, back to almost normal status. Ready for physical therapy 4. Hyperglycemia seems to be under control 5. Hyponatremia, resolved because the hyperglycemia has resolved 6. Potassium is normal 7. CHF under control CONDITION: Stable. TIME SPENT: More than 30 minutes. Plan and coordination of the patient's care discussed in the presence of nurse. PAMELA
[2021-10-11] MEDS ORDERED: LASIX TAB PO SCH (06:30)
[2021-10-12] MEDS ORDERED: LASIX TAB PO SCH (06:30)
--- NOTE | 2021-10-12 13:47 | PN ---
DATE OF SERVICE: 10/10/21 SUBJECTIVE: 86 year old white male hospitalized with weakness and fatigue and inability to ambulate by himself, out of control diabetes mellitus. The patient's condition has improved. His edema is much less. He is gaining strength. Physical therapy has helped so we are going to put this patient in the swing bed. The is agreeable. CONDITION: Stable. TIME SPENT: More than 30 minutes. Plan and coordination of the patient's care discussed in the presence of nurse. PAMELA
== END 2021-10-10 11:41 | disposition swing bed (61) | DRG 189 ==
LOC: ED 10:02 → MEDSURG A 14:15
PROVIDERS: ADMIT Internal Medicine; ATTEND Internal Medicine

== ENCOUNTER 2021-11-02 07:40 | Inpatient (IN) ==
[2021-11-02] MEDS ORDERED: DUONEB NEB STA (07:48)
[2021-11-02] MEDS ORDERED: SOLU-MEDROL 125 MG IVP STA (07:48)
--- NOTE | 2021-11-02 08:03 | ED.PDOC ---
General ED Provider: Dr. ASA PONCE Chief Complaint: Shortness of Air Stated Complaint: Patient is an 86 year old male who states that he started getting short of breath 2 days ago worse this morning. Has been coughing but is non productive. Denies any chest pain. Was seen last month and admitted for COPD exacerbation discharged october 18. Gets home health visits from [facility]. Time Seen by Provider: 11/02/21 07:48 Mode of Arrival: Wheelchair Information Source: Patient Primary Care Provider: ABY WALLACE Nursing and Triage Documentation Reviewed and Agree: Yes Does patient meet sepsis criteria?: No System Inflammatory Response Syndrome: Not Applicable Sepsis Protocol: For patient's 13 years and over: Temp is 96.8 and below OR 101 and greater Pulse >90 BPM Resp >20/minute Acutely Altered Mental Status Are patient's symptoms suggestive of a new infection, such as: -Pneumonia -Skin, Soft Tissue -Endocarditis -UTI -Bone, Joint Infection -Implantable Device -Acute Abdominal Infection -Wound Infection -Meningitis -Blood Stream Catheter Infection -Unknown Respiratory Complaint Exam Shortness of Air Complaint/Exam Onset/Duration: 2 days Symptoms Are: Still present Timing: Constant Initial Severity: Mild Current Severity: Moderate Character: Reports Dyspnea at rest Aggravating: Reports URI and Weather Associated Signs and Symptoms: Reports Cough, Fever, Chills and Rapid breathing; Denies Chest pain with cough, Chest pain, Diaphoresis, Dizziness, Calf pain or Calf swelling Related History: Reports Similar episode (COPD exacerbation ) Pulmonary Embolism Risk Factors: Reports None Cardiac Risk Factors: Reports Diabetes and Hypertension Pseudomonas Risk Factors: Reports Chronic Lung Disease and Repeat Antibx in 3 months Home Oxygen Use: Yes (2 liters ) Recent Stress Test: No Recent Echo/LV Function: No Respiratory Distress: Moderate Stridor Present: No Tracheal Deviation: No Subcutaneous Emphysema: No Accessory Muscle Use: No Retractions: Not Present Diminished Breath Sounds: Yes Prolonged Expiratory Phase: No Unable to Speak Full Sentences: No Fatigue: No Leg Swelling: Yes (mild ) Travis's Sign Present: No Grunting Respirations: No Kussmaul Respirations: No Differential Diagnoses: CHF, Pulmonary Edema, COPD Exacerbation, CO and URI Quality Indicator For Non-Traumatic Chest Pain/Syncope: EKG Performed Quality Indicators For Pneumonia/CAP: Blood Cultures-SCU admit Review of Systems Review Of Systems Constitutional: Reports Fever and Weakness Respiratory: Reports Cough and Short of air Cardiac: Reports Edema; Denies Chest pain GI: Reports No symptoms : Reports No symptoms Musculoskeletal: Reports No symptoms Skin: Reports No symptoms Neurological: Reports Anxiety Endocrine: Reports No symptoms All Other Systems: Reviewed and Negative [facility] Medical History Anemia Bronchitis Cancer Coronary artery disease Diabetes mellitus [place]' lung disease GERD (gastroesophageal reflux disease) Hypercholesteremia Hypertension Hypothyroidism Melanoma Family History Mother Breast cancer BROTHER Emphysema lung BROTHER Colon cancer DAUGHTER Breast cancer Social History Smoking and tobacco status: Never smoker Substance use type: does not use History of recent travel: No Surgical History H/O partial thyroidectomy Hx of CABG Hx of cholecystectomy S/P appy Physical Exam Physical Exam Appearance: Reports Ill-appearing and Obese Ill-appearing: Moderate Pain Distress: None Eyes: Reports TJ, EOMI and Conjunctiva clear ENT: Reports Nose normal Neck: Not Examined Respiratory: Reports Breath sounds diminished Cardiovascular: Reports RRR, Pulses normal and No rub GI/: Reports Soft and Nontender Musculoskeletal: Reports Edema Skin: Reports Warm and Dry Neurological: Reports Motor intact Psychiatric: Reports Anxious Interpretation Radiology Interpretation Radiology Interpretation By: Radiologist Exam Interpreted: Portable CXR Scanning Tech Rate: Normal Rhythm: Sinus EKG Interpretation Time of EKG #1: 07:53 Rate: Normal Rhythm: Sinus Ectopy: None [place]: [place] (52) ST Segment: Other Interpretation: Lateral ischemia St Depression on V4-V 6 EKG Comparison: Other (Significant depression compared to 10/05/2021) Re-Evaluation Re-Evaluation Time of Re-Evaluation: 09:22 Status: Improved Vital Signs Stable: Yes Physician Notification Case Discussed Physician Notified: Wallace Time of Notification: 09:15 (admit to Hospital placed on IV lasix and steroids including antibiotics, routine telemetery. ) Critical Care Note Critical Care Note Total Critical Care Time (mins): 30 Course Course Hematology/Chemistry: 11/02/21 08:15 11/02/21 08:15 Orders, Labs, Meds: Lab Review 11/02/21 11/02/21 11/02/21 07:49 07:55 08:15 WBC 16.52 H RBC 3.54 L Hgb 10.2 L Hct 30.2 L MCV 85.3 MCH 28.8 MCHC 33.8 RDW Coeff of Michele 14.6 Plt Count 280 Immature Gran % (Auto) 0.8 Neut % (Auto) 63.2 Lymph % (Auto) 19.9 [place] % (Auto) 15.7 H Eos % (Auto) 0.2 Baso % (Auto) 0.2 Neut # (Auto) 10.4 H Lymph # (Auto) 3.3 [place] # (Auto) 2.6 H Eos # (Auto) 0.0 Baso # (Auto) 0.0 Immature Gran # (Auto) 0.1 Puncture Site R rad Base Excess -2.4 L O2 Saturation 89.3 L ABG pH 7.42 ABG pCO2 34.0 L ABG pO2 56.0 L* ABG HCO3 22.1 ABG Total CO2 23.1 Kelechi Test Y Hemoglobin 0.6 Oxyhemoglobin 89.9 L Carboxyhemoglobin 2.4 H Total Hemoglobin 10.6 L O2 Delivery Device Cannula Oxygen Liter Flow 2.50 Sodium Potassium Chloride Carbon Dioxide Anion Gap BUN Creatinine Estimated GFR (MDRD) BUN/Creatinine Ratio Glucose Lactic Acid Calcium Total Bilirubin AST ALT Alkaline Phosphatase Total Creatine Kinase Troponin I NT-Pro-B Natriuret Pep Total Protein Albumin Globulin Albumin/Globulin Ratio Procalcitonin Adenovirus (PCR) Not detected B. pertussis DNA (PCR) Not detected B.parapertussis DNA PCR Not detected C. pneumoniae DNA (PCR) Not detected Coronavirus OC43 (PCR) Not detected Coronavirus HKU1 (PCR) Not detected Coronavirus 229E (PCR) Not detected Coronavirus NL63 (PCR) Not detected Human Metapneumovir PCR Not detected Influenza Type A (PCR) Not detected Influenza B (RT-PCR) Not detected M. pneumoniae (PCR) Not detected Parainfluenza 1 (PCR) Not detected Parainfluenza 2 (PCR) Not detected Parainfluenza 3 (PCR) Not detected Parainfluenza 4 (PCR) Not detected RSV (PCR) Not detected Entero/Rhino (PCR) Not detected SARS-CoV-2 (PCR) Not detected 11/02/21 11/02/21 11/02/21 08:15 08:15 08:15 WBC RBC Hgb Hct MCV MCH MCHC RDW Coeff of Michele Plt Count Immature Gran % (Auto) Neut % (Auto) Lymph % (Auto) [place] % (Auto) Eos % (Auto) Baso % (Auto) Neut # (Auto) Lymph # (Auto) [place] # (Auto) Eos # (Auto) Baso # (Auto) Immature Gran # (Auto) Puncture Site Base Excess O2 Saturation ABG pH ABG pCO2 ABG pO2 ABG HCO3 ABG Total CO2 Kelechi Test Hemoglobin Oxyhemoglobin Carboxyhemoglobin Total Hemoglobin O2 Delivery Device Oxygen Liter Flow Sodium 135.1 Potassium 4.49 Chloride 102.6 Carbon Dioxide 22.5 Anion Gap 14.49 BUN 26.6 H Creatinine 1.42 H Estimated GFR (MDRD) 47.00 BUN/Creatinine Ratio 18.73 Glucose 321.4 H Lactic Acid 1.59 Calcium 8.65 Total Bilirubin 1.14 AST 28.2 ALT 26.2 Alkaline Phosphatase 123.0 H Total Creatine Kinase 44.1 L Troponin I 0.412 H NT-Pro-B Natriuret Pep Total Protein 6.64 Albumin 3.93 Globulin 2.71 Albumin/Globulin Ratio 1.45 Procalcitonin 0.09 H Adenovirus (PCR) B. pertussis DNA (PCR) B.parapertussis DNA PCR C. pneumoniae DNA (PCR) Coronavirus OC43 (PCR) Coronavirus HKU1 (PCR) Coronavirus 229E (PCR) Coronavirus NL63 (PCR) Human Metapneumovir PCR Influenza Type A (PCR) Influenza B (RT-PCR) M. pneumoniae (PCR) Parainfluenza 1 (PCR) Parainfluenza 2 (PCR) Parainfluenza 3 (PCR) Parainfluenza 4 (PCR) RSV (PCR) Entero/Rhino (PCR) SARS-CoV-2 (PCR) 11/02/21 08:15 WBC RBC Hgb Hct MCV MCH MCHC RDW Coeff of Michele Plt Count Immature Gran % (Auto) Neut % (Auto) Lymph % (Auto) [place] % (Auto) Eos % (Auto) Baso % (Auto) Neut # (Auto) Lymph # (Auto) [place] # (Auto) Eos # (Auto) Baso # (Auto) Immature Gran # (Auto) Puncture Site Base Excess O2 Saturation ABG pH ABG pCO2 ABG pO2 ABG HCO3 ABG Total CO2 Kelechi Test Hemoglobin Oxyhemoglobin Carboxyhemoglobin Total Hemoglobin O2 Delivery Device Oxygen Liter Flow Sodium Potassium Chloride Carbon Dioxide Anion Gap BUN Creatinine Estimated GFR (MDRD) BUN/Creatinine Ratio Glucose Lactic Acid Calcium Total Bilirubin AST ALT Alkaline Phosphatase Total Creatine Kinase Troponin I NT-Pro-B Natriuret Pep 4660.000 H Total Protein Albumin Globulin Albumin/Globulin Ratio Procalcitonin Adenovirus (PCR) B. pertussis DNA (PCR) B.parapertussis DNA PCR C. pneumoniae DNA (PCR) Coronavirus OC43 (PCR) Coronavirus HKU1 (PCR) Coronavirus 229E (PCR) Coronavirus NL63 (PCR) Human Metapneumovir PCR Influenza Type A (PCR) Influenza B (RT-PCR) M. pneumoniae (PCR) Parainfluenza 1 (PCR) Parainfluenza 2 (PCR) Parainfluenza 3 (PCR) Parainfluenza 4 (PCR) RSV (PCR) Entero/Rhino (PCR) SARS-CoV-2 (PCR) Orders Category Date Time Status ABG DRAW REQUEST Stat CARDIO 11/02/21 07:48 Completed EKG-(ED ONLY) Stat CARDIO 11/02/21 07:48 Completed NEBULIZER TREATMENT Stat CARDIO 11/02/21 07:49 Completed ED IV/MEDIPORT/POWERPORT .ONCE EMERGENCY 11/02/21 07:48 Active ABG COOX Stat LAB 11/02/21 07:55 Completed BLOOD CULTURE (ED ONLY) Stat LAB 11/02/21 08:15 Received CBC W/ AUTO DIFF Stat LAB 11/02/21 08:15 Completed COMPREHENSIVE METABOLIC PANEL Stat LAB 11/02/21 08:15 Completed CREATINE KINASE Stat LAB 11/02/21 08:15 Completed LACTIC ACID Stat LAB 11/02/21 08:15 Completed PRO-BNP [NT-PROBNP] Stat LAB 11/02/21 08:15 Completed PROCALCITONIN Stat LAB 11/02/21 08:15 Completed RESPIRATORY PANEL 2.1 (PCR) Stat LAB 11/02/21 07:49 Completed TROPONIN I Stat LAB 11/02/21 08:15 Completed 0.9 % Sodium Chloride [Saline Flush] MEDS 11/02/21 07:48 Active 1 syr IVF PRN PRN Furosemide [Lasix] MEDS 11/02/21 09:03 Discontinued 40 mg IVP ONCE ONE Ipratropium/Albuterol Neb [Duoneb] MEDS 11/02/21 07:48 Discontinued 3 ml NEB ONCE STA Methylprednisolone Sod Succ/Pf [Solu-Medrol 125 mg] MEDS 11/02/21 07:48 Discontinued 125 mg IVP ONCE STA Piperacillin Sodium/Tazobactam [Zosyn 2.25 gm] 2.25 gm MEDS 11/02/21 09:03 Active 0.9 % Sodium Chloride [Sodium Chloride] 50 ml IV ONCE CHEST, 1V AP ONLY Stat RADS 11/02/21 07:48 Completed Medications Generic Name Dose Route Start Last Admin Trade Name Freq PRN Reason Stop Dose Admin Piperacillin Sod/Tazobactam 50 mls @ 50 mls/hr 11/02/21 09:03 Sod 2.25 gm/ Sodium Chloride IV 11/02/21 10:02 ONCE ONE Sodium Chloride 1 syr 11/02/21 07:48 0.9% Sodium Chloride 10 Ml Disp.Syrin IVF PRN PRN To flush IV Discontinued Medications Generic Name Dose Route Start Last Admin Trade Name Freq PRN Reason Stop Dose Admin Albuterol/Ipratropium 3 ml 11/02/21 07:48 11/02/21 08:22 Ipratropium/Albuterol Vial.Neb NEB 11/02/21 07:49 3 ml ONCE STA Administration Furosemide 40 mg 11/02/21 09:03 Furosemide Inj 40 Mg/4 Ml Vial IVP 11/02/21 09:04 ONCE ONE Methylprednisolone Sodium Succinate 125 mg 11/02/21 07:48 11/02/21 07:53 Methylprednisolone Sod Succ/Pf 125 Mg/2 Ml Vial IVP 11/02/21 07:49 125 mg ONCE STA Administration Vital Signs: Temp Pulse Resp BP Pulse Ox 11/02/21 07:41 99.6 F 86 24 164/70 H 85 L Discharge Plan Discharge Patient Disposition: ADMITTED INPATIENT Discharge Problem: CHF exacerbation, Pneumonitis ED Provider: ASA PONCE Condition: Fair Physician Progress Note: []
[2021-11-02 08:06] LABS: ABG O2 HGB 89.9 % (95-100); ABG PH 7.42 (7.35-7.45); BEecf -2.4 (-2.0-3.0); COHb 2.4 (0.5-1.5); HCO3 22.1 (21-28); MetHb 0.6 (0-1.5); TCO2 23.1 (19-24); sO2 89.3 % (94-98); tHb 10.6 g/dl (11.7-17.4)
[2021-11-02 08:38] LABS: BASOPHILS % (AUTO) 0.2 % (0.0-3.0); EOSINOPHILS % (AUTO) 0.2 % (0.0-7.0); HEMATOCRIT 30.2 % (42.0-52.0); HEMOGLOBIN 10.2 g/dl (14.0-18.0); IMMATURE GRANULOCYTE # (AUTO) 0.1 (0.0-1.0); IMMATURE GRANULOCYTE % (AUTO) 0.8 % (0.0-5.0); LYMPHOCYTES # (AUTO) 3.3 K/uL (0.60-3.4); LYMPHOCYTES % (AUTO) 19.9 (10.0-50.0); MEAN CORPUSCULAR HEMOGLOBIN 28.8 pg (27.0-31.0); MEAN CORPUSCULAR HGB CONC 33.8 (31.8-35.4); MEAN CORPUSCULAR VOLUME 85.3 fl (80.0-94.0); MONOCYTES % (AUTO) 15.7 (0-10); NEUTROPHILS # (AUTO) 10.4 K/ul (2.0-6.9); NEUTROPHILS % (AUTO) 63.2 % (42.2-75.2); PLATELET COUNT 280 10^3/uL (140-440); RDW COEFFICIENT OF VARIATION 14.6 % (11.6-14.8); RED BLOOD COUNT 3.54 10^6/ul (4.70-6.10); WHITE BLOOD COUNT 16.52 K/ul (4.2-10.2)
[2021-11-02 08:50] LABS: ADENOVIRUS (PCR) NOT DETECTED (NOT DETECT); BORDETELLA PARAPERTUSSIS (PCR) NOT DETECTED (NOT DETECT); BORDETELLA PERTUSSIS (PCR) NOT DETECTED (NOT DETECT); CHLAMYDIA PNEUMONIAE (PCR) NOT DETECTED (NOT DETECT); CORONAVIRUS 229E (PCR) NOT DETECTED (NOT DETECT); CORONAVIRUS HKU1 (PCR) NOT DETECTED (NOT DETECT); CORONAVIRUS NL63 (PCR) NOT DETECTED (NOT DETECT); CORONAVIRUS OC43 (PCR) NOT DETECTED (NOT DETECT); HUMAN METAPNEUMOVIRUS (PCR) NOT DETECTED (NOT DETECT); HUMAN RHINOVIRUS/ENTEROV (PCR) NOT DETECTED (NOT DETECT); INFLUENZA B (PCR) NOT DETECTED (NOT DETECT); MYCOPLASMA PNEUMONIAE (PCR) NOT DETECTED (NOT DETECT); PARAINFLUENZA VIRUS 1 (PCR) NOT DETECTED (NOT DETECT); PARAINFLUENZA VIRUS 2 (PCR) NOT DETECTED (NOT DETECT); PARAINFLUENZA VIRUS 3 (PCR) NOT DETECTED (NOT DETECT); PARAINFLUENZA VIRUS 4 (PCR) NOT DETECTED (NOT DETECT); RESPIRATORY SYNCYTIAL V (PCR) NOT DETECTED (NOT DETECT); SARS_COV_2 (PCR) NOT DETECTED (NOT DETECT)
[2021-11-02 08:52] LABS: ALANINE AMINOTRANSFERASE 26.2 U/L (0-50); ALBUMIN 3.93 g/dL (3.5-5.0); ASPARTATE AMINO TRANSFERASE 28.2 U/L (17-59); BILIRUBIN,TOTAL 1.14 mg/dL (0.2-1.3); BLOOD UREA NITROGEN 26.6 mg/dL (9-20); CALCIUM 8.65 mg/dL (8.4-10.2); CARBON DIOXIDE 22.5 mmol/L (22-30.0); CHLORIDE 102.6 mmol/L (98-107); CREATINE KINASE 44.1 U/L (55-170); CREATININE 1.42 mg/dL (0.60-1.10); GLUCOSE 321.4 mg/dL (74-106); POTASSIUM 4.49 mmol/L (3.5-5.1); SODIUM 135.1 mmol/L (134.5-145); TOTAL PROTEIN 6.64 g/dL (6.3-8.2)
--- NOTE | 2021-11-02 08:52 | DI ---
EXAM: Chest one view, frontal view only. HISTORY: Cough, shortness of breath. COMPARISON: 10/04/2021. FINDINGS: Sternotomy wires noted. Heart enlarged. Atherosclerotic calcifications in the aorta. Va scular congestion present. Diffuse interstitial opacities throughout both lungs. Perihilar consolid ation bilaterally. No large pleural effusion or pneumothorax. Small effusions difficult to exclude. Clips in the right neck. No acute osseous abnormality. IMPRESSION: Findings suggestive of pulmonary edema.
[2021-11-02 08:55] LABS: MONOCYTES # (AUTO) 2.6 K/uL (0.4-2.0)
[2021-11-02 09:03] LABS: TROPONIN I 0.412 ng/ml (0.0000-0.120)
[2021-11-02] MEDS ORDERED: LASIX IVP ONE (09:03)
[2021-11-02] MEDS ORDERED: ZOSYN 2.25 GM 2.25 GM in SODIUM CHLORIDE 50 ML IV ONE (09:03)
[2021-11-02] MEDS ORDERED: TYLENOL PO PRN (09:26)
[2021-11-02] MEDS ORDERED: ZOFRAN 4 MG/2 ML IVP PRN (09:26)
[2021-11-02] MEDS ORDERED: SITAGLIPTIN METFORMIN PO SCH (09:45)
[2021-11-02] MEDS ORDERED: NORVASC PO SCH (10:00)
[2021-11-02] MEDS: DUONEB NEB SCH ×4 (10:24→21:15)
[2021-11-02 10:36] VITALS: BMI 33.8
[2021-11-02] MEDS: PROSCAR PO SCH (10:39)
[2021-11-02] MEDS: LANOXIN PO SCH (10:39)
[2021-11-02] MEDS: ASPIRIN CHEWABLE PO SCH (10:40)
[2021-11-02] MEDS: FLOMAX PO SCH ×2 (10:43→17:00)
[2021-11-02] MEDS: JANUVIA PO SCH ×2 (10:52→20:21)
[2021-11-02] MEDS: GLUCOPHAGE PO SCH ×2 (10:53→17:00)
[2021-11-02] MEDS: PLAVIX PO SCH (10:54)
[2021-11-02] MEDS: COZAAR PO SCH ×2 (10:55→20:20)
[2021-11-02] MEDS: NAMENDA PO SCH ×2 (10:55→20:20)
[2021-11-02] MEDS: COREG PO SCH ×2 (10:56→17:01)
[2021-11-02] MEDS: PROTONIX PO SCH (10:56)
[2021-11-02] MEDS: SYMBICORT 80-4.5 MCG INHALER IH SCH ×2 (10:57→20:19)
[2021-11-02] MEDS: LEVEMIR SUBCUT SCH ×2 (10:59→20:22)
[2021-11-02] MEDS: ZOSYN 2.25 GM 2.25 GM in SODIUM CHLORIDE 50 ML IV ONE ×2 (11:10→12:25)
[2021-11-02] MEDS: HUMULIN R SUBCUT PRN ×4 (11:11→21:26)
[2021-11-02] MEDS: NEURONTIN PO SCH ×2 (11:31→20:20)
[2021-11-02] MEDS ORDERED: ZOSYN IV SCH (12:00)
[2021-11-02] MEDS ORDERED: SODIUM CHLORIDE IV SCH (12:00)
[2021-11-02 15:53] LABS: CREATINE KINASE 40.2 U/L (55-170)
[2021-11-02 16:07] LABS: TROPONIN I 0.483 ng/ml (0.0000-0.120)
[2021-11-02] MEDS: ZOSYN 4.5 GM 4.5 GM in SODIUM CHLORIDE 100ML 100 ML IV SCH (16:56)
[2021-11-02] MEDS ORDERED: ZOSYN 3.375 GM 3.375 GM in SODIUM CHLORIDE 50 ML IV SCH (17:00)
[2021-11-02] MEDS: MEVACOR PO SCH (17:01)
[2021-11-02] MEDS: NON-FORMULARY MEDICATION (Melatonin 10 mg Tablet) PO SCH (20:32)
[2021-11-03] MEDS: ZOSYN 4.5 GM 4.5 GM in SODIUM CHLORIDE 100ML 100 ML IV SCH ×5 (00:05→23:38)
[2021-11-03 01:01] LABS: CREATINE KINASE 49.5 U/L (55-170); TROPONIN I 0.364 ng/ml (0.0000-0.120)
[2021-11-03] MEDS: DUONEB NEB SCH ×6 (01:11→21:30)
[2021-11-03] MEDS: PROTONIX PO SCH (05:54)
[2021-11-03 06:01] LABS: BASOPHILS % (AUTO) 0.1 % (0.0-3.0); EOSINOPHILS % (AUTO) 0.1 % (0.0-7.0); HEMATOCRIT 29.4 % (42.0-52.0); HEMOGLOBIN 9.9 g/dl (14.0-18.0); IMMATURE GRANULOCYTE # (AUTO) 0.1 (0.0-1.0); IMMATURE GRANULOCYTE % (AUTO) 0.8 % (0.0-5.0); LYMPHOCYTES # (AUTO) 1.8 K/uL (0.60-3.4); LYMPHOCYTES % (AUTO) 11.2 (10.0-50.0); MEAN CORPUSCULAR HEMOGLOBIN 28.6 pg (27.0-31.0); MEAN CORPUSCULAR HGB CONC 33.7 (31.8-35.4); MONOCYTES # (AUTO) 1.8 K/uL (0.4-2.0); MONOCYTES % (AUTO) 11.1 (0-10); NEUTROPHILS # (AUTO) 12.4 K/ul (2.0-6.9); NEUTROPHILS % (AUTO) 76.7 % (42.2-75.2); PLATELET COUNT 256 10^3/uL (140-440); RDW COEFFICIENT OF VARIATION 14.3 % (11.6-14.8); RED BLOOD COUNT 3.46 10^6/ul (4.70-6.10); WHITE BLOOD COUNT 16.14 K/ul (4.2-10.2)
[2021-11-03 06:16] LABS: ALANINE AMINOTRANSFERASE 23.4 U/L (0-50); ALBUMIN 3.58 g/dL (3.5-5.0); ALKALINE PHOSPHATASE 94.3 U/L (56-119); ASPARTATE AMINO TRANSFERASE 18.5 U/L (17-59); BILIRUBIN,TOTAL 0.7 mg/dL (0.2-1.3); BLOOD UREA NITROGEN 36.1 mg/dL (9-20); CALCIUM 8.36 mg/dL (8.4-10.2); CARBON DIOXIDE 19.5 mmol/L (22-30.0); CHLORIDE 101.8 mmol/L (98-107); CREATININE 1.44 mg/dL (0.60-1.10); GLUCOSE 409.4 mg/dL (74-106); POTASSIUM 4.41 mmol/L (3.5-5.1); SODIUM 131.3 mmol/L (134.5-145); TOTAL PROTEIN 6.2 g/dL (6.3-8.2)
[2021-11-03] MEDS: HUMULIN R SUBCUT PRN ×4 (06:26→20:18)
[2021-11-03] MEDS ORDERED: LASIX IVP SCH (06:30)
[2021-11-03] MEDS ORDERED: DECADRON IVP SCH ×2 (08:30→09:00)
[2021-11-03] MEDS ORDERED: LASIX TAB PO SCH (09:00)
[2021-11-03] MEDS ORDERED: LOVENOX SUBCUT SCH (09:00)
[2021-11-03] MEDS ORDERED: NON-FORMULARY MEDICATION (Fluticasone Furoate-Vilanterol [Breo Ellipta] 100-25 mcg/dose Bl IH SCH (09:00)
--- NOTE | 2021-11-03 09:00 | PCM.PROG ---
Attending Provider: ATTENDING PROVIDER: Dr. ABY SLAUGHTER This patient is seen with Clemencia Miranda, Nurse Practitioner. DATE OF SERVICE: 11/03/21 SUBJECTIVE: This 86 year old /WHITE M was hospitalized 11/02/21. Still short of breath this morning. Down two pounds. On 4 liters and seem to be breathing comfortably. REVIEW OF SYSTEMS: CONSTITUTIONAL: No night sweats. No fatigue, malaise, lethargy. No fever or chills. Weakness. HEENT: Eyes: No visual changes. No eye pain. No eye discharge. ENT: No runny nose. No epistaxis. No sinus pain. No odynophagia. No congestion. RESPIRATORY: No cough, no congestion. No hemoptysis. Shortness of breath. CARDIOVASCULAR: No angina symptoms. No CHF symptoms. No atypical chest pain for CAD. No palpitations. No orthopnea.. GASTROINTESTINAL: No abdominal pain. No nausea or vomiting. No diarrhea or constipation. No hematemesis. No hematochezia. GENITOURINARY: No urgency. No frequency. No dysuria. No hematuria. No obstructive symptoms. No discharge. No pain. No significant abnormal bleeding. MUSCULOSKELETAL: No musculoskeletal pain; no joint swelling. NEUROLOGICAL: Awake, alert, oriented to time, place and person. No headache. No neck pain. No syncope. No seizures. No dizziness. PSYCHIATRIC: Not anxious. No depression. No suicidal thoughts. No homicidal thoughts. SKIN: No rash. No lesions. No wounds. ENDOCRINE: No unexplained weight loss. No weight gain. HEMATOLOGIC/LYMPHATIC: No anemia. No purpura. No petechiae. No prolonged or excessive bleeding. No palpable lymph nodes. PHYSICAL EXAMINATION: GENERAL: The patient is awake, alert and oriented, sitting in bed in no distress. VITAL SIGNS: Temperature 97.9 F, Pulse 77, Respiratory Rate 20, BP 128/65, Pulse Ox 96% HEENT: Head normocephalic, atraumatic. Eyes: Extraocular muscles are intact. Pupils are equal, round and reactive to light and accommodation. Ears: No lesions. Nose appeared normal. Throat: No exudate or erythema. NECK: Supple. No JVD, no carotid bruit. No lymphadenopathy or thyromegaly. LUNGS: Diminished breath sounds. Clear to auscultation. Percussion note normal. Chest symmetrical. HEART: S1, S2, no S3. No murmurs. No cyanosis or clubbing. No ascites. Pulses: Dorsalis pedis and posterior tibial pulses +1 to +2 both sides. ABDOMEN: Soft. Non-tender. Bowel sounds active. No CVA tenderness. No mass felt. EXTREMITIES: Trace bilateral leg edema. Full range of motion of all extremities, equal. NEUROLOGIC: No focal deficit. Cranial nerves II through XII are grossly intact. No headache. No double vision. SKIN: Not dry. Intact. Turgor-normal. LYMPHATIC: No palpable lymph nodes/no lymphedema. MUSCULOSKELETAL: Normal joints with no swelling. Muscle tone is normal. LAB REVIEW: 11/03/21 05:45 11/03/21 05:35 11/03/21 05:45: WBC 16.14 H, RBC 3.46 L, Hgb 9.9 L, Hct 29.4 L, MCV 85.0, MCH 28.6, MCHC 33.7, RDW Coeff of Michele 14.3, Plt Count 256, Immature Gran % (Auto) 0.8, Neut % (Auto) 76.7 H, Lymph % (Auto) 11.2, [place] % (Auto) 11.1 H, Eos % (Auto) 0.1, Baso % (Auto) 0.1, Neut # (Auto) 12.4 H, Lymph # (Auto) 1.8, [place] # (Auto) 1.8, Eos # (Auto) 0.0, Baso # (Auto) 0.0, Immature Gran # (Auto) 0.1 11/03/21 05:35: Sodium 131.3 L, Potassium 4.41, Chloride 101.8, Carbon Dioxide 19.5 L, Anion Gap 14.41, BUN 36.1 H, Creatinine 1.44 H, Estimated GFR (MDRD) 47.00, BUN/Creatinine Ratio 25.06, Glucose 409.4 H D, Calcium 8.36 L, Total Bilirubin 0.70, AST 18.5, ALT 23.4, Alkaline Phosphatase 94.3 D, Total Protein 6.20 L, Albumin 3.58, Globulin 2.62, Albumin/Globulin Ratio 1.36 11/02/21 23:30: Total Creatine Kinase 49.5 L, Troponin I 0.364 H 11/02/21 15:33: Total Creatine Kinase 40.2 L, Troponin I 0.483 H 11/02/21 08:15: NT-Pro-B Natriuret Pep 4660.000 H 11/02/21 08:15: Procalcitonin 0.09 H 11/02/21 08:15: Lactic Acid 1.59 11/02/21 08:15: Sodium 135.1, Potassium 4.49, Chloride 102.6, Carbon Dioxide 22.5, Anion Gap 14.49, BUN 26.6 H, Creatinine 1.42 H, Estimated GFR (MDRD) 47 .00, BUN/Creatinine Ratio 18.73, Glucose 321.4 H, Calcium 8.65, Total Bilirubin 1.14, AST 28.2, ALT 26.2, Alkaline Phosphatase 123.0 H, Total Creatine Kinase 44.1 L, Troponin I 0.412 H, Total Protein 6.64, Albumin 3.93, Globulin 2.71, Albumin/Globulin Ratio 1.45 11/02/21 08:15: WBC 16.52 H, RBC 3.54 L, Hgb 10.2 L, Hct 30.2 L, MCV 85.3, MCH 28.8, MCHC 33.8, RDW Coeff of Michele 14.6, Plt Count 280, Immature Gran % (Auto) 0.8, Neut % (Auto) 63.2, Lymph % (Auto) 19.9, [place] % (Auto) 15.7 H, Eos % (Auto) 0.2, Baso % (Auto) 0.2, Neut # (Auto) 10.4 H, Lymph # (Auto) 3.3, [place] # (Auto) 2.6 H, Eos # (Auto) 0.0, Baso # (Auto) 0.0, Immature Gran # (Auto) 0.1 11/02/21 07:49: Adenovirus (PCR) Not detected, B. pertussis DNA (PCR) Not detected, B.parapertussis DNA PCR Not detected, C. pneumoniae DNA (PCR) Not detected, Coronavirus OC43 (PCR) Not detected, Coronavirus HKU1 (PCR) Not detected, Coronavirus 229E (PCR) Not detected, Coronavirus NL63 (PCR) Not detected, Human Metapneumovir PCR Not detected, Influenza Type A (PCR) Not detected, Influenza B (RT-PCR) Not detected, M. pneumoniae (PCR) Not detected, Parainfluenza 1 (PCR) Not detected, Parainfluenza 2 (PCR) Not detected, Parainfluenza 3 (PCR) Not detected, Parainfluenza 4 (PCR) Not detected, RSV (PCR) Not detected, Entero/Rhino (PCR) Not detected, SARS-CoV-2 (PCR) Not detected ASSESSMENT: Please see below. 1. Acute on chronic respiratory failure 2. End stage COPD 3. CHF 4. Chronic kidney disease stage III 5. Diabetes Mellitus type II 6. Hypertension PLAN: 1. Repeat ABG 2. Digoxin level 3. Discontinue Norvasc 4. 40mg PO Lasix tomorrow 5. Daily weights 6. Decrease Decadrone to 2mg 7. Discontinue Lovenox 8. PT/OT consult 9. U/A Plan and coordination of the patient's care discussed in the presence of Toxics Program Officer and nurse. SCRIBED BY: PATRICIA SAAVEDRA Breakdown Person scribed while in presence of service performed by Dr. Slaughter/Clemencia Miranda APRN on 11/03/21 ([id number])
[2021-11-03] MEDS: LEVEMIR SUBCUT SCH ×2 (09:18→20:11)
[2021-11-03] MEDS: DECADRON IVP SCH (09:18)
[2021-11-03 09:19] LABS: ABG O2 HGB 94.8 % (95-100); ABG PH 7.45 (7.35-7.45); BEecf -2.5 (-2.0-3.0); COHb 2.1 (0.5-1.5); HCO3 21.5 (21-28); MetHb 0.6 (0-1.5); TCO2 22.5 (19-24); sO2 94.6 % (94-98); tHb 9.9 g/dl (11.7-17.4)
[2021-11-03] MEDS: GLUCOPHAGE PO SCH ×2 (09:19→17:47)
[2021-11-03] MEDS: CLARITIN PO SCH (09:19)
[2021-11-03] MEDS: PROSCAR PO SCH (09:19)
[2021-11-03] MEDS: FLOMAX PO SCH ×2 (09:19→17:47)
[2021-11-03] MEDS: LANOXIN PO SCH (09:19)
[2021-11-03] MEDS: ASPIRIN CHEWABLE PO SCH (09:19)
[2021-11-03] MEDS: JANUVIA PO SCH ×2 (09:19→20:10)
[2021-11-03] MEDS: COZAAR PO SCH ×2 (09:19→20:09)
[2021-11-03] MEDS: COREG PO SCH ×2 (09:20→17:47)
[2021-11-03] MEDS: PLAVIX PO SCH (09:20)
[2021-11-03] MEDS: NAMENDA PO SCH ×2 (09:20→20:10)
[2021-11-03] MEDS: NEURONTIN PO SCH ×2 (09:20→20:10)
[2021-11-03] MEDS: PULMICORT 0.5 MG/2 ML NEB SCH ×2 (09:41→18:04)
[2021-11-03] MEDS: FLONASE NAS SCH (09:41)
[2021-11-03 12:36] LABS: BILIRUBIN,URINE Negative (NEGATIVE); CLARITY,URINE Clear (CLEAR); COLOR,URINE Yellow (YELLOW); GLUCOSE, URINE (UA) 2+ (NEGATIVE); KETONES,URINE Negative (NEGATIVE); LEUKOCYTE ESTERASE ,URINE Negative (NEGATIVE); NITRITE,URINE Negative (NEGATIVE); PROTEIN,URINE Negative (NEGATIVE); URINE, BLOOD Negative (NEGATIVE); UROBILINOGEN,URINE 0.2 (0.2)
--- NOTE | 2021-11-03 13:45 | RS.OTINEVL ---
Subjective - Patient information Date of Evaluation: 11/03/21 Date of Arrival on Unit: 11/02/21 Admitted From:: Emergency Dept Diagnosis: weakness, edema, hypoxia, falls PRECAUTIONS: fall risk, monitor O2 sats Usual Living Arrangement: With Spouse Living Arrangement Comments: Pt lives at home with . Home Environment: House, Stairs (few), Rail Medical History: Hypertension, COPD, Diabetes, Arthritis, Cancer (melanoma) Medical History Comments:: GERD, hypothyroid, renal failure LATEX ALLERGY?: No Surgical History: CABG Surgical History Comments:: appendectomy, CABG, partial thyroidectomy Medications: see chart Subjective Information/ Patient Comments:: Pt reports he is having a difficult time with his ADLS: donning and doffing his shoes, pants, grooming, and transfers. - Level of function Prior to this admission, the patient could do the following:: Independent Selfcare, Independent ADL's, Independent Ambulation, Participated in Social Activities Outside home Abilities prior to this admission: Pt was able to walk with RW at home. Pt was receiving BHH therapy. Pt was SBA using a RW. Pt wears oxygen at home. Pt was having an increased need for assistance with ADLS when at home. Current Equipment Used at Home: C-Pap; W/C; Built in benches in shower; Walker; Oxygen; Will have a scooter; Elevated commode seat; BSC Pain Assessment - Pain Pain Score: 0 Interventions - Objective Patient Orientation: Person, Situation Current Interventions: IV's, Oxygen Observation: Pt became SOA with sitting position. Pt was not SOA in supine. Pt stood Min A with RW. Pt has full AROM of BUE. Interventions - ROM Right Upper Extremity AROM: WFL's Left Upper Extremity AROM: WFL's - Strength Right Upper Extremity Strength: Mild Weakness Left Upper Extremity Strength: Mild Weakness - Sensation Right Upper Extremity Sensation: Intact/Normal Left Upper Extremity Sensation: Intact/Normal Balance - Sitting Balance Static Sitting Balance: Fair Dynamic Sitting Balance: Fair - Standing Balance Static Standing Balance: Poor Dynamic Standing Balance: Poor ADL Skills - Self Feeding Self Feeding: Independent - Grooming Grooming: Min Assist - Bathing Bathing UE: CGA Bathing LE: Mod Assist Bathing Set-up: Shower - Dressing Dressing UE: Min Assist Dressing LE: Mod Assist - Toilet Management Toilet Hygiene: Min Assist Toilet Clothing Management: Min Assist Functional Mobility - Transfers Sit to Stand: Min Assist, 1 person assist Stand to Sit: CGA, 1 person assist - Ambulation Weight Bearing Status: FWB Assistive Device Used: Rolling Walker Orthotic/Prosthetic Device: No Assistance needed with Ambulation: Not Tested - Safety Awareness Safety Awareness: Fair ELIN INDEX SCORE: . Additional Treatment Performed - Time with patient Length of Evaluation: 22 Total treatment time: 24 Activities Do you enjoy playing games?: Yes Would you be interested in leaving your room for activities?: Yes Would you enjoy group activities?: Yes Do you have difficulty with your vision?: Yes Patient Interests:: Visiting/Socializing Patient Education Patient Education: Education of diagnosis, Home Exercise Program, Home Safety, Education of Plan of Care Teaching Recipient: Patient, Significant Other Teaching Methods: Discussion, Demonstration Assessment Problem List:: Decreased level of function, Requires training/education, Decreased safety/Risk of falls, Weakness Rehab Potential: Fair Further Therapy Indicated?: Yes Evaluation Complexity: HISTORY: Medium, EXAM OF BODY SYSTEMS: Medium, CLINICAL DECISION MAKING: Medium Patient's Goal(s): Pt wants to increase his functional status of ADLS and transfers and be able to go home. Short Term Goals - Goals GOAL 1: Pt will complete LB dressing with SBA required Goal to be met by: 11/08/21 GOAL 2: Pt will tolerate standing activities for up to 5 minutes with O2 sats 95%+ Goal to be met by: 11/08/21 GOAL 3: Pt will complete all fxl t/f's with SBA required Goal to be met by: 11/08/21 GOAL 4: Pt will complete toileting with SBA required Goal to be met by: 11/08/21 Prison Goals GOAL 1: Pt to increase independence of ADLS to SUP. Goal to be met by: 11/10/21 GOAL 2: Pt to complete functional transfers with SUP. Goal to be met by: 11/10/21 GOAL 3: Pt to increase standing to 10 minutes with 95% O2. Goal to be met by: 11/10/21 Plan Plan of Care: Therapeutic EX, Therapeutic Activity, Self-Care/Home Management Frequency of Treatment: 1-2 X day, as tolerated Duration of Treatment: 1 Week Anticipated Discharge Destination: Home Treatment Diagnosis (ICD 10 Codes): M62.81 Weakness, Z74.1 Need for assistance with personal care. Has the Physician been added for Co-signature?: Yes
[2021-11-03] MEDS: MEVACOR PO SCH (17:46)
[2021-11-03] MEDS: NON-FORMULARY MEDICATION (Melatonin 10 mg Tablet) PO SCH (20:10)
[2021-11-04] MEDS: DUONEB NEB SCH ×5 (01:09→19:53)
[2021-11-04] MEDS: PULMICORT 0.5 MG/2 ML NEB SCH ×2 (04:55→19:53)
[2021-11-04] MEDS: ZOSYN 4.5 GM 4.5 GM in SODIUM CHLORIDE 100ML 100 ML IV SCH ×4 (05:24→23:04)
[2021-11-04] MEDS: PROTONIX PO SCH (05:33)
[2021-11-04] MEDS: LASIX TAB PO SCH (06:11)
[2021-11-04] MEDS: HUMULIN R SUBCUT PRN ×4 (06:11→20:57)
[2021-11-04 06:33] LABS: BASOPHILS % (AUTO) 0.1 % (0.0-3.0); EOSINOPHILS % (AUTO) 0.2 % (0.0-7.0); HEMATOCRIT 28.6 % (42.0-52.0); HEMOGLOBIN 9.5 g/dl (14.0-18.0); IMMATURE GRANULOCYTE # (AUTO) 0.1 (0.0-1.0); IMMATURE GRANULOCYTE % (AUTO) 0.8 % (0.0-5.0); LYMPHOCYTES # (AUTO) 2.3 K/uL (0.60-3.4); MEAN CORPUSCULAR HEMOGLOBIN 28.2 pg (27.0-31.0); MEAN CORPUSCULAR HGB CONC 33.2 (31.8-35.4); MEAN CORPUSCULAR VOLUME 84.9 fl (80.0-94.0); MONOCYTES # (AUTO) 1.5 K/uL (0.4-2.0); MONOCYTES % (AUTO) 9.4 (0-10); NEUTROPHILS # (AUTO) 12.3 K/ul (2.0-6.9); NEUTROPHILS % (AUTO) 75.5 % (42.2-75.2); PLATELET COUNT 288 10^3/uL (140-440); RDW COEFFICIENT OF VARIATION 14.4 % (11.6-14.8); RED BLOOD COUNT 3.37 10^6/ul (4.70-6.10); WHITE BLOOD COUNT 16.28 K/ul (4.2-10.2)
[2021-11-04 06:46] LABS: ALANINE AMINOTRANSFERASE 20.6 U/L (0-50); ALBUMIN 3.43 g/dL (3.5-5.0); ALKALINE PHOSPHATASE 72.7 U/L (56-119); ASPARTATE AMINO TRANSFERASE 19.1 U/L (17-59); BILIRUBIN,TOTAL 0.47 mg/dL (0.2-1.3); BLOOD UREA NITROGEN 41.4 mg/dL (9-20); CALCIUM 8.32 mg/dL (8.4-10.2); CARBON DIOXIDE 20.5 mmol/L (22-30.0); CREATININE 1.43 mg/dL (0.60-1.10); GLUCOSE 329.9 mg/dL (74-106); POTASSIUM 4.15 mmol/L (3.5-5.1); SODIUM 133.3 mmol/L (134.5-145); TOTAL PROTEIN 6.07 g/dL (6.3-8.2)
[2021-11-04] MEDS: DECADRON IVP SCH (09:21)
[2021-11-04] MEDS: ASPIRIN CHEWABLE PO SCH (09:22)
[2021-11-04] MEDS: CLARITIN PO SCH (09:22)
[2021-11-04] MEDS: LEVEMIR SUBCUT SCH ×2 (09:22→20:58)
[2021-11-04] MEDS: PLAVIX PO SCH (09:23)
[2021-11-04] MEDS: NAMENDA PO SCH ×2 (09:23→21:04)
[2021-11-04] MEDS: LANOXIN PO SCH (09:23)
[2021-11-04] MEDS: FLOMAX PO SCH ×2 (09:23→17:31)
[2021-11-04] MEDS: PROSCAR PO SCH (09:23)
[2021-11-04] MEDS: COZAAR PO SCH ×2 (09:23→21:05)
[2021-11-04] MEDS: NEURONTIN PO SCH ×2 (09:23→21:05)
[2021-11-04] MEDS: GLUCOPHAGE PO SCH ×2 (09:24→16:42)
[2021-11-04] MEDS: JANUVIA PO SCH ×2 (09:24→21:04)
[2021-11-04] MEDS: COREG PO SCH ×2 (09:24→16:42)
[2021-11-04] MEDS: FLONASE NAS SCH (09:24)
--- NOTE | 2021-11-04 09:35 | PCM.PROG ---
Attending Provider: ATTENDING PROVIDER: Dr. ABY SLAUGHTER DATE OF SERVICE: 11/04/21 SUBJECTIVE: This 86 year old /WHITE M was hospitalized 11/02/21 with CHF exacerbation with possible bronchitis. The patient's condition has improved. REVIEW OF SYSTEMS: CONSTITUTIONAL: No night sweats. No fatigue, malaise, lethargy. No fever or chills. Feeling better. HEENT: Eyes: No visual changes. No eye pain. No eye discharge. ENT: No runny nose. No epistaxis. No sinus pain. No odynophagia. No congestion. RESPIRATORY: No cough, no congestion. No hemoptysis. No shortness of breath. CARDIOVASCULAR: No angina symptoms. No CHF symptoms. No atypical chest pain for CAD. No palpitations. No orthopnea.. GASTROINTESTINAL: No abdominal pain. No nausea or vomiting. No diarrhea or const ipation. No hematemesis. No hematochezia. Appetite has improved. GENITOURINARY: No urgency. No frequency. No dysuria. No hematuria. No obstructive symptoms. No discharge. No pain. No significant abnormal bleeding. MUSCULOSKELETAL: No musculoskeletal pain; no joint swelling. NEUROLOGICAL: Awake, alert, oriented to time, place and person. No headache. No neck pain. No syncope. No seizures. No dizziness. PSYCHIATRIC: Not anxious. No depression. No suicidal thoughts. No homicidal thoughts. SKIN: No rash. No lesions. No wounds. ENDOCRINE: No unexplained weight loss. No weight gain. HEMATOLOGIC/LYMPHATIC: No anemia. No purpura. No petechiae. No prolonged or excessive bleeding. No palpable lymph nodes. PHYSICAL EXAMINATION: GENERAL: The patient is awake, alert and oriented, sitting in bed in no distress. VITAL SIGNS: Temperature 97.9 F, Pulse 69, Respiratory Rate 18, BP 147/44, Pulse Ox 96% HEENT: Head normocephalic, atraumatic. Eyes: Extraocular muscles are intact. Pupils are equal, round and reactive to light and accommodation. Ears: No lesions. Nose appeared normal. Throat: No exudate or erythema. NECK: Supple. No JVD, no carotid bruit. No lymphadenopathy or thyromegaly. LUNGS: Dry crepitations at base. Good air entry. Clear to auscultation. Percussion note normal. Chest symmetrical. HEART: S1, S2, no S3. No murmurs. No cyanosis or clubbing. No ascites. Pulses: Dorsalis pedis and posterior tibial pulses +1 to +2 both sides. ABDOMEN: Soft. Non-tender. Bowel sounds active. No CVA tenderness. No mass felt. EXTREMITIES: No edema. Full range of motion of all extremities, equal. NEUROLOGIC: No focal deficit. Cranial nerves II through XII are grossly intact. No headache, no double vision or headache. SKIN: Warm and dry. Intact. Turgor-normal. LYMPHATIC: No palpable lymph nodes/no lymphedema. MUSCULOSKELETAL: Normal joints with no swelling. Muscle tone is normal. LAB REVIEW: 11/04/21 06:05 11/04/21 06:05 11/04/21 06:05: Sodium 133.3 L, Potassium 4.15, Chloride 102.0, Carbon Dioxide 20.5 L, Anion Gap 14.95, BUN 41.4 H, Creatinine 1.43 H, Estimated GFR (MDRD) 47.00, BUN/Creatinine Ratio 28.95, Glucose 329.9 H, Calcium 8.32 L, Total Bilirubin 0.47, AST 19.1, ALT 20.6, Alkaline Phosphatase 72.7, Total Protein 6.07 L, Albumin 3.43 L, Globulin 2.64, Albumin/Globulin Ratio 1.29 11/04/21 06:05: WBC 16.28 H, RBC 3.37 L, Hgb 9.5 L, Hct 28.6 L, MCV 84.9, MCH 28.2, MCHC 33.2, RDW Coeff of Michele 14.4, Plt Count 288, Immature Gran % (Auto) 0.8, Neut % (Auto) 75.5 H, Lymph % (Auto) 14.0, [place] % (Auto) 9.4, Eos % (Auto) 0.2, Baso % (Auto) 0.1, Neut # (Auto) 12.3 H, Lymph # (Auto) 2.3, [place] # (Auto) 1.5, Eos # (Auto) 0.0, Baso # (Auto) 0.0, Immature Gran # (Auto) 0.1 11/03/21 12:16: Urine Color Yellow, Urine Clarity Clear, Urine pH 5.0, Ur Specific Odell 1.015, Urine Protein Negative, Urine Glucose (UA) 2+ H, Urine Ketones Negative, Urine Blood Negative, Urine Nitrite Negative, Urine Bilirubin Negative, Urine Urobilinogen 0.2, Ur Leukocyte Esterase Negative 11/03/21 09:10: Puncture Site Rr, Base Excess -2.5 L, O2 Saturation 94.6, ABG pH 7.45, ABG pCO2 31.0 L, ABG pO2 70.0 L, ABG HCO3 21.5, ABG Total CO2 22.5, Kelechi Test Pos, Hemoglobin 0.6, Oxyhemoglobin 94.8 L, Carboxyhemoglobin 2.1 H, Total Hemoglobin 9.9 L, O2 Delivery Device Cannula, Oxygen Liter Flow 4.00 11/03/21 05:45: Digoxin 0.68 L ASSESSMENT: Please see below. 1. CHF resolving PLAN: 1. Education about diet. 2. The patient needs physical therapy. He is not able to stand on his own 3. Blood gasses has showed improvement. OTHERWISE CONDITION: STABLE Plan and coordination of the patient's care discussed in the presence of Buttermilk Drier Operator and nurse. SCRIBED BY: PATRICIA SAAVEDRA Internal Control Specialist scribed while in presence of service performed by Dr. ABY SLAUGHTER on 11/04/21 ([id number])
--- NOTE | 2021-11-04 11:53 | RS.PTINEVL ---
Subjective - Patient information Date of Evaluation: 11/04/21 Date of Arrival on Unit: 11/02/21 Admitted From:: Home Diagnosis: CHF exacerbation Usual Living Arrangement: With Spouse Home Environment: House, Stairs (few), Rail Medical History: Hypertension, COPD, Diabetes, CHF, Arthritis, Cancer (melanoma) Medical History Comments:: CAD, GERD, hyperthyroidism, Surgical History: Cholecystectomy, CABG Surgical History Comments:: appey, thyroidectomy Medications: see chart Subjective Information/ Patient Comments:: pt states that he was having PT, OT and speech with home health prior to admission. pt states he gets SOA when he amb. - Level of function Prior to this admission, the patient could do the following:: Independent Selfcare, Independent ADL's, Independent Ambulation, Participated in Social Activities Outside home Current Level of Function: Partially Dependent Current Equipment Used at Home: C-Pap; W/C; Built in benches in shower; Walker; Oxygen; Will have a scooter; Elevated commode seat; BSC Interventions - Objective Patient Orientation: Person, Place, Time, Situation Current Interventions: Oxygen (4 liters), Telemetry Observation: pt with pitting edema BLE Range of Motion - ROM Right Upper Extremity AROM: WFL's Left Upper Extremity AROM: WFL's Right Lower Extremity AROM: WFL's Left Lower Extremity AROM: WFL's Muscle Strength - Muscle Strength Right Upper Extremity Strength: Mild Weakness (grossly 4/5) Left Upper Extremity Strength: Mild Weakness (grossly 4/5) Right Lower Extremity Strength: Mild Weakness (hip flex 4-/5, knee flex/ext 4/5, ankle DF/PF 4/5) Left Lower Extremity Strength: Mild Weakness (hip flex 4-/5, knee flex/ext 4/5, ankle DF/PF 4/5) Sensation - Sensation Right Upper Extremity Sensation: Intact/Normal Left Upper Extremity Sensation: Intact/Normal Right Lower Extremity Sensation: Intact/Normal Left Lower Extremity Sensation: Intact/Normal Palpation Palpation Findings: None/Normal Balance - Sitting Balance and Reactions Static Sitting Balance: Good (good-) Dynamic Sitting Balance: Fair (fair+) - Standing Balance and Reactions Static Standing Balance: Poor Dynamic Standing Balance: Poor Functional Mobility - Bed Mobility Comments:: pt sitting up in chair. - Transfers Sit to Stand: CGA, Min Assist Stand to Sit: CGA - Safety Awareness Safety Awareness: Fair ELIN INDEX SCORE: n/a Ambulation - Ambulation Assistive Device Used: Rolling Walker Orthotic/Prosthetic Device: No Assistance needed with Ambulation: CGA Gait Deviations: Forward posture, Short stride Ambulation Comments: pt amb with 4 liters O2 with decreased step height. Factors Affecting Ambulation: Decreased Balance, Breathing/O2 Saturation, Weakness, Decreased Safety, Limited Endurance Treatment time - Time with patient Length of Evaluation: 21 Total treatment time: 26 Patient Education - Education Patient Education: Activity Modification, Education of Plan of Care Teaching Recipient: Patient Teaching Methods: Discussion, Demonstration Comments: discussion regarding POC and safety with amb. Assessment - Assessment Problem List:: Decreased level of function, Requires training/education, Decreased safety/Risk of falls, Weakness Rehab Potential: Good Further Therapy Indicated?: Yes Candidate for Swing Bed for Therapy Services?: pt progress limited due to SOA. Evaluation Complexity: HISTORY: Medium, EXAM OF BODY SYSTEMS: Medium, CLINICAL PRESENTATION: Medium, CLINICAL DECISION MAKING: Medium Patient's Goal(s): to get stronger and go home. Short Term Goals GOAL #1: pt independent with rolling and scooting in bed. Goal to be met by: 11/07/21 GOAL #2: pt transferred sup to/from sit CGA Goal to be met by: 11/07/21 GOAL #3: sit to/from stand SBA Goal to be met by: 11/07/21 GOAL #4: pt amb with rolling walker 120ft with CGA with O2 no LOB Goal to be met by: 11/07/21 GOAL #5: Improve dyn stand balance fair Goal to be met by: 11/07/21 Hot Worker Goals GOAL #1: pt transfer sup to/from sit to/from stand SBA to independent Goal to be met by: 11/09/21 GOAL #2: pt amb with rwx functional household distances SBA Goal to be met by: 11/09/21 GOAL #3: Improve LE strength 4 to 4+/5 Goal to be met by: 11/09/21 Plan Plan of Care: Therapeutic EX, Therapeutic Activity Other:: gait training Frequency of Treatment: 1-2 X day, as tolerated Duration of Treatment: 5-6 days Anticipated Discharge Destination: Home Treatment Diagnosis (ICD 10 Codes): Difficulty walking R 26.2. Impaired balance R 26.81. weakness M 62.81 Has the Physician been added for Co-signature?: Yes
[2021-11-04] MEDS: MEVACOR PO SCH (16:42)
[2021-11-04] MEDS: NON-FORMULARY MEDICATION (Melatonin 10 mg Tablet) PO SCH (21:04)
[2021-11-05] MEDS: ZOSYN 4.5 GM 4.5 GM in SODIUM CHLORIDE 100ML 100 ML IV SCH ×2 (05:41→12:11)
[2021-11-05] MEDS: PULMICORT 0.5 MG/2 ML NEB SCH ×2 (05:45→19:50)
[2021-11-05] MEDS: DUONEB NEB SCH ×4 (05:45→19:50)
[2021-11-05] MEDS: PROTONIX PO SCH (06:12)
[2021-11-05] MEDS: LASIX TAB PO SCH (06:12)
[2021-11-05] MEDS: HUMULIN R SUBCUT PRN ×4 (06:32→20:22)
[2021-11-05 07:08] LABS: BASOPHILS % (AUTO) 0.1 % (0.0-3.0); EOSINOPHILS # (AUTO) 0.1 K/ul (0.0-0.7); EOSINOPHILS % (AUTO) 0.5 % (0.0-7.0); HEMATOCRIT 29.1 % (42.0-52.0); HEMOGLOBIN 9.8 g/dl (14.0-18.0); IMMATURE GRANULOCYTE # (AUTO) 0.1 (0.0-1.0); IMMATURE GRANULOCYTE % (AUTO) 0.8 % (0.0-5.0); LYMPHOCYTES # (AUTO) 2.5 K/uL (0.60-3.4); LYMPHOCYTES % (AUTO) 17.5 (10.0-50.0); MEAN CORPUSCULAR HEMOGLOBIN 28.4 pg (27.0-31.0); MEAN CORPUSCULAR HGB CONC 33.7 (31.8-35.4); MEAN CORPUSCULAR VOLUME 84.3 fl (80.0-94.0); MONOCYTES # (AUTO) 1.7 K/uL (0.4-2.0); MONOCYTES % (AUTO) 11.6 (0-10); NEUTROPHILS % (AUTO) 69.5 % (42.2-75.2); PLATELET COUNT 282 10^3/uL (140-440); RDW COEFFICIENT OF VARIATION 14.7 % (11.6-14.8); RED BLOOD COUNT 3.45 10^6/ul (4.70-6.10); WHITE BLOOD COUNT 14.32 K/ul (4.2-10.2)
[2021-11-05 07:55] LABS: ALANINE AMINOTRANSFERASE 20.5 U/L (0-50); ALBUMIN 3.28 g/dL (3.5-5.0); ALKALINE PHOSPHATASE 79.6 U/L (56-119); ASPARTATE AMINO TRANSFERASE 17.2 U/L (17-59); BILIRUBIN,TOTAL 0.56 mg/dL (0.2-1.3); BLOOD UREA NITROGEN 34.6 mg/dL (9-20); CALCIUM 8.7 mg/dL (8.4-10.2); CARBON DIOXIDE 24.4 mmol/L (22-30.0); CHLORIDE 102.5 mmol/L (98-107); CREATININE 1.19 mg/dL (0.60-1.10); GLUCOSE 255.6 mg/dL (74-106); POTASSIUM 4.6 mmol/L (3.5-5.1); SODIUM 135.4 mmol/L (134.5-145); TOTAL PROTEIN 5.6 g/dL (6.3-8.2)
[2021-11-05] MEDS: LEVEMIR SUBCUT SCH ×2 (08:51→20:22)
[2021-11-05] MEDS: DECADRON IVP SCH (08:51)
[2021-11-05] MEDS: ASPIRIN CHEWABLE PO SCH (08:51)
[2021-11-05] MEDS: PLAVIX PO SCH (08:52)
[2021-11-05] MEDS: COREG PO SCH ×2 (08:52→17:07)
[2021-11-05] MEDS: NEURONTIN PO SCH ×2 (08:52→20:22)
[2021-11-05] MEDS: PROSCAR PO SCH (08:52)
[2021-11-05] MEDS: LANOXIN PO SCH (08:52)
[2021-11-05] MEDS: NAMENDA PO SCH ×2 (08:52→20:22)
[2021-11-05] MEDS: COZAAR PO SCH ×2 (08:52→20:21)
[2021-11-05] MEDS: FLOMAX PO SCH ×2 (08:52→17:07)
[2021-11-05] MEDS: CLARITIN PO SCH (08:52)
[2021-11-05] MEDS: JANUVIA PO SCH ×2 (08:52→20:21)
[2021-11-05] MEDS: GLUCOPHAGE PO SCH ×2 (08:52→17:07)
[2021-11-05] MEDS: FLONASE NAS SCH (08:53)
[2021-11-05] MEDS ORDERED: LASIX IVP ONE (13:08)
[2021-11-05] MEDS ORDERED: DECADRON IVP ONE (13:09)
[2021-11-05] MEDS: MORPHINE 2 MG/ML VIAL IVP PRN (13:31)
[2021-11-05] MEDS: MEVACOR PO SCH (17:07)
[2021-11-05] MEDS: NON-FORMULARY MEDICATION (Melatonin 10 mg Tablet) PO SCH (20:27)
[2021-11-06 04:22] LABS: BASOPHILS % (AUTO) 0.2 % (0.0-3.0); HEMATOCRIT 28.1 % (42.0-52.0); HEMOGLOBIN 9.3 g/dl (14.0-18.0); IMMATURE GRANULOCYTE # (AUTO) 0.2 (0.0-1.0); IMMATURE GRANULOCYTE % (AUTO) 1.6 % (0.0-5.0); LYMPHOCYTES # (AUTO) 1.8 K/uL (0.60-3.4); LYMPHOCYTES % (AUTO) 15.1 (10.0-50.0); MEAN CORPUSCULAR HEMOGLOBIN 28.2 pg (27.0-31.0); MEAN CORPUSCULAR HGB CONC 33.1 (31.8-35.4); MEAN CORPUSCULAR VOLUME 85.2 fl (80.0-94.0); MONOCYTES # (AUTO) 1.3 K/uL (0.4-2.0); MONOCYTES % (AUTO) 11.2 (0-10); NEUTROPHILS # (AUTO) 8.6 K/ul (2.0-6.9); NEUTROPHILS % (AUTO) 71.9 % (42.2-75.2); PLATELET COUNT 277 10^3/uL (140-440); RDW COEFFICIENT OF VARIATION 14.7 % (11.6-14.8); WHITE BLOOD COUNT 11.92 K/ul (4.2-10.2)
[2021-11-06 04:36] LABS: ALANINE AMINOTRANSFERASE 21.9 U/L (0-50); ALBUMIN 3.35 g/dL (3.5-5.0); ALKALINE PHOSPHATASE 71.2 U/L (56-119); ASPARTATE AMINO TRANSFERASE 21.1 U/L (17-59); BILIRUBIN,TOTAL 0.46 mg/dL (0.2-1.3); BLOOD UREA NITROGEN 33.7 mg/dL (9-20); CALCIUM 7.49 mg/dL (8.4-10.2); CARBON DIOXIDE 19.7 mmol/L (22-30.0); CHLORIDE 101.3 mmol/L (98-107); CREATININE 1.06 mg/dL (0.60-1.10); POTASSIUM 4.52 mmol/L (3.5-5.1); SODIUM 134.3 mmol/L (134.5-145); TOTAL PROTEIN 5.93 g/dL (6.3-8.2)
[2021-11-06] MEDS: PULMICORT 0.5 MG/2 ML NEB SCH ×2 (05:00→17:02)
[2021-11-06] MEDS: DUONEB NEB SCH ×3 (05:00→17:02)
[2021-11-06] MEDS: HUMULIN R SUBCUT PRN ×4 (06:01→20:52)
[2021-11-06] MEDS: PROTONIX PO SCH (06:01)
[2021-11-06] MEDS: LASIX TAB PO SCH (06:01)
[2021-11-06] MEDS: FLONASE NAS SCH (08:40)
[2021-11-06] MEDS: ASPIRIN CHEWABLE PO SCH (08:41)
[2021-11-06] MEDS: CLARITIN PO SCH (08:41)
[2021-11-06] MEDS: LEVEMIR SUBCUT SCH ×2 (08:41→20:48)
[2021-11-06] MEDS: PROSCAR PO SCH (08:41)
[2021-11-06] MEDS: DECADRON IVP SCH (08:41)
[2021-11-06] MEDS: JANUVIA PO SCH ×2 (08:42→20:47)
[2021-11-06] MEDS: OMNICEF PO SCH ×2 (08:42→20:48)
[2021-11-06] MEDS: GLUCOPHAGE PO SCH ×2 (08:42→17:29)
[2021-11-06] MEDS: LANOXIN PO SCH (08:42)
[2021-11-06] MEDS: PLAVIX PO SCH (08:42)
[2021-11-06] MEDS: COZAAR PO SCH ×2 (08:42→20:47)
[2021-11-06] MEDS: NAMENDA PO SCH ×2 (08:42→20:47)
[2021-11-06] MEDS: NEURONTIN PO SCH ×2 (08:42→20:47)
[2021-11-06] MEDS: FLOMAX PO SCH ×2 (08:42→17:29)
[2021-11-06] MEDS: COREG PO SCH ×2 (08:42→17:29)
[2021-11-06] MEDS: MEVACOR PO SCH (17:29)
[2021-11-06] MEDS: NON-FORMULARY MEDICATION (Melatonin 10 mg Tablet) PO SCH (20:47)
[2021-11-07] MEDS: PULMICORT 0.5 MG/2 ML NEB SCH ×2 (04:45→17:55)
[2021-11-07] MEDS: DUONEB NEB SCH ×2 (04:45→17:50)
[2021-11-07 05:31] LABS: BASOPHILS % (AUTO) 0.2 % (0.0-3.0); EOSINOPHILS # (AUTO) 0.1 K/ul (0.0-0.7); EOSINOPHILS % (AUTO) 0.4 % (0.0-7.0); HEMOGLOBIN 10.2 g/dl (14.0-18.0); IMMATURE GRANULOCYTE # (AUTO) 0.2 (0.0-1.0); IMMATURE GRANULOCYTE % (AUTO) 0.9 % (0.0-5.0); LYMPHOCYTES # (AUTO) 3.1 K/uL (0.60-3.4); LYMPHOCYTES % (AUTO) 18.5 (10.0-50.0); MEAN CORPUSCULAR HEMOGLOBIN 28.3 pg (27.0-31.0); MEAN CORPUSCULAR HGB CONC 32.9 (31.8-35.4); MEAN CORPUSCULAR VOLUME 85.9 fl (80.0-94.0); MONOCYTES # (AUTO) 2.2 K/uL (0.4-2.0); MONOCYTES % (AUTO) 13.4 (0-10); NEUTROPHILS % (AUTO) 66.6 % (42.2-75.2); PLATELET COUNT 312 10^3/uL (140-440); RDW COEFFICIENT OF VARIATION 14.9 % (11.6-14.8); RED BLOOD COUNT 3.61 10^6/ul (4.70-6.10); WHITE BLOOD COUNT 16.45 K/ul (4.2-10.2)
[2021-11-07] MEDS: LASIX TAB PO SCH (05:36)
[2021-11-07] MEDS: PROTONIX PO SCH (05:36)
[2021-11-07 05:45] LABS: ALANINE AMINOTRANSFERASE 22.3 U/L (0-50); ALBUMIN 3.65 g/dL (3.5-5.0); ALKALINE PHOSPHATASE 80.2 U/L (56-119); ASPARTATE AMINO TRANSFERASE 30.9 U/L (17-59); BILIRUBIN,TOTAL 0.66 mg/dL (0.2-1.3); BLOOD UREA NITROGEN 33.9 mg/dL (9-20); CALCIUM 8.76 mg/dL (8.4-10.2); CARBON DIOXIDE 29.9 mmol/L (22-30.0); CHLORIDE 104.1 mmol/L (98-107); CREATININE 1.24 mg/dL (0.60-1.10); GLUCOSE 112.6 mg/dL (74-106); POTASSIUM 4.03 mmol/L (3.5-5.1); SODIUM 137.9 mmol/L (134.5-145); TOTAL PROTEIN 6.41 g/dL (6.3-8.2)
[2021-11-07] MEDS ORDERED: LASIX IVP ONE (08:38)
[2021-11-07] MEDS: FLONASE NAS SCH (09:23)
[2021-11-07] MEDS: CLARITIN PO SCH (09:24)
[2021-11-07] MEDS: LANOXIN PO SCH (09:24)
[2021-11-07] MEDS: COREG PO SCH ×2 (09:24→17:40)
[2021-11-07] MEDS: NAMENDA PO SCH ×2 (09:24→20:40)
[2021-11-07] MEDS: PLAVIX PO SCH (09:24)
[2021-11-07] MEDS: ASPIRIN CHEWABLE PO SCH (09:24)
[2021-11-07] MEDS: FLOMAX PO SCH ×2 (09:25→17:39)
[2021-11-07] MEDS: NEURONTIN PO SCH ×2 (09:25→20:39)
[2021-11-07] MEDS: OMNICEF PO SCH ×2 (09:25→20:40)
[2021-11-07] MEDS: GLUCOPHAGE PO SCH ×2 (09:25→17:39)
[2021-11-07] MEDS: COZAAR PO SCH ×2 (09:25→20:39)
[2021-11-07] MEDS: JANUVIA PO SCH ×2 (09:25→20:39)
[2021-11-07] MEDS: PROSCAR PO SCH (09:25)
[2021-11-07] MEDS: LEVEMIR SUBCUT SCH ×2 (09:26→20:38)
[2021-11-07] MEDS: DECADRON IVP SCH (09:51)
--- NOTE | 2021-11-07 09:53 | PCM.PROG ---
Attending Provider: ATTENDING PROVIDER: Dr. ABY SLAUGHTER This patient is seen with Clemencia Miranda, Nurse Practitioner. DATE OF SERVICE: 11/07/21 SUBJECTIVE: This 86 year old /WHITE M was hospitalized 11/02/21. Significant leg edema this morning. Has been eating well. Labs are stable. Will add Lasix. REVIEW OF SYSTEMS: CONSTITUTIONAL: No night sweats. No fatigue, malaise, lethargy. No fever or chills. Weakness. HEENT: Eyes: No visual changes. No eye pain. No eye discharge. ENT: No runny nose. No epistaxis. No sinus pain. No odynophagia. No congestion. RESPIRATORY: No cough, no congestion. No hemoptysis. Shortness of breath. CARDIOVASCULAR: No angina symptoms. No CHF symptoms. No atypical chest pain for CAD. No palpitations. No orthopnea.. GASTROINTESTINAL: No abdominal pain. No nausea or vomiting. No diarrhea or constipation. No hematemesis. No hematochezia. GENITOURINARY: No urgency. No frequency. No dysuria. No hematuria. No obstructive symptoms. No discharge. No pain. No significant abnormal bleeding. MUSCULOSKELETAL: No musculoskeletal pain; no joint swelling. NEUROLOGICAL: Awake, alert, oriented to time, place and person. No headache. No neck pain. No syncope. No seizures. No dizziness. PSYCHIATRIC: Not anxious. No depression. No suicidal thoughts. No homicidal thoughts. SKIN: No rash. No lesions. No wounds. Leg edema. ENDOCRINE: No unexplained weight loss. No weight gain. HEMATOLOGIC/LYMPHATIC: No anemia. No purpura. No petechiae. No prolonged or excessive bleeding. No palpable lymph nodes. PHYSICAL EXAMINATION: GENERAL: The patient is awake, alert and oriented, sitting in bed in no distress. VITAL SIGNS: Temperature 97.8 F, Pulse 77, Respiratory Rate 18, BP 152/67, Pulse Ox 95% HEENT: Head normocephalic, atraumatic. Eyes: Extraocular muscles are intact. Pupils are equal, round and reactive to light and accommodation. Ears: No lesions. Nose appeared normal. Throat: No exudate or erythema. NECK: Supple. No JVD, no carotid bruit. No lymphadenopathy or thyromegaly. LUNGS: Diminished breath sounds. Clear to auscultation. Percussion note normal. Chest symmetrical. HEART: S1, S2, no S3. No murmurs. No cyanosis or clubbing. No ascites. Pulses: Dorsalis pedis and posterior tibial pulses +1 to +2 both sides. ABDOMEN: Soft. Non-tender. Bowel sounds active. No CVA tenderness. No mass felt. EXTREMITIES: 2+ bilateral edema. Full range of motion of all extremities, equal. NEUROLOGIC: No focal deficit. Cranial nerves II through XII are grossly intact. No headache. No double vision. SKIN: Not dry. Intact. Turgor-normal. LYMPHATIC: No palpable lymph nodes/no lymphedema. MUSCULOSKELETAL: Normal joints with no swelling. Muscle tone is normal. LAB REVIEW: 11/07/21 05:25 11/07/21 05:25 11/07/21 05:25: Sodium 137.9, Potassium 4.03, Chloride 104.1, Carbon Dioxide 29.9 D, Anion Gap 7.93, BUN 33.9 H, Creatinine 1.24 H, Estimated GFR (MDRD) 55.00, BUN/Creatinine Ratio 27.33, Glucose 112.6 H, Calcium 8.76, Total Bilirubin 0.66, AST 30.9, ALT 22.3, Alkaline Phosphatase 80.2, Total Protein 6.41, Albumin 3.65, Globulin 2.76, Albumin/Globulin Ratio 1.32 11/07/21 05:25: WBC 16.45 H, RBC 3.61 L, Hgb 10.2 L, Hct 31.0 L, MCV 85.9, MCH 28.3, MCHC 32.9, RDW Coeff of Michele 14.9 H, Plt Count 312, Immature Gran % (Auto) 0.9, Neut % (Auto) 66.6, Lymph % (Auto) 18.5, Brewster % (Auto) 13.4 H, Eos % (Auto) 0.4, Baso % (Auto) 0.2, Neut # (Auto) 11.0 H, Lymph # (Auto) 3.1, [place]ster # (Auto) 2.2 H, Eos # (Auto) 0.1, Baso # (Auto) 0.0, Immature Gran # (Auto) 0.2 ASSESSMENT: Please see below. 1. Acute respiratory failure 2. CHF 3. Acute COPD exacerbation 4. Hypertension 5. Chronic kidney disease. PLAN: 1. Additional Lasix 20mg IV today 2. Start 40mg PO daily tomorrow. Plan and coordination of the patient's care discussed in the presence of Band Saw Runner and nurse. SCRIBED BY: Lisa SANCHEZ scribed while in presence of service performed by Dr. Slaughter/Clemencia Miranda APRN on 11/07/21 ([id number])
[2021-11-07] MEDS ORDERED: LASIX IVP STA (11:36)
[2021-11-07] MEDS: MEVACOR PO SCH (17:39)
[2021-11-07] MEDS: HUMULIN R SUBCUT PRN ×2 (17:40→20:38)
[2021-11-07] MEDS: NON-FORMULARY MEDICATION (Melatonin 10 mg Tablet) PO SCH (20:39)
[2021-11-08] MEDS: DUONEB NEB SCH ×3 (04:55→19:33)
[2021-11-08] MEDS: PULMICORT 0.5 MG/2 ML NEB SCH ×2 (04:55→19:33)
[2021-11-08] MEDS: PROTONIX PO SCH (05:36)
[2021-11-08] MEDS: LASIX TAB PO SCH (05:36)
[2021-11-08 05:44] LABS: HEMATOCRIT 28.8 % (42.0-52.0); HEMOGLOBIN 9.3 g/dl (14.0-18.0); MEAN CORPUSCULAR HEMOGLOBIN 27.8 pg (27.0-31.0); MEAN CORPUSCULAR HGB CONC 32.3 (31.8-35.4); PLATELET COUNT 301 10^3/uL (140-440); RDW COEFFICIENT OF VARIATION 14.8 % (11.6-14.8); RED BLOOD COUNT 3.35 10^6/ul (4.70-6.10); WHITE BLOOD COUNT 16.19 K/ul (4.2-10.2)
[2021-11-08 05:51] LABS: ANISOCYTOSIS NOT PRESENT (NOT PRESENT)
[2021-11-08 05:55] LABS: ALANINE AMINOTRANSFERASE 37.5 U/L (0-50); ALBUMIN 3.44 g/dL (3.5-5.0); ASPARTATE AMINO TRANSFERASE 29.6 U/L (17-59); BILIRUBIN,TOTAL 0.8 mg/dL (0.2-1.3); BLOOD UREA NITROGEN 35.2 mg/dL (9-20); CALCIUM 8.73 mg/dL (8.4-10.2); CARBON DIOXIDE 29.5 mmol/L (22-30.0); CHLORIDE 102.9 mmol/L (98-107); CREATININE 1.15 mg/dL (0.60-1.10); GLUCOSE 132.1 mg/dL (74-106); POTASSIUM 3.81 mmol/L (3.5-5.1); SODIUM 137.7 mmol/L (134.5-145); TOTAL PROTEIN 6.15 g/dL (6.3-8.2)
[2021-11-08] MEDS: DECADRON IVP SCH (08:44)
[2021-11-08] MEDS: PROSCAR PO SCH (08:48)
[2021-11-08] MEDS: NEURONTIN PO SCH ×2 (08:48→20:29)
[2021-11-08] MEDS: COZAAR PO SCH ×2 (08:48→20:28)
[2021-11-08] MEDS: OMNICEF PO SCH ×2 (08:48→20:29)
[2021-11-08] MEDS: CLARITIN PO SCH (08:48)
[2021-11-08] MEDS: GLUCOPHAGE PO SCH ×2 (08:48→17:08)
[2021-11-08] MEDS: ASPIRIN CHEWABLE PO SCH (08:48)
[2021-11-08] MEDS: JANUVIA PO SCH ×2 (08:48→20:29)
[2021-11-08] MEDS: COREG PO SCH ×2 (08:49→17:08)
[2021-11-08] MEDS: PLAVIX PO SCH (08:49)
[2021-11-08] MEDS: NAMENDA PO SCH ×2 (08:49→20:29)
[2021-11-08] MEDS: FLOMAX PO SCH ×2 (08:49→17:08)
[2021-11-08] MEDS: FLONASE NAS SCH (08:50)
[2021-11-08] MEDS: LANOXIN PO SCH (08:50)
[2021-11-08] MEDS: LEVEMIR SUBCUT SCH ×2 (08:55→20:30)
[2021-11-08 10:27] LABS: ABG O2 HGB 89.6 % (95-100); BEecf 4.9 (-2.0-3.0); COHb 2.6 (0.5-1.5); HCO3 27.8 (21-28); MetHb 1.2 (0-1.5); TCO2 28.8 (19-24); sO2 91.5 % (94-98); tHb 10.5 g/dl (11.7-17.4)
[2021-11-08 10:32] LABS: ABG PH 7.52 (7.35-7.45)
--- NOTE | 2021-11-08 11:15 | PN ---
DATE OF SERVICE: 11/06/21 SUBJECTIVE: 86 year old white male hospitalized with CHF exacerbation. The patient's condition has improved. Bronchitis symptoms have improved. He is feeling a little bit better today. The patient's is in the room so he is concerned about her. REVIEW OF SYSTEMS: CONSTITUTIONAL: No night sweats. No fatigue, malaise, lethargy. No fever or chills. HEENT: Eyes: No visual changes. No eye pain. No eye discharge. ENT: No runny nose. No epistaxis. No sinus pain. No sore throat. No odynophagia. No congestion. RESPIRATORY: No cough, no congestion. No hemoptysis. No shortness of breath. CARDIOVASCULAR: No angina symptoms. No CHF symptoms. No atypical chest pain for CAD. No palpitations. No PND. No orthopnea. GASTROINTESTINAL: No abdominal pain. No nausea or vomiting. No diarrhea or constipation. No hematemesis. No hematochezia. GENITOURINARY: No urgency. No frequency. No dysuria. No hematuria. No obstructive symptoms. No discharge. No pain. No significant abnormal bleeding. MUSCULOSKELETAL: No musculoskeletal pain; no joint swelling. NEUROLOGICAL: No headache. No neck pain. No syncope. No seizures. No dizziness. PSYCHIATRIC: Not anxious. No depression. No suicidal thoughts. No homicidal thoughts. SKIN: No rash. No lesions. No wounds. ENDOCRINE: No unexplained weight loss. No weight gain. HEMATOLOGIC/LYMPHATIC: No anemia. No purpura. No petechiae. No prolonged or excessive bleeding. No palpable lymph nodes. PHYSICAL EXAMINATION: VITAL SIGNS: Temperature 98, pulse 72, respiratory rate 16, blood pressure 150/70 and pulse ox 94%. HEENT: Head normocephalic, atraumatic. Eyes: Extraocular muscles are intact. Pupils are equal, round and reactive to light and accommodation. Ears: No lesions. Nose appeared normal. Throat: No exudate or erythema. NECK: Supple. No JVD, no carotid bruit. No lymphadenopathy or thyromegaly. LUNGS: Decreased breath sounds. Clear to auscultation. Percussion note normal. Chest symmetrical. HEART: S1, S2, no S3. No murmurs. No cyanosis or clubbing. No ascites. Pulses: Dorsalis pedis and posterior tibial pulses +1 to +2 bilaterally. ABDOMEN: Soft. Nontender. Bowel sounds active. No CVA tenderness. No mass felt. EXTREMITIES: No edema. Full range of motion of all extremities, equal. NEUROLOGIC: No focal deficit. Cranial nerves II through XII are grossly intact. No headache. No double vision. SKIN: Not dry. Intact. Turgor - normal. LYMPHATIC: No palpable lymph nodes/no lymphedema. MUSCULOSKELETAL: Normal joints with no swelling. Muscle tone is normal. LABS: Hgb 9.3, hct 28, WBC 11,000 normal differential, creatinine 1, BUN 33, potassium 4.5 ASSESSMENT: 1. CHF under control 2. Diabetes Mellitus 3. Bronchitis 4. Chronic anemia PLAN: 1. Continue the same treatment 2. Education about CHF carried out. The patient strongly advised to lose weight and advised to give up diary products especially ice cream CONDITION: Stable. TIME SPENT: More than 30 minutes. Plan and coordination of the patient's care discussed in the presence of nurse. PAMELA
--- NOTE | 2021-11-08 11:22 | PN ---
DATE OF SERVICE: 11/05/21 SUBJECTIVE: 86 year old white male hospitalized with CHF exacerbation. The patient today has been feeling more short of breath. The patient's appetite is excellent. He has cleaned up his plate. is present in the room. REVIEW OF SYSTEMS: CONSTITUTIONAL: No night sweats. No fatigue, malaise, lethargy. No fever or chills. HEENT: Eyes: No visual changes. No eye pain. No eye discharge. ENT: No runny nose. No epistaxis. No sinus pain. No sore throat. No odynophagia. No congestion. RESPIRATORY: No cough, no congestion. No hemoptysis. Mils Shortness of breath. CARDIOVASCULAR: No angina symptoms. No CHF symptoms. No atypical chest pain for CAD. No palpitations. No PND. No orthopnea. GASTROINTESTINAL: No abdominal pain. No nausea or vomiting. No diarrhea or constipation. No hematemesis. No hematochezia. GENITOURINARY: No urgency. No frequency. No dysuria. No hematuria. No obstructive symptoms. No discharge. No pain. No significant abnormal bleeding. MUSCULOSKELETAL: No musculoskeletal pain; no joint swelling. NEUROLOGICAL: No headache. No neck pain. No syncope. No seizures. No dizziness. PSYCHIATRIC: Anxious. No depression. No suicidal thoughts. No homicidal thoughts. SKIN: No rash. No lesions. No wounds. ENDOCRINE: No unexplained weight loss. No weight gain. HEMATOLOGIC/LYMPHATIC: No anemia. No purpura. No petechiae. No prolonged or excessive bleeding. No palpable lymph nodes. PHYSICAL EXAMINATION: VITAL SIGNS: Temperature 98.1, pulse 74, respiratory rate 20, blood pressure 118/54 and pulse ox 97%. HEENT: Head normocephalic, atraumatic. Eyes: Extraocular muscles are intact. Pupils are equal, round and reactive to light and accommodation. Ears: No lesions. Nose appeared normal. Throat: No exudate or erythema. NECK: Supple. No JVD, no carotid bruit. No lymphadenopathy or thyromegaly. LUNGS:Few crepitations at the bases. No wheezing. Clear to auscultation. Percussion note normal. Chest symmetrical. HEART: S1, S2, no S3. No murmurs. No cyanosis or clubbing. No ascites. Pulses: Dorsalis pedis and posterior tibial pulses +1 to +2 bilaterally. ABDOMEN: Soft. Nontender. Bowel sounds active. No CVA tenderness. No mass felt. EXTREMITIES: Trace edema. Full range of motion of all extremities, equal. NEUROLOGIC: No focal deficit. Cranial nerves II through XII are grossly intact. No headache. No double vision. SKIN: Not dry. Intact. Turgor - normal. LYMPHATIC: No palpable lymph nodes/no lymphedema. MUSCULOSKELETAL: Normal joints with no swelling. Muscle tone is normal. ASSESSMENT: 1. CHF seems to be improving. 2. Hypertension 3. Cardiovascular disease 4. Early Dementia PLAN: 1. The patient has been walking a little bit stronger 2. Appetite has improved 3. We will given 1/2cc Decadron. 4. Lasix 20mg IV 5. 2mg Morphine Sulfate IV 6. We will discontinue Zosyn and put the patient on Omnicef 300mg PO BID. TIME SPENT: More than 30 minutes. Plan and coordination of the patient's care discussed in the presence of nurse. PAMELA
--- NOTE | 2021-11-08 11:49 | PN ---
DATE OF SERVICE: 11/02/21 SUBJECTIVE: 86 year old white male hospitalized with acute respiratory failure. The patient's pH 7.42 with pO2 56 and pCO2 34 with 89% saturation on 2.5 liters of oxygen. The patient's chief complaint was shortness of breath, PND and orthopnea for past 2 days. REVIEW OF SYSTEMS: CONSTITUTIONAL: No night sweats. No fatigue, malaise, lethargy. No fever or chills. HEENT: Eyes: No visual changes. No eye pain. No eye discharge. ENT: No runny nose. No epistaxis. No sinus pain. No sore throat. No odynophagia. No congestion. RESPIRATORY: No cough, no congestion. No hemoptysis. No shortness of breath. CARDIOVASCULAR: No angina symptoms. No CHF symptoms. No atypical chest pain for CAD. No palpitations. No PND. No orthopnea. GASTROINTESTINAL: No abdominal pain. No nausea or vomiting. No diarrhea or constipation. No hematemesis. No hematochezia. GENITOURINARY: No urgency. No frequency. No dysuria. No hematuria. No obstructive symptoms. No discharge. No pain. No significant abnormal bleeding. MUSCULOSKELETAL: No musculoskeletal pain; no joint swelling. NEUROLOGICAL: No headache. No neck pain. No syncope. No seizures. No dizziness. PSYCHIATRIC: Not anxious. No depression. No suicidal thoughts. No homicidal thoughts. SKIN: No rash. No lesions. No wounds. ENDOCRINE: No unexplained weight loss. No weight gain. HEMATOLOGIC/LYMPHATIC: No anemia. No purpura. No petechiae. No prolonged or excessive bleeding. No palpable lymph nodes. PHYSICAL EXAMINATION: HEENT: Head normocephalic, atraumatic. Eyes: Extraocular muscles are intact. Pupils are equal, round and reactive to light and accommodation. Ears: No lesions. Nose appeared normal. Throat: No exudate or erythema. NECK: Supple. No JVD, no carotid bruit. No lymphadenopathy or thyromegaly. LUNGS: Bilateral wheeze with crepitations. Clear to auscultation. Percussion note normal. Chest symmetrical. HEART: S1, S2, S3 present. No murmurs. No cyanosis or clubbing. No ascites. Pulses: Dorsalis pedis and posterior tibial pulses +1 to +2 bilaterally. ABDOMEN: Soft. Nontender. Bowel sounds active. No CVA tenderness. No mass felt. EXTREMITIES: 1+ pitting edema. Full range of motion of all extremities, equal. NEUROLOGIC: No focal deficit. Cranial nerves II through XII are grossly intact. No headache. No double vision. SKIN: Not dry. Intact. Turgor - normal. LYMPHATIC: No palpable lymph nodes/no lymphedema. MUSCULOSKELETAL: Normal joints with no swelling. Muscle tone is normal. LABS: hgb 10.2, hct 30, WBC 16,000 shift to the left, creatinine 1.4, BUN 26, potassium 4.4. ASSESSMENT: 1. Congestive heart failure 2. Acute bronchitis 3. History of coronary artery disease 4. History of carotid stenosis PLAN: 1. IV Lasix 2. Dexamethasone 6mg IV and will cut it down to 2mg because of hyperglycemia. Condition had improved by the time I examined him in the 106. The patient had no PND, No orthopnea. he was breathing better, still had mild expiratory wheeze. Was happy with his progress. The patient's problem is noncompliance of diet. He eats a lot of salt and eats alot of food. The patient weighs 250 pounds and he is obese with 34 BMI. The patient's Troponin is high but CKMB is negative. We will continue to monitor CKMB. He is COVID negative. TIME SPENT: More than 30 minutes. Plan and coordination of the patient's care discussed in the presence of nurse. PAMELA
[2021-11-08] MEDS: HUMULIN R SUBCUT PRN ×2 (12:40→17:10)
[2021-11-08] MEDS ORDERED: LASIX IVP STA (12:54)
[2021-11-08] MEDS: MORPHINE 2 MG/ML VIAL IVP PRN (13:05)
[2021-11-08 13:36] LABS: ABG O2 HGB 94.2 % (95-100); ABG PH 7.49 (7.35-7.45); BEecf 5.7 (-2.0-3.0); COHb 2.6 (0.5-1.5); MetHb 0.9 (0-1.5); TCO2 30.2 (19-24); tHb 9.8 g/dl (11.7-17.4)
[2021-11-08] MEDS: MEVACOR PO SCH (17:08)
[2021-11-08] MEDS: NON-FORMULARY MEDICATION (Melatonin 10 mg Tablet) PO SCH (20:30)
[2021-11-09 05:14] LABS: HEMATOCRIT 29.7 % (42.0-52.0); HEMOGLOBIN 9.7 g/dl (14.0-18.0); MEAN CORPUSCULAR HEMOGLOBIN 28.2 pg (27.0-31.0); MEAN CORPUSCULAR HGB CONC 32.7 (31.8-35.4); MEAN CORPUSCULAR VOLUME 86.3 fl (80.0-94.0); PLATELET COUNT 319 10^3/uL (140-440); RDW COEFFICIENT OF VARIATION 14.7 % (11.6-14.8); RED BLOOD COUNT 3.44 10^6/ul (4.70-6.10); WHITE BLOOD COUNT 18.49 K/ul (4.2-10.2)
[2021-11-09 05:28] LABS: ANISOCYTOSIS NOT PRESENT (NOT PRESENT)
[2021-11-09 05:29] LABS: ALANINE AMINOTRANSFERASE 42.2 U/L (0-50); ALBUMIN 3.28 g/dL (3.5-5.0); ALKALINE PHOSPHATASE 112.6 U/L (56-119); ASPARTATE AMINO TRANSFERASE 31.7 U/L (17-59); BILIRUBIN,TOTAL 0.8 mg/dL (0.2-1.3); BLOOD UREA NITROGEN 35.9 mg/dL (9-20); CALCIUM 8.7 mg/dL (8.4-10.2); CARBON DIOXIDE 28.3 mmol/L (22-30.0); CHLORIDE 102.9 mmol/L (98-107); CREATININE 1.11 mg/dL (0.60-1.10); POTASSIUM 3.79 mmol/L (3.5-5.1); SODIUM 136.9 mmol/L (134.5-145); TOTAL PROTEIN 6.34 g/dL (6.3-8.2)
[2021-11-09 05:33] LABS: ABG O2 HGB 90.8 % (95-100); ABG PH 7.46 (7.35-7.45); BEecf 3.9 (-2.0-3.0); COHb 2.2 (0.5-1.5); HCO3 27.7 (21-28); TCO2 28.9 (19-24); tHb 17.7 g/dl (11.7-17.4)
[2021-11-09] MEDS: LASIX TAB PO SCH (05:33)
[2021-11-09] MEDS: PROTONIX PO SCH (05:33)
[2021-11-09] MEDS: DUONEB NEB SCH ×4 (05:40→20:10)
[2021-11-09] MEDS: PULMICORT 0.5 MG/2 ML NEB SCH ×2 (05:40→20:10)
[2021-11-09] MEDS: SOLU-CORTEF 100 MG IVP SCH ×3 (09:07→20:19)
[2021-11-09] MEDS: NEURONTIN PO SCH ×2 (09:08→20:24)
[2021-11-09] MEDS: LEVEMIR SUBCUT SCH ×2 (09:08→20:25)
[2021-11-09] MEDS: FLOMAX PO SCH ×2 (09:08→17:34)
[2021-11-09] MEDS: PLAVIX PO SCH (09:08)
[2021-11-09] MEDS: OMNICEF PO SCH ×2 (09:08→20:24)
[2021-11-09] MEDS: CLARITIN PO SCH (09:08)
[2021-11-09] MEDS: NAMENDA PO SCH ×2 (09:08→20:24)
[2021-11-09] MEDS: COREG PO SCH ×2 (09:09→17:34)
[2021-11-09] MEDS: JANUVIA PO SCH ×2 (09:09→20:24)
[2021-11-09] MEDS: FLONASE NAS SCH (09:09)
[2021-11-09] MEDS: PROSCAR PO SCH (09:09)
[2021-11-09] MEDS: COZAAR PO SCH ×2 (09:09→20:24)
[2021-11-09] MEDS: GLUCOPHAGE PO SCH ×2 (09:09→17:34)
[2021-11-09] MEDS: LANOXIN PO SCH (09:09)
[2021-11-09] MEDS: ASPIRIN CHEWABLE PO SCH (09:09)
--- NOTE | 2021-11-09 09:21 | PCM.PROG ---
Attending Provider: ATTENDING PROVIDER: Dr. ABY SLAUGHTER This patient is seen with Clemencia Miranda, Nurse Practitioner. DATE OF SERVICE: 11/09/21 SUBJECTIVE: This 86 year old /WHITE M was hospitalized 11/02/21. ABG slightly worse this morning. Had episode of hypoglycemia fir thing this morning. Co mplaining of fatigue. pO2 63 this morning. REVIEW OF SYSTEMS: CONSTITUTIONAL: No night sweats. No fatigue, malaise, lethargy. No fever or chills. Weakness. HEENT: Eyes: No visual changes. No eye pain. No eye discharge. ENT: No runny nose. No epistaxis. No sinus pain. No odynophagia. No congestion. RESPIRATORY: No cough, no congestion. No hemoptysis. Shortness of breath. CARDIOVASCULAR: No angina symptoms. No CHF symptoms. No atypical chest pain for CAD. No palpitations. No orthopnea.. GASTROINTESTINAL: No abdominal pain. No nausea or vomiting. No diarrhea or constipation. No hematemesis. No hematochezia. GENITOURINARY: No urgency. No frequency. No dysuria. No hematuria. No obstructive symptoms. No discharge. No pain. No significant abnormal bleeding. MUSCULOSKELETAL: No musculoskeletal pain; no joint swelling. NEUROLOGICAL: Awake, alert, oriented to time, place and person. No headache. No neck pain. No syncope. No seizures. No dizziness. PSYCHIATRIC: Not anxious. No depression. No suicidal thoughts. No homicidal thoughts. SKIN: No rash. No lesions. No wounds. ENDOCRINE: No unexplained weight loss. No weight gain. HEMATOLOGIC/LYMPHATIC: No anemia. No purpura. No petechiae. No prolonged or excessive bleeding. No palpable lymph nodes. PHYSICAL EXAMINATION: GENERAL: The patient is awake, alert and oriented, sitting in bed in no distress. VITAL SIGNS: Temperature 97.7 F, Pulse 69, Respiratory Rate 20, BP 148/66, Pulse Ox 93% HEENT: Head normocephalic, atraumatic. Eyes: Extraocular muscles are intact. Pupils are equal, round and reactive to light and accommodation. Ears: No lesions. Nose appeared normal. Throat: No exudate or erythema. NECK: Supple. No JVD, no carotid bruit. No lymphadenopathy or thyromegaly. LUNGS: Diminished breath sounds. Clear to auscultation. Percussion note normal. Chest symmetrical. HEART: S1, S2, no S3. No murmurs. No cyanosis or clubbing. No ascites. Pulses: Dorsalis pedis and posterior tibial pulses +1 to +2 both sides. ABDOMEN: Soft. Non-tender. Bowel sounds active. No CVA tenderness. No mass felt. EXTREMITIES: Trace bilateral leg edema. Full range of motion of all extremities, equal. NEUROLOGIC: No focal deficit. Cranial nerves II through XII are grossly intact. No headache. No double vision. SKIN: Not dry. Intact. Turgor-normal. LYMPHATIC: No palpable lymph nodes/no lymphedema. MUSCULOSKELETAL: Normal joints with no swelling. Muscle tone is normal. LAB REVIEW: 11/09/21 04:35 11/09/21 06:25 11/09/21 06:25: Glucose 56.5 L 11/09/21 05:28: Puncture Site Lbrach, Base Excess 3.9 H, O2 Saturation 93.0 L, ABG pH 7.46 H, ABG pCO2 39.0, ABG pO2 63.0 L, ABG HCO3 27.7, ABG Total CO2 28.9 H, Kelechi Test +, Hemoglobin 1.0, Oxyhemoglobin 90.8 L, Carboxyhemoglobin 2.2 H, Total Hemoglobin 17.7 H, O2 Delivery Device Vapotherm, FiO2 % 50.0 11/09/21 04:35: Sodium 136.9, Potassium 3.79, Chloride 102.9, Carbon Dioxide 28. 3, Anion Gap 9.49, BUN 35.9 H, Creatinine 1.11 H, Estimated GFR (MDRD) 63.00, BUN/Creatinine Ratio 32.34, Glucose 52.0 L D, Calcium 8.70, Total Bilirubin 0.80, AST 31.7, ALT 42.2, Alkaline Phosphatase 112.6, Total Protein 6.34, Albumin 3.28 L, Globulin 3.06, Albumin/Globulin Ratio 1.07 11/09/21 04:35: WBC 18.49 H, RBC 3.44 L, Hgb 9.7 L, Hct 29.7 L, MCV 86.3, MCH 28.2, MCHC 32.7, RDW Coeff of Michele 14.7, Plt Count 319, Neutrophils % (Manual) 72.0, Lymphocytes % (Manual) 15.0, Monocytes % (Manual) 12.0 H, Eosinophils % (Manual) 1.0, Anisocytosis Not present 11/08/21 13:25: Puncture Site R rad, Base Excess 5.7 H, O2 Saturation 96.0, ABG pH 7.49 H, ABG pCO2 38.0, ABG pO2 75.0 L, ABG HCO3 29.0 H, ABG Total CO2 30.2 H, Kelechi Test Y, Hemoglobin 0.9, Oxyhemoglobin 94.2 L, Carboxyhemoglobin 2.6 H, Total Hemoglobin 9.8 L, O2 Delivery Device Vapotherm, FiO2 % 50.0 11/08/21 10:19: Puncture Site Rr, Base Excess 4.9 H, O2 Saturation 91.5 L, ABG pH 7.52 H*, ABG pCO2 34.0 L, ABG pO2 55.0 L*, ABG HCO3 27.8, ABG Total CO2 28.8 H, Kelechi Test Pos, Hemoglobin 1.2, Oxyhemoglobin 89.6 L, Carboxyhemoglobin 2.6 H , Total Hemoglobin 10.5 L, O2 Delivery Device Cannula, Oxygen Liter Flow 5.00 ASSESSMENT: Please see below. 1. Acute respiratory failure 2. End stage COPD 3. Diabetes Mellitus type II 4. CHF 5. CAD 6. Leg edema 7. Hypertension PLAN: 1. Discontinue Decadron 2. Solu-Cortef 100mg IV Q 8 hours 3. Decrease insulin to 30 units at night Plan and coordination of the patient's care discussed in the presence of [employer] and nurse. SCRIBED BY: PATRICIA S[employer]EDRA [employer] scribed while in presence of service performed by Dr. Slaughter/Clemencia Miranda APRN on 11/09/21 ([id number])
[2021-11-09] MEDS: MORPHINE 2 MG/ML VIAL IVP PRN ×2 (11:05→21:36)
[2021-11-09] MEDS: HUMULIN R SUBCUT PRN ×3 (11:42→20:25)
[2021-11-09] MEDS: MEVACOR PO SCH (17:33)
[2021-11-09] MEDS: NON-FORMULARY MEDICATION (Melatonin 10 mg Tablet) PO SCH (20:28)
[2021-11-10] MEDS: PULMICORT 0.5 MG/2 ML NEB SCH ×2 (04:50→19:18)
[2021-11-10] MEDS: DUONEB NEB SCH ×4 (04:50→19:18)
[2021-11-10 05:04] LABS: BASOPHILS % (AUTO) 0.1 % (0.0-3.0); EOSINOPHILS % (AUTO) 0.1 % (0.0-7.0); HEMATOCRIT 27.3 % (42.0-52.0); HEMOGLOBIN 8.9 g/dl (14.0-18.0); IMMATURE GRANULOCYTE # (AUTO) 0.2 (0.0-1.0); IMMATURE GRANULOCYTE % (AUTO) 1.2 % (0.0-5.0); LYMPHOCYTES # (AUTO) 1.9 K/uL (0.60-3.4); MEAN CORPUSCULAR HEMOGLOBIN 27.9 pg (27.0-31.0); MEAN CORPUSCULAR HGB CONC 32.6 (31.8-35.4); MEAN CORPUSCULAR VOLUME 85.6 fl (80.0-94.0); MONOCYTES # (AUTO) 1.4 K/uL (0.4-2.0); MONOCYTES % (AUTO) 9.3 (0-10); NEUTROPHILS # (AUTO) 11.1 K/ul (2.0-6.9); NEUTROPHILS % (AUTO) 76.3 % (42.2-75.2); PLATELET COUNT 296 10^3/uL (140-440); RDW COEFFICIENT OF VARIATION 14.4 % (11.6-14.8); RED BLOOD COUNT 3.19 10^6/ul (4.70-6.10); WHITE BLOOD COUNT 14.56 K/ul (4.2-10.2)
[2021-11-10] MEDS: LASIX TAB PO SCH (05:37)
[2021-11-10] MEDS: PROTONIX PO SCH (05:38)
[2021-11-10] MEDS: SOLU-CORTEF 100 MG IVP SCH ×3 (05:38→21:05)
[2021-11-10 05:41] LABS: ALANINE AMINOTRANSFERASE 48.7 U/L (0-50); ALBUMIN 3.2 g/dL (3.5-5.0); ALKALINE PHOSPHATASE 116.8 U/L (56-119); BILIRUBIN,TOTAL 0.47 mg/dL (0.2-1.3); BLOOD UREA NITROGEN 42.8 mg/dL (9-20); CALCIUM 8.46 mg/dL (8.4-10.2); CARBON DIOXIDE 25.2 mmol/L (22-30.0); CHLORIDE 100.8 mmol/L (98-107); CREATININE 1.08 mg/dL (0.60-1.10); GLUCOSE 249.9 mg/dL (74-106); POTASSIUM 4.61 mmol/L (3.5-5.1); SODIUM 135.1 mmol/L (134.5-145); TOTAL PROTEIN 5.92 g/dL (6.3-8.2)
[2021-11-10 05:42] LABS: ABG O2 HGB 92.1 % (95-100); ABG PH 7.48 (7.35-7.45); BEecf 2.6 (-2.0-3.0); COHb 2.3 (0.5-1.5); HCO3 26.1 (21-28); MetHb 0.8 (0-1.5); TCO2 27.2 (19-24); sO2 92.8 % (94-98); tHb 10.3 g/dl (11.7-17.4)
[2021-11-10] MEDS: HUMULIN R SUBCUT PRN ×4 (05:47→20:14)
[2021-11-10] MEDS: FLONASE NAS SCH (08:44)
[2021-11-10] MEDS: LEVEMIR SUBCUT SCH ×2 (08:44→20:14)
[2021-11-10] MEDS: JANUVIA PO SCH ×2 (08:45→20:14)
[2021-11-10] MEDS: NAMENDA PO SCH ×2 (08:45→20:13)
[2021-11-10] MEDS: CLARITIN PO SCH (08:45)
[2021-11-10] MEDS: PLAVIX PO SCH (08:45)
[2021-11-10] MEDS: ASPIRIN CHEWABLE PO SCH (08:45)
[2021-11-10] MEDS: COZAAR PO SCH ×2 (08:45→20:13)
[2021-11-10] MEDS: GLUCOPHAGE PO SCH ×2 (08:45→17:18)
[2021-11-10] MEDS: OMNICEF PO SCH ×2 (08:45→20:14)
[2021-11-10] MEDS: NEURONTIN PO SCH ×2 (08:45→20:13)
[2021-11-10] MEDS: COREG PO SCH ×2 (08:45→17:18)
[2021-11-10] MEDS: FLOMAX PO SCH ×2 (08:46→17:26)
[2021-11-10] MEDS: LANOXIN PO SCH (08:46)
[2021-11-10] MEDS: PROSCAR PO SCH (08:46)
[2021-11-10] MEDS: MEVACOR PO SCH (17:18)
[2021-11-10] MEDS: NON-FORMULARY MEDICATION (Melatonin 10 mg Tablet) PO SCH (20:13)
[2021-11-10] MEDS: MORPHINE 2 MG/ML VIAL IVP PRN (21:05)
[2021-11-11 05:01] LABS: BASOPHILS % (AUTO) 0.1 % (0.0-3.0); EOSINOPHILS % (AUTO) 0.1 % (0.0-7.0); HEMOGLOBIN 8.7 g/dl (14.0-18.0); IMMATURE GRANULOCYTE # (AUTO) 0.1 (0.0-1.0); LYMPHOCYTES # (AUTO) 1.6 K/uL (0.60-3.4); LYMPHOCYTES % (AUTO) 13.6 (10.0-50.0); MEAN CORPUSCULAR HEMOGLOBIN 27.8 pg (27.0-31.0); MEAN CORPUSCULAR HGB CONC 32.2 (31.8-35.4); MEAN CORPUSCULAR VOLUME 86.3 fl (80.0-94.0); MONOCYTES # (AUTO) 0.9 K/uL (0.4-2.0); MONOCYTES % (AUTO) 7.4 (0-10); NEUTROPHILS # (AUTO) 8.9 K/ul (2.0-6.9); NEUTROPHILS % (AUTO) 77.8 % (42.2-75.2); PLATELET COUNT 309 10^3/uL (140-440); RDW COEFFICIENT OF VARIATION 14.6 % (11.6-14.8); RED BLOOD COUNT 3.13 10^6/ul (4.70-6.10); WHITE BLOOD COUNT 11.42 K/ul (4.2-10.2)
[2021-11-11 05:15] LABS: ALANINE AMINOTRANSFERASE 66.9 U/L (0-50); ALBUMIN 3.12 g/dL (3.5-5.0); ALKALINE PHOSPHATASE 116.8 U/L (56-119); ASPARTATE AMINO TRANSFERASE 41.8 U/L (17-59); BILIRUBIN,TOTAL 0.5 mg/dL (0.2-1.3); BLOOD UREA NITROGEN 41.1 mg/dL (9-20); CALCIUM 8.29 mg/dL (8.4-10.2); CARBON DIOXIDE 27.1 mmol/L (22-30.0); CHLORIDE 103.9 mmol/L (98-107); CREATININE 1.05 mg/dL (0.60-1.10); GLUCOSE 233.4 mg/dL (74-106); POTASSIUM 4.47 mmol/L (3.5-5.1); SODIUM 135.3 mmol/L (134.5-145); TOTAL PROTEIN 5.82 g/dL (6.3-8.2)
[2021-11-11] MEDS: SOLU-CORTEF 100 MG IVP SCH ×3 (05:32→21:16)
[2021-11-11] MEDS: LASIX TAB PO SCH (05:43)
[2021-11-11] MEDS: PROTONIX PO SCH (05:43)
[2021-11-11] MEDS: HUMULIN R SUBCUT PRN ×4 (05:43→20:58)
[2021-11-11] MEDS: DUONEB NEB SCH ×4 (05:50→19:20)
[2021-11-11] MEDS: PULMICORT 0.5 MG/2 ML NEB SCH ×2 (05:50→19:20)
[2021-11-11 08:15] LABS: ABG PH 7.46 (7.35-7.45)
[2021-11-11 08:16] LABS: ABG O2 HGB 96.5 % (95-100); BEecf 4.5 (-2.0-3.0); HCO3 28.4 (21-28); MetHb 0.5 (0-1.5); TCO2 29.6 (19-24); sO2 97.6 % (94-98); tHb 9.5 g/dl (11.7-17.4)
[2021-11-11] MEDS: FLONASE NAS SCH (09:04)
[2021-11-11] MEDS: PROSCAR PO SCH (09:05)
[2021-11-11] MEDS: PLAVIX PO SCH (09:05)
[2021-11-11] MEDS: ASPIRIN CHEWABLE PO SCH (09:05)
[2021-11-11] MEDS: NEURONTIN PO SCH ×2 (09:06→20:45)
[2021-11-11] MEDS: COREG PO SCH ×2 (09:06→17:27)
[2021-11-11] MEDS: NAMENDA PO SCH ×2 (09:06→20:46)
[2021-11-11] MEDS: FLOMAX PO SCH ×2 (09:06→17:27)
[2021-11-11] MEDS: CLARITIN PO SCH (09:06)
[2021-11-11] MEDS: GLUCOPHAGE PO SCH ×2 (09:06→17:27)
[2021-11-11] MEDS: OMNICEF PO SCH ×2 (09:07→20:45)
[2021-11-11] MEDS: COZAAR PO SCH ×2 (09:07→20:46)
[2021-11-11] MEDS: LANOXIN PO SCH (09:07)
[2021-11-11] MEDS: JANUVIA PO SCH ×2 (09:07→20:45)
[2021-11-11] MEDS: LEVEMIR SUBCUT SCH ×2 (09:09→20:54)
[2021-11-11] MEDS: MEVACOR PO SCH (17:27)
[2021-11-11] MEDS: NON-FORMULARY MEDICATION (Melatonin 10 mg Tablet) PO SCH (20:46)
[2021-11-11] MEDS: MORPHINE 2 MG/ML VIAL IVP PRN (21:17)
[2021-11-12 05:29] VITALS: BP 139/67; TEMP 98.2
[2021-11-12] MEDS: LASIX TAB PO SCH (05:30)
[2021-11-12] MEDS: PROTONIX PO SCH (05:30)
[2021-11-12 05:33] LABS: BASOPHILS % (AUTO) 0.1 % (0.0-3.0); EOSINOPHILS % (AUTO) 0.1 % (0.0-7.0); HEMATOCRIT 27.4 % (42.0-52.0); HEMOGLOBIN 8.8 g/dl (14.0-18.0); IMMATURE GRANULOCYTE # (AUTO) 0.3 (0.0-1.0); IMMATURE GRANULOCYTE % (AUTO) 1.9 % (0.0-5.0); LYMPHOCYTES # (AUTO) 1.9 K/uL (0.60-3.4); LYMPHOCYTES % (AUTO) 12.9 (10.0-50.0); MEAN CORPUSCULAR HEMOGLOBIN 27.8 pg (27.0-31.0); MEAN CORPUSCULAR HGB CONC 32.1 (31.8-35.4); MEAN CORPUSCULAR VOLUME 86.4 fl (80.0-94.0); MONOCYTES # (AUTO) 1.2 K/uL (0.4-2.0); MONOCYTES % (AUTO) 8.1 (0-10); NEUTROPHILS # (AUTO) 11.1 K/ul (2.0-6.9); NEUTROPHILS % (AUTO) 76.9 % (42.2-75.2); PLATELET COUNT 322 10^3/uL (140-440); RDW COEFFICIENT OF VARIATION 14.6 % (11.6-14.8); RED BLOOD COUNT 3.17 10^6/ul (4.70-6.10); WHITE BLOOD COUNT 14.38 K/ul (4.2-10.2)
[2021-11-12 05:40] LABS: ALANINE AMINOTRANSFERASE 59.6 U/L (0-50); ALBUMIN 3.24 g/dL (3.5-5.0); ALKALINE PHOSPHATASE 111.7 U/L (56-119); ASPARTATE AMINO TRANSFERASE 29.2 U/L (17-59); BILIRUBIN,TOTAL 0.51 mg/dL (0.2-1.3); BLOOD UREA NITROGEN 39.1 mg/dL (9-20); CALCIUM 8.21 mg/dL (8.4-10.2); CARBON DIOXIDE 27.7 mmol/L (22-30.0); CHLORIDE 103.9 mmol/L (98-107); CREATININE 1.04 mg/dL (0.60-1.10); GLUCOSE 287.8 mg/dL (74-106); POTASSIUM 4.4 mmol/L (3.5-5.1); SODIUM 136.8 mmol/L (134.5-145); TOTAL PROTEIN 5.91 g/dL (6.3-8.2)
[2021-11-12] MEDS: SOLU-CORTEF 100 MG IVP SCH (05:42)
[2021-11-12] MEDS: PULMICORT 0.5 MG/2 ML NEB SCH (05:52)
[2021-11-12] MEDS: DUONEB NEB SCH ×2 (05:52→09:30)
[2021-11-12] MEDS: HUMULIN R SUBCUT PRN ×2 (05:53→11:12)
[2021-11-12 07:14] LABS: ABG PH 7.48 (7.35-7.45)
[2021-11-12 07:15] LABS: BEecf 4.1 (-2.0-3.0); HCO3 27.6 (21-28)
[2021-11-12 07:16] LABS: COHb 2.1 (0.5-1.5)
[2021-11-12 07:17] LABS: MetHb 0.6 (0-1.5); TCO2 28.7 (19-24); sO2 93.6 % (94-98)
[2021-11-12 07:18] LABS: ABG O2 HGB 93.5 % (95-100)
[2021-11-12] MEDS: JANUVIA PO SCH (09:03)
[2021-11-12] MEDS: COZAAR PO SCH (09:03)
[2021-11-12] MEDS: ASPIRIN CHEWABLE PO SCH (09:03)
[2021-11-12] MEDS: FLOMAX PO SCH (09:03)
[2021-11-12] MEDS: PROSCAR PO SCH (09:04)
[2021-11-12] MEDS: NEURONTIN PO SCH (09:04)
[2021-11-12] MEDS: GLUCOPHAGE PO SCH (09:04)
[2021-11-12] MEDS: COREG PO SCH (09:04)
[2021-11-12] MEDS: CLARITIN PO SCH (09:04)
[2021-11-12] MEDS: PLAVIX PO SCH (09:04)
[2021-11-12] MEDS: NAMENDA PO SCH (09:04)
[2021-11-12] MEDS: LANOXIN PO SCH (09:05)
[2021-11-12] MEDS: FLONASE NAS SCH (09:06)
[2021-11-12] MEDS: LEVEMIR SUBCUT SCH (09:08)
[2021-11-12] MEDS: MORPHINE 2 MG/ML VIAL IVP PRN (09:38)
--- NOTE | 2021-11-16 08:57 | PN ---
DATE OF SERVICE: 11/11/21 SUBJECTIVE: 86 year old white male hospitalized with CHF exacerbation. His condition seems to have improved. He is being weaned off high flow oxygen. His saturation is high and his pO2 was in 90s with high flow oxygen. There is a plan to wean him off and get him on 2-3 liter if possible. The patient is feeling a lot better. The is present in the room. REVIEW OF SYSTEMS: CONSTITUTIONAL: No night sweats. No fatigue, malaise, lethargy. No fever or chills. HEENT: Eyes: No visual changes. No eye pain. No eye discharge. ENT: No runny nose. No epistaxis. No sinus pain. No sore throat. No odynophagia. No congestion. RESPIRATORY: No cough, no congestion. No hemoptysis. Shortness of breath on exertion as usual. CARDIOVASCULAR: No angina symptoms. No CHF symptoms. No atypical chest pain for CAD. No palpitations. No PND. No orthopnea. GASTROINTESTINAL: No abdominal pain. No nausea or vomiting. No diarrhea or constipation. No hematemesis. No hematochezia. GENITOURINARY: No urgency. No frequency. No dysuria. No hematuria. No obstructive symptoms. No discharge. No pain. No significant abnormal bleeding. MUSCULOSKELETAL: No musculoskeletal pain; no joint swelling. NEUROLOGICAL: No headache. No neck pain. No syncope. No seizures. No dizziness. PSYCHIATRIC: Not anxious. No depression. No suicidal thoughts. No homicidal thoughts. SKIN: No rash. No lesions. No wounds. ENDOCRINE: No unexplained weight loss. No weight gain. HEMATOLOGIC/LYMPHATIC: No anemia. No purpura. No petechiae. No prolonged or excessive bleeding. No palpable lymph nodes. PHYSICAL EXAMINATION: VITAL SIGNS: Temperature 98, pulse 68, respiratory rate 18, blood pressure 153/70 and pulse ox 98% with 40% FiO2 HEENT: Head normocephalic, atraumatic. Eyes: Extraocular muscles are intact. Pupils are equal, round and reactive to light and accommodation. Ears: No lesions. Nose appeared normal. Throat: No exudate or erythema. NECK: Supple. No JVD, no carotid bruit. No lymphadenopathy or thyromegaly. LUNGS: Few crepitations, dry at the bases but good air entry. Clear to auscultation. Percussion note normal. Chest symmetrical. HEART: S1, S2, no S3. No murmurs. No cyanosis or clubbing. No ascites. Pulses: Dorsalis pedis and posterior tibial pulses +1 to +2 bilaterally. ABDOMEN: Soft. Nontender. Bowel sounds active. No CVA tenderness. No mass felt. EXTREMITIES: No edema. Full range of motion of all extremities, equal. NEUROLOGIC: No focal deficit. Cranial nerves II through XII are grossly intact. No headache. No double vision. SKIN: Not dry. Intact. Turgor - normal. LYMPHATIC: No palpable lymph nodes/no lymphedema. MUSCULOSKELETAL: Normal joints with no swelling. Muscle tone is normal. LABS: Hgb 8.7, hct 27, WBC 11,000 normal differentia, creatinine 1, BUN 41, potassium 4.4 ASSESSMENT: 1. Respiratory failure seems to be resolving. Etiology of respiratory failure is combination of CHF, COPD with chronic bronchitis. PLAN: 1. Wean him off high flow oxygen, put him on 2-3 liters 2. Steroids 3. Given Lasix CONDITION: Stable. TIME SPENT: More than 30 minutes. Plan and coordination of the patient's care discussed in the presence of nurse. PAMELA
--- NOTE | 2021-11-16 09:03 | PN ---
DATE OF SERVICE: 11/07/21 SUBJECTIVE: The patient was seen and examined with the Nurse Practitioner. The patient's condition has steadily improved. Shortness of breath noted from inactivity but he has been walking and getting the strength back. Cardiovascular status is stable with no symptoms of CHF or coronary insufficiency. TIME SPENT: More than 30 minutes. Plan and coordination of the patient's care discussed in the presence of nurse. PAMELA
--- NOTE | 2021-11-18 11:34 | DS ---
DATE OF SERVICE: 11/12/21 FINAL DIAGNOSIS: 1. CHF 2. History of chronic respiratory failure with COPD, restrictive obstructive 3. History of hypertension 4. Diabetes Mellitus type II 5. Hypertrophic cardiomyopathy 6. Coronary bypass surgery, 2010 7. Coronary artery disease with stent, August 2018 Dr. Rodríguez 8. Left carotid endarterectomy with history of TIAs, Dr. Roberts November 2018 9. 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 16.Diabetes mellitus type II, insulin dependent 17.Chronic anemia DISCHARGE INSTRUCTIONS: Discharge home. The patient is advised to continue his medications. MEDICATIONS AT DISCHARGE: Digoxin Plavix Proscar Aspirin Pantoprazole Lovastatin Amlodipine Carvedilol Gabapentin ProAir HFA PRN Memantine Sitagliptin Losartan Levemir 50 units SUBCUT daily Tamsulosin 0.4mg daily NEW PRESCRIPTIONS: Furosemide dose 40mg daily was changed new dose. Prednisone 20mg daily for 5 days after that 10mg daily for 5 days. HOSPITAL COURSE: 86 year old white male hospitalized with CHF exacerbation. The patient has dilated hypertropic cardiomyopathy with history of coronary disease with stent. Also had coronary bypass surgery in 2010. The patient has history of pulmonary edema with CHF. The patient was treated with IV Lasix. He was in respiratory failure which is also secondary to chronic respiratory insufficiency the patient with obstructive sleep apnea. Condition improved. He was put on BIPAP, oxygen was also needed along with IV steroids. The patient stayed in the hospital 8-9 days and during that time his condition seems to have stabilizing. He is short of breath on minimal exertion barely able to walk. Insisted on going home. Discussed was held with the family there was some inclination of putting this patient on Hospice but was not ready. In any case the patient was discharged home on 4 liters of oxygen along with increasing dose of Lasix. Considering the patient's multiple medical conditions his prognosis is poor and he understands. The patient is DNR. TIME SPENT: More than 60 minutes. PAMELA
--- NOTE | 2021-11-18 13:48 | PN ---
ADMISSION DAY: Level 5 REST OF THE DAYS: INTERMEDIATE FINAL DAY: D IN DISCHARGE MTDD
== END 2021-11-12 13:15 | disposition home or self-care (01) | DRG 291 ==
LOC: ED 07:40 → MEDSURG A 09:28
PROVIDERS: ADMIT Internal Medicine; ATTEND Internal Medicine
DX: I25.10 Atherosclerotic heart disease of native coronary artery without angina pectoris; F03.90 Unspecified dementia, unspecified severity, without behavioral disturbance, psychotic disturbance, mood disturbance, and anxiety; I42.2 Other hypertrophic cardiomyopathy; Z95.1 Presence of aortocoronary bypass graft; Z20.822 Contact with and (suspected) exposure to COVID-19; G47.33 Obstructive sleep apnea (adult) (pediatric); R60.9 Edema, unspecified; Z91.11 Patient's noncompliance with dietary regimen; J44.9 Chronic obstructive pulmonary disease, unspecified; R29.6 Repeated falls; J96.00 Acute respiratory failure, unspecified whether with hypoxia or hypercapnia; Z79.4 Long term (current) use of insulin; Z86.79 Personal history of other diseases of the circulatory system; Z99.81 Dependence on supplemental oxygen; Z79.899 Other long term (current) drug therapy; E11.9 Type 2 diabetes mellitus without complications; D63.8 Anemia in other chronic diseases classified elsewhere; J18.9 Pneumonia, unspecified organism; Z51.81 Encounter for therapeutic drug level monitoring; J20.9 Acute bronchitis, unspecified; I50.9 Heart failure, unspecified; I10 Essential (primary) hypertension; N18.30 Chronic kidney disease, stage 3 unspecified